=== PATIENT | female | born 1930 | race Caucasian/White ===

== ENCOUNTER 2018-12-05 08:48 | Inpatient (IN) | payer MEDICARE, OTHER ==
[2018-12-05] VITALS (18 sets, daily range): BP systolic 75–120; BP diastolic 63–94
[~2018-12-05] VITALS: Ht 162.6 cm; Wt 73.0 kg
[2018-12-05] MEDS ORDERED: ONDANSETRON 4 MG/2 ML (SDV) Z0FRAN IVP PRN (09:15)
[2018-12-05] MEDS ORDERED: DOCUSATE SODIUM 100 MG (COLACE) CAP PO PRN (09:15)
[2018-12-05] MEDS ORDERED: MELATONIN 3 MG TABLET PO PRN (09:15)
[2018-12-05] MEDS ORDERED: CALCIUM CARBONATE 500 MG (TUMS) TAB.CHEW PO PRN (09:15)
[2018-12-05] MEDS ORDERED: LOPERAMIDE 2 MG (IMODIUM) CAP PO PRN (09:15)
--- NOTE | 2018-12-05 09:43 | NUR ---
CORONA,SUELLEN H admitted to room CU7-1, with an admitting diagnosis of afib with RVR, on 12/05/18 from [facility], accompanied by staff.SUELLEN CORONA introduced to surroundings, call light, bed controls, phone, TV, temperature control, lights, meal times, smoking policy, visitor policy, side rail policy, bathrooms and showers. Patient Rights given to patient in the handbook. SUELLEN CORONA verbalizes understanding that [facility] is not responsible for the loss or damage to any personal effects or valuables that are kept in the patients posession during their hospitalization. The following Patient Care Plans were discussed with the pt: Discharge Planning. SUELLEN CORONA verbalizes understanding of Interdisciplinary Patient Education. Patient and/or family were informed about the Rapid Response Team and its purpose.
[2018-12-05] MEDS: NS IV 1000 ML 1,000 ML IV SCH ×2 (10:00→15:46)
--- NOTE | 2018-12-05 10:17 | Pulmonary Consultation ---
History of Present Illness History of Present Illness Date of Consultation 12/05/18 10:16 Time Seen by Provider: 10:16 Date of Admission History of Present Illness 88yo with hx of Afib, and multiple falls admitted to [facility] s/p fall and found to have a left hip fracture. Transferred here from [facility] secondary to Afib RVR, hypotension requiring Levophed gtt, and need for higher level of care. PT is s/ p 2 units of PRBC on Monday. Pt was also dx with a UTI and started on Rocephin. I am consulted for pulmonary/CC management. Allergies and Home Medications Allergies Coded Allergies: No Known Drug Allergies (Unverified , 12/05/18) Home Medications Acebutolol HCl 400 Mg Capsule, 400 MG PO HS, (Reported) Aspirin 81 Mg Tablet.dr, 81 MG PO DAILY, (Reported) Calcium Carbonate/Vitamin D3 1 Each Tablet, 1 TAB PO DAILY, (Reported) Carvedilol 3.125 Mg Tablet, 3.125 MG PO BID, (Reported) Citalopram Hydrobromide 20 Mg Tablet, 10 MG PO HS, (Reported) TAKES 1/2 (20MG) TABLET Clopidogrel Bisulfate 75 Mg Tablet, 75 MG PO HS, (Reported) Diltiazem HCl 120 Mg Cap.er.24h, 120 MG PO DAILY, (Reported) Docusate Sodium 100 Mg Capsule, 400 MG PO HS, (Reported) TAKES 4 (100MG) CAPSULES Mirtazapine 7.5 Mg Tablet, 7.5 MG PO HS, (Reported) Multivitamin 1 Each Tablet, 1 TAB PO DAILY, (Reported) [place] 3 Polyunsat Fatty Acids 1,000 Mg Cap, 1,000 MG PO DAILY, (Reported) Pravastatin Sodium 20 Mg Tablet, 20 MG PO HS, (Reported) Ropinirole HCl 0.25 Mg Tablet, 0.25 MG PO TID, (Reported) Past Bedwjmo-Vyyjjv-Eknyyy Hx Patient Social History Recent Foreign Travel: No Contact w/Someone Who Travel: No Review of Systems Time Seen by Provider: 06:55 Constitutional: Weakness, Malaise; No: Fever, Chills, Sweats, Other Eyes: No: Pain, Vision change, Conjunctivae inflammation, Eyelid inflammation, Other, Redness ENT: No: Ear pain, Ear discharge, Nose pain, Nose discharge, Nose congestion, Mouth pain, Mouth swelling, Throat pain, Throat swelling, Other Respiratory: Cough, Dry, Shortness of breath, SOB with excertion; No: Wheezing , Hemoptysis, Pleuritic Pain, Sputum, Wheezing, Other Cardiovascular: Paroxysmal Noc. Dyspnea, Lt Headedness Neurological: Incoordination, Confusion Sepsis Event Evaluation Height, Weight, BMI Height: '" Weight: lbs. oz. kg; BMI Method: Exam Exam Vital Signs Date Time Temp Pulse Resp B/P (MAP) Pulse Ox O2 Delivery O2 Flow Rate FiO2 12/05/18 09:49 104 Height & Weight Height: '" Weight: lbs. oz. kg; BMI Method: General Appearance: Anxious, Chronically ill, Thin HEENT: PERRL/EOMI, Normal ENT Inspection, Pharynx Normal Neck: Full Range of Motion, Non Tender, Supple Respiratory: Chest Non Tender, Crackles, Decreased Breath Sounds Cardiovascular: No Murmur, Irregularly Irregular, Tachycardia Capillary Refill: Less Than 3 Seconds Gastrointestinal: normal bowel sounds, non tender, soft Extremity: Normal Capillary Refill, Normal Inspection, Normal Range of Motion Neurologic/Psychiatric: Alert, Oriented x3 Skin: Normal Color, Warm/Dry Lymphatic: No Adenopathy Assessment/Plan Assessment/Plan S/p fall resulting in hip fracture - now S/p Left hip surgery 12/02/18 Hypotension - -Monitor close -IVF Pleural effusion with hypoxia -Monitor -Oxygen Atelectasis -IS -Increase activity Afib RVR -Cardiology following Anemia s/p transfusion Thrombocytopenia - monitor ANTON GLASER DO Dec 05, 2018 10:17
--- NOTE | 2018-12-05 10:39 | Progress Note-Hospitalist ---
Progress Note Patient [place] [facility] [place] w/RVR with hypotension in need of higher level of care and Cardiology expertise. Patient with chronic AF but not an anticoagulation candidate due to multiple falls who was admitted [place] [facility] [place] a left hip fracture sustained in a fall at home. Received 2 units of blood post operatively on Monday and required a total of 5000cc of fluid then Levophed at 4mcg to maintain SBP above 110. Patient was noted to have UTI placed on Rocephin. Had episode of oliguria resolved with low dose Lasix. Pt was able to recover for 1 day and actually improved and DC Levophed and participated in PT but then began having AF w/RVR and unable to manage it due to hypotension so she was transferred to [facility]. Patient is maintained at DNR and overall her prognosis is at best guarded. AUGUSTIN TIWARI DO Dec 05, 2018 10:39
[2018-12-05 11:24] LABS: BASOPHILS % (AUTO) 1 % (0-10); EOSINOPHILS # (AUTO) 0.1 10^3/uL (0.0-0.3); EOSINOPHILS % (AUTO) 2 % (0-10); HEMATOCRIT 29 % (35-52); HEMOGLOBIN 9.2 G/DL (11.5-16.0); LYMPHOCYTES # (AUTO) 1.1 X 10^3 (1.0-4.0); LYMPHOCYTES % (AUTO) 18 % (12-44); MEAN CORPUSCULAR HEMOGLOBIN 33 PG (25-34); MEAN CORPUSCULAR HGB CONC 32 G/DL (32-36); MEAN CORPUSCULAR VOLUME 102 FL (80-99); MEAN PLATELET VOLUME 9.7 FL (7.4-10.4); MONOCYTES # (AUTO) 0.9 X 10^3 (0.0-1.0); MONOCYTES % (AUTO) 14 % (0-12); NEUTROPHILS # (AUTO) 4.3 X 10^3 (1.8-7.8); NEUTROPHILS % (AUTO) 66 % (42-75); PLATELET COUNT 120 10^3/uL (130-400); RED CELL DISTRIBUTION WIDTH 15.1 % (10.0-14.5); WHITE BLOOD COUNT 6.5 10^3/uL (4.3-11.0)
[2018-12-05 11:44] LABS: ALANINE AMINOTRANSFERASE 11 U/L (0-55); ALBUMIN 2.6 GM/DL (3.2-4.5); ALKALINE PHOSPHATASE 45 U/L (40-136); BILIRUBIN,TOTAL 0.5 MG/DL (0.1-1.0); BUN/CREATININE RATIO 29; CALCIUM 7.9 MG/DL (8.5-10.1); CARBON DIOXIDE 24 MMOL/L (21-32); CHLORIDE 109 MMOL/L (98-107); CREATININE SERUM 0.68 MG/DL (0.60-1.30); GFR ESTIMATED > 60; GLUCOSE 107 MG/DL (70-105); POTASSIUM 3.9 MMOL/L (3.6-5.0); SODIUM 139 MMOL/L (135-145); TOTAL PROTEIN 4.9 GM/DL (6.4-8.2)
--- NOTE | 2018-12-05 12:03 | NUR ---
SPOKE WITH THE PATIENT ABOUT HER MEDICATIONS. SHE STATES SHE DOES NOT KNOW WHAT SHE TAKES, MALI, A FRIEND SETS UP HER MEDS IN A [employer]ILL [employer] CLERK FOR HER. I CALLED MALI AT [phone] AND SPOKE WITH HER. SHE VERIFIED THAT ALL HER PRESCRIPTION MEDICATION COMES FROM [employer] MAIL ORDER AND LISTED WHAT MEDS SHE TAKES OTC. SHE DID NOT KNOW HOW SHE SETS THEM UP SPECIFICALLY OFF THE TOP OF HER HEAD BUT WILL CALL ME BACK WHEN SHE GOES TO THE PATIENTS [place] TO GET HER MED LIST TO VERIFY ALL MEDS. I WILL UPDATE THE MED REC AND REVIEW IT WHEN SHE CALLS ME BACK. Addendum: 12/05/18 at 1346 by [facility] MALI CALLED ME BACK AT THIS TIME AND READ ALL THE MEDICATIONS OFF HER MED LIST AT HOME. SHE VERIFIED THE TIMES AND DOSES ON EACH MEDICATION.
--- NOTE | 2018-12-05 12:59 | Diagnostic Imaging Report ---
INDICATION: Hypotension. The heart is enlarged. The central pulmonary vascularity is somewhat prominent but there is no evidence for overt failure. There is no sign of pneumonia either. There is slight blunting of the costophrenic angles. This could be secondary to pleural thickening or small effusions. The mediastinum is not widened. The osseous structures are intact. IMPRESSION: 1. The blunted appearance of the costophrenic angles maybe secondary to small effusions or to pleural thickening. If previous studies are available they would be helpful for comparison. 2. There is cardiomegaly but there is no evidence for an acute cardiopulmonary abnormality otherwise. Dictated by: Dictated on workstation # [id number]
--- NOTE | 2018-12-05 14:27 | Consultation-Cardiology ---
HPI-Cardiology Cardiology Consultation: Date of Consultation 12/05/18 Time Seen by a Provider: 13:10 Date of Admission Attending Physician Nayely Esquivel DO Admitting Physician No,Local Physician Consulting Physician MARINA ZHANG MD, MA, FACP, FACC, FSCAI, CCDS Physician requesting consult: Dr Esquivel HPI: Chief Complaint: Reason for consultation: A Fib, hypotension HPI: 88 woman who had a non-syncopal fall resulting in L leg fracture for which she had surgery at [facility] and was running a low bp and irreg heart rhythm afterwards and was transferred to this hosp for further eval She denies cp or palp or syncope Has chronic mild shortness of breath Does not report prior leg swelling Review of Systems-Cardiology Review of Systems Constitutional: malaise; No weight loss, No weight gain Eyes: No vision change Ears/Nose/Throat: No ear discharge, No nasal drainage, No recent hearing loss Respiratory: As described under HPI Cardiovascular: As described under HPI Gastrointestinal: No diarrhea, No nausea, No vomiting Genitourinary: No dysuria, No hematuria, No urine frequency changes Musculoskeletal: back pain (chronic), joint pain (chronic) Skin: No rash, No ulcerations Psychiatric/Neurological: No seizure, No focal weakness, No syncope Hematologic: No bleeding abnormalities PHN-Dbnesz-Uybeht Hx Patient Social History Alcohol Use: Denies Use Recreational Drug Use: No Recent Foreign Travel: No Physical Abuse Screen: No Sexual Abuse: No Immunizations Up To Date Date of Pneumonia Vaccine: Sep 22, 2018 Date of Influenza Vaccine: Sep 22, 2018 Past Medical History PMH As described under Assessment. Family Medical History Family Medical History: Does not report fam h/o early CAD or SCD Allergies and Home Medications Allergies Coded Allergies: No Known Drug Allergies (Unverified , 12/05/18) Home Medications Acebutolol HCl 400 Mg Capsule, 400 MG PO HS, (Reported) Aspirin 81 Mg Tablet.dr, 81 MG PO DAILY, (Reported) Calcium Carbonate/Vitamin D3 1 Each Tablet, 1 TAB PO DAILY, (Reported) Carvedilol 3.125 Mg Tablet, 3.125 MG PO BID, (Reported) Citalopram Hydrobromide 20 Mg Tablet, 10 MG PO HS, (Reported) TAKES 1/2 (20MG) TABLET Clopidogrel Bisulfate 75 Mg Tablet, 75 MG PO HS, (Reported) Diltiazem HCl 120 Mg Cap.er.24h, 120 MG PO DAILY, (Reported) Docusate Sodium 100 Mg Capsule, 400 MG PO HS, (Reported) TAKES 4 (100MG) CAPSULES Mirtazapine 7.5 Mg Tablet, 7.5 MG PO HS, (Reported) Multivitamin 1 Each Tablet, 1 TAB PO DAILY, (Reported) [place] 3 Polyunsat Fatty Acids 1,000 Mg Cap, 1,000 MG PO DAILY, (Reported) Pravastatin Sodium 20 Mg Tablet, 20 MG PO HS, (Reported) Ropinirole HCl 0.25 Mg Tablet, 0.25 MG PO TID, (Reported) Patient Home Medication List Home Medication List Reviewed: Yes Physical Exam-Cardiology Physical Exam Vital Signs/I&O 12/05/18 12/05/18 12/05/18 12/05/18 09:30 09:45 09:49 10:00 Pulse 99 104 98 Resp 13 27 B/P (MAP) 97/70 (79) 101/74 (83) Pulse Ox 96 97 O2 Delivery Nasal Cannula Nasal Cannula Nasal Cannula O2 Flow Rate 2.00 2.00 2.00 12/05/18 12/05/18 12/05/18 12/05/18 10:15 10:30 10:45 11:00 Pulse 98 95 101 98 Resp 17 15 27 23 B/P (MAP) 100/75 (83) 91/75 (80) 105/71 (82) 99/72 (81) Pulse Ox 97 97 97 98 O2 Delivery Nasal Cannula Nasal Cannula Nasal Cannula Nasal Cannula O2 Flow Rate 2.00 2.00 2.00 2.00 12/05/18 12/05/18 12/05/18 11:00 12:00 12:00 Temp 98.1 Pulse 109 Resp 22 B/P (MAP) 102/80 (87) Pulse Ox 96 96 O2 Delivery Nasal Cannula Nasal Cannula O2 Flow Rate 2.00 2.00 Capillary Refill : Less Than 3 Seconds Constitutional: AAO x 3, well-developed, other (thin-appearing) HEENT: PERRL, EOMI, hearing is well preserved; No xanthelasmas are seen Neck: carotid pulses are 2 + bilaterally, with good upstrokes Respiratory: No accessory muscle use; other (Fair to good bilat air entry; prolonged exp phase) Cardiovascular: irregularly irregular, S1 and S2, systolic murmur (soft SHAKA at card base) Gastrointestinal: No tender; soft; No guarding, No rebound; audible bowel sounds Extremities: pedal edema (mild); No clubbing, No cyanosis Neurologic/Psychiatric: oriented x 3, other (Seems to be able to move all limbs equally; we did not attempt any motion at the affected leg) Skin: No rash on exposed areas, No ulcerations on exposed areas Data Review Labs Laboratory Tests 12/05/18 11:05: White Blood Count 6.5, Red Blood Count 2.81L, Hemoglobin 9.2L, Hematocrit 29L, Mean Corpuscular Volume 102H, Mean Corpuscular Hemoglobin 33, Mean Corpuscular Hemoglobin Concent 32, Red Cell Distribution Width 15.1H, Platelet Count 120L, Mean Platelet Volume 9.7, Neutrophils (%) (Auto) 66, Lymphocytes (%) (Auto) 18, Monocytes (%) (Auto) 14H, Eosinophils (%) (Auto) 2, Basophils (%) (Auto) 1, Neutrophils # (Auto) 4.3, Lymphocytes # (Auto) 1.1, Monocytes # (Auto) 0.9, Eosinophils # (Auto) 0.1, Basophils # (Auto) 0.0, Sodium Level 139, Potassium Level 3.9, Chloride Level 109H, Carbon Dioxide Level 24, Anion Gap 6, Blood Urea Nitrogen 20H, Creatinine 0.68, Estimat Glomerular Filtration Rate > 60, BUN /Creatinine Ratio 29, Glucose Level 107H, Lactic Acid Level 0.76, Calcium Level 7.9L, Corrected Calcium 9.0, Total Bilirubin 0.5, Aspartate Amino Transf (AST/ SGOT) 27, Alanine Aminotransferase (ALT/SGPT) 11, Alkaline Phosphatase 45, Troponin I 0.275, B-Type Natriuretic Peptide 713.7H, Total Protein 4.9L, Albumin 2.6L Laboratory Tests 12/05/18 11:05 A/P-Cardiology Assessment/Admission Diagnosis S/p L hip surgery on 12/02/18 after a nonsyncopal fall. Transferred to this hosp on 12/05/18 from [facility] Atrial fibrillation, apparently chronic Relative hypotension Mildly elevated troponin w/o evidence of ac [place]. Mild troponin elev prob due to hypotension and perioperative blood loss Post-op anemia. Has received blood transfusion at [facility] Discussion and Recomendations * iv fluids for bp support * Echo to eval LVEF and valve function * Low dose dig to control heart rate * Keep on tele * Monitor labs closely * I answered her and her son's questions in detail Clinical Quality Measures DVT/VTE Risk/Contraindication: Risk Factor Score Per Nursin RFS Level Per Nursing on Admit: 4+=Very High MARINA ZHANG MD FACP FAC CCDS Dec 05, 2018 14:26
[2018-12-05] MEDS ORDERED: DIGOXIN 0.25 MG/ML (LANOXIN) 2 ML AMP IV NR (15:00)
[2018-12-05 16:14] LABS: BILIRUBIN,URINE NEGATIVE (NEGATIVE); CLARITY,URINE CLEAR; COLOR,URINE YELLOW; GLUCOSE, URINE (UA) NEGATIVE (NEGATIVE); KETONES,URINE NEGATIVE (NEGATIVE); LEUKOCYTE ESTERASE ,URINE 1+ (NEGATIVE); NITRITE,URINE NEGATIVE (NEGATIVE); PH,URINE 6 (5-9); PROTEIN,URINE 2+ (NEGATIVE); UROBILINOGEN,URINE NORMAL (NORMAL)
[2018-12-05 16:20] LABS: RBC,URINE >100 /HPF
[2018-12-05] MEDS: ACETAMINOPHEN 500 MG TAB (TYLENOL) PO PRN (16:23)
[2018-12-05] MEDS: POLYETHYLENE GLYCOL 17 GM (MIRALAX) PACK PO SCH (21:00)
[2018-12-06] VITALS (24 sets, daily range): BP systolic 96–133; BP diastolic 39–98
[2018-12-06] MEDS: NS IV 1000 ML 1,000 ML IV SCH ×2 (01:13→08:43)
[2018-12-06 03:55] LABS: BASOPHILS # (AUTO) 0.1 10^3/uL (0.0-0.1); BASOPHILS % (AUTO) 1 % (0-10); EOSINOPHILS # (AUTO) 0.2 10^3/uL (0.0-0.3); EOSINOPHILS % (AUTO) 3 % (0-10); HEMATOCRIT 30 % (35-52); HEMOGLOBIN 9.5 G/DL (11.5-16.0); LYMPHOCYTES # (AUTO) 1.4 X 10^3 (1.0-4.0); LYMPHOCYTES % (AUTO) 23 % (12-44); MEAN CORPUSCULAR HEMOGLOBIN 32 PG (25-34); MEAN CORPUSCULAR HGB CONC 32 G/DL (32-36); MEAN CORPUSCULAR VOLUME 102 FL (80-99); MEAN PLATELET VOLUME 9.8 FL (7.4-10.4); MONOCYTES # (AUTO) 0.8 X 10^3 (0.0-1.0); MONOCYTES % (AUTO) 14 % (0-12); NEUTROPHILS # (AUTO) 3.6 X 10^3 (1.8-7.8); NEUTROPHILS % (AUTO) 60 % (42-75); PLATELET COUNT 127 10^3/uL (130-400); RED CELL DISTRIBUTION WIDTH 14.8 % (10.0-14.5)
[2018-12-06 04:17] LABS: ALANINE AMINOTRANSFERASE 12 U/L (0-55); ALBUMIN 2.4 GM/DL (3.2-4.5); ALKALINE PHOSPHATASE 40 U/L (40-136); BILIRUBIN,TOTAL 0.5 MG/DL (0.1-1.0); BUN/CREATININE RATIO 28; CARBON DIOXIDE 25 MMOL/L (21-32); CHLORIDE 113 MMOL/L (98-107); CREATININE SERUM 0.64 MG/DL (0.60-1.30); GFR ESTIMATED > 60; GLUCOSE 94 MG/DL (70-105); MAGNESIUM 1.6 MG/DL (1.8-2.4); PHOSPHORUS 2.1 MG/DL (2.3-4.7); POTASSIUM 4.1 MMOL/L (3.6-5.0); SODIUM 143 MMOL/L (135-145); TOTAL PROTEIN 4.8 GM/DL (6.4-8.2)
[2018-12-06] MEDS ORDERED: ENOXAPARIN 40 MG/0.4 ML (LOVENOX) SYR SC SCH (07:00)
--- NOTE | 2018-12-06 07:02 | Pulmonary Progress Note ---
Subjective Time Seen by a Provider: 07:05 Subjective/Events-last exam Pt appears very weak. Sepsis Event Evaluation Height, Weight, BMI Height: 5'4.00" Weight: 149lbs. 1.0oz. 67.110887pw; 25.6 BMI Method: Focused Exam Lactate Level 12/05/18 11:05: Lactic Acid Level 0.76 Exam Exam Vital Signs Date Time Temp Pulse Resp B/P (MAP) Pulse Ox O2 Delivery O2 Flow Rate FiO2 12/06/18 06:00 120 19 118/92 (101) 96 Nasal Cannula 2.00 12/06/18 05:00 82 56 110/85 (93) 98 Nasal Cannula 2.00 12/06/18 04:00 116 16 104/84 (91) 96 Nasal Cannula 2.00 12/06/18 03:00 101 23 133/92 (106) 97 Nasal Cannula 2.00 12/06/18 02:00 109 15 115/87 (96) Nasal Cannula 2.00 12/06/18 01:00 100 12/06/18 01:00 104 22 121/84 (96) Nasal Cannula 2.00 12/06/18 00:00 95 Nasal Cannula 2.00 12/06/18 00:00 98 14 118/76 (90) Nasal Cannula 2.00 12/05/18 23:50 Nasal Cannula 2.00 12/05/18 23:00 98 16 101/65 (77) 97 Nasal Cannula 2.00 12/05/18 22:00 98 15 106/71 (83) 96 Nasal Cannula 2.00 12/05/18 21:00 92 16 106/71 (83) 98 Nasal Cannula 2.00 12/05/18 20:00 92 41 112/80 (91) 97 Nasal Cannula 2.00 12/05/18 20:00 95 Nasal Cannula 2.00 12/05/18 19:00 92 19 99/71 (80) 97 Nasal Cannula 2.00 12/05/18 19:00 92 12/05/18 18:00 115 22 91/68 (76) 97 Nasal Cannula 2.00 12/05/18 18:00 98.7 12/05/18 17:06 124 12/05/18 17:00 126 9 120/94 (103) 97 Nasal Cannula 2.00 12/05/18 16:00 96 Nasal Cannula 2.00 12/05/18 16:00 102 27 112/63 (79) 93 Nasal Cannula 2.00 12/05/18 15:00 123 10 86/67 (73) 90 Nasal Cannula 2.00 12/05/18 14:00 99 16 91/73 (79) 97 Nasal Cannula 2.00 12/05/18 13:00 101 16 75/65 (68) 96 Nasal Cannula 2.00 12/05/18 13:00 98.9 12/05/18 12:00 109 22 102/80 (87) 96 Nasal Cannula 2.00 12/05/18 12:00 96 Nasal Cannula 2.00 12/05/18 11:00 98.1 12/05/18 11:00 98 23 99/72 (81) 98 Nasal Cannula 2.00 12/05/18 10:45 101 27 105/71 (82) 97 Nasal Cannula 2.00 12/05/18 10:30 95 15 91/75 (80) 97 Nasal Cannula 2.00 12/05/18 10:15 98 17 100/75 (83) 97 Nasal Cannula 2.00 12/05/18 10:00 98 27 101/74 (83) 97 Nasal Cannula 2.00 12/05/18 09:49 104 12/05/18 09:45 99 13 97/70 (79) 96 Nasal Cannula 2.00 12/05/18 09:30 Nasal Cannula 2.00 I & O 12/06/18 07:00 Output Total 475 ml Balance -475 ml Height & Weight Height: 5'4.00" Weight: 149lbs. 1.0oz. 67.486698oc; 25.6 BMI Method: General Appearance: Anxious, Chronically ill, Thin HEENT: PERRL/EOMI, Normal ENT Inspection, Pharynx Normal Neck: Full Range of Motion, Non Tender, Supple Respiratory: Chest Non Tender, Crackles, Decreased Breath Sounds Cardiovascular: No Murmur, Irregularly Irregular, Tachycardia Capillary Refill: Less Than 3 Seconds Gastrointestinal: normal bowel sounds, non tender, soft Extremity: Normal Capillary Refill, Normal Inspection, Normal Range of Motion Neurologic/Psychiatric: Alert, Oriented x3 Skin: Normal Color, Warm/Dry Lymphatic: No Adenopathy Results Lab Laboratory Tests 12/05/18 11:05 12/06/18 03:20 Assessment/Plan Assessment/Plan S/p fall resulting in hip fracture - now S/p Left hip surgery 12/02/18 Hypotension - -Monitor close -IVF Pleural effusion with hypoxia BNP 713 -Monitor -Oxygen Atelectasis -IS -Increase activity Afib RVR -Cardiology following post operative Anemia s/p transfusion 4units of PRBC at [facility] [place] -Check occult stool -protonix 40mg daily mild Thrombocytopenia - monitor Pt is high risk for DVT -will start lovenox 40mg sub q daily -Monitor Hb -start protonix -SCDs ANTON GLASER DO Dec 06, 2018 07:02
[2018-12-06] MEDS ORDERED: ENOXAPARIN 40 MG/0.4 ML (LOVENOX) SYR ONE (07:03)
[2018-12-06] MEDS: MAGNESIUM 1 GM/100 ML IVPB 100 ML IV SCH ×2 (07:10→08:37)
[2018-12-06] MEDS: PANTOPRAZOLE 40 MG (PROTONIX) VIAL IV SCH (08:36)
[2018-12-06] MEDS: POLYETHYLENE GLYCOL 17 GM (MIRALAX) PACK PO SCH ×4 (08:37→20:19)
--- NOTE | 2018-12-06 08:43 | Progress Note-Cardiology ---
Cardiology SOAP Progress Note Subjective: Sitting up in bed. C/O left hip pain. No c/o CP, dyspnea or palpitations. Objective: I&O/Vital Signs 12/06/18 12/06/18 12/06/18 12/06/18 03:00 04:00 04:00 04:00 Temp 98.8 Pulse 101 116 Resp 23 16 B/P (MAP) 133/92 (106) 104/84 (91) Pulse Ox 97 96 95 O2 Delivery Nasal Cannula Nasal Cannula Nasal Cannula O2 Flow Rate 2.00 2.00 2.00 12/06/18 12/06/18 12/06/18 12/06/18 05:00 06:00 07:00 07:51 Pulse 82 120 126 120 Resp 56 19 24 B/P (MAP) 110/85 (93) 118/92 (101) 128/84 (99) Pulse Ox 98 96 O2 Delivery Nasal Cannula Nasal Cannula Nasal Cannula O2 Flow Rate 2.00 2.00 2.00 12/06/18 12/06/18 12/06/18 12/06/18 07:57 08:00 08:00 09:00 Temp 98.2 Pulse 113 Resp 18 45 B/P (MAP) 104/94 (97) 100/87 (91) Pulse Ox 95 96 O2 Delivery Nasal Cannula Nasal Cannula Nasal Cannula O2 Flow Rate 2.00 2.00 2.00 12/06/18 12/06/18 12/06/18 12/06/18 09:43 10:00 11:00 12:00 Pulse 75 125 120 Resp 20 20 B/P (MAP) 103/79 (87) 112/82 (92) Pulse Ox 95 96 96 O2 Delivery Nasal Cannula Nasal Cannula Nasal Cannula O2 Flow Rate 2.00 2.00 2.00 12/06/18 12/06/18 12:00 12:06 Temp 98.3 Pulse 123 Resp 21 B/P (MAP) 122/78 (93) Pulse Ox 95 O2 Delivery Nasal Cannula O2 Flow Rate 2.00 12/06/18 00:00 Output Total 475 ml Balance -475 ml Weight (Pounds): 151 Weight (Ounces): 1.0 Weight (Calculated Kilograms): 68.432012 Constitutional: AAO x 3, well-developed, other (thin-appearing) Respiratory: No accessory muscle use; other (Fair to good bilat air entry; prolonged exp phase) Cardiovascular: irregularly irregular, S1 and S2, systolic murmur (soft SHAKA at card base) Gastrointestional: No tender; soft; No guarding, No rebound; audible bowel sounds Extremities: pedal edema (mild - wraps in place to LE bilat); No clubbing, No cyanosis Neurologic/Psychiatric: oriented x 3, other (Seems to be able to move all limbs equally; we did not attempt any motion at the affected leg) Skin: No rash on exposed areas, No ulcerations on exposed areas Results/Procedures: Labs Laboratory Tests 12/05/18 16:05: Urine Color YELLOW, Urine Clarity CLEAR, Urine pH 6, Urine Specific [place] 1.020, Urine Protein 2+H, Urine Glucose (UA) NEGATIVE, Urine Ketones NEGATIVE, Urine Nitrite NEGATIVE, Urine Bilirubin NEGATIVE, Urine Urobilinogen NORMAL, Urine Leukocyte Esterase 1+H, Urine RBC (Auto) 5+H, Urine RBC >100H, Urine WBC 2 -5, Urine Squamous Epithelial Cells 2-5, Urine Crystals NONE, Urine Bacteria NONE, Urine Casts NONE, Urine Mucus NEGATIVE, Urine Culture Indicated NO 12/06/18 03:20: White Blood Count 6.0, Red Blood Count 2.93L, Hemoglobin 9.5L, Hematocrit 30L, Mean Corpuscular Volume 102H, Mean Corpuscular Hemoglobin 32, Mean Corpuscular Hemoglobin Concent 32, Red Cell Distribution Width 14.8H, Platelet Count 127L, Mean Platelet Volume 9.8, Neutrophils (%) (Auto) 60, Lymphocytes (%) (Auto) 23, Monocytes (%) (Auto) 14H, Eosinophils (%) (Auto) 3, Basophils (%) (Auto) 1, Neutrophils # (Auto) 3.6, Lymphocytes # (Auto) 1.4, Monocytes # (Auto) 0.8, Eosinophils # (Auto) 0.2, Basophils # (Auto) 0.1, Sodium Level 143, Potassium Level 4.1, Chloride Level 113H, Carbon Dioxide Level 25, Anion Gap 5, Blood Urea Nitrogen 18, Creatinine 0.64, Estimat Glomerular Filtration Rate > 60, BUN/ Creatinine Ratio 28, Glucose Level 94, Calcium Level 8.0L, Corrected Calcium 9.3 , Phosphorus Level 2.1L, Magnesium Level 1.6L, Total Bilirubin 0.5, Aspartate Amino Transf (AST/SGOT) 26, Alanine Aminotransferase (ALT/SGPT) 12, Alkaline Phosphatase 40, Total Protein 4.8L, Albumin 2.4L A/P: Assessment: S/p L hip surgery on 12/02/18 after a nonsyncopal fall. Transferred to this hosp on 12/05/18 from [facility] Atrial fibrillation, apparently chronic - rate not well controlled Relative hypotension - improved today Mildly elevated troponin w/o evidence of ac [place]. Mild troponin elev prob due to hypotension and perioperative blood loss Post-op anemia. Has received blood transfusion at [facility] - H/H improved Plan: * BP is better today * Resume Cardizem (which she was on at home) for rate control * Echo to eval LVEF and valve function - pending * The other issue is that of OAC for stroke prophylaxis - we do advise stopping Lovenox and starting low dose Eliquis 2.5 mg BID if ok with Dr. Esquivel * Continue to hold BB for now d/t suspicions of possible bradycardia and/or hypotension * Keep on tele * Monitor labs closely Physician Assessment Physician Assessment No cp or palp or syncope. Gen malaise present. No shortness of breath at rest Lungs: fair to good bilat air entry, diminished at the bases Cor: irreg, somewhat rapid rate Ext: no c/c/e A&R * As documented in our note above that I updated (italics) and as noted below * Cautiously add low-dose, long-acting dilt to the regimen * Cautiously add apixaban to regimen (d/c enoxaparin) * Monitor labs ANH MENDENHALL EDUCATIONAL ADVISER Dec 06, 2018 08:43 MARNIA ZHANG MD [facility] CCDS Dec 06, 2018 14:22
[2018-12-06] MEDS ORDERED: DILTIAZEM 240 MG (CARDIZEM CD) CAP PO ONE (08:45)
[2018-12-06] MEDS ORDERED: DILTIAZEM 120 MG (CARDIZEM CD) CAP PO SCH (09:00)
[2018-12-06] MEDS ORDERED: DILTIAZEM 120 MG (CARDIZEM CD) CAP PO ONE (09:05)
--- NOTE | 2018-12-06 09:19 | History & Physical-Hospitalist ---
History of Present Illness HPI/Chief Complaint CC: AF w/RVR w/hypotension HPI: Patient transferred from [facility] due to AF w/RVR with hypotension in need of higher level of care and Cardiology expertise. Patient with chronic AF but not an anticoagulation candidate due to multiple falls who was admitted to [facility] following a left hip fracture sustained in a fall at home. Received 2 units of blood post operatively on Monday and required a total of 5000cc of fluid then Levophed at 4mcg to maintain SBP above 110. Patient was noted to have UTI placed on Rocephin. Had episode of oliguria resolved with low dose Lasix. Pt was able to recover for 1 day and actually improved and DC Levophed and participated in PT but then began having AF w/RVR and unable to manage it due to hypotension so she was transferred to [facility]. Patient is maintained at DNR and overall her prognosis is at best guarded. Patient is doing better. Ordered PT/OT. Rate still somewhat RVR. Hypotension improved. Eliquis low dose will be initiated for DVT Px. No BM for several days due to such critical illness so will start meds today. Source: patient, family, RN/MD, old records Exam Limitations: no limitations Date Seen 12/06/18 Time Seen by a Provider: 10:00 Attending Physician Nayely Esquivel DO PCP No,Local Physician Referring Physician Date of Admission Dec 05, 2018 at 09:33 Home Medications & Allergies Home Medications Reviewed patient Home Medication Reconciliation performed by pharmacy medication reconciliations computer operations technician and/or nursing. Patients Allergies have been reviewed. Allergies Allergies Coded Allergies No Known Drug Allergies (Unverified12/05/18) Past Imqrgix-Ssgglq-Hlofnk Hx Past Med/Social Hx: Reviewed Nursing Past Med/Soc Hx, Reviewed and Corrections made Patient Social History Marrital Status: Employed/Student: retired Alcohol Use: Denies Use Recreational Drug Use: No Smoking Status: Never a Smoker Physical Abuse Screen: No Sexual Abuse: No Recent Foreign Travel: No Contact w/other who traveled: No Immunizations Up To Date Date of Pneumonia Vaccine: Sep 22, 2018 Date of Influenza Vaccine: Sep 22, 2018 Past Medical History Surgeries: Orthopedic (hip fracture left 12/02/[address] [facility] Dr Nunes) Cardiac: High Cholesterol, Hypertension Genitourinary: Bladder Infection Gastrointestinal: Chronic Constipation Musculoskeletal: Arthritis Family History Hypertension Review of Systems Constitutional: see HPI, dizziness, weakness EENTM: no symptoms reported Respiratory: no symptoms reported Cardiovascular: palpitations Gastrointestinal: no symptoms reported Musculoskeletal: joint pain (left hip) Psychiatric/Neurological: Anxiety All Other Systems Reviewed Negative Unless Noted: Yes Physical Exam Physical Exam Vital Signs Vital Signs - First Documented 12/05/18 12/05/18 12/05/18 09:30 09:45 11:00 Temp 98.1 Pulse 99 Resp 13 B/P (MAP) 97/70 (79) Pulse Ox 96 O2 Delivery Nasal Cannula O2 Flow Rate 2.00 Capillary Refill : Less Than 3 SecondsLess Than 3 Seconds Height, Weight, BMI Height: 5'4.00" Weight: 151lbs. 1.0oz. 68.652623br; 25.6 BMI Method: General Appearance: No Apparent Distress, Chronically ill, Thin HEENT: PERRL/EOMI, Pharynx Normal Neck: Full Range of Motion, Normal Inspection, Non Tender, Supple Respiratory: Chest Non Tender, Lungs Clear, Normal Breath Sounds, No Accessory Muscle Use, No Respiratory Distress Cardiovascular: No Edema, No Gallop, Irregularly Irregular, Tachycardia Neurologic/Psychiatric: Alert, Oriented x3, No Motor/Sensory Deficits, Normal Mood/Affect, progress worker II-XII Norm as Tested, Disoriented (subtle) Skin: Normal Color, Warm/Dry Results Results/Procedures Labs Laboratory Tests 12/05/18 11:05 12/06/18 03:20 Patient resulted labs reviewed. Assessment/Plan Admission Diagnosis Assessment: AF w/RVR Hypotension required Levophed after 5000cc of fluid given at [facility] Orthostasis hx which gave rise to fall risk with subsequent left hip fracture s/ p repair Dr Nunes 12/02/18 Anemia s/p 4 units of blood at [facility] UTI s/p Rocephin HLP Subtle confusion Plan: PT/OT BM treatment Pain control Needs AZP Admission Status: Inpatient Order (span 2 midnights) Reason for Inpatient Admission: AF w/RVR with hypotension Diagnosis/Problems Diagnosis/Problems (1) Atrial fibrillation with rapid ventricular response Status: Acute (2) Hypotension Status: Acute Qualifiers: Hypotension type: unspecified hypotension type Qualified Codes: I95.9 - Hypotension, unspecified (3) Orthostatic hypotension Status: Chronic (4) Confusion Status: Acute (5) Closed left hip fracture Status: Acute Qualifiers: Encounter type: subsequent encounter Fracture healing: with routine healing Qualified Codes: S72.002D - Fracture of unspecified part of neck of left femur, subsequent encounter for closed fracture with routine healing (6) Anemia due to acute blood loss Status: Acute (7) Transfusion of blood during current hospitalization Status: Acute (8) Constipation Status: Acute Qualifiers: Constipation type: slow transit constipation Qualified Codes: K59.01 - Slow transit constipation Clinical Quality Measures DVT/VTE Risk/Contraindication: Risk Factor Score Per Nursin RFS Level Per Nursing on Admit: 4+=Very High NAYELY ESQUIVEL DO Dec 06, 2018 09:19
[2018-12-06] MEDS ORDERED: PIPERACILLIN/TAZO 4.5 GM/NS 100 ML IV NR ×2 (11:01)
[2018-12-06] MEDS ORDERED: LACTULOSE SYRUP 10GM/15ML (ENULOSE) 30ML UDC PO PRN (11:15)
--- NOTE | 2018-12-06 11:30 | Progress Note-Urology ---
Progress Note-Urology Progress Notes/Assess & Plan Progress/Assessment & Plan URINE CLEAR. WILL SEE HER PRN Final Diagnosis GROSS HEMATURIA HUMZA GOODMAN MD Dec 06, 2018 11:30
[2018-12-06] MEDS: SENNA W/DOCUSATE (SENOKOT S) TABLET PO SCH ×2 (12:08→20:18)
[2018-12-06] MEDS: DOCUSATE SODIUM 100 MG (COLACE) CAP PO SCH ×2 (12:08→20:18)
--- NOTE | 2018-12-06 13:51 | Physical Therapy Evaluation ---
PT Evaluation-General Medical Diagnosis Admission Date Dec 05, 2018 at 09:33 Medical Diagnosis: Afib post op hypotension Onset Date: Dec 05, 2018 Therapy Diagnosis Therapy Diagnosis: weakness, decreased mobility, gait deviation Height/Weight Height (Feet): 5 Height (Inches): 4.00 Weight (Pounds): 151 Weight (Ounces): 1.0 Precautions Precautions/Isolations: Standard Precautions Weight Bear Status Right Lower Extremity: Right Full Weight Bearing Left Lower Extremity: Left Weight Bearing/Tolerated Referral Physician: Nahun Newberry DO Reason for Referral: Evaluation/Treatment Medical History Current History Transfer from [facility] L hip fx (12/02/18) Social History Home: Assisted Living Current Living Status: Alone Entry Into Home: Level Entry Prior/Core FIM Prior Level of Function Therapy Code Descriptions/Definitions Functional [place] Measure: 0=Not Assessed/NA 4=Minimal Assistance 1=Total Assistance 5=Supervision or Setup 2=Maximal Assistance 6=Modified [place] 3=Moderate Assistance 7=Complete [place] Therapy Quality Codes: 6 Independent with activity with or without an assistive device 5 Patient requires set up or clean up by helper. Patient completes activity by themselves 4 Supervision or touching assist (CGA). Presho provide cues , steadying assist 3 The helper provides less than half the effort to complete the activity 2 The helper provides more than half the effort to complete the activity 1 Dependent. The helper does all the effort to complete an activity 7 Patient refused to complete or attempt activity 9 The patient did not perform the activity before the current illness or injury 88 Not attempted due to Medical conditions or safety concerns Functional Abilities and Goals: Independent: Patient completed the activities by him/herself, with or without an assistive device, with no assistance from a helper. Needed Some Help: Patient needed partial assistance from another person to complete activities. Dependent: A helper completed the activities for the patient. Unknown: Not Applicable: Bed Mobility: 6 Transfers (B,C,W/C) (FIM): 6 Gait: 6 Indoor Mobility (Ambulation): Independent Stairs: Not Applicalbe Prior Devices Use: Walker PT Evaluation-Current Subjective Pt in bed and reports she is nauseous. Pt agrees to PT. Nurse is also in room. Pain Numeric Pain Scale: 5-Moderate Pain Location: Left Location Body Site: Hip Pt/Family Goals Pt to return to assisted living. Objective Attachments: SCD's, Oxygen, Leon Catheter, IV ROM/Strength ROM Lower Extremities NT Strength Lower Extremities NT Integumentary/Posture Bowel Incontinence: Yes Bladder Incontinence: Leon Cath Sensory Vision: Functional Hearing: Functional Sensation Lower Extremities NT Transfers Therapy Code Descriptions/Definitions Functional [place] Measure: 0=Not Assessed/NA 4=Minimal Assistance 1=Total Assistance 5=Supervision or Setup 2=Maximal Assistance 6=Modified [place] 3=Moderate Assistance 7=Complete [place] Transfers (B, C, W/C) (FIM): 1 Scootin Supine to/from Sit: 2 Sit to/from Stand: 1 Gait Mode of Locomotion: Walk Anticipated Mode of Locomotion: Walk Gait (FIM): 1 Distance (FIM): 1=up to 49 ft Distance: 4' Gait Level of Assist: 1 Gait Persons Needed: 2 Gait Assistive Device: FWW Comments/Gait Description Pt has shuffling gait with retropulsion, possibly because of pain. Balance Sitting Static: Fair Sitting Dynamic: Fair Standing Static: Poor Standing Dynamic: Poor Assessment/Needs Pt required max A x2 to get from supine to EOB. Pt required dependent A x2 to perform sit<>stand with FWW from EOB. Pt had bowel incontinence upon standing. Transferred to commode dependent A x2. Pt required total assist with bathroom skills. Pt then transferred from commode to recliner dependent A x2 with FWW. Pt is now in recliner with nurse in room. Rehab Potential: Poor PT Short Term Goals Short Term Goals Time Frame: Dec 13, 2018 Transfers (B,C,W/C) (FIM): 3 Gait (FIM): 1 Distance (FIM): 1=up to 49 ft Gait Distance Comment: 10' Gait Level of Assist: 3 Gait Assistive Device: FWW PT Plan Problem List Problem List: Activity Tolerance, Functional Strength, Safety, Balance, Gait, Transfer Treatment/Plan Treatment Plan: Continue Plan of Care Treatment Plan: Bed Mobility, Education, Functional Activity [place], Functional Strength, Gait, Safety, Therapeutic Exercise, Transfers Treatment Duration: Dec 13, 2018 Frequency: 6 times per week Estimated Hrs Per Day: .25 hour per day Patient and/or Family Agrees t: Yes Safety Risks/Education Patient Education: Gait Training, Transfer Techniques, Correct Positioning, Safety Issues Teaching Recipient: Patient Teaching Methods: Demonstration, Discussion Discharge Recommendations Therapy D/C Recommendations: Assisted Living, Halfway Placement, Correction (TCU/NH) Time/GCodes Time In: 1300 Time Out: 1317 Total Billed Treatment Time: 17 Total Billed Treatment 1 visit LEYDI RUSSELL PT Dec 06, 2018 13:51
--- NOTE | 2018-12-06 14:57 | NUR ---
Pt is [employer]. Wardrobe Custodian provided prayer and Communion.
--- NOTE | 2018-12-06 15:45 | NUR ---
CM/SS, initial visit for consult, patient sleeping soundly. She remains in ICU at this time. History of fall at home and hip repair by Dr. Nunes 12/02/18 at [facility], post op developments requiring transfer to [facility]. Resides in [facility], will need to follow patient progress to determine a more definitive post hospital care plan.
--- NOTE | 2018-12-06 16:37 | Occupational Therapy Eval ---
OT Evaluation-General/PLF Medical Diagnosis Admission Date Dec 05, 2018 at 09:33 Medical Diagnosis: Afib post op hypotension Onset Date: Dec 05, 2018 Therapy Diagnosis Therapy Diagnosis: Weakness Height/Weight Height (Feet): 5 Height (Inches): 4.00 Weight (Pounds): 151 Weight (Ounces): 1.0 Precautions Precautions/Isolations: Standard Precautions Referral Physician: Nahun Newberry DO Referral Reason: Activity Tolerance, Self Care, Evaluation/Treatment, Strengthening/ROM Medical History Additional Medical History Pt. fell and sustained left hip fx. Had fx fixed and was pt. at [facility]. Due to needed care, transferred to this facility. Reviewed History: Yes Social History Home: Assisted Living Current Living Status: Alone Entry Into Home: Level Entry Pt. states that she lives in [facility] in [facility] [place]. ADL-Prior Level of Function Therapy Code Descriptions/Definitions Functional [place] Measure: 0=Not Assessed/NA 4=Minimal Assistance 1=Total Assistance 5=Supervision or Setup 2=Maximal Assistance 6=Modified [place] 3=Moderate Assistance 7=Complete [place] Therapy Quality Codes: 6 Independent with activity with or without an assistive device 5 Patient requires set up or clean up by helper. Patient completes activity by themselves 4 Supervision or touching assist (CGA). Foster provide cues , steadying assist 3 The helper provides less than half the effort to complete the activity 2 The helper provides more than half the effort to complete the activity 1 Dependent. The helper does all the effort to complete an activity 7 Patient refused to complete or attempt activity 9 The patient did not perform the activity before the current illness or injury 88 Not attempted due to Medical conditions or safety concerns Functional Abilities and Goals: Independent: Patient completed the activities by him/herself, with or without an assistive device, with no assistance from a helper. Needed Some Help: Patient needed partial assistance from another person to complete activities. Dependent: A helper completed the activities for the patient. Unknown: Not Applicable: ADL PLOF Comments Pt. states that she had assist to shower, but was able to dress self. Self Care: Independent Functional Cognition: Independent DME/Equipment: Bath Chair, Shower DME/Equipment Comments Walker OT Current Status Subjective Pt. reports 10/10 pain in left hip with movement. Nursing comes in to give pt. pain medication. Appearance Pt. up in her chair. Agrees to work with OT. Mental Status/Objective Patient Orientation: Person, Place Current Hand Dominance: Right Upper Extremity ROM Limited ROM in bilateral shoulders. ADL-Treatment Therapy Code Descriptions/Definitions Functional [place] Measure: 0=Not Assessed/NA 4=Minimal Assistance 1=Total Assistance 5=Supervision or Setup 2=Maximal Assistance 6=Modified [place] 3=Moderate Assistance 7=Complete [place] Therapy Quality Codes: 6 Independent with activity with or without an assistive device 5 Patient requires set up or clean up by helper. Patient completes activity by themselves 4 Supervision or touching assist (CGA). Foster provide cues , steadying assist 3 The helper provides less than half the effort to complete the activity 2 The helper provides more than half the effort to complete the activity 1 Dependent. The helper does all the effort to complete an activity 7 Patient refused to complete or attempt activity 9 The patient did not perform the activity before the current illness or injury 88 Not attempted due to Medical conditions or safety concerns Lower Body Dressing (FIM): 1 Toileting (FIM): 1 Transfers (B, C, W/C) (FIM): 1 OT spoke with pt. regarding OT purpose and goals. Pt. oriented and states that she wants to gain strength. Pt. very guarded with Left LE due to pain. OT talks pt. through each step of movement. Pt. has difficulty putting left LE onto floor, as she wants to pull it up. OT encouraged pt. to push through OT's hand toward floor, as foot was supported. Pt. agrees to attempt to stand. OT attempted twice with pt. sit-stand. Pt. is unable to provide assistance, and is retropulsive with attempted movement. Pt. is able to reposition self in chair with max cues and increased time needed. Educated pt. on importance of therapy. Pt. verbalizes understanding and wants to increase movement. All needs are met up in chair. Education OT Patient Education: Correct positioning, Progress toward Goal/Update tx plan , Purpose of tx/functional activities, Reviewed precautions, Rehab process, Transfer techniques Teaching Recipient: Patient Teaching Methods: Demonstration, Discussion Response to Teaching: Verbalize Understanding, Return Demonstration OT Short Term Goals Short Term Goals Time Frame: Dec 20, 2018 Eating(FIM): 5 Grooming(FIM): 5 Bathing(FIM): 3 Upper Body Dressing(FIM): 4 Lower Body Dressing(FIM): 3 Toileting(FIM): 4 Transfers (B,C,W/C) (FIM): 3 Toilet/Commode Transfer(FIM): 3 1=Demonstrate adherence to instructed precautions during ADL tasks. 2=Patient will verbalize/demonstrate understanding of assistive devices/ modifications for ADL. 3=Patient will improve strength/tolerance for activity to enable patient to perform ADL's. OT Coin Machine Servicer Repairer Goals Penitentiary Goals Time Frame: Jan 03, 2019 Eating (FIM): 6 Grooming(FIM): 6 Bathing(FIM): 5 Upper Body Dressing(FIM): 5 Lower Body Dressing(FIM): 5 Toileting(FIM): 5 Transfers (B,C,W/C) (FIM): 5 Toilet/Commode Transfer(FIM): 5 Additional Goals: 1-Demonstrate ADL Tasks, 2-Verbalize Understanding, 3- ImproveStrength/[place] 1=Demonstrate adherence to instructed precautions during ADL tasks. 2=Patient will verbalize/demonstrate understanding of assistive devices/ modifications for ADL. 3=Patient will improve strength/tolerance for activity to enable patient to perform ADL's. OT Education/Plan Problem List/Assessment Assessment: Decreased Activ Tolerance, Decreased UE Strength, Dependent Transfers, Impaired Bed Mobility, Impaired Funct Balance, Impaired I ADL's, Impaired Self-Care Skills, Restricted Funct UE ROM Discharge Recommendations Plan/Recommendations: Continue POC Treatment Plan/Plan of Care Treatment,Training & Education: Yes Patient would benefit from OT for education, treatment and training to promote independence in ADL's, mobility, safety and/or upper extremity function for ADL' s. Plan of Care: ADL Retraining, Functional Mobility, UE Funct Exercise/Act Treatment Duration: Jan 03, 2019 Frequency: 5 times per week Estimated Hrs Per Day: .5 hour per day Agreement: Yes Rehab Potential: Fair Time/GCodes Start Time: 13:45 Stop Time: 14:25 Total Time Billed (hr/min): 40 Billed Treatment Time 1, EVH x 15minutes, FA x 25minutes CASTILLO FONTANA OT Dec 06, 2018 16:36
[2018-12-06] MEDS ORDERED: PIPERACILLIN/TAZOBACTAM (BULK) 4.5 GM in NS (IVPB) 100 ML IV SCH (17:00)
[2018-12-06] MEDS: APIXABAN 2.5 MG (ELIQUIS) TABLET PO SCH (20:18)
[2018-12-07] VITALS (11 sets, daily range): BP systolic 95–121; BP diastolic 64–95
[2018-12-07 03:49] LABS: BASOPHILS % (AUTO) 1 % (0-10); EOSINOPHILS # (AUTO) 0.2 10^3/uL (0.0-0.3); EOSINOPHILS % (AUTO) 3 % (0-10); HEMATOCRIT 32 % (35-52); HEMOGLOBIN 10.2 G/DL (11.5-16.0); LYMPHOCYTES # (AUTO) 1.4 X 10^3 (1.0-4.0); LYMPHOCYTES % (AUTO) 19 % (12-44); MEAN CORPUSCULAR HEMOGLOBIN 33 PG (25-34); MEAN CORPUSCULAR HGB CONC 32 G/DL (32-36); MEAN CORPUSCULAR VOLUME 102 FL (80-99); MEAN PLATELET VOLUME 9.7 FL (7.4-10.4); MONOCYTES % (AUTO) 15 % (0-12); NEUTROPHILS # (AUTO) 4.4 X 10^3 (1.8-7.8); NEUTROPHILS % (AUTO) 63 % (42-75); PLATELET COUNT 168 10^3/uL (130-400); RED CELL DISTRIBUTION WIDTH 14.5 % (10.0-14.5)
[2018-12-07 04:06] LABS: BUN/CREATININE RATIO 30; CALCIUM 8.3 MG/DL (8.5-10.1); CARBON DIOXIDE 25 MMOL/L (21-32); CHLORIDE 109 MMOL/L (98-107); CREATININE SERUM 0.57 MG/DL (0.60-1.30); GFR ESTIMATED > 60; GLUCOSE 102 MG/DL (70-105); PHOSPHORUS 2.6 MG/DL (2.3-4.7); SODIUM 141 MMOL/L (135-145)
[2018-12-07 04:08] LABS: MAGNESIUM 5.8 MG/DL (1.8-2.4)
--- NOTE | 2018-12-07 05:35 | Pulmonary Progress Note ---
Sepsis Event Evaluation Height, Weight, BMI Height: 5'4.00" Weight: 151lbs. 1.0oz. 68.964505ur; 25.6 BMI Method: Focused Exam Lactate Level 12/05/18 11:05: Lactic Acid Level 0.76 Exam Exam Vital Signs Date Time Temp Pulse Resp B/P (MAP) Pulse Ox O2 Delivery O2 Flow Rate FiO2 12/07/18 04:00 96 Nasal Cannula 2.00 12/07/18 04:00 126 24 110/86 (94) 95 Nasal Cannula 2.00 12/07/18 03:00 112 17 105/86 (92) 97 Nasal Cannula 2.00 12/07/18 02:00 102 20 95/79 (84) 97 Nasal Cannula 2.00 12/07/18 01:08 117 12/07/18 01:00 99 16 101/82 (88) 97 Nasal Cannula 2.00 12/07/18 00:00 96 Nasal Cannula 2.00 12/07/18 00:00 105 14 107/83 (91) 97 Nasal Cannula 2.00 12/06/18 23:00 122 14 106/86 (93) 96 Nasal Cannula 2.00 12/06/18 22:00 115 10 117/82 (94) 95 Nasal Cannula 2.00 12/06/18 21:00 103 18 96/77 (83) 90 Nasal Cannula 2.00 12/06/18 20:00 96 Nasal Cannula 2.00 12/06/18 20:00 109 16 117/98 (104) 94 Nasal Cannula 2.00 12/06/18 19:00 124 14 116/81 (93) Nasal Cannula 2.00 12/06/18 19:00 117 12/06/18 18:00 118 22 105/88 (94) Nasal Cannula 2.00 12/06/18 17:00 114 29 113/96 (102) Nasal Cannula 2.00 12/06/18 16:00 87 15 106/73 (84) Nasal Cannula 2.00 12/06/18 16:00 96 Nasal Cannula 2.00 12/06/18 15:00 83 17 104/78 (87) 95 Nasal Cannula 2.00 12/06/18 14:00 124 8 111/39 (63) 95 Nasal Cannula 2.00 12/06/18 13:13 109 12/06/18 13:00 121 24 119/77 (91) 89 Nasal Cannula 2.00 12/06/18 12:06 98.3 12/06/18 12:00 123 21 122/78 (93) 95 Nasal Cannula 2.00 12/06/18 12:00 96 Nasal Cannula 2.00 12/06/18 11:00 120 20 112/82 (92) 96 Nasal Cannula 2.00 12/06/18 10:00 125 20 103/79 (87) 95 Nasal Cannula 2.00 12/06/18 09:43 75 12/06/18 09:00 113 45 100/87 (91) Nasal Cannula 2.00 12/06/18 08:00 96 Nasal Cannula 2.00 12/06/18 08:00 18 104/94 (97) 95 Nasal Cannula 2.00 12/06/18 07:57 98.2 12/06/18 07:51 120 12/06/18 07:00 126 24 128/84 (99) Nasal Cannula 2.00 12/06/18 06:00 120 19 118/92 (101) 96 Nasal Cannula 2.00 I & O 12/07/18 07:00 Intake Total 2260 ml Output Total 925 ml Balance 1335 ml Height & Weight Height: 5'4.00" Weight: 151lbs. 1.0oz. 68.715454uu; 25.6 BMI Method: General Appearance: No Apparent Distress, Chronically ill, Thin HEENT: PERRL/EOMI, Pharynx Normal Neck: Full Range of Motion, Normal Inspection, Non Tender, Supple Respiratory: Chest Non Tender, Lungs Clear, Normal Breath Sounds, No Accessory Muscle Use, No Respiratory Distress Cardiovascular: No Edema, No Gallop, Irregularly Irregular, Tachycardia Capillary Refill: Less Than 3 Seconds Gastrointestinal: normal bowel sounds, non tender, soft Extremity: Normal Capillary Refill, Normal Inspection, Normal Range of Motion Neurologic/Psychiatric: Alert, Oriented x3, No Motor/Sensory Deficits, Normal Mood/Affect, manager file II-XII Norm as Tested, Disoriented (subtle) Skin: Normal Color, Warm/Dry Lymphatic: No Adenopathy Results Lab Laboratory Tests 12/05/18 11:05 12/06/18 03:20 12/07/18 03:30 Assessment/Plan Assessment/Plan S/p fall resulting in hip fracture - now S/p Left hip surgery 12/02/18 Hypotension - -Monitor close -IVF Pleural effusion with hypoxia BNP 713 -Monitor -Oxygen Atelectasis -IS -Increase activity Afib RVR -Cardiology following post operative Anemia s/p transfusion 4units of PRBC at [facility] -Check occult stool -protonix 40mg daily mild Thrombocytopenia - monitor Pt is high risk for DVT -will start lovenox 40mg sub q daily -Monitor Hb -start protonix -SCDs ANTON GLASER DO Dec 07, 2018 05:35
[2018-12-07] MEDS ORDERED: KCL 20 MEQ TAB (K-DUR) PO SCH (06:00)
[2018-12-07] MEDS ORDERED: POTASSIUM CL 10MEQ/50ML IVPB 50 ML IV SCH (06:00)
[2018-12-07] MEDS ORDERED: MAGNESIUM 1 GM/100 ML IVPB 100 ML IV SCH (06:00)
--- NOTE | 2018-12-07 08:54 | Diagnostic Imaging Report ---
INDICATION: Atrial fibrillation and hypotension. TIME OF EXAMINATION: 3:57 AM. COMPARISON: 12/05/2018. FINDINGS: The heart is enlarged but stable. There may be some minimal infiltrate or atelectasis in the right base. Otherwise, the lungs are clear. No significant effusion or pneumothorax is seen. IMPRESSION: Cardiomegaly with minimal right basilar infiltrate or atelectasis. Dictated by: Dictated on workstation # [id number]
[2018-12-07] MEDS ORDERED: DILTIAZEM 180 MG (CARDIZEM CD) CAP PO NR (09:45)
--- NOTE | 2018-12-07 09:54 | Progress Note-Cardiology ---
Cardiology SOAP Progress Note Subjective: No cp or palp or syncope or shortness of breath at rest Objective: I&O/Vital Signs 12/06/18 12/06/18 12/07/18 12/07/18 22:00 23:00 00:00 00:00 Temp 97.7 Pulse 115 122 105 Resp 10 14 14 B/P (MAP) 117/82 (94) 106/86 (93) 107/83 (91) Pulse Ox 95 96 97 O2 Delivery Nasal Cannula Nasal Cannula Nasal Cannula O2 Flow Rate 2.00 2.00 2.00 12/07/18 12/07/18 12/07/18 12/07/18 00:00 01:00 01:08 02:00 Pulse 99 117 102 Resp 16 20 B/P (MAP) 101/82 (88) 95/79 (84) Pulse Ox 96 97 97 O2 Delivery Nasal Cannula Nasal Cannula Nasal Cannula O2 Flow Rate 2.00 2.00 2.00 12/07/18 12/07/18 12/07/18 12/07/18 03:00 04:00 04:00 04:00 Temp 98.1 Pulse 112 126 Resp 17 24 B/P (MAP) 105/86 (92) 110/86 (94) Pulse Ox 97 95 96 O2 Delivery Nasal Cannula Nasal Cannula Nasal Cannula O2 Flow Rate 2.00 2.00 2.00 12/07/18 12/07/18 12/07/18 12/07/18 07:00 07:00 08:00 09:00 Pulse 124 124 111 120 Resp 26 10 14 B/P (MAP) 109/93 (98) 116/79 (91) 113/95 (101) Pulse Ox 94 95 95 O2 Delivery Nasal Cannula Nasal Cannula Nasal Cannula O2 Flow Rate 2.00 2.00 2.00 12/07/18 00:00 Intake Total 940 ml Output Total 725 ml Balance 215 ml Weight (Pounds): 161 Weight (Ounces): 1.0 Weight (Calculated Kilograms): 73.737601 Constitutional: AAO x 3, well-developed, other (thin-appearing) Respiratory: No accessory muscle use; other (Fair to good bilat air entry; prolonged exp phase) Cardiovascular: irregularly irregular, S1 and S2, systolic murmur (soft SHAKA at card base) Gastrointestional: No tender; soft; No guarding, No rebound; audible bowel sounds Extremities: pedal edema (mild - wraps in place to LE bilat); No clubbing, No cyanosis Neurologic/Psychiatric: oriented x 3, other (Seems to be able to move all limbs equally; we did not attempt any motion at the affected leg) Skin: No rash on exposed areas, No ulcerations on exposed areas Results/Procedures: Labs Laboratory Tests 12/07/18 03:30: White Blood Count 7.0, Red Blood Count 3.14L, Hemoglobin 10.2L, Hematocrit 32L, Mean Corpuscular Volume 102H, Mean Corpuscular Hemoglobin 33, Mean Corpuscular Hemoglobin Concent 32, Red Cell Distribution Width 14.5, Platelet Count 168, Mean Platelet Volume 9.7, Neutrophils (%) (Auto) 63, Lymphocytes (%) (Auto) 19, Monocytes (%) (Auto) 15H, Eosinophils (%) (Auto) 3, Basophils (%) (Auto) 1, Neutrophils # (Auto) 4.4, Lymphocytes # (Auto) 1.4, Monocytes # (Auto) 1.0, Eosinophils # (Auto) 0.2, Basophils # (Auto) 0.0, Sodium Level 141, Potassium Level 4.0, Chloride Level 109H, Carbon Dioxide Level 25, Anion Gap 7, Blood Urea Nitrogen 17, Creatinine 0.57L, Estimat Glomerular Filtration Rate > 60, BUN /Creatinine Ratio 30, Glucose Level 102, Calcium Level 8.3L, Phosphorus Level 2.6, Magnesium Level 5.8*H Microbiology 12/05/18 Blood Culture - Preliminary, Resulted No growth Laboratory Tests 12/05/18 11:05 12/06/18 03:20 12/07/18 03:30 A/P: Assessment: S/p L hip surgery on 12/02/18 after a nonsyncopal fall. Transferred to this hosp on 12/05/18 from [facility] Atrial fibrillation, apparently chronic - rate not well controlled Relative hypotension - improved Mildly elevated troponin w/o evidence of ac IL. Mild troponin elev prob due to hypotension and perioperative blood loss Echo on 12/05/18: mod to severe concentric LVH, LVEF 70-75%, biatrial enlargement , mod mitral annular calcification, mod TR, PASP 45 mmHg Post-op anemia. Has received blood transfusion at [facility] - H/H improved Plan: * Increase CCB because heart rate still averaging high * Continue apixaban for stroke prophylaxis * Keep on tele * Monitor labs closely MARINA ZHANG MD FACP FACC CCDS Dec 07, 2018 09:54
[2018-12-07] MEDS: PANTOPRAZOLE 40 MG (PROTONIX) VIAL IV SCH (09:57)
[2018-12-07] MEDS: APIXABAN 2.5 MG (ELIQUIS) TABLET PO SCH ×2 (09:57→21:29)
[2018-12-07] MEDS: POLYETHYLENE GLYCOL 17 GM (MIRALAX) PACK PO SCH ×4 (09:57→21:38)
[2018-12-07] MEDS: DOCUSATE SODIUM 100 MG (COLACE) CAP PO SCH ×2 (09:57→21:37)
[2018-12-07] MEDS: SENNA W/DOCUSATE (SENOKOT S) TABLET PO SCH ×2 (09:58→21:38)
[2018-12-07] MEDS: NS IV 1000 ML 1,000 ML IV SCH ×2 (09:58→18:21)
--- NOTE | 2018-12-07 10:10 | NUR ---
provided prayer and Communion. This is very important to her.
--- NOTE | 2018-12-07 10:16 | Physical Therapy Daily Note ---
PT Daily Note-Current Subjective Pt is in bed and agrees to PT. Pain Numeric Pain Scale: 5-Moderate Pain Location: Left Location Body Site: Hip Mental Status Patient Orientation: Person Attachments: SCD's, Oxygen, IV Transfers Therapy Code Descriptions/Definitions Functional [place] Measure: 0=Not Assessed/NA 4=Minimal Assistance 1=Total Assistance 5=Supervision or Setup 2=Maximal Assistance 6=Modified [place] 3=Moderate Assistance 7=Complete [place] Therapy Quality Codes: 6 Independent with activity with or without an assistive device 5 Patient requires set up or clean up by helper. Patient completes activity by themselves 4 Supervision or touching assist (CGA). [place] provide cues , steadying assist 3 The helper provides less than half the effort to complete the activity 2 The helper provides more than half the effort to complete the activity 1 Dependent. The helper does all the effort to complete an activity 7 Patient refused to complete or attempt activity 9 The patient did not perform the activity before the current illness or injury 88 Not attempted due to Medical conditions or safety concerns Transfers (B, C, W/C) (FIM): 1 Supine to/from Sit: 1 Sit to/from Stand: 1 Weight Bearing Right Lower Extremity: Right Full Weight Bearing Left Lower Extremity: Left Weight Bearing/Tolerated Gait Training Gait (FIM): 1 Distance (FIM): 1=up to 49 ft Distance: 5' Gait Level of Assist: 1 Gait Persons Needed: 2 Gait Assistive Device: FWW Assessment Current Status: Fair Progress Pt requires dependent A x2 for bed mobility. Pt is dependent A x2 for sit<> stand transfer from EOB to FWW. Pt able to amb from EOB to recline 5' with dependent A x2 and FWW. Pt is now in recliner and nurse in room to give pt meds. PT Short Term Goals Short Term Goals Time Frame: Dec 13, 2018 Transfers (B,C,W/C) (FIM): 3 Gait (FIM): 1 Distance (FIM): 1=up to 49 ft Gait Distance Comment: 10' Gait Level of Assist: 3 Gait Assistive Device: FWW PT Plan Problem List Problem List: Activity Tolerance, Functional Strength, Safety, Balance, Gait, Transfer, Bed Mobility, ROM Treatment/Plan Treatment Plan: Continue Plan of Care Treatment Plan: Bed Mobility, Education, Functional Activity [place], Functional Strength, Gait, Safety, Therapeutic Exercise, Transfers Treatment Duration: Dec 13, 2018 Frequency: 6 times per week Estimated Hrs Per Day: .25 hour per day Patient and/or Family Agrees t: Yes Time/GCodes Time In: 931 Time Out: 945 Total Billed Treatment Time: 14 Total Billed Treatment 1 visit FA 14 min LEYDI HOSKINS PT Dec 07, 2018 10:16
--- NOTE | 2018-12-07 11:08 | Progress Note-Hospitalist ---
AUGUSTIN TIWARI 12/07/18 1108: Subjective HPI/CC On Admission Date Seen by Provider: Dec 07, 2018 Time Seen by Provider: 10:00 CC: AF w/RVR w/hypotension HPI: [place] [facility] [place] to AF w/RVR with hypotension in need of higher level of care and Cardiology expertise. Patient with chronic AF but not an anticoagulation candidate due to multiple falls who was admitted [place] [facility] [place] hip fracture sustained in a fall at home. Received 2 units of blood post operatively on Monday and required a total of 5000cc of fluid then Levophed at 4mcg to maintain SBP above 110. Patient was noted to have UTI placed on Rocephin. Had episode of oliguria resolved with low dose Lasix. Pt was able to recover for 1 day and actually improved and DC Levophed and participated in PT but then began having AF w/RVR and unable to manage it due to hypotension so she was transferred to [facility]. Patient is maintained at DNR and overall her prognosis is at best guarded. Patient is doing better. Ordered PT/OT. Rate still somewhat RVR. Hypotension improved. Eliquis low dose will be initiated for DVT Px. No BM for several days due to such critical illness so will start meds today. Subjective/Events-last exam Patient much improved today Left hip pain still an issue and overall improved HR inconsistent No BM yet since before admit on Monday 6 days ago so will continue meds and start supp and enemas DC cath today Review of Systems General: Fatigue Gastrointestinal: Constipation Musculoskeletal: leg pain (L hip) Focused Exam Lactate Level 12/05/18 11:05: Lactic Acid Level 0.76 Objective Exam Vital Signs Vital Signs Date Time Temp Pulse Resp B/P (MAP) Pulse Ox O2 Delivery O2 Flow Rate FiO2 12/07/18 16:55 99.1 99 18 121/89 (100) 91 Room Air 12/07/18 12:00 2.00 Capillary Refill : Less Than 3 SecondsLess Than 3 Seconds General Appearance: No Apparent Distress, Chronically ill, Cachetic, Thin HEENT: PERRL/EOMI, Pharynx Normal Neck: Full Range of Motion, Normal Inspection, Non Tender, Supple Respiratory: Chest Non Tender, Lungs Clear, Normal Breath Sounds, No Accessory Muscle Use, No Respiratory Distress Cardiovascular: No Edema, No Gallop, Irregularly Irregular, Tachycardia Extremity: Normal Capillary Refill, Normal Inspection, Normal Range of Motion Neurologic/Psychiatric: Alert, Oriented x3, No Motor/Sensory Deficits, Normal 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 Assessment/Plan Assessment and Plan Assess & Plan/Chief Complaint Assessment: s/p AF w/RVR with chronic AF s/p hypotension requiring Levophed at [facility] [place] Constipation Subtle dementia Poor reserve Plan: Constipation treatment Tx to floor Maintain DNR Diagnosis/Problems Diagnosis/Problems (1) Atrial fibrillation with rapid ventricular response Status: Acute (2) Hypotension Status: Resolved Qualifiers: Hypotension type: unspecified hypotension type Qualified Codes: I95.9 - Hypotension, unspecified Resolution Date/Time: 12/07/18 @ 18:54 (3) Orthostatic hypotension Status: Chronic (4) Confusion Status: Resolved Resolution Date/Time: 12/07/18 @ 18:54 (5) Closed left hip fracture Status: Resolved Qualifiers: Encounter type: subsequent encounter Fracture healing: with routine healing Qualified Codes: S72.002D - Fracture of unspecified part of neck of left femur, subsequent encounter for closed fracture with routine healing Resolution Date/Time: 12/07/18 @ 18:54 (6) Anemia due to acute blood loss Status: Acute (7) Transfusion of blood during current hospitalization Status: Resolved Resolution Date/Time: 12/07/18 @ 18:54 (8) Constipation Status: Acute Qualifiers: Constipation type: slow transit constipation Qualified Codes: K59.01 - Slow transit constipation Clinical Quality Measures DVT/VTE Risk/Contraindication: Risk Factor Score Per Nursin RFS Level Per Nursing on Admit: 4+=Very High FERNANDO FERNANDEZ MEDICAL STUDENT 12/07/18 1353: Subjective HPI/CC On Admission CC: AF w/ RVR with hypotension HPI: Pt was transferred from [facility] w/ AF w/ RVR in the setting of hypotension following L hip fracture s/p fall at home. The pt is not on anticoagulation due to increased risk of bleeding from frequent falls. She was placed on Roce[place] [facility] [place]. Pt is DNR. Subjective/Events-last exam Pt is alert and cheerful this morning Still having significant L hip pain Denies new onset weakness, numbness, tingling, SOB, or abdominal pain Review of Systems General: No Chills, No Fatigue HEENT: No Head Aches Pulmonary: No Dyspnea, No Cough Cardiovascular: No: Chest Pain, Lt Headedness Gastrointestinal: No: Nausea, Vomiting, Abdominal Pain Genitourinary: No Hematuria Musculoskeletal: leg pain (L hip) Neurological: No: Weakness, Numbness, Confusion Objective Exam General Appearance: No Apparent Distress, Chronically ill, Thin HEENT: PERRL/EOMI, Pharynx Normal Neck: Full Range of Motion, Normal Inspection, Non Tender Respiratory: Chest Non Tender, Lungs Clear, Normal Breath Sounds Cardiovascular: No Edema, No Gallop, Irregularly Irregular, Tachycardia Gastrointestinal: Normal Bowel Sounds, Non Tender, Soft Extremity: Normal Capillary Refill, Normal Inspection, No Pedal Edema; No Calf Tenderness Neurologic/Psychiatric: Alert, Oriented x3, No Motor/Sensory Deficits, Normal Mood/Affect Skin: Normal Color, Warm/Dry Assessment/Plan Assessment and Plan Assess & Plan/Chief Complaint Assessment: Chronic Afib w/ acute RVR Hypotension UTI Constipation Hypermagnesemia Plan: Transfer to floor, as VS have remained stable Pt's rate still 110-120s, titrate up CCB Hold magnesium, no need for Lasix at the moment since we are trying maintain BP DVT prophylaxis w/ SCDs, not a candidate for anticoagulation PT/OT Diagnosis/Problems Diagnosis/Problems (1) Atrial fibrillation with rapid ventricular response Status: Acute (2) Closed left hip fracture Status: Resolved Qualifiers: Encounter type: subsequent encounter Fracture healing: with routine healing Qualified Codes: S72.002D - Fracture of unspecified part of neck of left femur, subsequent encounter for closed fracture with routine healing Resolution Date/Time: 12/07/18 @ 18:54 (3) Orthostatic hypotension Status: Chronic (4) Constipation Status: Acute Qualifiers: Constipation type: slow transit constipation Qualified Codes: K59.01 - Slow transit constipation (5) Anemia due to acute blood loss Status: Acute (6) Hypotension Status: Resolved Qualifiers: Hypotension type: unspecified hypotension type Qualified Codes: I95.9 - Hypotension, unspecified Resolution Date/Time: 12/07/18 @ 18:54 (7) Transfusion of blood during current hospitalization Status: Resolved Resolution Date/Time: 12/07/18 @ 18:54 AUGUSTIN TIWARI DO Dec 07, 2018 11:08 FERNANDO FERNANDEZ MEDICAL STUDENT Dec 07, 2018 13:53
--- NOTE | 2018-12-07 11:18 | Occupational Ther Daily Note ---
OT Current Status-Daily Note Subjective Pt alert, sitting in recliner. Pt just transferred to 228 from ICU. Agrees to therapy. C/o pain in hip and buttocks, rated for nrsg 5/10 Mental Status/Objective Patient Orientation: Person, Place Therapy Code Descriptions/Definitions Functional [place] Measure: 0=Not Assessed/NA 4=Minimal Assistance 1=Total Assistance 5=Supervision or Setup 2=Maximal Assistance 6=Modified [place] 3=Moderate Assistance 7=Complete [place] ADL-Treatment Assist x2 to position in chair. After set up, pt able to complete oral care with swab. After therapy, pt sitting in recliner, nrsg present in room. Call light/phone in reach. All needs met in room. OT Short Term Goals Short Term Goals Time Frame: Dec 20, 2018 Eating(FIM): 5 Grooming(FIM): 5 Bathing(FIM): 3 Upper Body Dressing(FIM): 4 Lower Body Dressing(FIM): 3 Toileting(FIM): 4 Transfers (B,C,W/C) (FIM): 3 Toilet/Commode Transfer(FIM): 3 1=Demonstrate adherence to instructed precautions during ADL tasks. 2=Patient will verbalize/demonstrate understanding of assistive devices/ modifications for ADL. 3=Patient will improve strength/tolerance for activity to enable patient to perform ADL's. OT Client Services Associate Goals Client Services Associate Goals Time Frame: Jan 03, 2019 Eating (FIM): 6 Grooming(FIM): 6 Bathing(FIM): 5 Upper Body Dressing(FIM): 5 Lower Body Dressing(FIM): 5 Toileting(FIM): 5 Transfers (B,C,W/C) (FIM): 5 Toilet/Commode Transfer(FIM): 5 Additional Goals: 1-Demonstrate ADL Tasks, 2-Verbalize Understanding, 3- ImproveStrength/[place] 1=Demonstrate adherence to instructed precautions during ADL tasks. 2=Patient will verbalize/demonstrate understanding of assistive devices/ modifications for ADL. 3=Patient will improve strength/tolerance for activity to enable patient to perform ADL's. OT Education/Plan Discharge Recommendations Plan/Recommendations: Continue POC Treatment Plan/Plan of Care Patient would benefit from OT for education, treatment and training to promote independence in ADL's, mobility, safety and/or upper extremity function for ADL' s. Plan of Care: ADL Retraining, Functional Mobility, UE Funct Exercise/Act Treatment Duration: Jan 03, 2019 Frequency: 5 times per week Estimated Hrs Per Day: .5 hour per day Agreement: Yes Rehab Potential: Fair Time/GCodes Start Time: 11:00 Stop Time: 11:15 Total Time Billed (hr/min): 15 Billed Treatment Time 1 visit-FA 1 (15 min) PRIYA LLOYD Dec 07, 2018 11:18
[2018-12-07] MEDS ORDERED: BISACODYL 10 MG SUPP (DULCOLAX) PR NR (11:34)
[2018-12-08] VITALS: BP 115/68
[2018-12-08 04:00] VITALS: BP 110/64
[2018-12-08 05:37] LABS: BASOPHILS # (AUTO) 0.1 10^3/uL (0.0-0.1); BASOPHILS % (AUTO) 1 % (0-10); EOSINOPHILS # (AUTO) 0.2 10^3/uL (0.0-0.3); EOSINOPHILS % (AUTO) 3 % (0-10); HEMATOCRIT 30 % (35-52); HEMOGLOBIN 9.6 G/DL (11.5-16.0); LYMPHOCYTES # (AUTO) 1.2 X 10^3 (1.0-4.0); LYMPHOCYTES % (AUTO) 17 % (12-44); MEAN CORPUSCULAR HEMOGLOBIN 32 PG (25-34); MEAN CORPUSCULAR HGB CONC 32 G/DL (32-36); MEAN CORPUSCULAR VOLUME 101 FL (80-99); MEAN PLATELET VOLUME 9.3 FL (7.4-10.4); MONOCYTES # (AUTO) 1.1 X 10^3 (0.0-1.0); MONOCYTES % (AUTO) 15 % (0-12); NEUTROPHILS # (AUTO) 4.8 X 10^3 (1.8-7.8); NEUTROPHILS % (AUTO) 65 % (42-75); PLATELET COUNT 215 10^3/uL (130-400); RED CELL DISTRIBUTION WIDTH 14.4 % (10.0-14.5); WHITE BLOOD COUNT 7.4 10^3/uL (4.3-11.0)
[2018-12-08 06:16] LABS: BUN/CREATININE RATIO 30; CALCIUM 8.4 MG/DL (8.5-10.1); CARBON DIOXIDE 28 MMOL/L (21-32); CHLORIDE 105 MMOL/L (98-107); GFR ESTIMATED > 60; GLUCOSE 98 MG/DL (70-105); MAGNESIUM 1.7 MG/DL (1.8-2.4); PHOSPHORUS 2.6 MG/DL (2.3-4.7); POTASSIUM 3.6 MMOL/L (3.6-5.0); SODIUM 140 MMOL/L (135-145)
[2018-12-08 08:00] VITALS: BP 98/69
--- NOTE | 2018-12-08 08:56 | Pulmonary Progress Note ---
Sepsis Event Evaluation Height, Weight, BMI Height: 5'4.00" Weight: 161lbs. 1.0oz. 73.317215xe; 25.6 BMI Method: Focused Exam Lactate Level 12/05/18 11:05: Lactic Acid Level 0.76 Exam Exam Vital Signs Date Time Temp Pulse Resp B/P (MAP) Pulse Ox O2 Delivery O2 Flow Rate FiO2 12/08/18 08:00 98.0 67 20 98/69 (79) 94 Nasal Cannula 2.00 12/08/18 07:56 87 12/08/18 04:00 98.3 85 22 110/64 (79) 95 Nasal Cannula 2.00 12/08/18 01:00 85 12/08/18 00:00 98.6 80 20 115/68 (84) 96 Nasal Cannula 2.00 12/07/18 20:50 98.2 105 20 109/72 (84) 92 Room Air 12/07/18 20:00 94 Room Air 12/07/18 19:00 106 12/07/18 16:55 99.1 99 18 121/89 (100) 91 Room Air 12/07/18 12:48 107 12/07/18 12:00 97.7 117 18 95/64 (74) 97 Nasal Cannula 2.00 12/07/18 12:00 96 Nasal Cannula 2.00 12/07/18 09:00 120 14 113/95 (101) 95 Nasal Cannula 2.00 I & O 12/08/18 07:00 Intake Total 1370 ml Output Total 250 ml Balance 1120 ml Height & Weight Height: 5'4.00" Weight: 161lbs. 1.0oz. 73.304815hz; 25.6 BMI Method: General Appearance: No Apparent Distress, Chronically ill, Cachetic, Thin HEENT: PERRL/EOMI, Pharynx Normal Neck: Full Range of Motion, Normal Inspection, Non Tender, Supple Respiratory: Chest Non Tender, Lungs Clear, Normal Breath Sounds, No Accessory Muscle Use, No Respiratory Distress Cardiovascular: No Edema, No Gallop, Irregularly Irregular, Tachycardia Capillary Refill: Less Than 3 Seconds Gastrointestinal: normal bowel sounds, non tender, soft Extremity: Normal Capillary Refill, Normal Inspection, Normal Range of Motion Neurologic/Psychiatric: Alert, Oriented x3, No Motor/Sensory Deficits, Normal Mood/Affect, silk conditioner II-XII Norm as Tested, Disoriented (subtle) Skin: Normal Color, Warm/Dry Lymphatic: No Adenopathy Results Lab Laboratory Tests 12/07/18 03:30 12/08/18 05:30 Assessment/Plan Assessment/Plan S/p fall resulting in hip fracture - now S/p Left hip surgery 12/02/18 Hypotension - -Monitor close -IVF Pleural effusion with hypoxia -Monitor -Oxygen Atelectasis -IS -Increase activity Afib RVR -Cardiology following ANTON GLASER DO Dec 08, 2018 08:56
[2018-12-08] MEDS: APIXABAN 2.5 MG (ELIQUIS) TABLET PO SCH ×2 (09:50→20:07)
[2018-12-08] MEDS: SENNA W/DOCUSATE (SENOKOT S) TABLET PO SCH ×2 (09:50→20:07)
[2018-12-08] MEDS: PANTOPRAZOLE 40 MG (PROTONIX) VIAL IV SCH (09:50)
[2018-12-08] MEDS: DILTIAZEM 180 MG (CARDIZEM CD) CAP PO SCH (09:50)
[2018-12-08] MEDS: POLYETHYLENE GLYCOL 17 GM (MIRALAX) PACK PO SCH ×4 (09:50→20:08)
[2018-12-08] MEDS: DOCUSATE SODIUM 100 MG (COLACE) CAP PO SCH ×2 (09:50→20:07)
[2018-12-08] MEDS: ACETAMINOPHEN 500 MG TAB (TYLENOL) PO PRN (09:55)
--- NOTE | 2018-12-08 11:09 | Progress Note-Hospitalist ---
Subjective HPI/CC On Admission Date Seen by Provider: Dec 08, 2018 Time Seen by Provider: 11:30 CC: AF w/ RVR with hypotension HPI: Pt was transferred from [facility] w/ AF w/ RVR in the setting of hypotension following L hip fracture s/p fall at home. The pt is not on anticoagulation due to increased risk of bleeding from frequent falls. She was placed on [place] [facility] [place]. Pt is DNR. Subjective/Events-last exam Patient doing well BM+ Denies pain when seated No dyspnea Labs reviewed Review of Systems General: Fatigue Musculoskeletal: leg pain Objective Exam Vital Signs Vital Signs Date Time Temp Pulse Resp B/P (MAP) Pulse Ox O2 Delivery O2 Flow Rate FiO2 12/08/18 15:17 98.4 75 20 120/79 (93) 95 Nasal Cannula 0.00 2.00 Capillary Refill : Less Than 3 SecondsLess Than 3 Seconds General Appearance: No Apparent Distress, Chronically ill, Cachetic, Thin HEENT: PERRL/EOMI, Pharynx Normal Neck: Full Range of Motion, Normal Inspection, Non Tender, Supple Respiratory: Chest Non Tender, Lungs Clear, Normal Breath Sounds, No Accessory Muscle Use, No Respiratory Distress Cardiovascular: No Edema, No Gallop, Irregularly Irregular, Tachycardia Gastrointestinal: Normal Bowel Sounds, Non Tender, Soft Extremity: Normal Capillary Refill, Normal Inspection, Normal Range of Motion Neurologic/Psychiatric: Alert, Oriented x3, No Motor/Sensory Deficits, Normal 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 Assessment/Plan Assessment and Plan Assess & Plan/Chief Complaint Assessment: s/p AF w/RVR with chronic AF s/p hypotension requiring Levophed at [facility] post op Constipation resolved Subtle dementia Poor reserve Plan: Constipation treatment to be maintained although now resolved Continue PT/OT Maintain DNR Diagnosis/Problems Diagnosis/Problems (1) Atrial fibrillation with rapid ventricular response Status: Acute (2) Hypotension Status: Resolved Qualifiers: Hypotension type: unspecified hypotension type Qualified Codes: I95.9 - Hypotension, unspecified Resolution Date/Time: 12/07/18 @ 18:54 (3) Orthostatic hypotension Status: Chronic (4) Confusion Status: Resolved Resolution Date/Time: 12/07/18 @ 18:54 (5) Closed left hip fracture Status: Resolved Qualifiers: Encounter type: subsequent encounter Fracture healing: with routine healing Qualified Codes: S72.002D - Fracture of unspecified part of neck of left femur, subsequent encounter for closed fracture with routine healing Resolution Date/Time: 12/07/18 @ 18:54 (6) Anemia due to acute blood loss Status: Acute (7) Transfusion of blood during current hospitalization Status: Resolved Resolution Date/Time: 12/07/18 @ 18:54 (8) Constipation Status: Acute Qualifiers: Constipation type: slow transit constipation Qualified Codes: K59.01 - Slow transit constipation Clinical Quality Measures DVT/VTE Risk/Contraindication: Risk Factor Score Per Nursin RFS Level Per Nursing on Admit: 4+=Very High AUGUSTIN TIWARI DO Dec 08, 2018 11:09
--- NOTE | 2018-12-08 11:16 | Physical Therapy Daily Note ---
PT Daily Note-Current Subjective Pt up in chair and finishing breakfast. Pt agreeable to treatment. Pt denies pain. Transfers Therapy Code Descriptions/Definitions Functional [place] Measure: 0=Not Assessed/NA 4=Minimal Assistance 1=Total Assistance 5=Supervision or Setup 2=Maximal Assistance 6=Modified [place] 3=Moderate Assistance 7=Complete [place] Therapy Quality Codes: 6 Independent with activity with or without an assistive device 5 Patient requires set up or clean up by helper. Patient completes activity by themselves 4 Supervision or touching assist (CGA). [place] provide cues , steadying assist 3 The helper provides less than half the effort to complete the activity 2 The helper provides more than half the effort to complete the activity 1 Dependent. The helper does all the effort to complete an activity 7 Patient refused to complete or attempt activity 9 The patient did not perform the activity before the current illness or injury 88 Not attempted due to Medical conditions or safety concerns Weight Bearing Right Lower Extremity: Right Full Weight Bearing Left Lower Extremity: Left Weight Bearing/Tolerated Exercises Supine Ex: Ankle pumps, Quad Set, Hip abd/add Supine Reps: 15 Seated Therapy Exercises: Ankle pumps, Long arc quads Seated Reps: 15 Treatments Pt did well with ther ex by no complaint of pain, required min-mod A (L) LE Abd. Attempt to stand from chair, pt retropulsive and unable to stand. Assessment Current Status: Fair Progress Pt seated comfortably in chair, good effort with ther ex. Pt pleasant and without complaint. Pt dependent for standing and scooting back in chair at this time. Pt reclined with legs elevated and all needs met. Call light in reach. PT Short Term Goals Short Term Goals Time Frame: Dec 13, 2018 Transfers (B,C,W/C) (FIM): 3 Gait (FIM): 1 Distance (FIM): 1=up to 49 ft Gait Distance Comment: 10' Gait Level of Assist: 3 Gait Assistive Device: FWW PT Plan Treatment/Plan Treatment Plan: Continue Plan of Care Treatment Plan: Bed Mobility, Education, Functional Activity [place], Functional Strength, Gait, Safety, Therapeutic Exercise, Transfers Treatment Duration: Dec 13, 2018 Frequency: 6 times per week Estimated Hrs Per Day: .25 hour per day Patient and/or Family Agrees t: Yes Time/GCodes Time In: 1005 Time Out: 1030 Total Billed Treatment Time: 25 Total Billed Treatment 1, ther ex 25' GERALDINE MCKEON Dec 08, 2018 11:16
[2018-12-08 12:00] VITALS: BP 139/63
[2018-12-08 15:17] VITALS: BP 120/79
--- NOTE | 2018-12-08 18:10 | Progress Note-Cardiology ---
Cardiology SOAP Progress Note Subjective: No cp or palp or syncope or shortness of breath Objective: I&O/Vital Signs 12/08/18 12/08/18 12/08/18 12/08/18 07:56 08:00 08:00 12:00 Temp 98.0 97.7 Pulse 87 67 86 Resp 20 18 B/P (MAP) 98/69 (79) 139/63 (88) Pulse Ox 94 92 O2 Delivery Nasal Cannula Room Air Nasal Cannula O2 Flow Rate 2.00 2.00 12/08/18 12/08/18 12:40 15:17 Temp 98.4 Pulse 73 75 Resp 20 B/P (MAP) 120/79 (93) Pulse Ox 95 O2 Delivery Nasal Cannula O2 Flow Rate 0.00 2.00 12/08/18 00:00 Intake Total 1100 ml Balance 1100 ml Weight (Pounds): 161 Weight (Ounces): 1.0 Weight (Calculated Kilograms): 73.826015 Constitutional: AAO x 3, well-developed, other (thin-appearing) Respiratory: No accessory muscle use; other (Fair to good bilat air entry; prolonged exp phase) Cardiovascular: irregularly irregular, S1 and S2, systolic murmur (soft SHAKA at card base) Gastrointestional: No tender; soft; No guarding, No rebound; audible bowel sounds Extremities: pedal edema (mild - wraps in place to LE bilat); No clubbing, No cyanosis Neurologic/Psychiatric: oriented x 3, other (Seems to be able to move all limbs equally; we did not attempt any motion at the affected leg) Skin: No rash on exposed areas, No ulcerations on exposed areas Results/Procedures: Labs Laboratory Tests 12/08/18 05:30: White Blood Count 7.4, Red Blood Count 2.96L, Hemoglobin 9.6L, Hematocrit 30L, Mean Corpuscular Volume 101H, Mean Corpuscular Hemoglobin 32, Mean Corpuscular Hemoglobin Concent 32, Red Cell Distribution Width 14.4, Platelet Count 215, Mean Platelet Volume 9.3, Neutrophils (%) (Auto) 65, Lymphocytes (%) (Auto) 17, Monocytes (%) (Auto) 15H, Eosinophils (%) (Auto) 3, Basophils (%) (Auto) 1, Neutrophils # (Auto) 4.8, Lymphocytes # (Auto) 1.2, Monocytes # (Auto) 1.1H, Eosinophils # (Auto) 0.2, Basophils # (Auto) 0.1, Sodium Level 140, Potassium Level 3.6, Chloride Level 105, Carbon Dioxide Level 28, Anion Gap 7, Blood Urea Nitrogen 18, Creatinine 0.60, Estimat Glomerular Filtration Rate > 60, BUN/ Creatinine Ratio 30, Glucose Level 98, Calcium Level 8.4L, Phosphorus Level 2.6 , Magnesium Level 1.7L Microbiology 12/05/18 Blood Culture - Preliminary, Resulted No growth Laboratory Tests 12/07/18 03:30 12/08/18 05:30 A/P: Assessment: S/p L hip surgery on 12/02/18 after a nonsyncopal fall. Transferred to this hosp on 12/05/18 from [place] Atrial fibrillation, apparently chronic Relative hypotension - improved Mildly elevated troponin w/o evidence of ac MT. Mild troponin elev prob due to hypotension and perioperative blood loss Echo on 12/05/18: mod to severe concentric LVH, LVEF 70-75%, biatrial enlargement , mod mitral annular calcification, mod TR, PASP 45 mmHg Post-op anemia. Has received blood transfusion at [facility] H/ improved Plan: * Continue current regimen * Keep on tele * Monitor labs closely * I answered her and her family's questions MARINA ZHANG MD FACP FAC CCDS Dec 08, 2018 18:09
[2018-12-08 19:50] VITALS: BP 135/74
[2018-12-09] VITALS: BP 134/74
[2018-12-09 04:00] VITALS: BP 121/71
[2018-12-09 06:06] LABS: BASOPHILS # (AUTO) 0.1 10^3/uL (0.0-0.1); BASOPHILS % (AUTO) 2 % (0-10); EOSINOPHILS # (AUTO) 0.2 10^3/uL (0.0-0.3); EOSINOPHILS % (AUTO) 3 % (0-10); HEMATOCRIT 30 % (35-52); HEMOGLOBIN 9.9 G/DL (11.5-16.0); LYMPHOCYTES # (AUTO) 1.2 X 10^3 (1.0-4.0); LYMPHOCYTES % (AUTO) 18 % (12-44); MEAN CORPUSCULAR HEMOGLOBIN 33 PG (25-34); MEAN CORPUSCULAR HGB CONC 33 G/DL (32-36); MEAN CORPUSCULAR VOLUME 100 FL (80-99); MEAN PLATELET VOLUME 9.3 FL (7.4-10.4); MONOCYTES % (AUTO) 15 % (0-12); NEUTROPHILS # (AUTO) 4.1 X 10^3 (1.8-7.8); NEUTROPHILS % (AUTO) 62 % (42-75); PLATELET COUNT 249 10^3/uL (130-400); RED CELL DISTRIBUTION WIDTH 14.5 % (10.0-14.5); WHITE BLOOD COUNT 6.7 10^3/uL (4.3-11.0)
[2018-12-09 06:39] LABS: BUN/CREATININE RATIO 27; CALCIUM 8.6 MG/DL (8.5-10.1); CARBON DIOXIDE 27 MMOL/L (21-32); CHLORIDE 104 MMOL/L (98-107); CREATININE SERUM 0.56 MG/DL (0.60-1.30); GFR ESTIMATED > 60; GLUCOSE 95 MG/DL (70-105); MAGNESIUM 1.6 MG/DL (1.8-2.4); PHOSPHORUS 2.8 MG/DL (2.3-4.7); POTASSIUM 3.4 MMOL/L (3.6-5.0); SODIUM 140 MMOL/L (135-145)
[2018-12-09 08:00] VITALS: BP 123/72
[2018-12-09] MEDS: DILTIAZEM 180 MG (CARDIZEM CD) CAP PO SCH (08:26)
[2018-12-09] MEDS: DOCUSATE SODIUM 100 MG (COLACE) CAP PO SCH ×2 (08:26→21:01)
[2018-12-09] MEDS: NS IV 1000 ML 1,000 ML IV SCH (08:26)
[2018-12-09] MEDS: APIXABAN 2.5 MG (ELIQUIS) TABLET PO SCH ×2 (08:26→21:01)
[2018-12-09] MEDS: SENNA W/DOCUSATE (SENOKOT S) TABLET PO SCH ×2 (08:27→21:01)
[2018-12-09] MEDS: ACETAMINOPHEN 500 MG TAB (TYLENOL) PO PRN (08:27)
[2018-12-09] MEDS: POLYETHYLENE GLYCOL 17 GM (MIRALAX) PACK PO SCH ×2 (08:32→21:01)
[2018-12-09] MEDS: PANTOPRAZOLE 40 MG (PROTONIX) TAB PO SCH (08:34)
[2018-12-09 12:00] VITALS: BP 117/72
--- NOTE | 2018-12-09 12:04 | Progress Note-Hospitalist ---
Subjective HPI/CC On Admission Date Seen by Provider: Dec 09, 2018 Time Seen by Provider: 11:30 CC: AF w/ RVR with hypotension HPI: Pt was transferred from [facility] w/ AF w/ RVR in the setting of hypotension following L hip fracture s/p fall at home. The pt is not on anticoagulation due to increased risk of bleeding from frequent falls. She was placed on Rocephin at [facility] [place]. Pt is DNR. Subjective/Events-last exam Patient much improved Son arrived and I updated him on the plan for NHP in [place] since she has family there and her son lives in [place] Pain is controlled Eating well BM+ HLIVF DC Tely Review of Systems General: Fatigue Musculoskeletal: leg pain Objective Exam Vital Signs Vital Signs Date Time Temp Pulse Resp B/P (MAP) Pulse Ox O2 Delivery O2 Flow Rate FiO2 12/09/18 08:00 97.9 92 20 123/72 (89) 90 Nasal Cannula 2.00 Capillary Refill : Less Than 3 SecondsLess Than 3 Seconds General Appearance: No Apparent Distress, Chronically ill, Cachetic, Thin, Other (pale, frail) HEENT: PERRL/EOMI, Pharynx Normal Neck: Full Range of Motion, Normal Inspection, Non Tender, Supple Respiratory: Chest Non Tender, Lungs Clear, Normal Breath Sounds, No Accessory Muscle Use, No Respiratory Distress Cardiovascular: No Edema, No Gallop, Irregularly Irregular, Tachycardia Gastrointestinal: Normal Bowel Sounds, Non Tender, Soft Extremity: Normal Capillary Refill, Normal Inspection, Normal Range of Motion Neurologic/Psychiatric: Alert, Oriented x3, No Motor/Sensory Deficits, Normal 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 Assessment/Plan Assessment and Plan Assess & Plan/Chief Complaint Assessment: s/p AF w/RVR with chronic AF s/p hypotension requiring Levophed at [facility] post op Constipation resolved Subtle dementia Poor reserve Plan: Constipation treatment to be maintained although now resolved Continue PT/OT Maintain DNR NHP tomorrow Diagnosis/Problems Diagnosis/Problems (1) Atrial fibrillation with rapid ventricular response Status: Resolved Resolution Date/Time: 12/09/18 @ 13:02 (2) Hypotension Status: Resolved Qualifiers: Hypotension type: unspecified hypotension type Qualified Codes: I95.9 - Hypotension, unspecified Resolution Date/Time: 12/07/18 @ 18:54 (3) Orthostatic hypotension Status: Chronic (4) Confusion Status: Resolved Resolution Date/Time: 12/07/18 @ 18:54 (5) Closed left hip fracture Status: Resolved Qualifiers: Encounter type: subsequent encounter Fracture healing: with routine healing Qualified Codes: S72.002D - Fracture of unspecified part of neck of left femur, subsequent encounter for closed fracture with routine healing Resolution Date/Time: 12/07/18 @ 18:54 (6) Anemia due to acute blood loss Status: Acute (7) Transfusion of blood during current hospitalization Status: Resolved Resolution Date/Time: 12/07/18 @ 18:54 (8) Constipation Status: Resolved Qualifiers: Constipation type: slow transit constipation Qualified Codes: K59.01 - Slow transit constipation Resolution Date/Time: 12/09/18 @ 13:02 Clinical Quality Measures DVT/VTE Risk/Contraindication: Risk Factor Score Per Nursin RFS Level Per Nursing on Admit: 4+=Very High AUGUSTIN TIWARI DO Dec 09, 2018 12:04
--- NOTE | 2018-12-09 12:55 | Pulmonary Progress Note ---
Sepsis Event Evaluation Height, Weight, BMI Height: 5'4.00" Weight: 161lbs. 1.0oz. 73.506859dn; 25.6 BMI Method: Exam Exam Vital Signs Date Time Temp Pulse Resp B/P (MAP) Pulse Ox O2 Delivery O2 Flow Rate FiO2 12/09/18 08:00 97.9 92 20 123/72 (89) 90 Nasal Cannula 2.00 12/09/18 07:00 83 12/09/18 04:00 99.0 75 20 121/71 (88) 93 Nasal Cannula 2.00 12/09/18 01:00 93 12/09/18 00:00 99.0 88 20 134/74 (94) 92 Nasal Cannula 2.00 12/08/18 20:00 Room Air 12/08/18 19:50 98.6 84 20 135/74 (94) 93 Nasal Cannula 2.00 12/08/18 19:50 Nasal Cannula 2.00 12/08/18 19:00 78 12/08/18 15:17 98.4 75 20 120/79 (93) 95 Nasal Cannula 0.00 2.00 I & O 12/09/18 07:00 Intake Total 1080 ml Output Total 1030 ml Balance 50 ml Height & Weight Height: 5'4.00" Weight: 161lbs. 1.0oz. 73.275292ly; 25.6 BMI Method: General Appearance: No Apparent Distress, Chronically ill, Cachetic, Thin HEENT: PERRL/EOMI, Pharynx Normal Neck: Full Range of Motion, Normal Inspection, Non Tender, Supple Respiratory: Chest Non Tender, Lungs Clear, Normal Breath Sounds, No Accessory Muscle Use, No Respiratory Distress Cardiovascular: No Edema, No Gallop, Irregularly Irregular, Tachycardia Capillary Refill: Less Than 3 Seconds Gastrointestinal: normal bowel sounds, non tender, soft Extremity: Normal Capillary Refill, Normal Inspection, Normal Range of Motion Neurologic/Psychiatric: Alert, Oriented x3, No Motor/Sensory Deficits, Normal 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
[2018-12-09] MEDS ORDERED: KCL 20 MEQ TAB (K-DUR) PO NR (14:20)
[2018-12-09] MEDS: MAGNESIUM 1 GM/100 ML IVPB 100 ML IV SCH (14:27)
--- NOTE | 2018-12-09 14:48 | Progress Note-Cardiology ---
Cardiology SOAP Progress Note Subjective: Gen malaise, slowly improving No cp or palp or syncope Objective: I&O/Vital Signs 12/09/18 12/09/18 12/09/18 12/09/18 04:00 07:00 08:00 08:00 Temp 99.0 97.9 Pulse 75 83 92 Resp 20 20 B/P (MAP) 121/71 (88) 123/72 (89) Pulse Ox 93 90 O2 Delivery Nasal Cannula Room Air Nasal Cannula O2 Flow Rate 2.00 2.00 12/09/18 12/09/18 12:00 13:00 Temp 97.4 Pulse 80 94 Resp 20 B/P (MAP) 117/72 (87) Pulse Ox 92 O2 Delivery Nasal Cannula O2 Flow Rate 2.00 12/09/18 00:00 Intake Total 1080 ml Output Total 580 ml Balance 500 ml Weight (Pounds): 161 Weight (Ounces): 1.0 Weight (Calculated Kilograms): 73.408212 Constitutional: AAO x 3, well-developed, other (thin-appearing) Respiratory: No accessory muscle use; other (Fair to good bilat air entry; prolonged exp phase) Cardiovascular: irregularly irregular, S1 and S2, systolic murmur (soft SHAKA at card base) Gastrointestional: No tender; soft; No guarding, No rebound; audible bowel sounds Extremities: pedal edema (mod bilat leg edema, somewhat more on the L (the leg that has been operated on recently)); No clubbing, No cyanosis Neurologic/Psychiatric: oriented x 3, other (Seems to be able to move all limbs equally; we did not attempt any motion at the affected leg) Skin: No rash on exposed areas, No ulcerations on exposed areas Results/Procedures: Labs Laboratory Tests 12/09/18 05:10: White Blood Count 6.7, Red Blood Count 2.99L, Hemoglobin 9.9L, Hematocrit 30L, Mean Corpuscular Volume 100H, Mean Corpuscular Hemoglobin 33, Mean Corpuscular Hemoglobin Concent 33, Red Cell Distribution Width 14.5, Platelet Count 249, Mean Platelet Volume 9.3, Neutrophils (%) (Auto) 62, Lymphocytes (%) (Auto) 18, Monocytes (%) (Auto) 15H, Eosinophils (%) (Auto) 3, Basophils (%) (Auto) 2, Neutrophils # (Auto) 4.1, Lymphocytes # (Auto) 1.2, Monocytes # (Auto) 1.0, Eosinophils # (Auto) 0.2, Basophils # (Auto) 0.1, Sodium Level 140, Potassium Level 3.4L, Chloride Level 104, Carbon Dioxide Level 27, Anion Gap 9, Blood Urea Nitrogen 15, Creatinine 0.56L, Estimat Glomerular Filtration Rate > 60, BUN /Creatinine Ratio 27, Glucose Level 95, Calcium Level 8.6, Phosphorus Level 2.8 , Magnesium Level 1.6L Microbiology 12/05/18 Blood Culture - Preliminary, Resulted No growth Laboratory Tests 12/08/18 05:30 12/09/18 05:10 A/P: Assessment: S/p L hip surgery on 12/02/18 after a nonsyncopal fall. Transferred to this hosp on 12/05/18 from [place] Atrial fibrillation, apparently chronic Relative hypotension - improved Mildly elevated troponin w/o evidence of ac HI. Mild troponin elev prob due to hypotension and perioperative blood loss Echo on 12/05/18: mod to severe concentric LVH, LVEF 70-75%, biatrial enlargement , mod mitral annular calcification, mod TR, PASP 45 mmHg Post-op anemia. Has received blood transfusion at [place] - H/H improved Plan: * Replenish lytes * Continue current regimen * Monitor labs closely MARINA ZHANG MD FACP FAC CCDS Dec 09, 2018 14:48
[2018-12-09 16:33] VITALS: BP 138/73
[2018-12-09 19:46] VITALS: BP 105/64
[2018-12-10] VITALS: BP 108/58
[2018-12-10 05:23] LABS: BASOPHILS % (AUTO) 1 % (0-10); EOSINOPHILS # (AUTO) 0.2 10^3/uL (0.0-0.3); EOSINOPHILS % (AUTO) 3 % (0-10); HEMATOCRIT 32 % (35-52); HEMOGLOBIN 10.1 G/DL (11.5-16.0); LYMPHOCYTES # (AUTO) 1.1 X 10^3 (1.0-4.0); LYMPHOCYTES % (AUTO) 17 % (12-44); MEAN CORPUSCULAR HEMOGLOBIN 32 PG (25-34); MEAN CORPUSCULAR HGB CONC 32 G/DL (32-36); MEAN CORPUSCULAR VOLUME 101 FL (80-99); MEAN PLATELET VOLUME 9.1 FL (7.4-10.4); MONOCYTES % (AUTO) 16 % (0-12); NEUTROPHILS # (AUTO) 4.1 X 10^3 (1.8-7.8); NEUTROPHILS % (AUTO) 65 % (42-75); PLATELET COUNT 273 10^3/uL (130-400); RED CELL DISTRIBUTION WIDTH 14.4 % (10.0-14.5); WHITE BLOOD COUNT 6.3 10^3/uL (4.3-11.0)
[2018-12-10 05:44] LABS: BUN/CREATININE RATIO 31; CALCIUM 8.5 MG/DL (8.5-10.1); CARBON DIOXIDE 31 MMOL/L (21-32); CHLORIDE 104 MMOL/L (98-107); CREATININE SERUM 0.62 MG/DL (0.60-1.30); GFR ESTIMATED > 60; GLUCOSE 103 MG/DL (70-105); MAGNESIUM 1.7 MG/DL (1.8-2.4); PHOSPHORUS 3.7 MG/DL (2.3-4.7); POTASSIUM 3.5 MMOL/L (3.6-5.0); SODIUM 140 MMOL/L (135-145)
--- NOTE | 2018-12-10 09:32 | Progress Note-Cardiology ---
Cardiology SOAP Progress Note Subjective: No cp or palp or syncope Notes bilat leg swelling, somewhat worse on side of surgery Objective: I&O/Vital Signs 12/10/18 00:00 Temp 97.2 Pulse 80 Resp 18 B/P (MAP) 108/58 (75) Pulse Ox 94 O2 Delivery Room Air 12/10/18 00:00 Intake Total 1540 ml Output Total 800 ml Balance 740 ml Weight (Pounds): 161 Weight (Ounces): 1.0 Weight (Calculated Kilograms): 73.144926 Constitutional: AAO x 3, well-developed, other (thin-appearing) Respiratory: No accessory muscle use; other (Fair to good bilat air entry; prolonged exp phase) Cardiovascular: irregularly irregular, S1 and S2, systolic murmur (soft SHAKA at card base) Gastrointestional: No tender; soft; No guarding, No rebound; audible bowel sounds Extremities: pedal edema (mod bilat leg edema, somewhat more on the L (the leg that has been operated on recently)); No clubbing, No cyanosis Neurologic/Psychiatric: oriented x 3, other (Seems to be able to move all limbs equally; we did not attempt any motion at the affected leg) Skin: No rash on exposed areas, No ulcerations on exposed areas Results/Procedures: Labs Laboratory Tests 12/10/18 05:10: White Blood Count 6.3, Red Blood Count 3.13L, Hemoglobin 10.1L, Hematocrit 32L, Mean Corpuscular Volume 101H, Mean Corpuscular Hemoglobin 32, Mean Corpuscular Hemoglobin Concent 32, Red Cell Distribution Width 14.4, Platelet Count 273, Mean Platelet Volume 9.1, Neutrophils (%) (Auto) 65, Lymphocytes (%) (Auto) 17, Monocytes (%) (Auto) 16H, Eosinophils (%) (Auto) 3, Basophils (%) (Auto) 1, Neutrophils # (Auto) 4.1, Lymphocytes # (Auto) 1.1, Monocytes # (Auto) 1.0, Eosinophils # (Auto) 0.2, Basophils # (Auto) 0.0, Sodium Level 140, Potassium Level 3.5L, Chloride Level 104, Carbon Dioxide Level 31, Anion Gap 5, Blood Urea Nitrogen 19H, Creatinine 0.62, Estimat Glomerular Filtration Rate > 60, BUN /Creatinine Ratio 31, Glucose Level 103, Calcium Level 8.5, Phosphorus Level 3.7 , Magnesium Level 1.7L Microbiology 12/05/18 Blood Culture - Preliminary, Resulted No growth Laboratory Tests 12/09/18 05:10 12/10/18 05:10 A/P: Assessment: S/p L hip surgery on 12/02/18 after a non-syncopal fall. Transferred to this hosp on 12/05/18 from [place] Atrial fibrillation, apparently chronic Relative hypotension - improved Mildly elevated troponin w/o evidence of ac RI. Mild troponin elev prob due to hypotension and perioperative blood loss Echo on 12/05/18: mod to severe concentric LVH, LVEF 70-75%, biatrial enlargement , mod mitral annular calcification, mod TR, PASP 45 mmHg Post-op anemia. Has received blood transfusion at [place] - H/H improved Significant bilat leg swelling: venous insuff and vol overload Plan: * Furosemide today * Replenish lytes * Monitor labs closely MARINA ZHANG MD FACP FAC CCDS Dec 10, 2018 09:32
--- NOTE | 2018-12-10 09:53 | Progress Note-Hospitalist ---
AUGUSTIN TIWARI 12/10/18 0953: Subjective HPI/CC On Admission Date Seen by Provider: Dec 10, 2018 Time Seen by Provider: 09:30 CC: AF w/ RVR with hypotension HPI: Pt was transferred from [facility] w/ AF w/ RVR in the setting of hypotension following L hip fracture s/p fall at home. The pt is not on anticoagulation due to increased risk of bleeding from frequent falls. [place] [facility] [place] Pt is DNR. Subjective/Events-last exam Pt doing well Labs reviewed On potassium supplement for low potassium Maintain on Eliquis for stroke prophylaxis due Atrial Fibrillation senior living placement [place] Will await approval from insurance Participating in therapy Bowels are moving Overall doing very well Evaluated and reconciled all DC meds in case she is able to be discharged today Review of Systems General: Fatigue Musculoskeletal: leg pain Objective Exam Vital Signs Vital Signs Date Time Temp Pulse Resp B/P (MAP) Pulse Ox O2 Delivery O2 Flow Rate FiO2 12/11/18 08:00 97.4 82 18 132/70 (90) 93 Room Air 12/09/18 12:00 2.00 Capillary Refill : Less Than 3 SecondsLess Than 3 Seconds General Appearance: No Apparent Distress, Chronically ill, Cachetic, Thin, Other (pale, frail) HEENT: PERRL/EOMI, Pharynx Normal Neck: Full Range of Motion, Normal Inspection, Non Tender, Supple Respiratory: Chest Non Tender, Lungs Clear, Normal Breath Sounds, No Accessory Muscle Use, No Respiratory Distress Cardiovascular: No Edema, No Gallop, Irregularly Irregular, Tachycardia Gastrointestinal: Normal Bowel Sounds, Non Tender, Soft Extremity: Normal Capillary Refill, Normal Inspection, Normal Range of Motion Neurologic/Psychiatric: Alert, Oriented x3, No Motor/Sensory Deficits, Normal 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 Assessment/Plan Assessment and Plan Assess & Plan/Chief Complaint Assessment: s/p AF w/RVR with chronic AF s/p hypotension requiring [place] [facility] [place] Constipation resolved Subtle dementia Poor reserve Plan: Constipation treatment to be maintained although now resolved Continue PT/OT Maintain DNR NHP tomorrow Maintain Eliquis for DVT PPx and AF CVA PPx Diagnosis/Problems Diagnosis/Problems (1) Atrial fibrillation with rapid ventricular response Status: Resolved Resolution Date/Time: 12/09/18 @ 13:02 (2) Hypotension Status: Resolved Qualifiers: Hypotension type: unspecified hypotension type Qualified Codes: I95.9 - Hypotension, unspecified Resolution Date/Time: 12/07/18 @ 18:54 (3) Orthostatic hypotension Status: Chronic (4) Confusion Status: Resolved Resolution Date/Time: 12/07/18 @ 18:54 (5) Closed left hip fracture Status: Resolved Qualifiers: Encounter type: subsequent encounter Fracture healing: with routine healing Qualified Codes: S72.002D - Fracture of unspecified part of neck of left femur, subsequent encounter for closed fracture with routine healing Resolution Date/Time: 12/07/18 @ 18:54 (6) Anemia due to acute blood loss Status: Acute (7) Transfusion of blood during current hospitalization Status: Resolved Resolution Date/Time: 12/07/18 @ 18:54 (8) Constipation Status: Resolved Qualifiers: Constipation type: slow transit constipation Qualified Codes: K59.01 - Slow transit constipation Resolution Date/Time: 12/09/18 @ 13:02 Clinical Quality Measures DVT/VTE Risk/Contraindication: Risk Factor Score Per Nursin RFS Level Per Nursing on Admit: 4+=Very High FERNANDO FERNANDEZ MEDICAL STUDENT 12/10/18 1033: Subjective HPI/CC On Admission CC: AF w/ RVR with hypotension HPI: Pt was transferred from [facility] w/ AF w/ RVR in the setting of hypotension following L hip fracture s/p fall at home. The pt is not on anticoagulation due to increased risk of bleeding from frequent falls. She was [place] [facility] [place] Pt is DNR. Subjective/Events-last exam Pt states she has "zero" pain Still moving bowels/bladder Nursing noticed some green/yellow discharge from L hip incision when removing bandage, no erythema or swelling Denies SOB, f/c, CP Review of Systems General: No Chills, No Fatigue HEENT: No Head Aches Pulmonary: No Dyspnea; Cough Cardiovascular: No: Chest Pain, Edema Gastrointestinal: No: Abdominal Pain, Constipation Genitourinary: No Dysuria Musculoskeletal: No: leg pain Neurological: No: Weakness Objective Exam General Appearance: No Apparent Distress, Thin HEENT: PERRL/EOMI, Pharynx Normal Neck: Full Range of Motion, Non Tender Respiratory: Chest Non Tender, Lungs Clear, Normal Breath Sounds, No Respiratory Distress Cardiovascular: No Edema, No Gallop, Normal Peripheral Pulses, Irregularly Irregular Gastrointestinal: Normal Bowel Sounds, Non Tender, Soft Extremity: Normal Capillary Refill, Normal Inspection, Normal Range of Motion Neurologic/Psychiatric: Alert, Oriented x3, No Motor/Sensory Deficits, Normal Mood/Affect Skin: Normal Color, Warm/Dry Lymphatic: No Adenopathy Results/Procedures Imaging: Reviewed Imaging Films, Reviewed Imaging Report Assessment/Plan Assessment and Plan Assess & Plan/Chief Complaint Assessment: AF w/ RVR, RVR resolved Hypotension requiring pressors post-op, resolved Constipation resolved Hypokalemia, hypomagnesemia Plan: Discharge to Rehab in [place] either this afternoon or tomorrow Pain control Cardiology managing AFib, pt on Diltiazem for rate control, Lasix to limit volume overload Replete potassium, magnesium Monitor wound and watch for systemic signs of infection Diagnosis/Problems Diagnosis/Problems (1) Atrial fibrillation with rapid ventricular response Status: Resolved Resolution Date/Time: 12/09/18 @ 13:02 (2) Closed left hip fracture Status: Resolved Qualifiers: Encounter type: subsequent encounter Fracture healing: with routine healing Qualified Codes: S72.002D - Fracture of unspecified part of neck of left femur, subsequent encounter for closed fracture with routine healing Resolution Date/Time: 12/07/18 @ 18:54 (3) Orthostatic hypotension Status: Chronic (4) Anemia due to acute blood loss Status: Acute (5) Transfusion of blood during current hospitalization Status: Resolved Resolution Date/Time: 12/07/18 @ 18:54 (6) Constipation Status: Resolved Qualifiers: Constipation type: slow transit constipation Qualified Codes: K59.01 - Slow transit constipation Resolution Date/Time: 12/09/18 @ 13:02 AUGUSTIN TIWARI DO Dec 10, 2018 09:53 FERNANDO FERNANDEZ MEDICAL STUDENT Dec 10, 2018 10:33
[2018-12-10] MEDS ORDERED: FUROSEMIDE 40 MG/4 ML INJ (LASIX) IVP NR (09:56)
--- NOTE | 2018-12-10 09:57 | Physical Therapy Daily Note ---
PT Daily Note-Current Subjective Pt is up in recliner and agrees to PT. Pain Numeric Pain Scale: 5-Moderate Pain Location: Left Location Body Site: Hip Mental Status Patient Orientation: Person, Place, Situation, Normal For Age Transfers Therapy Code Descriptions/Definitions Functional [place] Measure: 0=Not Assessed/NA 4=Minimal Assistance 1=Total Assistance 5=Supervision or Setup 2=Maximal Assistance 6=Modified [place] 3=Moderate Assistance 7=Complete [place] Therapy Quality Codes: 6 Independent with activity with or without an assistive device 5 Patient requires set up or clean up by helper. Patient completes activity by themselves 4 Supervision or touching assist (CGA). [place] provide cues , steadying assist 3 The helper provides less than half the effort to complete the activity 2 The helper provides more than half the effort to complete the activity 1 Dependent. The helper does all the effort to complete an activity 7 Patient refused to complete or attempt activity 9 The patient did not perform the activity before the current illness or injury 88 Not attempted due to Medical conditions or safety concerns Transfers (B, C, W/C) (FIM): 1 Sit to/from Stand: 1 Weight Bearing Right Lower Extremity: Right Full Weight Bearing Left Lower Extremity: Left Weight Bearing/Tolerated Gait Training Gait (FIM): 1 Distance (FIM): 1=up to 49 ft Distance: 5' Gait Level of Assist: 1 Gait Persons Needed: 2 Gait Assistive Device: FWW Pt uses shuffling pattern and retropulsion due to fear reported by pt. Exercises Seated Therapy Exercises: Ankle pumps, Long arc quads Seated Reps: 10 Assessment Current Status: Fair Progress Pt is dependent A x2 to sit<>stand to FWW. Pt continues to use retropulsion during activities due to fear. Pt was dependent A x2 while standing and amb 5' with FWW. Pt able to perform 10 reps of weight shifts while standing with FWW. Safety concerns is pt does not lower herself down during sitting or check to see if chair is behind her, she will just fall back due to fear of standing. PT educated pt on trusting her L hip and trusting the therapists that are helping her. Pt is was able to perform seated LE ex. She has all needs met and is in recliner. PT Short Term Goals Short Term Goals Time Frame: Dec 13, 2018 Transfers (B,C,W/C) (FIM): 3 Gait (FIM): 1 Distance (FIM): 1=up to 49 ft Gait Distance Comment: 10' Gait Level of Assist: 3 Gait Assistive Device: FWW PT Plan Problem List Problem List: Activity Tolerance, Functional Strength, Safety, Balance, Gait, Transfer, Bed Mobility, ROM Treatment/Plan Treatment Plan: Continue Plan of Care Treatment Plan: Bed Mobility, Education, Functional Activity Americo, Functional Strength, Gait, Safety, Therapeutic Exercise, Transfers Treatment Duration: Dec 13, 2018 Frequency: 6 times per week Estimated Hrs Per Day: .25 hour per day Patient and/or Family Agrees t: Yes Time/GCodes Time In: 835 Time Out: 849 Total Billed Treatment Time: 14 Total Billed Treatment 1 visit FA 14 min LEYDI HOSKINS PT Dec 10, 2018 09:57
[2018-12-10] MEDS ORDERED: KCL 20 MEQ TAB (K-DUR) PO NR (09:58)
--- NOTE | 2018-12-10 10:08 | NUR ---
CM/SS, respond to consult. Referral completed with patient preferred SNF/[facility]. Patient has a managed care insurance and [facility] will need to secure preauthorization for skilled benefits before they will accept. They understand to expedite the process as able, normal process time is 1-2 days. Patient is from [facility] and absolutely requests placement there. CARE Assessment pending. Patient plans return to her prior living arrangement when able.
--- NOTE | 2018-12-10 10:22 | Discharge Inst-Skilled Nursing ---
Discharge Inst-Skilled NF Patient Instructions Patient Problems: Hip fracture s/p repair AF w/RVR Frail status Orthostasis Goal: return to independent living Consult/Follow Up/Orders Follow Up Appt.: Dr Coates in [facility] in 1 week Skilled NF Admit to: Certification (SNF) I certify that SNF services are required to be given on an inpatient basis because of the above named patient's need for usp care on a continuing basis for the conditions(s) for which he/she was receiving inpatient hospital services prior to his/her transfer to the SNF. [facility] Facility Order: Nursing Services, [employer] Technician-Evaluate & Treat, Physical Therapy-Evaluate & Treat, Speech Language-Evaluate & Treat Oxygen Delivery Method: Room Air Discharge Diet: No Restrictions Daily Activity as Tolerated: Yes New & Resume Previous Orders Nayely Esquivel Dec 10, 2018 10:21 NAYELY ESQUIVEL DO Dec 10, 2018 10:22
--- NOTE | 2018-12-10 10:36 | Occupational Ther Daily Note ---
OT Current Status-Daily Note Subjective Pt alert, sitting in recliner. Pt agrees to therapy. C/o pain with movement L hip. Mental Status/Objective Patient Orientation: Person, Situation Therapy Code Descriptions/Definitions Functional [place] Measure: 0=Not Assessed/NA 4=Minimal Assistance 1=Total Assistance 5=Supervision or Setup 2=Maximal Assistance 6=Modified [place] 3=Moderate Assistance 7=Complete [place] Attachments: IV ADL-Treatment Pt agrees to sponge bath. Pt able to complete upper body and upper legs. Assist with lower legs. Unable to cleanse racquel area due to level assist with standing, assist x2 needed. Pt able to don/doff hospital gown after set up. Pt very fearful of standing and tends to be retropulsive and grabs. Pt was able to half stand with encouragement and assist. Pt was able to scoot buttocks forward in chair with minimal assist. After therapy, pt sitting in recliner with call light/phone in reach. All needs met in room. Bathing (FIM): 1 Bathing Location: L Arm, R Arm, L Upper Leg, R Upper Leg, Chest, Abdomen Upper Body (FIM): 5 OT Short Term Goals Short Term Goals Time Frame: Dec 20, 2018 Eating(FIM): 5 Grooming(FIM): 5 Bathing(FIM): 3 Upper Body Dressing(FIM): 4 Lower Body Dressing(FIM): 3 Toileting(FIM): 4 Transfers (B,C,W/C) (FIM): 3 Toilet/Commode Transfer(FIM): 3 1=Demonstrate adherence to instructed precautions during ADL tasks. 2=Patient will verbalize/demonstrate understanding of assistive devices/ modifications for ADL. 3=Patient will improve strength/tolerance for activity to enable patient to perform ADL's. OT Manager Client Goals Manager Client Goals Time Frame: Jan 03, 2019 Eating (FIM): 6 Grooming(FIM): 6 Bathing(FIM): 5 Upper Body Dressing(FIM): 5 Lower Body Dressing(FIM): 5 Toileting(FIM): 5 Transfers (B,C,W/C) (FIM): 5 Toilet/Commode Transfer(FIM): 5 Additional Goals: 1-Demonstrate ADL Tasks, 2-Verbalize Understanding, 3- ImproveStrength/Americ[place] 1=Demonstrate adherence to instructed precautions during ADL tasks. 2=Patient will verbalize/demonstrate understanding of assistive devices/ modifications for ADL. 3=Patient will improve strength/tolerance for activity to enable patient to perform ADL's. OT Education/Plan Discharge Recommendations Plan/Recommendations: Continue POC Treatment Plan/Plan of Care Patient would benefit from OT for education, treatment and training to promote independence in ADL's, mobility, safety and/or upper extremity function for ADL' s. Plan of Care: ADL Retraining, Functional Mobility, UE Funct Exercise/Act Treatment Duration: Jan 03, 2019 Frequency: 5 times per week Estimated Hrs Per Day: .5 hour per day Agreement: Yes Rehab Potential: Fair Time/GCodes Start Time: 09:55 Stop Time: 10:30 Total Time Billed (hr/min): 35 Billed Treatment Time 1 visit-ADL 2 (35 min) PRIYA LLOYD Dec 10, 2018 10:36
--- NOTE | 2018-12-10 11:11 | Pulmonary Progress Note ---
Subjective Time Seen by a Provider: 13:16 Subjective/Events-last exam pt is doing better. No complications noted. Sepsis Event Evaluation Height, Weight, BMI Height: 5'4.00" Weight: 161lbs. 1.0oz. 73.351444gw; 25.6 BMI Method: Exam Exam Vital Signs Date Time Temp Pulse Resp B/P (MAP) Pulse Ox O2 Delivery O2 Flow Rate FiO2 12/10/18 00:00 97.2 80 18 108/58 (75) 94 Room Air 12/09/18 20:00 Room Air 12/09/18 19:46 97.0 80 16 105/64 (78) 93 12/09/18 16:33 97.0 81 16 138/73 (94) 90 Room Air 12/09/18 13:00 94 12/09/18 12:00 97.4 80 20 117/72 (87) 92 Nasal Cannula 2.00 I & O 12/10/18 07:00 Intake Total 1840 ml Output Total 950 ml Balance 890 ml Height & Weight Height: 5'4.00" Weight: 161lbs. 1.0oz. 73.872535bb; 25.6 BMI Method: General Appearance: No Apparent Distress, Thin HEENT: PERRL/EOMI, Pharynx Normal Neck: Full Range of Motion, Non Tender Respiratory: Chest Non Tender, Lungs Clear, Normal Breath Sounds, No Respiratory Distress Cardiovascular: No Edema, No Gallop, Normal Peripheral Pulses, Irregularly Irregular Capillary Refill: Less Than 3 Seconds Gastrointestinal: normal bowel sounds, non tender, soft Extremity: Normal Capillary Refill, Normal Inspection, Normal Range of Motion Neurologic/Psychiatric: Alert, Oriented x3, No Motor/Sensory Deficits, Normal Mood/Affect Skin: Normal Color, Warm/Dry Lymphatic: No Adenopathy Results Lab Laboratory Tests 12/09/18 05:10 12/10/18 05:10 Assessment/Plan Assessment/Plan S/p fall resulting in hip fracture - now S/p Left hip surgery 12/02/18 Hypotension - resolved -Monitor close -IVF Pleural effusion with hypoxia- much improved. PT is on RA -Monitor Atelectasis -IS -Increase activity Afib -Cardiology following I am going to sign off please call with any questions. ANTON GLASER DO Dec 10, 2018 11:11
[2018-12-10] MEDS: APIXABAN 2.5 MG (ELIQUIS) TABLET PO SCH ×2 (13:17→21:46)
[2018-12-10] MEDS ORDERED: MAGNESIUM 1 GM/100 ML IVPB 200 ML IV ONE (13:18)
[2018-12-10] MEDS: PANTOPRAZOLE 40 MG (PROTONIX) TAB PO SCH (13:18)
[2018-12-10] MEDS: DOCUSATE SODIUM 100 MG (COLACE) CAP PO SCH ×2 (13:18→19:34)
[2018-12-10] MEDS: DILTIAZEM 180 MG (CARDIZEM CD) CAP PO SCH (13:18)
[2018-12-10] MEDS: MAGNESIUM 1 GM/100 ML IVPB 100 ML IV SCH ×3 (13:25→14:26)
[2018-12-10] MEDS: SENNA W/DOCUSATE (SENOKOT S) TABLET PO SCH ×2 (14:34→19:34)
[2018-12-10] MEDS: POLYETHYLENE GLYCOL 17 GM (MIRALAX) PACK PO SCH ×2 (14:34→19:34)
--- NOTE | 2018-12-10 15:08 | NUR ---
CM/SS. Patient has been accepted for new placement with [facility] for Medicare skilled services. Friend Demarcus Radha here today and both are very pleased she was accepted because she is from [place] and has many friends there as supports. Demarcus will get patient clothing delivered to [facility] so they can bring it here for patient tomorrow. [facility] will be here at 1030 tomorrow for pickup. CARE Assessment pending.
[2018-12-10 23:29] VITALS: BP 137/76
[2018-12-11 05:41] LABS: BUN/CREATININE RATIO 23; CALCIUM 8.8 MG/DL (8.5-10.1); CARBON DIOXIDE 29 MMOL/L (21-32); CHLORIDE 103 MMOL/L (98-107); CREATININE SERUM 0.64 MG/DL (0.60-1.30); GFR ESTIMATED > 60; GLUCOSE 97 MG/DL (70-105); MAGNESIUM 1.7 MG/DL (1.8-2.4); PHOSPHORUS 3.1 MG/DL (2.3-4.7); POTASSIUM 3.5 MMOL/L (3.6-5.0); SODIUM 142 MMOL/L (135-145)
[2018-12-11 05:45] LABS: BASOPHILS # (AUTO) 0.1 10^3/uL (0.0-0.1); BASOPHILS % (AUTO) 1 % (0-10); EOSINOPHILS # (AUTO) 0.2 10^3/uL (0.0-0.3); EOSINOPHILS % (AUTO) 3 % (0-10); HEMATOCRIT 33 % (35-52); HEMOGLOBIN 10.5 G/DL (11.5-16.0); LYMPHOCYTES # (AUTO) 1.3 X 10^3 (1.0-4.0); LYMPHOCYTES % (AUTO) 22 % (12-44); MEAN CORPUSCULAR HEMOGLOBIN 32 PG (25-34); MEAN CORPUSCULAR HGB CONC 32 G/DL (32-36); MEAN CORPUSCULAR VOLUME 102 FL (80-99); MEAN PLATELET VOLUME 8.8 FL (7.4-10.4); MONOCYTES # (AUTO) 0.7 X 10^3 (0.0-1.0); MONOCYTES % (AUTO) 11 % (0-12); NEUTROPHILS # (AUTO) 3.9 X 10^3 (1.8-7.8); NEUTROPHILS % (AUTO) 63 % (42-75); PLATELET COUNT 326 10^3/uL (130-400); RED CELL DISTRIBUTION WIDTH 14.9 % (10.0-14.5); WHITE BLOOD COUNT 6.1 10^3/uL (4.3-11.0)
[2018-12-11 08:00] VITALS: BP 132/70
[2018-12-11] MEDS: PANTOPRAZOLE 40 MG (PROTONIX) TAB PO SCH (08:51)
[2018-12-11] MEDS: POLYETHYLENE GLYCOL 17 GM (MIRALAX) PACK PO SCH (08:51)
[2018-12-11] MEDS: DILTIAZEM 180 MG (CARDIZEM CD) CAP PO SCH (08:51)
[2018-12-11] MEDS: SENNA W/DOCUSATE (SENOKOT S) TABLET PO SCH (08:51)
[2018-12-11] MEDS: DOCUSATE SODIUM 100 MG (COLACE) CAP PO SCH (08:51)
[2018-12-11] MEDS: APIXABAN 2.5 MG (ELIQUIS) TABLET PO SCH (08:51)
--- NOTE | 2018-12-11 09:19 | Discharge Summary-Hospitalist ---
AUGUSTIN TIWARI DO 12/11/18 0919: Diagnosis/Chief Complaint Date of Admission Dec 05, 2018 at 09:33 Date of Discharge Discharge Date: Dec 10, 2018 Admission Diagnosis Assessment: AF w/RVR Hypotension required Levophed after 5000cc of fluid given at [facility] [place] Orthostasis hx which gave rise to fall risk with subsequent left hip fracture s/ p repair Dr Nunes 12/02/18 Anemia s/p 4 units of blood at [facility] [place] [place] UTI s/p Rocephin HLP Subtle confusion Plan: PT/OT BM treatment Pain control Needs NHP Discharge Diagnosis (1) Atrial fibrillation with rapid ventricular response Status: Resolved (2) Closed left hip fracture Status: Resolved (3) Orthostatic hypotension Status: Chronic (4) Anemia due to acute blood loss Status: Acute (5) Transfusion of blood during current hospitalization Status: Resolved (6) Constipation Status: Resolved Discharge Summary Discharge Physical Exam Allergies: Coded Allergies: No Known Drug Allergies (Unverified , 12/05/18) Vitals & I&Os Vital Signs Date Time Temp Pulse Resp B/P (MAP) Pulse Ox O2 Delivery O2 Flow Rate FiO2 12/11/18 13:18 82 18 132/70 93 Room Air 12/11/18 08:00 97.4 12/09/18 12:00 2.00 General Appearance: No Apparent Distress, Thin HEENT: PERRL/EOMI, Pharynx Normal Respiratory: Chest Non Tender, Lungs Clear, Normal Breath Sounds, No Respiratory Distress Cardiovascular: No Edema, No Gallop, Normal Peripheral Pulses, Irregularly Irregular Gastrointestinal: Normal Bowel Sounds, Non Tender, Soft Extremity: Normal Capillary Refill, Normal Inspection, Normal Range of Motion Skin: Normal Color, Warm/Dry Neurologic/Psychiatric: Alert, Oriented x3, No Motor/Sensory Deficits, Normal Mood/Affect Hospital Course Was the Problem List Reviewed?: Yes Hospital Course: Pt had a lengthy hospital course, she was admitted to [facility] from [facility] for chronic atrial fibrillation that became acute with rapid ventricular response with hypotension requiring transfer to the ICU at [facility] for three days with cardiology management. Pt was great controlled and hypotension resolved after multiple attempts with IV fluids and medication changes. Overall Pt tolerated everything well. Bowels return back to normalcy. Pt was placed on Eliquis 2.5 twice daily for DVT prophylaxis from the hip fracture and stroke prophylaxis from atrial fibrillation. Pt was deemed stable for discharge. Exam revealed no acute findings and Pt will be discharged to the group home for skilled care under Dr. Coates. Labs (last 24 hrs) Laboratory Tests 12/11/18 05:05: White Blood Count 6.1, Red Blood Count 3.24L, Hemoglobin 10.5L, Hematocrit 33L, Mean Corpuscular Volume 102H, Mean Corpuscular Hemoglobin 32, Mean Corpuscular Hemoglobin Concent 32, Red Cell Distribution Width 14.9H, Platelet Count 326, Mean Platelet Volume 8.8, Neutrophils (%) (Auto) 63, Lymphocytes (%) (Auto) 22, Monocytes (%) (Auto) 11, Eosinophils (%) (Auto) 3, Basophils (%) (Auto) 1, Neutrophils # (Auto) 3.9, Lymphocytes # (Auto) 1.3, Monocytes # (Auto) 0.7, Eosinophils # (Auto) 0.2, Basophils # (Auto) 0.1, Sodium Level 142, Potassium Level 3.5L, Chloride Level 103, Carbon Dioxide Level 29, Anion Gap 10, Blood Urea Nitrogen 15, Creatinine 0.64, Estimat Glomerular Filtration Rate > 60, BUN/ Creatinine Ratio 23, Glucose Level 97, Calcium Level 8.8, Phosphorus Level 3.1, Magnesium Level 1.7L Microbiology 12/05/18 Blood Culture - Final, Complete No growth Patient resulted labs reviewed. Pending Labs Imaging: Reviewed Imaging Films, Reviewed Imaging Report Discussion & Recommendations Discharge Planning: <30 minutes discharge planning Discharge Home Medications: Active Scripts Active Potassium Chloride 10 Meq Tab.er.prt 10 Meq PO DAILY 30 Days Lasix (Furosemide) 20 Mg Tablet 20 Mg PO DAILY 30 Days Pantoprazole Sodium 40 Mg Tablet.dr 40 Mg PO DAILY 30 Days Senna-Time S Tablet (Sennosides/Docusate Sodium) 1 Each Tablet 2 Ea PO BID 30 Days Polyethylene Glycol 3350 17 Gm Powd.pack 34 Gm PO BID 30 Days Acetaminophen 500 Mg Tablet 500 Mg PO Q4H PRN 60 Days Tramadol HCl 50 Mg Tablet 50 Mg PO Q6H PRN Eliquis (Apixaban) 2.5 Mg Tablet 2.5 Mg PO BID 365 Days Diltiazem 24Hr Cd (Diltiazem HCl) 180 Mg Cap.er.24h 180 Mg PO DAILY 30 Days Reported Calcium 600 + Vit D 200 Tablet (Calcium Carbonate/Vitamin D3) 1 Each Tablet 1 Tab PO DAILY Aspirin EC (Aspirin) 81 Mg Tablet.dr 81 Mg PO DAILY Multivitamins (Multivitamin) 1 Each Tablet 1 Tab PO DAILY Colace (Docusate Sodium) 100 Mg Capsule 400 Mg PO HS TAKES 4 (100MG) CAPSULES Pravastatin Sodium 20 Mg Tablet 20 Mg PO HS Ropinirole HCl 0.25 Mg Tablet 0.25 Mg PO TID Clopidogrel (Clopidogrel Bisulfate) 75 Mg Tablet 75 Mg PO HS Citalopram HBr (Citalopram Hydrobromide) 20 Mg Tablet 10 Mg PO HS TAKES 1/2 (20MG) TABLET Mirtazapine 7.5 Mg Tablet 7.5 Mg PO HS Instructions to patient/family Please see electronic discharge instructions given to patient. Clinical Quality Measures DVT/VTE Risk/Contraindication: Risk Factor Score Per Nursin RFS Level Per Nursing on Admit: 4+=Very High FERNANDO FERNANDEZ MEDICAL STUDENT 12/11/18 1014: Diagnosis/Chief Complaint Admission Diagnosis Admission diagnosis: AF w/ RVR w/ hypotension Discharge Diagnosis AF w/ RVR w/ hypotension s/p close L hip fracture (1) Orthostatic hypotension Status: Chronic (2) Anemia due to acute blood loss Status: Acute (3) Confusion Status: Resolved (4) Hypotension Status: Resolved (5) Transfusion of blood during current hospitalization Status: Resolved (6) Closed left hip fracture Status: Resolved (7) Constipation Status: Resolved (8) Atrial fibrillation with rapid ventricular response Status: Resolved Discharge Summary Procedures/Consulations Cardiology Discharge Physical Exam Allergies: Coded Allergies: No Known Drug Allergies (Unverified , 12/05/18) General Appearance: No Apparent Distress, WD/WN HEENT: PERRL/EOMI, Pharynx Normal Respiratory: Chest Non Tender, Lungs Clear, Normal Breath Sounds, No Respiratory Distress Cardiovascular: No Edema, No Gallop, Normal Peripheral Pulses, Irregularly Irregular Gastrointestinal: Normal Bowel Sounds, Non Tender, Soft Extremity: Normal Capillary Refill, Normal Inspection, Normal Range of Motion Skin: Normal Color, Warm/Dry Neurologic/Psychiatric: Alert, Oriented x3, No Motor/Sensory Deficits, Normal Mood/Affect Hospital Course Was the Problem List Reviewed?: Yes Pt was transferred from [facility] w/ AF w/ RVR in the setting of hypotension following L hip fracture s/p fall at home. She initially was in the ICU and Cardiology was consulted. Her RVR resolved over the course of a day and her pressures remained stable. She was transferred to the floor and had PT/OT for the duration of her stay. Pt has good mobility of her L hip and lower extremity and her pain is well controlled. She was placed on Rocephin at [facility] [place] [place] for UTI. She has been accepted for rehab at [facility] in [place]. Imaging: Reviewed Imaging Films, Reviewed Imaging Report Discussion & Recommendations Discharge Planning: <30 minutes discharge planning Problem Qualifiers (1) Closed left hip fracture: Encounter type: subsequent encounter Fracture healing: with routine healing Qualified Codes: S72.002D - Fracture of unspecified part of neck of left femur , subsequent encounter for closed fracture with routine healing (2) Constipation: Constipation type: slow transit constipation Qualified Codes: K59.01 - Slow transit constipation (3) Hypotension: Hypotension type: unspecified hypotension type Qualified Codes: I95.9 - Hypotension, unspecified AUGUSTIN TIWARI DO Dec 11, 2018 09:19 FERNANDO FERNANDEZ MEDICAL STUDENT Dec 11, 2018 10:14
--- NOTE | 2018-12-11 10:45 | Progress Note-Cardiology ---
Cardiology SOAP Progress Note Subjective: Sitting up in bed. States she is transferring to [facility] today for PT. States she feels well. Feels LE swelling has improved. No c/o CP, palpitations , or dyspnea. Objective: I&O/Vital Signs 12/10/18 12/11/18 12/11/18 23:29 08:00 08:00 Temp 97.5 97.4 Pulse 85 82 Resp 20 18 B/P (MAP) 137/76 (96) 132/70 (90) Pulse Ox 94 93 O2 Delivery Room Air Room Air Room Air 12/11/18 00:00 Intake Total 1470 ml Output Total 1250 ml Balance 220 ml Weight (Pounds): 161 Weight (Ounces): 1.0 Weight (Calculated Kilograms): 73.139374 Constitutional: AAO x 3, well-developed, other (thin-appearing) Respiratory: No accessory muscle use; other (Fair to good bilat air entry; prolonged exp phase) Cardiovascular: irregularly irregular, S1 and S2, systolic murmur (soft SHAKA at card base) Gastrointestional: No tender; soft; No guarding, No rebound; audible bowel sounds Extremities: pedal edema (mild bilat leg edema, somewhat more on the L (the leg that has been operated on recently)); No clubbing, No cyanosis Neurologic/Psychiatric: oriented x 3, grossly intact Skin: No rash on exposed areas, No ulcerations on exposed areas Results/Procedures: Labs Laboratory Tests 12/11/18 05:05: White Blood Count 6.1, Red Blood Count 3.24L, Hemoglobin 10.5L, Hematocrit 33L, Mean Corpuscular Volume 102H, Mean Corpuscular Hemoglobin 32, Mean Corpuscular Hemoglobin Concent 32, Red Cell Distribution Width 14.9H, Platelet Count 326, Mean Platelet Volume 8.8, Neutrophils (%) (Auto) 63, Lymphocytes (%) (Auto) 22, Monocytes (%) (Auto) 11, Eosinophils (%) (Auto) 3, Basophils (%) (Auto) 1, Neutrophils # (Auto) 3.9, Lymphocytes # (Auto) 1.3, Monocytes # (Auto) 0.7, Eosinophils # (Auto) 0.2, Basophils # (Auto) 0.1, Sodium Level 142, Potassium Level 3.5L, Chloride Level 103, Carbon Dioxide Level 29, Anion Gap 10, Blood Urea Nitrogen 15, Creatinine 0.64, Estimat Glomerular Filtration Rate > 60, BUN/ Creatinine Ratio 23, Glucose Level 97, Calcium Level 8.8, Phosphorus Level 3.1, Magnesium Level 1.7L Microbiology 12/05/18 Blood Culture - Final, Complete No growth Laboratory Tests 12/10/18 05:10 12/11/18 05:05 A/P: Assessment: S/p L hip surgery on 12/02/18 after a non-syncopal fall. Transferred to this hosp on 12/05/18 from [facility] Atrial fibrillation, apparently chronic Relative hypotension - improved Mildly elevated troponin w/o evidence of ac AL. Mild troponin elev prob due to hypotension and perioperative blood loss Echo on 12/05/18: mod to severe concentric LVH, LVEF 70-75%, biatrial enlargement , mod mitral annular calcification, mod TR, PASP 45 mmHg Post-op anemia. Has received blood transfusion at [facility] - H/H improved Significant bilat leg swelling: venous insuff and vol overload Plan: * Continue current regimen * Replenish lytes * Plan is dc to [facility] for PT today * Advise out pt f/u with us ANH MENDENHALL Dec 11, 2018 10:45
--- NOTE | 2018-12-11 10:52 | NUR ---
CM/SS. Patient discharged today to new Medicare skilled placement with [facility] via their transport scheduled for this a.m. CARE Assessment completed with patient, processed with [facility]. Faxed orders to [facility], prepared continuum of care packet to accompany patient. Patient's friend/support Demarcus Garcia left clothing for patient at the ID and they will bring them for patient. Patient resides in senior housing at [facility], [address], [place]. Phone # there [phone]. Updated patient's son/POA information with Registration: Nolberto Zamorano Son/DPOA-HC [address] [place] [id number] Demarcus Garcia Friend/Support [place], [place] [phone]
--- NOTE | 2018-12-11 11:40 | Physical Therapy Daily Note ---
PT Daily Note-Current Subjective Pt in bed and agrees to PT. Reports that she was suppose to be dismissed at 10: 30. Pt also reported that (she was not sure which one) told her that sitting in the chair wasn't a good idea, so she requested not to do that. Pain Numeric Pain Scale: 7 Location: Left Location Body Site: Hip Mental Status Patient Orientation: Person, Place Transfers Therapy Code Descriptions/Definitions Functional [place] Measure: 0=Not Assessed/NA 4=Minimal Assistance 1=Total Assistance 5=Supervision or Setup 2=Maximal Assistance 6=Modified [place] 3=Moderate Assistance 7=Complete [place] Therapy Quality Codes: 6 Independent with activity with or without an assistive device 5 Patient requires set up or clean up by helper. Patient completes activity by themselves 4 Supervision or touching assist (CGA). [place] provide cues , steadying assist 3 The helper provides less than half the effort to complete the activity 2 The helper provides more than half the effort to complete the activity 1 Dependent. The helper does all the effort to complete an activity 7 Patient refused to complete or attempt activity 9 The patient did not perform the activity before the current illness or injury 88 Not attempted due to Medical conditions or safety concerns Transfers (B, C, W/C) (FIM): 2 Scootin Supine to/from Sit: 2 Weight Bearing Right Lower Extremity: Right Full Weight Bearing Left Lower Extremity: Left Weight Bearing/Tolerated Exercises Supine Ex: Ankle pumps, Quad Set, Glut sets, Heel Slides Supine Reps: 10 Assessment Current Status: Fair Progress Pt was able to perform LE supine ex. Pt required recovery periods due to pain. Pt was max A from supine to EOB. Pt c/o of dizziness that would not subside after a few mins. Pt returned to supine max A. Pt is now in bed with all needs met. PT Short Term Goals Short Term Goals Time Frame: Dec 13, 2018 Transfers (B,C,W/C) (FIM): 3 Gait (FIM): 1 Distance (FIM): 1=up to 49 ft Gait Distance Comment: 10' Gait Level of Assist: 3 Gait Assistive Device: FWW PT Plan Problem List Problem List: Activity Tolerance, Functional Strength, Safety, Balance, Gait, Transfer, Bed Mobility, ROM Treatment/Plan Treatment Plan: Continue Plan of Care Treatment Plan: Bed Mobility, Education, Functional Activity [place], Functional Strength, Gait, Safety, Therapeutic Exercise, Transfers Treatment Duration: Dec 13, 2018 Frequency: 6 times per week Estimated Hrs Per Day: .25 hour per day Patient and/or Family Agrees t: Yes Time/GCodes Time In: 1046 Time Out: 1102 Total Billed Treatment Time: 16 Total Billed Treatment 1 visit FA 16 min LEYDI HOSKINS PT Dec 11, 2018 11:40
[2018-12-11 13:18] VITALS: BP 132/70
== END 2018-12-11 12:15 | DRG 309 ==
LOC: ICU 09:33 → 4TH 12-07 09:04
PROVIDERS: ADMIT Internal Medicine; ATTEND Internal Medicine
DX: I48.2 Chronic atrial fibrillation (principal); I95.1 Orthostatic hypotension; D62 Acute posthemorrhagic anemia; N39.0 Urinary tract infection, site not specified; J90 Pleural effusion, not elsewhere classified; J98.11 Atelectasis; I10 Essential (primary) hypertension; R31.0 Gross hematuria; Z66 Do not resuscitate; E78.00 Pure hypercholesterolemia, unspecified; K59.01 Slow transit constipation; F03.90 Unspecified dementia, unspecified severity, without behavioral disturbance, psychotic disturbance, mood disturbance, and anxiety; F41.9 Anxiety disorder, unspecified; E87.6 Hypokalemia; R41.0 Disorientation, unspecified; E83.42 Hypomagnesemia; R09.02 Hypoxemia; D69.6 Thrombocytopenia, unspecified; R34 Anuria and oliguria; M19.91 Primary osteoarthritis, unspecified site; S72.002D Fracture of unspecified part of neck of left femur, subsequent encounter for closed fracture with routine healing; W19.XXXD Unspecified fall, subsequent encounter
CPT/HCPCS: 36415; 71045; 80048; 80053; 81000; 82274; 83605; 83735; 83880; 84100; 84484; 85025; 87040; 90471; 93005; 93306

== ENCOUNTER 2019-01-04 14:11 | Inpatient (IN) | payer MEDICARE ==
[~2019-01-04] VITALS: Ht 167.6 cm; Wt 71.2 kg
[~2019-01-04 14:11] MED LIST: ACEB400C PO; ACET-77 PO; APIX2.5T PO; ASPI-983 PO; CALC-6 PO; CALC-676 PO; CARV3.122 PO; CITA20TA9 PO; CLOP75TA28 PO; DILT-27 PO; DILT180C90 PO; DOCU-143 PO; FURO-125 PO; MIRT7.5T8 PO; MULT1TAB69 PO; OMG1KC PO; PANT40TA3 PO; POLY17PO31 PO; POTA10TA36 PO; PRAV20TA3 PO; ROPI0.253 PO; SENN-20 PO; TRAM50TA2 PO
[2019-01-04] MEDS ORDERED: AMIODARONE (OMNICELL DRIP KIT) 150 MG/3 ML IV ONE ×2 (14:31→21:52)
[2019-01-04] MEDS ORDERED: D5W 100 ML IVPB 100 ML IV ONE (14:32)
--- NOTE | 2019-01-04 14:36 | ED Syncope ---
General Chief Complaint: Dizziness/Syncope Stated Complaint: SYNCOPE Source of Information: Patient, EMS History of Present Illness Date Seen by Provider: Jan 04, 2019 Time Seen by Provider: 14:14 Initial Comments 88 yo F presenting from [facility] where she had a syncopal event today. She was complaining to the staff that she was more dizzy today. She had recently had her dosage of diltiazem adjusted since being admitted to the [facility] under th e care of Dr. Coates. She was recently admitted to [facility] under the care of Dr. Tiwari and Dr. Phoenix for similar arrhythmia issues. Today when EMS picked her up from the [facility] facility it was noted that she was having irregularly irregular heart beat and on the monitor she was having runs of Ventricular tachycardia that were non sustained. She denies having any chest pain with this. She states that she was only having the dizziness that was coming and going at times. She also denies any nausea or vomiting. She denies cough or congestion but had some mild shortness of breath when she was haivng the dizziness. She also denies having any pain with urination or change in her bowels or bladder function. Symptoms Prior to Episode: None Precipitating Factors: None Current Symptoms: No Blurred Vision, No Chest Pain, No Diaphoresis; Dizziness; No Headache, No Loss of Bladder Control, No Loss of Bowel Control, No Nausea, No Shallow/Rapid Breathing, No Weak/Absent Pulse Allergies and Home Medications Allergies Coded Allergies: No Known Drug Allergies (Unverified , 01/04/19) Home Medications Acetaminophen 500 Mg Tablet, 500 MG PO Q4H PRN for PAIN-MILD Prescribed by: AUGUSTIN TIWARI on 12/10/18 1020 Apixaban 2.5 Mg Tablet, 2.5 MG PO BID Prescribed by: AUGUSTIN TIWARI on 12/10/18 1020 Aspirin 81 Mg Tablet.dr, 81 MG PO DAILY, (Reported) Calcium Carbonate/Vitamin D3 1 Each Tablet, 1 TAB PO DAILY, (Reported) Citalopram Hydrobromide 20 Mg Tablet, 10 MG PO HS, (Reported) TAKES 1/2 (20MG) TABLET Clopidogrel Bisulfate 75 Mg Tablet, 75 MG PO HS, (Reported) Diltiazem HCl 180 Mg Cap.er.24h, 180 MG PO DAILY Prescribed by: AUGUSTIN TIWARI on 12/10/18 1020 Docusate Sodium 100 Mg Capsule, 400 MG PO HS, (Reported) TAKES 4 (100MG) CAPSULES Furosemide 20 Mg Tablet, 20 MG PO DAILY Prescribed by: AUGUSTIN TIWARI on 12/10/18 1020 Mirtazapine 7.5 Mg Tablet, 7.5 MG PO HS, (Reported) Multivitamin 1 Each Tablet, 1 TAB PO DAILY, (Reported) Pantoprazole Sodium 40 Mg Tablet.dr, 40 MG PO DAILY Prescribed by: AUGUSTIN TIWARI on 12/10/18 1020 Polyethylene Glycol 3350 17 Gm Powd.pack, 34 GM PO BID Prescribed by: AUGUSTIN TIWARI on 12/10/18 1020 Potassium Chloride 10 Meq Tab.er.prt, 10 MEQ PO DAILY Prescribed by: AUGUSTIN TIWARI on 12/10/18 1020 Pravastatin Sodium 20 Mg Tablet, 20 MG PO HS, (Reported) Ropinirole HCl 0.25 Mg Tablet, 0.25 MG PO TID, (Reported) Sennosides/Docusate Sodium 1 Each Tablet, 2 EA PO BID Prescribed by: AUGUSTIN TIWARI on 12/10/18 1020 Tramadol HCl 50 Mg Tablet, 50 MG PO Q6H PRN for PAIN-MODERATE Prescribed by: AUGUSTIN TIWARI on 12/10/18 1020 Patient Home Medication List Home Medication List Reviewed: Yes Review of Systems Constitutional: No chills, No diaphoresis; dizziness; No fever; malaise, weakness EENTM: No ear discharge, No blurred vision, No double vision, No vision loss Respiratory: No cough; short of breath (mild when she has the dizziness) Cardiovascular: No chest pain, No edema; palpitations, syncope Gastrointestinal: No RUQ, No LUQ, No RLQ, No LLQ, No constipation, No diarrhea , No nausea, No vomiting Genitourinary: No dysuria, No frequency Musculoskeletal: No back pain, No neck pain Skin: change in color (pale) Psychiatric/Neurological: Denies Headache Past Obimpti-Lgqady-Rboftq Hx Past Med/Social Hx: Reviewed Nursing Past Med/Soc Hx Patient Social History Recent Foreign Travel: No Contact w/Someone Who Travel: No Immunizations Up To Date Date of Pneumonia Vaccine: Sep 22, 2018 Date of Influenza Vaccine: Sep 22, 2018 Past Medical History Orthopedic High Cholesterol, Hypertension Bladder Infection Chronic Constipation Arthritis Family Medical History Hypertension Physical Exam Vital Signs Vital Signs - First Documented 01/04/19 01/04/19 14:15 14:30 Temp 98.9 Pulse 180 Resp 22 B/P (MAP) 110/78 (89) Pulse Ox 92 O2 Delivery Room Air O2 Flow Rate 2.00 Capillary Refill : Height, Weight, BMI Height: 5'4.00" Weight: 161lbs. 1.0oz. [id number]; 25.6 BMI Method: General Appearance: No Apparent Distress HEENT: PERRL/EOMI, Pharynx Normal, Moist Mucous Membranes, Pale Conjunctivae (L ), Pale Conjunctivae (R) Neck: Full Range of Motion, Non Tender, Supple Cardiovascular: Irregularly Irregular, Tachycardia, Other (Initially going too fast to count and showed a rate around 200 on the general contractor. Then this spontaneously dropped down to around 100 and irregularly irregular. ) Respiratory: Chest Non Tender, No Accessory Muscle Use, No Respiratory Distress , Decreased Breath Sounds; No Rales, No Rhonci, No Stridor, No Wheezing Gastrointestinal: Normal Bowel Sounds, No Pulsatile Mass, Non Tender, Soft Extremities: Normal Range of Motion, Non Tender, No Calf Tenderness, No Pedal Edema Neurologic/Psychiatric: Alert; No Oriented x3 (oriented to person and place); No Motor/Sensory Deficits Cranial Nerves: Normal Speech, PERRL Skin: No Diaphoresis, No Ecchymosis, No Jaundice, No Mottled; Pallor Progress/Results/Core Measures Results/Orders Lab Results Laboratory Tests Test 01/04/19 14:27 Range/Units White Blood Count 7.8 4.3-11.0 10^3/uL Red Blood Count 4.08 L 4.35-5.85 10^6/uL Hemoglobin 13.3 11.5-16.0 G/DL Hematocrit 42 35-52 % Mean Corpuscular Volume 103 H 80-99 FL Mean Corpuscular Hemoglobin 33 25-34 PG Mean Corpuscular Hemoglobin Concent 33 32-36 G/DL Red Cell Distribution Width 15.2 H 10.0-14.5 % Platelet Count 274 130-400 10^3/uL Mean Platelet Volume 9.4 7.4-10.4 FL Neutrophils (%) (Auto) 63 42-75 % Lymphocytes (%) (Auto) 24 12-44 % Monocytes (%) (Auto) 10 0-12 % Eosinophils (%) (Auto) 2 0-10 % Basophils (%) (Auto) 1 0-10 % Neutrophils # (Auto) 4.9 1.8-7.8 X 10^3 Lymphocytes # (Auto) 1.9 1.0-4.0 X 10^3 Monocytes # (Auto) 0.8 0.0-1.0 X 10^3 Eosinophils # (Auto) 0.1 0.0-0.3 10^3/uL Basophils # (Auto) 0.1 0.0-0.1 10^3/uL Prothrombin Time 14.3 12.2-14.7 SEC INR Comment 1.1 0.8-1.4 Activated Partial Thromboplast Time 28 24-35 SEC Sodium Level 144 135-145 MMOL/L Potassium Level 3.7 3.6-5.0 MMOL/L Chloride Level 103 98-107 MMOL/L Carbon Dioxide Level 19 L 21-32 MMOL/L Anion Gap 22 H 5-14 MMOL/L Blood Urea Nitrogen 30 H 7-18 MG/DL Creatinine 1.05 0.60-1.30 MG/DL Estimat Glomerular Filtration Rate 50 BUN/Creatinine Ratio 29 Glucose Level 123 H 70-105 MG/DL Calcium Level 9.4 8.5-10.1 MG/DL Corrected Calcium 9.9 8.5-10.1 MG/DL Magnesium Level 1.9 1.8-2.4 MG/DL Total Bilirubin 0.4 0.1-1.0 MG/DL Aspartate Amino Transf (AST/SGOT) 17 5-34 U/L Alanine Aminotransferase (ALT/SGPT) 8 0-55 U/L Alkaline Phosphatase 215 H 40-136 U/L Troponin T 64 H <=10 NG/L Pro-B-Type Natriuretic Peptide 4275.0 H <75.0 PG/ML Total Protein 7.0 6.4-8.2 GM/DL Albumin 3.4 3.2-4.5 GM/DL My Orders Orders - SUDHA SHARP MD Ekg Tracing (01/04/19 14:29) Continuous Ekg Monitoring (01/04/19 14:29) Ekg Tracing (01/04/19 14:29) Ekg-Prn For Chest Pain Or Rhyt (01/04/19 14:29) Amiodarone For Bolus (Cordarone Bolus) (01/04/19 14:45) Amiodarone Injection (Cordarone Injectio (01/04/19 14:45) Amiodarone For Bolus (Cordarone Bolus) (01/04/19 14:31) Cbc With Automated Diff (01/04/19 14:33) Magnesium (01/04/19 14:33) Chest 1 View Ap/Pa Only (01/04/19 14:33) Comprehensive Metabolic Panel (01/04/19 14:33) Protime With Inr (01/04/19 14:33) Partial Thromboplastin Time (01/04/19 14:33) O2 (01/04/19 14:33) Saline Lock/Iv-Start (01/04/19 14:33) Troponin T (01/04/19 14:33) Probnp Fs (01/04/19 14:33) D5w 100 Ml Ivpb (Dextrose 5% Water Iv So (01/04/19 14:32) Ns Iv 1000 Ml (Sodium Chloride 0.9%) (01/04/19 14:41) Ns (Ivpb) (Sodium Chloride 0.9%) (01/04/19 15:15) Medications Given in ED Vital Signs/I&O 01/04/19 01/04/19 14:15 14:30 Temp 98.9 Pulse 180 Resp 22 B/P (MAP) 110/78 (89) Pulse Ox 92 94 O2 Delivery Room Air Nasal Cannula O2 Flow Rate 2.00 01/05/19 00:00 Intake Total 353 ml Balance 353 ml Progress Progress Note #1: Progress Note lInitially patient was placed on monitor and labs and ECG obtained since she was syncopal at the [facility] and had non sustained V tach for EMS. Here in the department she had an initial rhythm that was too fast to count and appeared to be SVT. As a second IV site was being obtained in her right AC to be able to administer Adenosine vs having to shock her if she was not able to maintain a decent blood pressure she spontaneously converted down to around 100 for her rate and was showing more of a irregularly irregular rhythm consistent with her known paroxysmal atrial fibrillation. Her blood pressure at this point was improved to 107 systolic. The entire time she was awake and would respond and answer questions. She did continue to fluctuate on her heart rate and even had some recurrent runs of non sustained Ventricular tachycardia here in the ED so I chose to start her on amiodarone to try and help with her rhythm without effecting her blood pressure as much. I also gave her a 250 mL NS bolus to help with her hydration to see if that would help her symptoms. Progress Note #2: Progress Note On recheck of patient she was having improved heart rate and seemed to be responding to her amiodarone bolus and drip. She still would occasionally have a run of increased heart rate and atrial fibrillation but it was short lived and then would slow back down. For the most part she was running in the 80s for her heart rate and appeared more sinus on the monitor now. Her blood pressure was significant improved as well. Her labs did show an elevated BNP to indicate she may have some heart failure going on too. D/w Dr. Tiwari at [facility] and she was familiar with the patient from her recent stay in Nov. She requested I also speak to Dr. Calles from Cardiology since she was on a drip and having so many rhythm changes. I did review the case with Dr. Calles and he said he would also help to take care of the patient. Initial ECG Impression Date: Jan 04, 2019 Initial ECG Impression Time: 14:15 Initial ECG Rate: 173 Initial ECG Rhythm: SVT Initial ECG Intervals: QRS (88 ms) Initial ECG Impression: SVT Initial ECG Comparisson: Changed EKG : EKG Time: 14:18 Rate: 94 Rhythm: Sinus rhythm with 1st degree AV block and occasional PVC and PAC Intervals SD interval of 240 ms with QT interval of 360 ms and QTc interval of 450 ms. ECG Comparisson: Changed ECG Impression: Normal, 1st Degree AV Block Diagnostic Imaging Diagonstic Imaging: Xray Plain Films/CT/US/NM/MRI: chest Comments NAME: SUELLEN CORONA [facility] REC#: [id number] PT STATUS: REG ER : [id number] PHYSICIAN: SUDHA SHARP MD ADMIT DATE: 01/04/19/ER FS Signed Date of Exam:01/04/19 CHEST 1 VIEW AP/PA ONLY INDICATION: Dizziness and syncope. TIME OF EXAM: 02:11 p.m. Correlation is made with prior study from 12/07/2018. FINDINGS: The heart is enlarged but stable. Mediastinal prominence is stable when compared with prior exam. Lungs are clear. There is no infiltrate or failure. No effusion or pneumothorax is seen. IMPRESSION: No acute cardiopulmonary process is identified. Dictated by: Dictated on workstation # [id number] Dict: 01/04/19 1519 Trans: 01/04/19 1523 [id number] Interpreted by: ANEUDY CARDENAS MD Electronically signed by: ANEUDY CARDENAS MD 01/04/19 15 CVA/SNYCOPE: ECG Critical Care Note Critical Care Total Time (minutes) 60 minutes Progress 60 Minutes of total critical care time was spent with the patient. Time was spent reviewing her chart, obtaining history from patient and medical record, ordering tests and reviewing results, ordering interventions and reviewing response, reviewing imaging and ECGs, discussion with the patient and consultants, documentation of the chart. Departure Communication (Admissions) Time/Spoke to Admitting Phy: 16:[address] Tiwari about the patient. She accepted the patient to the ICU and was very familiar with the patient from taking care of her during her stay in November 2018. She does request that I speak with cardiology about the patient before transfer. Time/Spoke to Consulting Phy: 16:[address] Calels about the patient and he agreed to help take care of the patient as well. He did request an echocardiogram be ordered for the morning. He also requested a dose of IV Lasix. 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 Impression Primary Impression: Syncope and collapse Additional Impressions: Nonsustained paroxysmal ventricular tachycardia CHF exacerbation Qualified Codes: I50.9 - Heart failure, unspecified Disposition: ADMITTED INPATIENT Condition: Stable Admissions Decision to Admit Reason: Admit from ER (General) Decision to Admit/Date: Jan 04, 2019 Time/Decision to Admit Time: 16:30 Departure-Patient Inst. Referrals: NO,LOCAL PHYSICIAN (PCP/Family) Primary Care Physician SUDHA SHARP MD Jan 04, 2019 14:36
[2019-01-04] MEDS ORDERED: NS IV 1000 ML 1,000 ML ONE (14:41)
[2019-01-04] MEDS ORDERED: AMIODARONE FOR BOLUS 150 MG in D5W 100 ML IVPB 100 ML IV ONE (14:45)
[2019-01-04 14:52] LABS: BASOPHILS # (AUTO) 0.1 10^3/uL (0.0-0.1); BASOPHILS % (AUTO) 1 % (0-10); EOSINOPHILS # (AUTO) 0.1 10^3/uL (0.0-0.3); EOSINOPHILS % (AUTO) 2 % (0-10); HEMATOCRIT 42 % (35-52); HEMOGLOBIN 13.3 G/DL (11.5-16.0); LYMPHOCYTES # (AUTO) 1.9 X 10^3 (1.0-4.0); LYMPHOCYTES % (AUTO) 24 % (12-44); MEAN CORPUSCULAR HEMOGLOBIN 33 PG (25-34); MEAN CORPUSCULAR HGB CONC 33 G/DL (32-36); MEAN CORPUSCULAR VOLUME 103 FL (80-99); MEAN PLATELET VOLUME 9.4 FL (7.4-10.4); MONOCYTES # (AUTO) 0.8 X 10^3 (0.0-1.0); MONOCYTES % (AUTO) 10 % (0-12); NEUTROPHILS # (AUTO) 4.9 X 10^3 (1.8-7.8); NEUTROPHILS % (AUTO) 63 % (42-75); PLATELET COUNT 274 10^3/uL (130-400); RED CELL DISTRIBUTION WIDTH 15.2 % (10.0-14.5); WHITE BLOOD COUNT 7.8 10^3/uL (4.3-11.0)
[2019-01-04] MEDS: AMIODARONE INJECTION 450 MG in D5W IV SOLUTION (EXCEL) 250 ML IV SCH ×3 (15:00→22:53)
[2019-01-04 15:13] LABS: INR 1.1 (0.8-1.4); PROTHROMBIN TIME PATIENT 14.3 SEC (12.2-14.7)
[2019-01-04 15:14] LABS: ALBUMIN 3.4 GM/DL (3.2-4.5); BILIRUBIN,TOTAL 0.4 MG/DL (0.1-1.0); CALCIUM 9.4 MG/DL (8.5-10.1); CREATININE SERUM 1.05 MG/DL (0.60-1.30); MAGNESIUM 1.9 MG/DL (1.8-2.4); POTASSIUM 3.7 MMOL/L (3.6-5.0)
[2019-01-04] MEDS ORDERED: NS (IVPB) 250 ML IV ONE (15:15)
--- NOTE | 2019-01-04 15:23 | Diagnostic Imaging Report ---
INDICATION: Dizziness and syncope. TIME OF EXAM: 02:11 p.m. Correlation is made with prior study from 12/07/2018. FINDINGS: The heart is enlarged but stable. Mediastinal prominence is stable when compared with prior exam. Lungs are clear. There is no infiltrate or failure. No effusion or pneumothorax is seen. IMPRESSION: No acute cardiopulmonary process is identified. Dictated by: Dictated on workstation # [id number]
[2019-01-04 18:40] VITALS: BP 128/84
[2019-01-04 19:00] VITALS: BP 130/88
--- NOTE | 2019-01-04 19:00 | NUR ---
SUELLEN WHEELER admitted to room CU8-1, with an admitting diagnosis of SYNCOPE, UNSUSTAINED V-TACH, on 01/04/19 from [facility] via [facility], accompanied by AMBULANCE STAFF. SUELLEN CORONA introduced to surroundings, call light, bed controls, phone, TV, temperature control, lights, meal times, smoking policy, visitor policy, side rail policy, bathrooms and showers. Patient Rights given to patient in the handbook.SUELLEN CORONA verbalizes understanding that [facility] is not responsible for the loss or damage to any personal effects or valuables that are kept in the patients posession during their hospitalization. SUELLEN CORONA verbalizes understanding of Interdisciplinary Patient Education. Patient and/or family were informed about the Rapid Response Team and its purpose.
[2019-01-04] MEDS ORDERED: FUROSEMIDE 40 MG/4 ML INJ (LASIX) IVP NR (19:03)
[2019-01-04 20:00] VITALS: BP 115/89
[2019-01-04 21:00] VITALS: BP 134/80
[2019-01-04] MEDS ORDERED: D5W IV SOLUTION (EXCEL) 250 ML IV ONE (21:52)
[2019-01-04 22:00] VITALS: BP 125/84
[2019-01-04 23:00] VITALS: BP 123/76
[2019-01-05] VITALS (48 sets, daily range): BP systolic 97–154; BP diastolic 66–104
[2019-01-05 03:28] LABS: BASOPHILS # (AUTO) 0.1 10^3/uL (0.0-0.1); BASOPHILS % (AUTO) 1 % (0-10); EOSINOPHILS # (AUTO) 0.2 10^3/uL (0.0-0.3); EOSINOPHILS % (AUTO) 3 % (0-10); HEMATOCRIT 44 % (35-52); HEMOGLOBIN 13.9 G/DL (11.5-16.0); LYMPHOCYTES # (AUTO) 1.7 X 10^3 (1.0-4.0); LYMPHOCYTES % (AUTO) 27 % (12-44); MEAN CORPUSCULAR HEMOGLOBIN 33 PG (25-34); MEAN CORPUSCULAR HGB CONC 32 G/DL (32-36); MEAN CORPUSCULAR VOLUME 104 FL (80-99); MEAN PLATELET VOLUME 9.4 FL (7.4-10.4); MONOCYTES # (AUTO) 0.7 X 10^3 (0.0-1.0); MONOCYTES % (AUTO) 11 % (0-12); NEUTROPHILS # (AUTO) 3.6 X 10^3 (1.8-7.8); NEUTROPHILS % (AUTO) 58 % (42-75); PLATELET COUNT 241 10^3/uL (130-400); RED CELL DISTRIBUTION WIDTH 15.6 % (10.0-14.5); WHITE BLOOD COUNT 6.2 10^3/uL (4.3-11.0)
[2019-01-05 03:51] LABS: ALBUMIN 3.8 GM/DL (3.2-4.5); BILIRUBIN,TOTAL 0.6 MG/DL (0.1-1.0); CALCIUM 9.8 MG/DL (8.5-10.1); CREATININE SERUM 0.92 MG/DL (0.60-1.30); MAGNESIUM 2.1 MG/DL (1.8-2.4); POTASSIUM 3.2 MMOL/L (3.6-5.0); TOTAL PROTEIN 7.8 GM/DL (6.4-8.2)
[2019-01-05] MEDS ORDERED: KCL 20 MEQ TAB (K-DUR) PO ONE ×2 (05:30→07:30)
[2019-01-05] MEDS ORDERED: KCL 20 MEQ TAB (K-DUR) PO SCH (06:00)
[2019-01-05] MEDS ORDERED: MAGNESIUM 1 GM/100 ML IVPB 100 ML IV SCH (06:00)
[2019-01-05] MEDS ORDERED: POTASSIUM CL 10MEQ/50ML IVPB 50 ML IV ONE (06:00)
[2019-01-05] MEDS ORDERED: POTASSIUM CL 10MEQ/50ML IVPB 50 ML IV SCH ×2 (06:00)
--- NOTE | 2019-01-05 07:30 | Diagnostic Imaging Report ---
INDICATION: Dyspnea, syncope. COMPARISON: 01/04/2019. DISCUSSION: Single portable upright view of the chest was obtained. Borderline cardiomegaly is again noted. No failure. Mild patchy opacities are noted within the bilateral mid lungs which appear new from the previous exam. Findings could be seen with atelectasis or pneumonia. No pleural fluid or pneumothorax. Persistent masslike thickening of the upper right mediastinum. Recommend CT for further evaluation as indicated. IMPRESSION: 1. New patchy infiltrates, concerning for developing pneumonia. 2. Persistent masslike opacity within the upper right mediastinum which is nonspecific and could be further evaluated with chest CT as indicated. Dictated by: Dictated on workstation # [id number]
--- NOTE | 2019-01-05 08:10 | Pulmonary Consultation ---
History of Present Illness History of Present Illness Date of Consultation 01/05/19 07:53 Time Seen by Provider: 07:53 Date of Admission History of Present Illness 88yo Allergies and Home Medications Allergies Coded Allergies: No Known Drug Allergies (Unverified , 01/04/19) Home Medications Acetaminophen 500 Mg Tablet, 500 MG PO Q4H PRN for PAIN-MILD Prescribed by: AUGUSTIN TIWARI on 12/10/18 1020 Apixaban 2.5 Mg Tablet, 2.5 MG PO BID Prescribed by: AUGUSTIN TIWARI on 12/10/18 1020 Aspirin 81 Mg Tablet.dr, 81 MG PO DAILY, (Reported) Calcium Carbonate/Vitamin D3 1 Each Tablet, 1 TAB PO DAILY, (Reported) Citalopram Hydrobromide 20 Mg Tablet, 10 MG PO HS, (Reported) TAKES 1/2 (20MG) TABLET Clopidogrel Bisulfate 75 Mg Tablet, 75 MG PO HS, (Reported) Diltiazem HCl 180 Mg Cap.er.24h, 180 MG PO DAILY Prescribed by: AUGUSTIN TIWARI on 12/10/18 1020 Docusate Sodium 100 Mg Capsule, 400 MG PO HS, (Reported) TAKES 4 (100MG) CAPSULES Furosemide 20 Mg Tablet, 20 MG PO DAILY Prescribed by: AUGUSTIN TIWARI on 12/10/18 1020 Mirtazapine 7.5 Mg Tablet, 7.5 MG PO HS, (Reported) Multivitamin 1 Each Tablet, 1 TAB PO DAILY, (Reported) Pantoprazole Sodium 40 Mg Tablet.dr, 40 MG PO DAILY Prescribed by: AUGUSTIN TIWARI on 12/10/18 1020 Polyethylene Glycol 3350 17 Gm Powd.pack, 34 GM PO BID Prescribed by: AUGUSTIN TIWARI on 12/10/18 1020 Potassium Chloride 10 Meq Tab.er.prt, 10 MEQ PO DAILY Prescribed by: AUGUSTIN TIWARI on 12/10/18 1020 Pravastatin Sodium 20 Mg Tablet, 20 MG PO HS, (Reported) Ropinirole HCl 0.25 Mg Tablet, 0.25 MG PO TID, (Reported) Sennosides/Docusate Sodium 1 Each Tablet, 2 EA PO BID Prescribed by: AUGUSTIN TIWARI on 12/10/18 1020 Tramadol HCl 50 Mg Tablet, 50 MG PO Q6H PRN for PAIN-MODERATE Prescribed by: AUGUSTIN TIWARI on 12/10/18 1020 Past Tsszpeb-Gskhay-Ondixg Hx Patient Social History Alcohol Use: Denies Use Recreational Drug Use: No Smoking Status: Never a Smoker 2nd Hand Smoke Exposure: No Recent Foreign Travel: No Contact w/Someone Who Travel: No Recent Infectious Disease Expo: No Recent Hopitalizations: No Physical Abuse: No Sexual Abuse: No Mistreated: No Fear: No Immunizations Up To Date Date of Pneumonia Vaccine: Sep 22, 2018 Date of Influenza Vaccine: Sep 22, 2018 Seasonal Allergies Seasonal Allergies: No Past Medical History Surgeries: Yes Orthopedic Respiratory: No Cardiac: Yes Atrial Fibrillation, High Cholesterol, Hypertension Neurological: Yes Neuropathy : No Genitourinary: Yes Bladder Infection Gastrointestinal: Yes Gastroesophageal Reflux, Chronic Constipation Musculoskeletal: Yes Arthritis Endocrine: No HEENT: No Cancer: No Psychosocial: No Integumentary: No Blood Disorders: No Family Medical History Genitourinary system disorder Hypertension Review of Systems Time Seen by Provider: 08:10 Sepsis Event Evaluation Height, Weight, BMI Height: 5'6.00" Weight: 157lbs. 3.0oz. 71.539165zu; 25.2 BMI Method:Estimated Exam Exam Vital Signs Date Time Temp Pulse Resp B/P (MAP) Pulse Ox O2 Delivery O2 Flow Rate FiO2 01/05/19 07:00 62 01/05/19 07:00 66 16 149/90 (109) 96 Nasal Cannula 2.00 01/05/19 06:00 60 24 154/91 (112) 96 Nasal Cannula 2.00 01/05/19 05:00 63 21 138/85 (102) 99 Nasal Cannula 2.00 01/05/19 04:00 95 Nasal Cannula 2.00 01/05/19 04:00 61 14 116/75 (89) 100 Nasal Cannula 2.00 01/05/19 04:00 97.5 01/05/19 03:00 64 18 126/81 (96) 97 Nasal Cannula 2.00 01/05/19 02:00 63 14 97/66 (76) 94 Nasal Cannula 2.00 01/05/19 01:00 79 14 151/91 (111) 92 Nasal Cannula 2.00 01/05/19 01:00 76 01/05/19 00:00 97.4 01/05/19 00:00 68 16 133/76 (95) 96 Nasal Cannula 2.00 01/05/19 00:00 98 Nasal Cannula 2.00 01/04/19 23:00 72 18 123/76 (92) 98 Nasal Cannula 2.00 01/04/19 22:00 70 13 125/84 (98) 100 Nasal Cannula 2.00 01/04/19 21:26 Nasal Cannula 2.00 01/04/19 21:00 69 18 134/80 (98) 98 Nasal Cannula 2.00 01/04/19 20:00 71 18 115/89 (98) 98 Nasal Cannula 2.00 01/04/19 20:00 97.8 01/04/19 19:05 73 01/04/19 19:00 75 20 130/88 (102) 98 Nasal Cannula 2.00 01/04/19 19:00 99 Nasal Cannula 2.00 01/04/19 18:40 96.9 77 14 128/84 (99) 99 Nasal Cannula 2.00 01/04/19 18:00 98.2 80 20 107/70 (82) 95 Nasal Cannula 2.00 01/04/19 14:30 94 Nasal Cannula 2.00 01/04/19 14:15 98.9 180 22 110/78 (89) 92 Room Air I & O 01/05/19 07:00 Intake Total 353 ml Output Total 1850 ml Balance -1497 ml Height & Weight Height: 5'6.00" Weight: 157lbs. 3.0oz. 71.517551ag; 25.2 BMI Method:Estimated Capillary Refill: Less Than 3 Seconds Results Lab Laboratory Tests 01/04/19 14:27 01/05/19 03:04 Assessment/Plan Assessment/Plan Syncope Run Vtach at [facility] -Pt is on amiodarone -Cardiology is following -No chest compressions -No defibrillation Dizziness with dehydration -Start IVF NS at 100cc/hr ANTON GLASER DO Jan 05, 2019 08:10
[2019-01-05] MEDS ORDERED: CITA10TA7 PO (09:20)
[2019-01-05] MEDS ORDERED: DILT-27 PO (09:20)
[2019-01-05] MEDS ORDERED: POLY17PO31 PO (09:20)
[2019-01-05] MEDS: NS IV 1000 ML 1,000 ML IV SCH ×2 (09:41→20:08)
[2019-01-05] MEDS: AMIODARONE 200 MG (CORDARONE) TAB PO SCH ×2 (12:56→21:23)
--- NOTE | 2019-01-05 13:07 | History & Physical-Hospitalist ---
History of Present Illness HPI/Chief Complaint CC: Syncope with cardiac arrhythmia HPI: This is an 88yoWF patient known to me from a few weeks ago when she was originally admitted to [facility] from [facility] ER after sustaining a left hip fracture s/p uncomplicated repair by Dr Nunes but experienced AF w/RVR with hypotension requiring higher level of care transfer to Cardiology to [facility] and subsequently stabilizing on cardiac meds and sent to [place] for skilled care under Dr Coates's service at [facility] who presented to the [facility] ER with syncope at the [place] along with severe dizziness and lethargy since last Monday. She was found to have AF w/RVR then SVT versus V-tach so she was transferred to [facility] ICU along with Dr Calles consultation for further evaluation. Her HR is 67 currently and she is feeling better and wants to eat her lunch she just ordered. Patient had been doing well since DC by me a few weeks ago and participating with PT at the [place]. Source: patient, RN/MD, old records Exam Limitations: no limitations Date Seen 01/05/19 Time Seen by a Provider: 12:00 Attending Physician Nayely Tiwari DO PCP No,Local Physician Referring Physician Date of Admission Jan 04, 2019 at 16:55 Home Medications & Allergies Home Medications Reviewed patient Home Medication Reconciliation performed by pharmacy medication reconciliations diesel service technician and/or nursing. Patients Allergies have been reviewed. Allergies Allergies Coded Allergies No Known Drug Allergies (Unverified01/04/19) Past Zerafqx-Bbidmh-Lveije Hx Past Med/Social Hx: Reviewed Nursing Past Med/Soc Hx, Reviewed and Corrections made Patient Social History Marrital Status: Employed/Student: retired Alcohol Use: Denies Use Recreational Drug Use: No Smoking Status: Never a Smoker 2nd Hand Smoke Exposure: No Recent Foreign Travel: No Contact w/other who traveled: No Recent Hopitalizations: No Recent Infectious Disease Expo: No Immunizations Up To Date Date of Pneumonia Vaccine: Sep 22, 2018 Date of Influenza Vaccine: Sep 22, 2018 Seasonal Allergies Seasonal Allergies: No Past Medical History Surgeries: Orthopedic Cardiac: Atrial Fibrillation, High Cholesterol, Hypertension Neurological: Neuropathy : No Genitourinary: Bladder Infection Gastrointestinal: Gastroesophageal Reflux, Chronic Constipation Musculoskeletal: Arthritis History of Blood Disorders: No Family History Genitourinary system disorder Hypertension Review of Systems Constitutional: see HPI, dizziness, malaise, weakness EENTM: no symptoms reported Respiratory: no symptoms reported Cardiovascular: palpitations Gastrointestinal: no symptoms reported Genitourinary: no symptoms reported Musculoskeletal: no symptoms reported Skin: no symptoms reported Psychiatric/Neurological: No Symptoms Reported All Other Systems Reviewed Negative Unless Noted: Yes Physical Exam Physical Exam Vital Signs Vital Signs - First Documented 01/04/19 01/04/19 14:15 14:30 Temp 98.9 Pulse 180 Resp 22 B/P (MAP) 110/78 (89) Pulse Ox 92 O2 Delivery Room Air O2 Flow Rate 2.00 Capillary Refill : Less Than 3 Seconds Height, Weight, BMI Height: 5'6.00" Weight: 157lbs. 3.0oz. [id number]; 25.2 BMI Method:Estimated General Appearance: No Apparent Distress, WD/WN, Chronically ill, Thin Eyes: Right Eye Normal Inspection, Right Eye PERRL HEENT: PERRL/EOMI, Normal ENT Inspection, Pharynx Normal, Moist Mucous Membranes Neck: Full Range of Motion, Normal Inspection, Non Tender Respiratory: Chest Non Tender, Lungs Clear, Normal Breath Sounds, No Accessory Muscle Use, No Respiratory Distress Cardiovascular: Regular Rate, Rhythm, No Edema, No Gallop, No JVD, No Murmur, Normal Peripheral Pulses Gastrointestinal: Normal Bowel Sounds, No Organomegaly, No Pulsatile Mass, Non Tender, Soft Back: Normal Inspection, No CVA Tenderness, No Vertebral Tenderness Extremity: Normal Capillary Refill, Normal Inspection, Normal Range of Motion, Non Tender, No Calf Tenderness, No Pedal Edema Neurologic/Psychiatric: Alert, Oriented x3, No Motor/Sensory Deficits, Normal Mood/Affect Skin: Normal Color, Warm/Dry Lymphatic: No Adenopathy Results Results/Procedures Labs Laboratory Tests 01/04/19 14:27 01/05/19 03:04 Patient resulted labs reviewed. Assessment/Plan Admission Diagnosis Assessment: Syncope due to cardiac arrhythmia with V-tach documented in ER Tely strips AF w/RVR h/o hypotension required Levophed after 5000cc of fluid given at [facility] before last [facility] admission Orthostasis hx which gave rise to fall risk with subsequent left hip fracture s/ p repair Dr Nunes 12/02/18 s/p anemia s/p 4 units of blood at [facility] during last admit s/p UTI s/p Rocephin treatment HLP Subtle confusion at times with advanced age Plan: Defer to Cardiology consultation for rhythm management Admission Status: Inpatient Order (span 2 midnights) Reason for Inpatient Admission: V tach will need 4 days inpatient Diagnosis/Problems Diagnosis/Problems (1) Nonsustained paroxysmal ventricular tachycardia Status: Acute (2) Syncope and collapse Status: Acute (3) Atrial fibrillation with rapid ventricular response Status: Acute (4) Elevated brain natriuretic peptide (BNP) level Status: Acute (5) Hypokalemia Status: Acute (6) Advanced age Status: Chronic (7) DNR (do not resuscitate) Status: Chronic Clinical Quality Measures DVT/VTE Risk/Contraindication: Risk Factor Score Per Nursin RFS Level Per Nursing on Admit: 4+=Very High NAYELY TIWARI DO Jan 05, 2019 13:07
--- NOTE | 2019-01-05 14:40 | Consultation-Cardiology ---
HPI-Cardiology Cardiology Consultation: Date of Consultation 01/05/19 Date of Admission Attending Physician Nayely Esquivel DO Admitting Physician Tish,Local Physician Consulting Physician Nicki CALLES MD HPI: Time Seen by a Provider: 12:00 Chief Complaint: Syncope This is a 88-year-old lady who has previous history of paroxysmal atrial fibrillation. She presented with a syncopal episode. She has been complaining of dizziness for the last few days. She's also been having irregularly irregular rhythm. In the EMS she was found to have runs of wide complex tachycardia. She does not have any chest pain, shortness of breath. She denies having any cardiac issues in the past. Review of Systems-Cardiology Review of Systems Constitutional: As described under HPI; No As described under HPI, No no symptoms reported, No chills, No fever; lightheadedness Eyes: No As described under HPI, No no symptoms reported, No blindness, No blurred vision, No contact lenses, No drainage, No decreased acuity, No foreign body sensation, No pain, No vision change Ears/Nose/Throat: No As described under HPI, No no symptoms reported, No chronic hearing loss, No ear discharge, No ear pain, No nasal drainage, No ulcerations Respiratory: No no symptoms reported; As described under HPI; No As described under HPI, No cough, No orthopnea, No shortness of breath, No SOB with excertion Cardiovascular: No no symptoms reported; As described under HPI; No As described under HPI, No chest pain, No edema, No irregular heart rate, No lightheadedness, No palpitations; syncope Gastrointestinal: No no symptoms reported, No As described under HPI, No abdomen distended, No abdominal pain, No blood streaked bowels, No constipation , No diarrhea, No nausea, No vomiting, No stool coloration changes Genitourinary: No As described under HPI, No burning, No dysuria, No discharge , No frequency, No flank pain, No hematuria, No urgency : Yes : No Skin: No rash, No skin related problems, No ulcerations Psychiatric/Neurological: No anxiety, No depression, No seizure, No focal weakness, No syncope Hematologic: No bleeding abnormalities All Other Systems Reviewed Negative Unless Noted: Yes CGE-Psjipf-Ofjryt Hx Patient Social History Marrital Status: Employed/Student: retired Alcohol Use: Denies Use Recreational Drug Use: No Smoking Status: Never a Smoker 2nd Hand Smoke Exposure: No Recent Foreign Travel: No Recent Infectious Disease Expo: No Hospitalization with Isolation: Denies Immunizations Up To Date Date of Pneumonia Vaccine: Sep 22, 2018 Date of Influenza Vaccine: Sep 22, 2018 Past Medical History PMH As described under Assessment. Family Medical History Family Medical History: Does not report fam h/o early CAD or SCD Family History: Genitourinary system disorder Allergies and Home Medications Allergies Coded Allergies: No Known Drug Allergies (Unverified , 01/04/19) Home Medications Acetaminophen 500 Mg Tablet, 500 MG PO Q4H PRN for PAIN-MILD Prescribed by: NAYELY ESQUIVEL on 12/10/18 1020 Apixaban 2.5 Mg Tablet, 2.5 MG PO BID Prescribed by: NAYELY ESQUIVEL on 12/10/18 1020 Aspirin 81 Mg Tablet.dr, 81 MG PO DAILY, (Reported) Calcium Carbonate/Vitamin D3 1 Each Tablet, 1 TAB PO DAILY, (Reported) Citalopram Hydrobromide 10 Mg Tablet, 10 MG PO HS, (Reported) Clopidogrel Bisulfate 75 Mg Tablet, 75 MG PO HS, (Reported) Diltiazem HCl 120 Mg Cap.er.24h, 120 MG PO DAILY, (Reported) Docusate Sodium 100 Mg Capsule, 400 MG PO HS, (Reported) TAKES 4 (100MG) CAPSULES Furosemide 20 Mg Tablet, 20 MG PO DAILY Prescribed by: NAYELY ESQUIVEL on 12/10/18 1020 Mirtazapine 7.5 Mg Tablet, 7.5 MG PO HS, (Reported) Multivitamin 1 Each Tablet, 1 TAB PO DAILY, (Reported) Pantoprazole Sodium 40 Mg Tablet.dr, 40 MG PO DAILY Prescribed by: NAYELY ESQUIVEL on 12/10/18 1020 Polyethylene Glycol 3350 17 Gm Powd.pack, 17 GM PO BID, (Reported) Potassium Chloride 10 Meq Tab.er.prt, 10 MEQ PO DAILY Prescribed by: NAYELY ESQUIVEL on 12/10/18 1020 Pravastatin Sodium 20 Mg Tablet, 20 MG PO HS, (Reported) Ropinirole HCl 0.25 Mg Tablet, 0.25 MG PO TID, (Reported) Sennosides/Docusate Sodium 1 Each Tablet, 2 EA PO BID Prescribed by: NAYELY ESQUIVEL on 12/10/18 1020 Tramadol HCl 50 Mg Tablet, 50 MG PO Q6H PRN for PAIN-MODERATE Prescribed by: NAYELY ESQUIVEL on 12/10/18 1020 Patient Home Medication List Home Medication List Reviewed: Yes Physical Exam-Cardiology Physical Exam Vital Signs/I&O 01/05/19 01/05/19 01/05/19 01/05/19 03:00 04:00 04:00 04:00 Temp 97.5 Pulse 64 61 Resp 18 14 B/P (MAP) 126/81 (96) 116/75 (89) Pulse Ox 97 100 95 O2 Delivery Nasal Cannula Nasal Cannula Nasal Cannula O2 Flow Rate 2.00 2.00 2.00 01/05/19 01/05/19 01/05/19 01/05/19 05:00 06:00 07:00 07:00 Pulse 63 60 66 62 Resp 21 24 16 B/P (MAP) 138/85 (102) 154/91 (112) 149/90 (109) Pulse Ox 99 96 96 O2 Delivery Nasal Cannula Nasal Cannula Nasal Cannula O2 Flow Rate 2.00 2.00 2.00 01/05/19 01/05/19 01/05/19 01/05/19 07:15 07:30 07:45 07:58 Temp 98.1 Pulse 69 60 60 Resp 16 16 15 B/P (MAP) 149/90 (109) 149/90 (109) 120/81 (94) Pulse Ox 96 96 98 O2 Delivery Nasal Cannula Nasal Cannula Nasal Cannula O2 Flow Rate 2.00 2.00 2.00 01/05/19 01/05/19 01/05/19 01/05/19 08:00 08:15 08:24 08:30 Pulse 65 71 61 Resp 13 18 24 B/P (MAP) 125/87 (100) 132/88 (103) 105/91 (96) Pulse Ox 93 98 98 O2 Delivery Nasal Cannula Nasal Cannula Nasal Cannula Nasal Cannula O2 Flow Rate 2.00 2.00 2.00 2.00 01/05/19 01/05/19 01/05/19 01/05/19 08:45 09:00 09:00 09:15 Pulse 63 62 58 Resp 25 20 17 B/P (MAP) 122/86 (98) 124/83 (97) 127/75 (92) Pulse Ox 99 99 100 O2 Delivery Nasal Cannula Nasal Cannula Nasal Cannula Nasal Cannula O2 Flow Rate 2.00 2.00 1.50 2.00 01/05/19 01/05/19 01/05/19 01/05/19 09:30 09:45 10:00 10:15 Pulse 58 63 61 65 Resp 21 24 18 26 B/P (MAP) 113/70 (84) 132/84 (100) 128/76 (93) 118/79 (92) Pulse Ox 99 99 99 98 O2 Delivery Nasal Cannula Nasal Cannula Nasal Cannula Nasal Cannula O2 Flow Rate 2.00 2.00 2.00 2.00 01/05/19 01/05/19 01/05/19 01/05/19 10:30 10:45 11:00 11:15 Pulse 62 65 62 62 Resp 21 30 24 20 B/P (MAP) 112/79 (90) 123/97 (106) 132/77 (95) 120/80 (93) Pulse Ox 97 97 98 99 O2 Delivery Nasal Cannula Nasal Cannula Nasal Cannula Nasal Cannula O2 Flow Rate 2.00 2.00 2.00 2.00 01/05/19 01/05/19 01/05/19 01/05/19 11:30 11:45 12:00 12:03 Temp 98.4 Pulse 63 64 65 Resp 22 23 23 B/P (MAP) 133/87 (102) 136/87 (103) 126/87 (100) Pulse Ox 100 95 95 O2 Delivery Nasal Cannula Nasal Cannula Nasal Cannula O2 Flow Rate 2.00 2.00 2.00 01/05/19 01/05/19 01/05/19 01/05/19 12:05 12:15 12:30 12:45 Pulse 67 73 73 Resp 29 16 31 B/P (MAP) 126/100 (109) 134/104 (114) 130/96 (107) Pulse Ox 98 97 98 O2 Delivery Nasal Cannula Nasal Cannula Nasal Cannula Nasal Cannula O2 Flow Rate 2.00 2.00 2.00 2.00 01/05/19 01/05/19 01/05/19 01/05/19 13:00 13:00 13:15 13:30 Pulse 69 70 69 71 Resp 25 20 25 B/P (MAP) 126/98 (107) 118/76 (90) 125/82 (96) Pulse Ox 97 95 96 O2 Delivery Room Air Room Air Room Air 01/05/19 01/05/19 01/05/19 13:45 14:00 14:15 Pulse 73 73 73 Resp 24 24 22 B/P (MAP) 136/82 (100) 117/72 (87) 123/71 (88) Pulse Ox 94 94 95 O2 Delivery Room Air Room Air Room Air 01/04/19 23:59 Intake Total 353 ml Output Total 250 ml Balance 103 ml Capillary Refill : Less Than 3 Seconds Constitutional: appears stated age, AAO x 3; No apparent distress; well- developed, well-nourished HEENT: PERRL; No normal ENT inspection, No TMs normal, No pharynx normal, No scleral icterus (R), No scleral icterus (L), No pale conjunctivae (R), No pale conjunctivae (L), No photophobia, No TM abnormal (R), No TM abnormal (L), No pharyngeal erythema, No tonsillar exudate, No other, No discharge, No EOMI; hearing is well preserved; No hard of hearing; oral hygience is good; No ulceration, No xanthelasmas are seen Neck: No non-tender, No full range of motion, No supple, No normal inspection, No carotid bruit, No limited range of motion, No lymphadenopathy (R), No lymphadenopathy (L), No tender lateral, No tender midline, No thyromegaly, No other; carotid pulses are 2 + bilaterally; No with good upstrokes Respiratory: No accessory muscle use, No respiratory distress, No chest tender , No chest expansion is symmetric; chest is bilaterally symmetric; No lungs clear to percussion; lungs clear to auscultation; No crackles, No rhonchi, No rales, No stridor, No wheezing, No pleural rub, No other Cardiovascular: regular rate-rhythm; No irregularly irregular, No extra beats, No parasternal heave is noted, No JVD, No edema, No bradycardia, No tachycardia , No point of maximal impulse, No cardiac thrills are palpable; S1 and S2; No gallop/S3, No gallop/S4, No diastolic murmur, No systolic murmur, No friction rub, No click, No other Gastrointestinal: No tender, No soft, No round, No distended, No pulsatile mass , No organomegaly, No guarding, No rebound, No tenderness, No hernia, No mass, No audible bowel sounds, No abnormal bowel sounds, No abdominal bruits, No spleenomegaly, No other Rectal: deferred Extremities: No normal range of motion, No non-tender, No normal inspection, No pedal edema, No calf tenderness, No normal capillary refill, No pelvis stable , No calf tenderness, No inflammation, No pedal edema, No slow capillary refill , No swelling, No other, No abrasion, No clubbing, No cyanosis, No ecchymosis, No laceration, No no lower extremity edema bilateral, No significant edema, No tenderness, No wound Neurologic/Psychiatric: no motor/sensory deficits, alert, normal mood/affect, oriented x 3, power is 5/5 both on sides Skin: No normal color, No warm/dry, No cyanosis, No cool, No diaphoresis, No damp, No ecchymosis, No jaundice, No mottled, No pallor, No rash, No tattoos/ piercings, No ulcerations, No rash on exposed areas, No ulcerations on exposed areas, No other Data Review Labs Laboratory Tests 01/05/19 03:04: White Blood Count 6.2, Red Blood Count 4.24L, Hemoglobin 13.9, Hematocrit 44, Mean Corpuscular Volume 104H, Mean Corpuscular Hemoglobin 33, Mean Corpuscular Hemoglobin Concent 32, Red Cell Distribution Width 15.6H, Platelet Count 241, Mean Platelet Volume 9.4, Neutrophils (%) (Auto) 58, Lymphocytes (%) (Auto) 27, Monocytes (%) (Auto) 11, Eosinophils (%) (Auto) 3, Basophils (%) (Auto) 1, Neutrophils # (Auto) 3.6, Lymphocytes # (Auto) 1.7, Monocytes # (Auto) 0.7, Eosinophils # (Auto) 0.2, Basophils # (Auto) 0.1, Sodium Level 142, Potassium Level 3.2L, Chloride Level 104, Carbon Dioxide Level 25, Anion Gap 13, Blood Urea Nitrogen 27H, Creatinine 0.92, Estimat Glomerular Filtration Rate 58, BUN/ Creatinine Ratio 29, Glucose Level 92, Calcium Level 9.8, Corrected Calcium 10.0 , Magnesium Level 2.1, Total Bilirubin 0.6, Aspartate Amino Transf (AST/SGOT) 23 , Alanine Aminotransferase (ALT/SGPT) 10, Alkaline Phosphatase 235H, Total Protein 7.8, Albumin 3.8 01/05/19 13:24: Troponin I 0.038H ECG Impression ECG Initial ECG Rhythm: Normal Sinus, SVT Initial ECG Impression: Normal A/P-Cardiology Assessment/Admission Diagnosis Syncope, Wide-complex tachycardia, PSVT, Paroxysmal atrial fibrillation, Plan Syncope, wide complex tachycardia likely ventricular tachycardia with possible A -V dissociation. Echocardiogram and coronary angiography is recommended. I discussed at length with the patient about her wishes and she would like to proceed with coronary angiography. She also understands the risks and complication associated with the procedure. She is already on aspirin and Plavix which we will continue. Another EKG done shows narrow complex tachycardia. No significant cycle length irregularity. History of paroxysmal atrial fibrillation. Already on Eliquis. We will hold Eliquis [facility] for coronary angiography in the morning. I did discuss with the patient about possibility of EP study and ablation and possible ICD implantation. Echocardiogram done 01/05/2019 showed normal LV function. Thank you for your consultation. Please call me if you have any questions. Laquita Calles MD, FACP, FACC, FSCAI, FHRS, CCDS Interventional Cardiology Cardiac Electrophysiology Vascular Medicine and Endovascular Interventions Clinical Quality Measures DVT/VTE Risk/Contraindication: Risk Factor Score Per Nursin RFS Level Per Nursing on Admit: 4+=Very High Nicki CALLES MD Jan 05, 2019 2:40 pm
[2019-01-06] VITALS (17 sets, daily range): BP systolic 110–163; BP diastolic 65–108
[2019-01-06 03:47] LABS: BUN/CREATININE RATIO 27; CALCIUM 8.8 MG/DL (8.5-10.1); CARBON DIOXIDE 23 MMOL/L (21-32); CHLORIDE 106 MMOL/L (98-107); CREATININE SERUM 0.82 MG/DL (0.60-1.30); GFR ESTIMATED > 60; GLUCOSE 93 MG/DL (70-105); MAGNESIUM 2.1 MG/DL (1.8-2.4); POTASSIUM 4.6 MMOL/L (3.6-5.0); SODIUM 139 MMOL/L (135-145)
--- NOTE | 2019-01-06 06:04 | Pulmonary Progress Note ---
Subjective Time Seen by a Provider: 06:22 Subjective/Events-last exam Pt is off amio gtt now. Sepsis Event Evaluation Height, Weight, BMI Height: 5'6.00" Weight: 159lbs. 0.0oz. 72.976412by; 25.2 BMI Method:Estimated Exam Exam Vital Signs Date Time Temp Pulse Resp B/P (MAP) Pulse Ox O2 Delivery O2 Flow Rate FiO2 01/06/19 05:00 78 26 143/93 (110) 96 Room Air 01/06/19 04:00 81 27 147/95 (112) 95 Room Air 01/06/19 04:00 Room Air 01/06/19 03:50 98.2 01/06/19 03:00 82 25 150/94 (112) 94 Room Air 01/06/19 02:00 75 21 144/108 (120) 95 Room Air 01/06/19 01:00 80 01/06/19 01:00 78 24 157/99 (118) 94 Room Air 01/06/19 00:21 97.8 01/06/19 00:00 Room Air 01/06/19 00:00 76 24 146/92 (110) 96 Room Air 01/05/19 23:00 78 24 147/89 (108) 95 Room Air 01/05/19 22:00 79 27 137/88 (104) 95 Room Air 01/05/19 21:00 75 25 140/91 (107) 95 Room Air 01/05/19 20:00 78 25 136/84 (101) 94 Room Air 01/05/19 20:00 Room Air 01/05/19 20:00 98.0 01/05/19 19:00 84 01/05/19 19:00 84 28 123/80 (94) 94 Room Air 01/05/19 18:00 84 13 150/98 (115) 94 Room Air 01/05/19 17:00 75 27 130/82 (98) 95 Room Air 01/05/19 16:00 75 22 130/81 (97) 96 Room Air 01/05/19 15:07 98.1 01/05/19 15:04 Room Air 01/05/19 15:00 68 19 129/95 (106) 95 Room Air 01/05/19 14:45 74 22 123/77 (92) 94 Room Air 01/05/19 14:30 75 25 122/76 (91) 94 Room Air 01/05/19 14:15 73 22 123/71 (88) 95 Room Air 01/05/19 14:00 73 24 117/72 (87) 94 Room Air 01/05/19 13:45 73 24 136/82 (100) 94 Room Air 01/05/19 13:30 71 25 125/82 (96) 96 Room Air 01/05/19 13:15 69 20 118/76 (90) 95 Room Air 01/05/19 13:00 70 01/05/19 13:00 69 25 126/98 (107) 97 Room Air 01/05/19 12:45 73 31 130/96 (107) 98 Nasal Cannula 2.00 01/05/19 12:30 73 16 134/104 (114) 97 Nasal Cannula 2.00 01/05/19 12:15 67 29 126/100 (109) 98 Nasal Cannula 2.00 01/05/19 12:05 Nasal Cannula 2.00 01/05/19 12:03 98.4 01/05/19 12:00 65 23 126/87 (100) 95 Nasal Cannula 2.00 01/05/19 11:45 64 23 136/87 (103) 95 Nasal Cannula 2.00 01/05/19 11:30 63 22 133/87 (102) 100 Nasal Cannula 2.00 01/05/19 11:15 62 20 120/80 (93) 99 Nasal Cannula 2.00 01/05/19 11:00 62 24 132/77 (95) 98 Nasal Cannula 2.00 01/05/19 10:45 65 30 123/97 (106) 97 Nasal Cannula 2.00 01/05/19 10:30 62 21 112/79 (90) 97 Nasal Cannula 2.00 01/05/19 10:15 65 26 118/79 (92) 98 Nasal Cannula 2.00 01/05/19 10:00 61 18 128/76 (93) 99 Nasal Cannula 2.00 01/05/19 09:45 63 24 132/84 (100) 99 Nasal Cannula 2.00 01/05/19 09:30 58 21 113/70 (84) 99 Nasal Cannula 2.00 01/05/19 09:15 58 17 127/75 (92) 100 Nasal Cannula 2.00 01/05/19 09:00 Nasal Cannula 1.50 01/05/19 09:00 62 20 124/83 (97) 99 Nasal Cannula 2.00 01/05/19 08:45 63 25 122/86 (98) 99 Nasal Cannula 2.00 01/05/19 08:30 61 24 105/91 (96) 98 Nasal Cannula 2.00 01/05/19 08:24 Nasal Cannula 2.00 01/05/19 08:15 71 18 132/88 (103) 98 Nasal Cannula 2.00 01/05/19 08:00 65 13 125/87 (100) 93 Nasal Cannula 2.00 01/05/19 07:58 98.1 01/05/19 07:45 60 15 120/81 (94) 98 Nasal Cannula 2.00 01/05/19 07:30 60 16 149/90 (109) 96 Nasal Cannula 2.00 01/05/19 07:15 69 16 149/90 (109) 96 Nasal Cannula 2.00 01/05/19 07:00 62 01/05/19 07:00 66 16 149/90 (109) 96 Nasal Cannula 2.00 01/05/19 06:00 60 24 154/91 (112) 96 Nasal Cannula 2.00 I & O 01/06/19 07:00 Intake Total 989 ml Output Total 1740 ml Balance -751 ml Height & Weight Height: 5'6.00" Weight: 159lbs. 0.0oz. 72.859837ev; 25.2 BMI Method:Estimated General Appearance: No Apparent Distress, WD/WN, Chronically ill, Thin HEENT: PERRL/EOMI, Normal ENT Inspection, Pharynx Normal, Moist Mucous Membranes Neck: Full Range of Motion, Normal Inspection, Non Tender Respiratory: Chest Non Tender, Lungs Clear, Normal Breath Sounds, No Accessory Muscle Use, No Respiratory Distress Cardiovascular: Regular Rate, Rhythm, No Edema, No Gallop, No JVD, No Murmur, Normal Peripheral Pulses Capillary Refill: Less Than 3 Seconds Extremity: Normal Capillary Refill, Normal Inspection, Normal Range of Motion, Non Tender, No Calf Tenderness, No Pedal Edema Neurologic/Psychiatric: Alert, Oriented x3, No Motor/Sensory Deficits, Normal Mood/Affect Skin: Normal Color, Warm/Dry Lymphatic: No Adenopathy Results Lab Laboratory Tests 01/04/19 14:27 01/05/19 03:04 01/06/19 03:01 Assessment/Plan Assessment/Plan Syncope Run Vtach at ECF -Pt is on amiodarone PO -Cardiology is following Dizziness with dehydration -Stop IVF NS at 100cc/hr Pt is doing better will transfer to 4th floor with tele . I am going to sign off once pt is transferred to 4th. Please call with any questions or concerns. ANTON GLASER DO Jan 06, 2019 06:04
[2019-01-06] MEDS ORDERED: NS IV 1000 ML 0 ML ONE (06:35)
[2019-01-06] MEDS: AMIODARONE 200 MG (CORDARONE) TAB PO SCH ×2 (08:24→20:12)
--- NOTE | 2019-01-06 08:57 | Diagnostic Imaging Report ---
Indication: Syncope Portable chest 4:23 AM Heart size and pulmonary vascularity are normal. Lungs are clear. There are no effusions or pneumothoraces. Impression: Negative chest. Dictated by: Dictated on workstation # [id number]
[2019-01-06] MEDS ORDERED: NS IV 1000 ML 3,000 ML ONE (09:06)
[2019-01-06] MEDS ORDERED: LIDOCAINE 1% INJ 20 ML 20 ML VIAL ONE (09:06)
[2019-01-06] MEDS ORDERED: HEParin 1000 UNIT/ML (10ML VIAL) FOR BOLUS ONE (09:06)
[2019-01-06] MEDS ORDERED: fentaNYL INJECTION 100 MCG/2 ML AMP ONE (09:10)
[2019-01-06] MEDS ORDERED: MIDAZOLAM 5 MG/5 ML (VERSED) VIAL ONE (09:10)
--- NOTE | 2019-01-06 10:46 | Cardiology Progress Note ---
Cardiology SOAP Progress Note Subjective: No further cardiac symptoms. Objective: I&O/Vital Signs 01/06/19 01/06/19 01/06/19 01/06/19 00:00 00:00 00:21 01:00 Temp 97.8 Pulse 76 78 Resp 24 24 B/P (MAP) 146/92 (110) 157/99 (118) Pulse Ox 96 94 O2 Delivery Room Air Room Air Room Air 01/06/19 01/06/19 01/06/19 01/06/19 01:00 02:00 03:00 03:50 Temp 98.2 Pulse 80 75 82 Resp 21 25 B/P (MAP) 144/108 (120) 150/94 (112) Pulse Ox 95 94 O2 Delivery Room Air Room Air 01/06/19 01/06/19 01/06/19 01/06/19 04:00 04:00 05:00 06:00 Pulse 81 78 79 Resp 27 26 21 B/P (MAP) 147/95 (112) 143/93 (110) 163/98 (119) Pulse Ox 95 96 97 O2 Delivery Room Air Room Air Room Air Room Air 01/06/19 01/06/19 01/06/19 01/06/19 07:00 07:00 08:00 08:00 Pulse 80 74 80 Resp 22 23 B/P (MAP) 146/90 (108) 157/95 (115) Pulse Ox 94 94 O2 Delivery Room Air Room Air Room Air 01/06/19 01/06/19 08:00 09:00 Temp 98.4 Pulse 76 Resp 21 B/P (MAP) 147/94 (111) Pulse Ox 95 O2 Delivery Room Air 01/06/19 00:00 Intake Total 869 ml Output Total 490 ml Balance 379 ml Weight (Pounds): 159 Weight (Ounces): 0.0 Weight (Calculated Kilograms): 72.067241 Constitutional: appears stated age, AAO x 3; No apparent distress; well- developed, well-nourished Respiratory: No accessory muscle use, No respiratory distress, No chest tender , No chest expansion is symmetric; chest is bilaterally symmetric; No lungs clear to percussion; lungs clear to auscultation; No crackles, No rhonchi, No rales, No stridor, No wheezing, No pleural rub, No other Cardiovascular: regular rate-rhythm; No irregularly irregular, No extra beats, No parasternal heave is noted, No JVD, No edema, No bradycardia, No tachycardia , No point of maximal impulse, No cardiac thrills are palpable; S1 and S2; No gallop/S3, No gallop/S4, No diastolic murmur, No systolic murmur, No friction rub, No click, No other Gastrointestional: No tender, No soft, No round, No distended, No pulsatile mass, No organomegaly, No guarding, No rebound, No tenderness, No hernia, No mass, No audible bowel sounds, No abnormal bowel sounds, No abdominal bruits, No spleenomegaly, No other Extremities: No normal range of motion, No non-tender, No normal inspection, No pedal edema, No calf tenderness, No normal capillary refill, No pelvis stable , No calf tenderness, No inflammation, No pedal edema, No slow capillary refill , No swelling, No other, No abrasion, No clubbing, No cyanosis, No ecchymosis, No laceration, No no lower extremity edema bilateral, No significant edema, No tenderness, No wound Neurologic/Psychiatric: no motor/sensory deficits, alert, normal mood/affect, oriented x 3, power is 5/5 both on sides Skin: No normal color, No warm/dry, No cyanosis, No cool, No diaphoresis, No damp, No ecchymosis, No jaundice, No mottled, No pallor, No rash, No tattoos/ piercings, No ulcerations, No rash on exposed areas, No ulcerations on exposed areas, No other Results/Procedures: Labs Laboratory Tests 01/05/19 13:24: Troponin I 0.038H 01/05/19 19:16: Troponin I 0.034H 01/06/19 03:01: Sodium Level 139, Potassium Level 4.6, Chloride Level 106, Carbon Dioxide Level 23, Anion Gap 10, Blood Urea Nitrogen 22H, Creatinine 0.82, Estimat Glomerular Filtration Rate > 60, BUN/Creatinine Ratio 27, Glucose Level 93, Calcium Level 8.8, Magnesium Level 2.1 A/P: Assessment/Dx: Syncope, Wide-complex tachycardia, PSVT, Paroxysmal atrial fibrillation, Plan: Syncope, wide complex tachycardia likely ventricular tachycardia with possible A -V dissociation. Echocardiogram and coronary angiography is recommended. I discussed at length with the patient about her wishes and she would like to proceed with coronary angiography. She also understands the risks and complication associated with the procedure. She is already on aspirin and Plavix which we will continue. Coronary angiography planned for today. Echocardiogram showed normal LV function Another EKG done shows narrow complex tachycardia. No significant cycle length irregularity. History of paroxysmal atrial fibrillation. Already on Eliquis. I did discuss with the patient about possibility of EP study and ablation and possible ICD implantation. Echocardiogram done 01/05/2019 showed normal LV function. Thank you for your consultation. Please call me if you have any questions. Laquita Calles MD, FACP, FACC, FSCAI, FHRS, CCDS Interventional Cardiology Cardiac Electrophysiology Vascular Medicine and Endovascular Interventions Nicki CALLES MD Jan 06, 2019 10:46 am
--- NOTE | 2019-01-06 10:46 | Cardiac Procedure Note-CS/ASA ---
Pre-Procedure Note Pre-Op Procedure Note H&P Reviewed The H&P was reviewed, patient examined and no changes noted. Date H&P Reviewed: Jan 06, 2019 Time H&P Reviewed: 10:00 Conscious Sedation Pre-Proced Time 10:00 ASA Score 3 For ASA 3 and 4: Consider anesthesia and medical clearance. Also, for patients with a history of failed moderate sedation consider anesthesia. Airway Lungs Heart ASA score ASA 1: a normal healthy patient ASA 2: a patient with a mild systemic disease (mid diabetes, controlled hypertension, obesity ASA 3: a patient with a severe systemic disease that limits activity (angina , COPD, prior Myocardial infarction) ASA 4: a patient with an incapacitating disease that is a constant threat to life (CHF, renal failure) ASA 5: a moribund patient not expected to survive 24 hrs. (ruptured aneurysm) ASA 6: a declared brain- patient whose organs are being harvested. For emergent operations, add the letter E after the classification Mallampati Classification Grade 1 Sedation Plan Analgesia, Amnesia, Plan communicated to team members, Discussed options with patient/fam, Discussed risks with patient/fam The patient is an appropriate candidate to undergo the planned procedure, sedation, and anesthesia. The patient immediately re-assessed prior to indication. Nicki NICHOLE MD Jan 06, 2019 10:46
--- NOTE | 2019-01-06 10:51 | Coronary Angiography Report ---
Coronary Angiography Report DATE OF PROCEDURE: 01/06/19 INDICATION: Syncope, ventricular tachycardia. PREOPERATIVE DIAGNOSIS: Syncope, ventricular tachycardia. POSTOPERATIVE DIAGNOSIS: Mild CAD. HISTORY: This is a 88-year-old lady with history of paroxysmal atrial fibrillation who presented with syncope and wide complex tachycardia, very likely ventricular tachycardia. Normal LV function on echocardiogram. Therefore, the patient was scheduled for coronary angiography. PROCEDURES PERFORMED: 1.Coronary angiography. 2.Left heart catheterization. 3. Aortic arch angiogram. COMPLICATIONS: None. SPECIMENS: None. ESTIMATED BLOOD LOSS: 10 mL ANESTHESIA: Conscious sedation ANTICOAGULATION: IV heparin CONTRAST: 66 ml. FLUOROSCOPY: 3.40 minutes. FLOUROSCOPY DOSE: 321 mgy. PROCEDURE DETAILS: The patient is a 88 female and was brought to the concrete plant laborer after informed consent was taken. All the risks and complications were explained in detail; this included the risk of bleeding, vascular damage, stroke , OK and even . The patient was draped and prepped in the usual sterile fashion. Ashish's test was abnormal, therefore, Access was gained in the right femoral artery with a 5 Tamazight sheath. Coronary angiography, aortic arch angiogram and left heart catheterization was performed with a JR4, JL4 and a pigtail catheter. FINDINGS: 1.Left main: Patent. 2.LAD: Mild proximal disease. Stenosis severity 20 percent. 3.Left circumflex artery: Mild diffuse disease. 4.RCA: mild diffuse disease. Ectatic vessel. No focal stenosis noted. 5.Left heart catheterization: LV pressure 155/5 mmHg. LVEDP 14 mmHg. Aortic pressure 155/93 mmHg. Normal LV function with no wall motion abnormalities. No gradient across the aortic valve. 6. Aortic arch angiogram, medical necessity significant tortuosity and calcification noted in the arch and ascending thoracic aorta. Ectatic proximal thoracic aorta with calcification but no estrellita aneurysm or dissection. Patent proximal segments of the great arteries including brachycephalic artery, common carotid artery and subclavian artery. CONCLUSIONS: Mild CAD. Continue secondary prevention measures. Normal LV function with normal LVEDP. Laquita Calles MD, FACP, FACC, [facility] Interventional Cardiology Nicki CALLES MD Jan 06, 2019 10:51
[2019-01-06] MEDS ORDERED: PATIENT MAY USE OWN MEDS, ALL PO SCH (11:00)
[2019-01-06] MEDS: NS IV 1000 ML 1,000 ML IV SCH ×3 (11:20→20:12)
[2019-01-06] MEDS: meTOprolol TARTRATE 25 MG (LOPRESSOR) TABLET PO SCH ×2 (11:20→20:12)
--- NOTE | 2019-01-06 13:01 | Progress Note-Hospitalist ---
Subjective HPI/CC On Admission Date Seen by Provider: Jan 06, 2019 Time Seen by Provider: 11:30 CC: Syncope with cardiac arrhythmia HPI: This is an 88yoWF patient known to me from a few weeks ago when she was originally admitted to [facility] from [facility] ER after sustaining a left hip fracture s/p uncomplicated repair by Dr Nunes but experienced AF w/RVR with hypotension requiring higher level of care transfer to Cardiology to [facility] and subsequently stabilizing on cardiac meds and sent to [facility] for skilled care under Dr Coates's service at [facility] who presented to the [facility] ER with syncope at the [facility] along with severe dizziness and lethargy since last Monday. She was found to have AF w/RVR then SVT versus V-tach so she was transferred to [facility] ICU along with Dr Calles consultation for further evaluation. Her HR is 67 currently and she is feeling better and wants to eat her lunch she just ordered. Patient had been doing well since DC by me a few weeks ago and participating with PT at the [facility]. Subjective/Events-last exam Cardiac catheterization was normal no obstructive coronary disease Maintained with good heart rate on amiodarone 200 mg twice daily along with metoprolol Blood pressure good Overall feels well except for left hip pain from left hip fracture several weeks ago Review of Systems General: Fatigue Objective Exam Vital Signs Vital Signs Date Time Temp Pulse Resp B/P (MAP) Pulse Ox O2 Delivery O2 Flow Rate FiO2 01/06/19 12:00 79 22 149/94 (112) 98 Room Air 01/06/19 08:00 98.4 01/05/19 12:45 2.00 Capillary Refill : Less Than 3 Seconds General Appearance: No Apparent Distress, WD/WN, Chronically ill, Thin HEENT: PERRL/EOMI, Normal ENT Inspection, Pharynx Normal, Moist Mucous Membranes Neck: Full Range of Motion, Normal Inspection, Non Tender Respiratory: Chest Non Tender, Lungs Clear, Normal Breath Sounds, No Accessory Muscle Use, No Respiratory Distress Cardiovascular: Regular Rate, Rhythm, No Edema, No Gallop, No JVD, No Murmur, Normal Peripheral Pulses Gastrointestinal: Normal Bowel Sounds, No Organomegaly, No Pulsatile Mass, Non Tender, Soft Back: Normal Inspection, No CVA Tenderness, No Vertebral Tenderness Extremity: Normal Capillary Refill, Normal Inspection, Normal Range of Motion, Non Tender, No Calf Tenderness, No Pedal Edema Neurologic/Psychiatric: Alert, Oriented x3, No Motor/Sensory Deficits, Normal Mood/Affect Skin: Normal Color, Warm/Dry Lymphatic: No Adenopathy Results/Procedures Lab Laboratory Tests 01/06/19 03:01 Patient resulted labs reviewed. Assessment/Plan Assessment and Plan Assess & Plan/Chief Complaint Assessment: Syncope due to cardiac arrhythmia with V-tach documented in ER Tely strips AF w/RVR now resolved on Amiodarone 200mg PO BID along with Metoprolol h/o hypotension required Levophed after 5000cc of fluid given at [facility] before last H admission Orthostasis hx which gave rise to fall risk with subsequent left hip fracture s/ p repair Dr Nunes 12/02/18 s/p anemia s/p 4 units of blood at [facility] during last admit s/p UTI s/p Rocephin treatment HLP Subtle confusion at times with advanced age Plan: Defer to Cardiology consultation for rhythm management which is very successful today Cath normal Diagnosis/Problems Diagnosis/Problems (1) Nonsustained paroxysmal ventricular tachycardia Status: Acute (2) Syncope and collapse Status: Acute (3) Atrial fibrillation with rapid ventricular response Status: Acute (4) Elevated brain natriuretic peptide (BNP) level Status: Acute (5) Hypokalemia Status: Acute (6) Advanced age Status: Chronic (7) DNR (do not resuscitate) Status: Chronic (8) S/P cardiac cath Status: Acute Clinical Quality Measures DVT/VTE Risk/Contraindication: Risk Factor Score Per Nursin RFS Level Per Nursing on Admit: 4+=Very High AUGUSTIN TIWARI DO Jan 06, 2019 13:01
--- NOTE | 2019-01-06 13:10 | NUR ---
REPORT RECEIVED FROM TIARA HONG, RECEIVED FROM ICU TO ROOM 433, ORIENTED TIMES 2, BED ALARM ON, CALL LIGHT WITHIN REACH, IV SITE WITHOUT REDNESS OR SWELLING, DRESSING TO RIGHT GROIN DRY AND INTACT, NO HEMATOMA, PEDAL PULSE PRESENT, DENIES PAIN OR SOB, WEBBER PATENT WITH JONATHAN COLOR URINE, HOB ELEVATED, HEELS FLOATED OFF BED.
[2019-01-07] VITALS (7 sets, daily range): BP systolic 112–137; BP diastolic 72–85
[2019-01-07 03:51] LABS: HEMOGLOBIN 12.8 G/DL (11.5-16.0); MEAN PLATELET VOLUME 9.4 FL (7.4-10.4); RED CELL DISTRIBUTION WIDTH 14.9 % (10.0-14.5); WHITE BLOOD COUNT 8.6 10^3/uL (4.3-11.0)
[2019-01-07 04:03] LABS: BUN/CREATININE RATIO 26; CARBON DIOXIDE 24 MMOL/L (21-32); CHLORIDE 103 MMOL/L (98-107); GFR ESTIMATED > 60; GLUCOSE 93 MG/DL (70-105); MAGNESIUM 1.8 MG/DL (1.8-2.4); POTASSIUM 3.6 MMOL/L (3.6-5.0); SODIUM 136 MMOL/L (135-145)
[2019-01-07] MEDS: NS IV 1000 ML 1,000 ML IV SCH (05:09)
[2019-01-07] MEDS: meTOprolol TARTRATE 25 MG (LOPRESSOR) TABLET PO SCH ×2 (08:33→20:21)
[2019-01-07] MEDS: AMIODARONE 200 MG (CORDARONE) TAB PO SCH ×2 (08:33→20:22)
[2019-01-07] MEDS ORDERED: POLYETHYLENE GLYCOL 17 GM (MIRALAX) PACK PO NR (09:15)
--- NOTE | 2019-01-07 09:29 | NUR ---
Pt s [employer]. Elementary Teacher provided prayer and Communion.
[2019-01-07] MEDS ORDERED: ACET-2267 PO (09:42)
[2019-01-07] MEDS ORDERED: DILT120C94 PO (09:42)
[2019-01-07] MEDS ORDERED: TRAM50TA2 PO (09:42)
[2019-01-07] MEDS ORDERED: POTA10TA10 PO (09:42)
[2019-01-07] MEDS ORDERED: SENN-109 PO (09:42)
[2019-01-07] MEDS ORDERED: PANT40TA2 PO (09:42)
[2019-01-07] MEDS ORDERED: ALPR0.25 PO (09:42)
[2019-01-07] MEDS ORDERED: FURO20TA4 PO (09:42)
[2019-01-07] MEDS ORDERED: APIX2.5T PO ×2 (09:43→10:57)
--- NOTE | 2019-01-07 09:46 | NUR ---
UPDATED MED REC WITH MEDICATION REVIEW REPORT FROM [facility]. I CALLED THEM TO CLARIFY THE ALPRAZOLAM ORDER THAT STATES IT'S STATUS IS ON HOLD. SHE STATES THAT WAS A NEW ORDER AND THE PATIENT HAS NOT TAKEN IT MUCH, THEY PUT IT ON HOLD BUT CAN GIVE IT IF SHE ASKS AND THEY CONTACT THE DR. I LEFT IT ON THE MED REC PRN AT THIS TIME. I INQUIRED ABOUT ELIQUIS THAT WAS ON THE PATIENTS MED REC FROM HER PREVIOUS ADMISSION BUT NOT ON THIS LIST FROM [facility], THE NURSE STATES THE PATIENT IS TAKING IT, 2.5MG BID. IT IS UNCLEAR WHY IT IS NOT ON THE THIS REPORT BUT I LEFT IT ON THE MED REC AT THIS TIME.
[2019-01-07] MEDS ORDERED: ALPRAZolam 0.25 MG (XANAX) TAB PO PRN (10:15)
[2019-01-07] MEDS ORDERED: ACETAMINOPHEN 500 MG TAB (TYLENOL) PO PRN (10:45)
[2019-01-07] MEDS ORDERED: AMIO200T4 PO (10:57)
[2019-01-07] MEDS ORDERED: METO-333 PO (10:57)
--- NOTE | 2019-01-07 10:59 | Discharge Inst-Skilled Nursing ---
Discharge Inst-Skilled NF Patient Instructions Patient Problems: AF Debility V tach nonsustained Goal: return to independent adl Consult/Follow Up/Orders Follow Up Appt.: dr arrington in 1 week Skilled NF Admit to: Certification (SNF) I certify that SNF services are required to be given on an inpatient basis because of the above named patient's need for long term care on a continuing basis for the conditions(s) for which he/she was receiving inpatient hospital services prior to his/her transfer to the SNF. [facility] Facility Order: Nursing Services, Lining Vamper-Evaluate & Treat, Physical Therapy-Evaluate & Treat, Speech Language-Evaluate & Treat Oxygen Delivery Method: Room Air Discharge Diet: No Restrictions Daily Activity as Tolerated: Yes New & Resume Previous Orders Nayely Esquivel Jan 07, 2019 10:58 NAYELY ESQUIVEL DO Jan 07, 2019 10:59
--- NOTE | 2019-01-07 11:07 | Cardiology Progress Note ---
Cardiology SOAP Progress Note Subjective: No further nonsustained VT. No further dizziness. Objective: I&O/Vital Signs 01/07/19 01/07/19 01/07/19 01/07/19 00:00 01:00 04:00 07:00 Temp 98.0 98.2 Pulse 65 68 70 68 Resp 16 18 B/P (MAP) 137/85 (102) 130/80 (97) Pulse Ox 96 96 O2 Delivery Room Air Room Air 01/07/19 01/07/19 08:33 08:35 Pulse 75 Resp 18 B/P (MAP) 137/77 (97) Pulse Ox 96 O2 Delivery Room Air Room Air 01/06/19 23:59 Intake Total 1440 ml Output Total 950 ml Balance 490 ml Weight (Pounds): 158 Weight (Ounces): 0.0 Weight (Calculated Kilograms): 71.560046 Constitutional: appears stated age, AAO x 3; No apparent distress; well- developed, well-nourished Respiratory: No accessory muscle use, No respiratory distress, No chest tender , No chest expansion is symmetric; chest is bilaterally symmetric; No lungs clear to percussion; lungs clear to auscultation; No crackles, No rhonchi, No rales, No stridor, No wheezing, No pleural rub, No other Cardiovascular: regular rate-rhythm; No irregularly irregular, No extra beats, No parasternal heave is noted, No JVD, No edema, No bradycardia, No tachycardia , No point of maximal impulse, No cardiac thrills are palpable; S1 and S2; No gallop/S3, No gallop/S4, No diastolic murmur, No systolic murmur, No friction rub, No click, No other Gastrointestional: No tender, No soft, No round, No distended, No pulsatile mass, No organomegaly, No guarding, No rebound, No tenderness, No hernia, No mass, No audible bowel sounds, No abnormal bowel sounds, No abdominal bruits, No spleenomegaly, No other Extremities: No normal range of motion, No non-tender, No normal inspection, No pedal edema, No calf tenderness, No normal capillary refill, No pelvis stable , No calf tenderness, No inflammation, No pedal edema, No slow capillary refill , No swelling, No other, No abrasion, No clubbing, No cyanosis, No ecchymosis, No laceration, No no lower extremity edema bilateral, No significant edema, No tenderness, No wound Neurologic/Psychiatric: no motor/sensory deficits, alert, normal mood/affect, oriented x 3, power is 5/5 both on sides Skin: No normal color, No warm/dry, No cyanosis, No cool, No diaphoresis, No damp, No ecchymosis, No jaundice, No mottled, No pallor, No rash, No tattoos/ piercings, No ulcerations, No rash on exposed areas, No ulcerations on exposed areas, No other Results/Procedures: Labs Laboratory Tests 01/07/19 03:35: White Blood Count 8.6, Red Blood Count 3.88L, Hemoglobin 12.8, Hematocrit 40, Mean Corpuscular Volume 103H, Mean Corpuscular Hemoglobin 33, Mean Corpuscular Hemoglobin Concent 32, Red Cell Distribution Width 14.9H, Platelet Count 213, Mean Platelet Volume 9.4, Sodium Level 136, Potassium Level 3.6, Chloride Level 103, Carbon Dioxide Level 24, Anion Gap 9, Blood Urea Nitrogen 18, Creatinine 0.70, Estimat Glomerular Filtration Rate > 60, BUN/Creatinine Ratio 26, Glucose Level 93, Calcium Level 9.0, Magnesium Level 1.8 Microbiology 01/05/19 MRSA Screen - Final, Complete MRSA not isolated A/P: Assessment/Dx: Syncope, Wide-complex tachycardia, PSVT, Paroxysmal atrial fibrillation, Plan: Syncope, wide complex tachycardia likely ventricular tachycardia with possible A -V dissociation. Echocardiogram and coronary angiography is recommended. I discussed at length with the patient about her wishes and she would like to proceed with coronary angiography. She also understands the risks and complication associated with the procedure. She is already on aspirin and Plavix which we will continue. Coronary angiography 01/06/2019 showed mild CAD. Echocardiogram showed normal LV function Another EKG done shows narrow complex tachycardia. No significant cycle length irregularity. History of paroxysmal atrial fibrillation. Already on Eliquis. I did discuss with the patient about possibility of EP study and ablation in the future. I discussed at length with the patient about possible ICD implantation. We discussed the risks and benefits. The patient will like to hold off for now and I agreed to. She has normal LV function with no CAD. Patient had nonsustained VT. She will be sent home on amiodarone and beta tai. I will do an event monitor for a month. Follow up in office in 2-3 weeks. Since the patient is on Eliquis I will discontinue aspirin, Plavix. We will also discontinue Cardizem. Echocardiogram done 01/05/2019 showed normal LV function. Thank you for your consultation. Please call me if you have any questions. Laquita Calles MD, FACP, FACC, FSCAI, FHRS, CCDS Interventional Cardiology Cardiac Electrophysiology Vascular Medicine and Endovascular Interventions Nicki CALLES MD Jan 07, 2019 11:07 am
--- NOTE | 2019-01-07 11:34 | NUR ---
CM/SS. Patient had recently established skilled placement with [facility] under a Medicare replacement plan, Medicare Advantage [place]. Discharge is tentatively today, [facility] has requested updated information so they can submit for preauthorization to provide skilled services for patient, including event monitor x 1 month. Patient will discharge from acute care once arrangements are approved. [facility] staff [facility] heart event [facility], then transport back to SNF. [employer] Biology Teacher participating in coordination of discharge, transport, and outpatient procedure. SNF staff need to accompany patient to the outpatient procedure and participate in education/teaching re monitor. Faxed clinical information from this stay so that [place] can update insurance. Physician updated, pending discharge available to finalize once SNF indicates benefits approved.
[2019-01-07] MEDS: SENNA W/DOCUSATE (SENOKOT S) TABLET PO SCH ×2 (11:35→20:22)
[2019-01-07] MEDS: rOPINIRole 0.25 MG (REQUIP) TAB PO SCH ×2 (12:43→20:28)
[2019-01-07] MEDS: MULTIVIT W/MINERALS TAB (THERAGRAN M) PO SCH (12:43)
--- NOTE | 2019-01-07 12:45 | Discharge Summary ---
Diagnosis/Chief Complaint Date of Admission Jan 04, 2019 at 16:55 Date of Discharge Discharge Date: Jan 07, 2019 Discharge Diagnosis Assessment: Syncope due to cardiac arrhythmia with V-tach documented in ER Tely strips AF w/RVR now resolved on Amiodarone 200mg PO BID along with Metoprolol h/o hypotension required Levophed after 5000cc of fluid [place] [facility] [place] admission Orthostasis hx which gave rise to fall risk with subsequent left hip fracture s/ p repair Dr Nunes 12/02/18 s/p anemia s/p 4 units of blood [place] [facility] [place] admit s/p UTI s/p Rocephin treatment HLP Subtle confusion at times with advanced age Plan: Defer to Cardiology consultation for rhythm management which is very successful today Cath normal Discharge Summary Discharge Physical Examination Allergies: Coded Allergies: No Known Drug Allergies (Unverified , 01/04/19) Vitals & I&Os Vital Signs Date Time Temp Pulse Resp B/P (MAP) Pulse Ox O2 Delivery O2 Flow Rate FiO2 01/07/19 08:35 75 18 137/77 (97) 96 Room Air 01/07/19 04:00 98.2 01/05/19 12:45 2.00 Hospital Course Was the Problem List Reviewed?: Yes Hospital course: Pt was admitted due to cardiac arrhythmia and syncopal episode when she presented to [place] [facility] and she is known to me from prior hospitalization from left hip fracture that was complicated with atrial fibrillation at that time. She was seen by cardiology, underwent a cardiac catheterization that revealed no coronary artery stenosis and she was maintained in the ICU supportive care with close monitoring on the Amiodarone and Metoprolol and she stabilized. She was transferred to room 433 in good condition, catheter was removed, heplocked IV fluid, and all cardiac meds were evaluated at time of discharge, and overall improved enough to go back to skilled care at [facility] under Dr. Coates's service so all meds were reconciled and approved by cardiology at time of discharge. Labs (last 24 hrs) Laboratory Tests 01/04/19 14:27: White Blood Count 7.8, Red Blood Count 4.08L, Hemoglobin 13.3, Hematocrit 42, Mean Corpuscular Volume 103H, Mean Corpuscular Hemoglobin 33, Mean Corpuscular Hemoglobin Concent 33, Red Cell Distribution Width 15.2H, Platelet Count 274, Mean Platelet Volume 9.4, Neutrophils (%) (Auto) 63, Lymphocytes (%) (Auto) 24, Monocytes (%) (Auto) 10, Eosinophils (%) (Auto) 2, Basophils (%) (Auto) 1, Neutrophils # (Auto) 4.9, Lymphocytes # (Auto) 1.9, Monocytes # (Auto) 0.8, Eosinophils # (Auto) 0.1, Basophils # (Auto) 0.1, Prothrombin Time 14.3, INR Comment 1.1, Activated Partial Thromboplast Time 28, Sodium Level 144, Potassium Level 3.7, Chloride Level 103, Carbon Dioxide Level 19L, Anion Gap 22H , Blood Urea Nitrogen 30H, Creatinine 1.05, Estimat Glomerular Filtration Rate 50, BUN/Creatinine Ratio 29, Glucose Level 123H, Calcium Level 9.4, Corrected Calcium 9.9, Magnesium Level 1.9, Total Bilirubin 0.4, Aspartate Amino Transf ( AST/SGOT) 17, Alanine Aminotransferase (ALT/SGPT) 8, Alkaline Phosphatase 215H, Troponin T 64H, Pro-B-Type Natriuretic Peptide 4275.0H, Total Protein 7.0, Albumin 3.4 01/05/19 03:04: White Blood Count 6.2, Red Blood Count 4.24L, Hemoglobin 13.9, Hematocrit 44, Mean Corpuscular Volume 104H, Mean Corpuscular Hemoglobin 33, Mean Corpuscular Hemoglobin Concent 32, Red Cell Distribution Width 15.6H, Platelet Count 241, Mean Platelet Volume 9.4, Neutrophils (%) (Auto) 58, Lymphocytes (%) (Auto) 27, Monocytes (%) (Auto) 11, Eosinophils (%) (Auto) 3, Basophils (%) (Auto) 1, Neutrophils # (Auto) 3.6, Lymphocytes # (Auto) 1.7, Monocytes # (Auto) 0.7, Eosinophils # (Auto) 0.2, Basophils # (Auto) 0.1, Sodium Level 142, Potassium Level 3.2L, Chloride Level 104, Carbon Dioxide Level 25, Anion Gap 13, Blood Urea Nitrogen 27H, Creatinine 0.92, Estimat Glomerular Filtration Rate 58, BUN/ Creatinine Ratio 29, Glucose Level 92, Calcium Level 9.8, Corrected Calcium 10.0 , Magnesium Level 2.1, Total Bilirubin 0.6, Aspartate Amino Transf (AST/SGOT) 23 , Alanine Aminotransferase (ALT/SGPT) 10, Alkaline Phosphatase 235H, Total Protein 7.8, Albumin 3.8 01/05/19 13:24: Troponin I 0.038H 01/05/19 19:16: Troponin I 0.034H 01/06/19 03:01: Sodium Level 139, Potassium Level 4.6, Chloride Level 106, Carbon Dioxide Level 23, Anion Gap 10, Blood Urea Nitrogen 22H, Creatinine 0.82, Estimat Glomerular Filtration Rate > 60, BUN/Creatinine Ratio 27, Glucose Level 93, Calcium Level 8.8, Magnesium Level 2.1 01/07/19 03:35: Sodium Level 136, Potassium Level 3.6, Chloride Level 103, Carbon Dioxide Level 24, Anion Gap 9, Blood Urea Nitrogen 18, Creatinine 0.70, Estimat Glomerular Filtration Rate > 60, BUN/Creatinine Ratio 26, Glucose Level 93, Calcium Level 9.0, Magnesium Level 1.8, White Blood Count 8.6, Red Blood Count 3.88L, Hemoglobin 12.8, Hematocrit 40, Mean Corpuscular Volume 103H, Mean Corpuscular Hemoglobin 33, Mean Corpuscular Hemoglobin Concent 32, Red Cell Distribution Width 14.9H, Platelet Count 213, Mean Platelet Volume 9.4 Microbiology 01/05/19 MRSA Screen - Final, Complete MRSA not isolated Pending Labs Microbiology Date/Time Source Procedure Growth Status 01/05/19 03:00 Nasal MRSA Screen - Final MRSA not isolated Complete Laboratory Tests 01/04/19 14:27: White Blood Count 7.8, Red Blood Count 4.08, Hemoglobin 13.3, Hematocrit 42, Mean Corpuscular Volume 103, Mean Corpuscular Hemoglobin 33, Mean Corpuscular Hemoglobin Concent 33, Red Cell Distribution Width 15.2, Platelet Count 274, Mean Platelet Volume 9.4, Neutrophils (%) (Auto) 63, Lymphocytes (%) (Auto) 24, Monocytes (%) (Auto) 10, Eosinophils (%) (Auto) 2, Basophils (%) (Auto) 1, Neutrophils # (Auto) 4.9, Lymphocytes # (Auto) 1.9, Monocytes # (Auto) 0.8, Eosinophils # (Auto) 0.1, Basophils # (Auto) 0.1, Prothrombin Time 14.3, INR Comment 1.1, Activated Partial Thromboplast Time 28, Sodium Level 144, Potassium Level 3.7, Chloride Level 103, Carbon Dioxide Level 19, Anion Gap 22, Blood Urea Nitrogen 30, Creatinine 1.05, Estimat Glomerular Filtration Rate 50, BUN/Creatinine Ratio 29, Glucose Level 123, Calcium Level 9.4, Corrected Calcium 9.9, Magnesium Level 1.9, Total Bilirubin 0.4, Aspartate Amino Transf ( AST/SGOT) 17, Alanine Aminotransferase (ALT/SGPT) 8, Alkaline Phosphatase 215, Troponin T 64, Pro-B-Type Natriuretic Peptide 4275.0, Total Protein 7.0, Albumin 3.4 01/05/19 03:04: White Blood Count 6.2, Red Blood Count 4.24, Hemoglobin 13.9, Hematocrit 44, Mean Corpuscular Volume 104, Mean Corpuscular Hemoglobin 33, Mean Corpuscular Hemoglobin Concent 32, Red Cell Distribution Width 15.6, Platelet Count 241, Mean Platelet Volume 9.4, Neutrophils (%) (Auto) 58, Lymphocytes (%) (Auto) 27, Monocytes (%) (Auto) 11, Eosinophils (%) (Auto) 3, Basophils (%) (Auto) 1, Neutrophils # (Auto) 3.6, Lymphocytes # (Auto) 1.7, Monocytes # (Auto) 0.7, Eosinophils # (Auto) 0.2, Basophils # (Auto) 0.1, Sodium Level 142, Potassium Level 3.2, Chloride Level 104, Carbon Dioxide Level 25, Anion Gap 13, Blood Urea Nitrogen 27, Creatinine 0.92, Estimat Glomerular Filtration Rate 58, BUN/ Creatinine Ratio 29, Glucose Level 92, Calcium Level 9.8, Corrected Calcium 10.0 , Magnesium Level 2.1, Total Bilirubin 0.6, Aspartate Amino Transf (AST/SGOT) 23 , Alanine Aminotransferase (ALT/SGPT) 10, Alkaline Phosphatase 235, Total Protein 7.8, Albumin 3.8 01/05/19 13:24: Troponin I 0.038 01/05/19 19:16: Troponin I 0.034 01/06/19 03:01: Sodium Level 139, Potassium Level 4.6, Chloride Level 106, Carbon Dioxide Level 23, Anion Gap 10, Blood Urea Nitrogen 22, Creatinine 0.82, Estimat Glomerular Filtration Rate > 60, BUN/Creatinine Ratio 27, Glucose Level 93, Calcium Level 8.8, Magnesium Level 2.1 01/07/19 03:35: Sodium Level 136, Potassium Level 3.6, Chloride Level 103, Carbon Dioxide Level 24, Anion Gap 9, Blood Urea Nitrogen 18, Creatinine 0.70, Estimat Glomerular Filtration Rate > 60, BUN/Creatinine Ratio 26, Glucose Level 93, Calcium Level 9.0, Magnesium Level 1.8, White Blood Count 8.6, Red Blood Count 3.88, Hemoglobin 12.8, Hematocrit 40, Mean Corpuscular Volume 103, Mean Corpuscular Hemoglobin 33, Mean Corpuscular Hemoglobin Concent 32, Red Cell Distribution Width 14.9, Platelet Count 213, Mean Platelet Volume 9.4 Discharge Home Medications: Active Scripts Active Metoprolol Tartrate 25 Mg Tablet 25 Mg PO BID 30 Days Amiodarone HCl 200 Mg Tablet 200 Mg PO BID 30 Days Eliquis (Apixaban) 2.5 Mg Tablet 2.5 Mg PO BID 30 Days Reported Xanax (Alprazolam) 0.25 Mg Tablet 0.25 Mg PO Q8H PRN Diltiazem 24Hr Cd (Diltiazem HCl) 120 Mg Cap.er.24h 120 Mg PO DAILY Tramadol HCl 50 Mg Tablet 50 Mg PO Q6H PRN Senna-S Tablet (Sennosides/Docusate Sodium) 1 Each Tablet 2 Tab PO BID Potassium Chloride 10 Meq Tablet.er 10 Meq PO DAILY Protonix (Pantoprazole Sodium) 40 Mg Tablet.dr 40 Mg PO DAILY Furosemide 20 Mg Tablet 20 Mg PO DAILY Tylenol Extra Strength (Acetaminophen) 500 Mg Tablet 500 Mg PO Q4H PRN Polyethylene Glycol 3350 17 Gm Powd.pack 17 Gm PO BID Citalopram HBr (Citalopram Hydrobromide) 10 Mg Tablet 10 Mg PO HS Calcium 600 + Vit D 200 Tablet (Calcium Carbonate/Vitamin D3) 1 Each Tablet 1 Tab PO DAILY Aspirin EC (Aspirin) 81 Mg Tablet.dr 81 Mg PO DAILY Multivitamins (Multivitamin) 1 Each Tablet 1 Tab PO DAILY Colace (Docusate Sodium) 100 Mg Capsule 400 Mg PO HS TAKES 4 (100MG) CAPSULES Pravastatin Sodium 20 Mg Tablet 20 Mg PO HS Ropinirole HCl 0.25 Mg Tablet 0.25 Mg PO TID Clopidogrel (Clopidogrel Bisulfate) 75 Mg Tablet 75 Mg PO HS Mirtazapine 7.5 Mg Tablet 7.5 Mg PO HS Instructions to patient/family Please see electronic discharge instructions given to patient. Diagnosis/Problems Diagnosis/Problems (1) Nonsustained paroxysmal ventricular tachycardia Status: Resolved Resolution Date/Time: 01/07/19 @ 12:44 (2) Syncope and collapse Status: Resolved Resolution Date/Time: 01/07/19 @ 12:44 (3) Atrial fibrillation with rapid ventricular response Status: Resolved Resolution Date/Time: 01/07/19 @ 12:44 (4) Elevated brain natriuretic peptide (BNP) level Status: Acute (5) Hypokalemia Status: Acute (6) Advanced age Status: Chronic (7) DNR (do not resuscitate) Status: Chronic (8) S/P cardiac cath Status: Acute Clinical Quality Measures DVT/VTE Risk/Contraindication: Risk Factor Score Per Nursin RFS Level Per Nursing on Admit: 4+=Very High AUGUSTIN TIWARI DO Jan 07, 2019 12:45
[2019-01-07] MEDS: APIXABAN 2.5 MG (ELIQUIS) TABLET PO SCH (20:21)
[2019-01-07] MEDS: POLYETHYLENE GLYCOL 17 GM (MIRALAX) PACK PO SCH (20:22)
[2019-01-07] MEDS ORDERED: SIMvastatin 10 MG (ZOCOR) TAB PO SCH (21:00)
[2019-01-07] MEDS ORDERED: DOCUSATE SODIUM 100 MG (COLACE) CAP PO SCH (21:00)
[2019-01-07] MEDS ORDERED: CLOPIDOGREL 75 MG (PLAVIX) TABLET PO SCH (21:00)
[2019-01-07] MEDS ORDERED: MIRTAZAPINE 15 MG (REMERON) TAB PO SCH (21:00)
[2019-01-08 05:56] LABS: BUN/CREATININE RATIO 29; CALCIUM 9.3 MG/DL (8.5-10.1); CARBON DIOXIDE 23 MMOL/L (21-32); CHLORIDE 102 MMOL/L (98-107); CREATININE SERUM 0.76 MG/DL (0.60-1.30); GFR ESTIMATED > 60; GLUCOSE 94 MG/DL (70-105); MAGNESIUM 1.6 MG/DL (1.8-2.4); POTASSIUM 3.6 MMOL/L (3.6-5.0); SODIUM 136 MMOL/L (135-145)
[2019-01-08] MEDS: MULTIVIT W/MINERALS TAB (THERAGRAN M) PO SCH (06:17)
[2019-01-08] MEDS ORDERED: KCL 10 MEQ TAB (MICRO K) PO SCH (07:00)
[2019-01-08] MEDS ORDERED: CALCIUM CARB + VIT D 600 MG (CALCARB + D) TAB PO SCH (07:00)
[2019-01-08 08:00] VITALS: BP 18/69
[2019-01-08] MEDS ORDERED: FUROSEMIDE 20 MG (LASIX) TAB PO SCH (09:00)
[2019-01-08] MEDS ORDERED: PANTOPRAZOLE 40 MG (PROTONIX) TAB PO SCH (09:00)
[2019-01-08] MEDS ORDERED: ASPIRIN E.C. 81 MG (ECOTRIN) TAB PO SCH (09:00)
--- NOTE | 2019-01-08 09:14 | Discharge Summary ---
Diagnosis/Chief Complaint Date of Admission Jan 04, 2019 at 16:55 Date of Discharge Discharge Date: Jan 07, 2019 Discharge Diagnosis See yesterday's note Discharge Summary Discharge Physical Examination Allergies: Coded Allergies: No Known Drug Allergies (Unverified , 01/04/19) Vitals & I&Os Vital Signs Date Time Temp Pulse Resp B/P (MAP) Pulse Ox O2 Delivery O2 Flow Rate FiO2 01/08/19 16:18 01/08/19 09:00 Room Air 01/08/19 08:00 98.1 65 18 97 01/05/19 12:45 2.00 Hospital Course Was the Problem List Reviewed?: Yes Hospital course: Pt was admitted due to cardiac arrhythmia and syncopal episode when she presented to [place] [facility] and she is known to me from prior hospitalization from left hip fracture that was complicated with atrial fibrillation at that time. She was seen by cardiology, underwent a cardiac catheterization that revealed no coronary artery stenosis and she was maintained in the ICU supportive care with close monitoring on the Amiodarone and Metoprolol and she stabilized. She was transferred to room [facility] in good condition, catheter was removed, heplocked IV fluid, and all cardiac meds were evaluated at time of discharge, and overall improved enough to go back to skilled care at [facility] under Dr. Coates's service so all meds were reconciled and approved by cardiology at time of discharge. Labs (last 24 hrs) Laboratory Tests 01/04/19 14:27: White Blood Count 7.8, Red Blood Count 4.08L, Hemoglobin 13.3, Hematocrit 42, Mean Corpuscular Volume 103H, Mean Corpuscular Hemoglobin 33, Mean Corpuscular Hemoglobin Concent 33, Red Cell Distribution Width 15.2H, Platelet Count 274, Mean Platelet Volume 9.4, Neutrophils (%) (Auto) 63, Lymphocytes (%) (Auto) 24, Monocytes (%) (Auto) 10, Eosinophils (%) (Auto) 2, Basophils (%) (Auto) 1, Neutrophils # (Auto) 4.9, Lymphocytes # (Auto) 1.9, Monocytes # (Auto) 0.8, Eosinophils # (Auto) 0.1, Basophils # (Auto) 0.1, Prothrombin Time 14.3, INR Comment 1.1, Activated Partial Thromboplast Time 28, Sodium Level 144, Potassium Level 3.7, Chloride Level 103, Carbon Dioxide Level 19L, Anion Gap 22H , Blood Urea Nitrogen 30H, Creatinine 1.05, Estimat Glomerular Filtration Rate 50, BUN/Creatinine Ratio 29, Glucose Level 123H, Calcium Level 9.4, Corrected Calcium 9.9, Magnesium Level 1.9, Total Bilirubin 0.4, Aspartate Amino Transf ( AST/SGOT) 17, Alanine Aminotransferase (ALT/SGPT) 8, Alkaline Phosphatase 215H, Troponin T 64H, Pro-B-Type Natriuretic Peptide 4275.0H, Total Protein 7.0, Albumin 3.4 01/05/19 03:04: White Blood Count 6.2, Red Blood Count 4.24L, Hemoglobin 13.9, Hematocrit 44, Mean Corpuscular Volume 104H, Mean Corpuscular Hemoglobin 33, Mean Corpuscular Hemoglobin Concent 32, Red Cell Distribution Width 15.6H, Platelet Count 241, Mean Platelet Volume 9.4, Neutrophils (%) (Auto) 58, Lymphocytes (%) (Auto) 27, Monocytes (%) (Auto) 11, Eosinophils (%) (Auto) 3, Basophils (%) (Auto) 1, Neutrophils # (Auto) 3.6, Lymphocytes # (Auto) 1.7, Monocytes # (Auto) 0.7, Eosinophils # (Auto) 0.2, Basophils # (Auto) 0.1, Sodium Level 142, Potassium Level 3.2L, Chloride Level 104, Carbon Dioxide Level 25, Anion Gap 13, Blood Urea Nitrogen 27H, Creatinine 0.92, Estimat Glomerular Filtration Rate 58, BUN/ Creatinine Ratio 29, Glucose Level 92, Calcium Level 9.8, Corrected Calcium 10.0 , Magnesium Level 2.1, Total Bilirubin 0.6, Aspartate Amino Transf (AST/SGOT) 23 , Alanine Aminotransferase (ALT/SGPT) 10, Alkaline Phosphatase 235H, Total Protein 7.8, Albumin 3.8 01/05/19 13:24: Troponin I 0.038H 01/05/19 19:16: Troponin I 0.034H 01/06/19 03:01: Sodium Level 139, Potassium Level 4.6, Chloride Level 106, Carbon Dioxide Level 23, Anion Gap 10, Blood Urea Nitrogen 22H, Creatinine 0.82, Estimat Glomerular Filtration Rate > 60, BUN/Creatinine Ratio 27, Glucose Level 93, Calcium Level 8.8, Magnesium Level 2.1 01/07/19 03:35: Sodium Level 136, Potassium Level 3.6, Chloride Level 103, Carbon Dioxide Level 24, Anion Gap 9, Blood Urea Nitrogen 18, Creatinine 0.70, Estimat Glomerular Filtration Rate > 60, BUN/Creatinine Ratio 26, Glucose Level 93, Calcium Level 9.0, Magnesium Level 1.8, White Blood Count 8.6, Red Blood Count 3.88L, Hemoglobin 12.8, Hematocrit 40, Mean Corpuscular Volume 103H, Mean Corpuscular Hemoglobin 33, Mean Corpuscular Hemoglobin Concent 32, Red Cell Distribution Width 14.9H, Platelet Count 213, Mean Platelet Volume 9.4 01/08/19 05:10: Sodium Level 136, Potassium Level 3.6, Chloride Level 102, Carbon Dioxide Level 23, Anion Gap 11, Blood Urea Nitrogen 22H, Creatinine 0.76, Estimat Glomerular Filtration Rate > 60, BUN/Creatinine Ratio 29, Glucose Level 94, Calcium Level 9.3, Magnesium Level 1.6L Microbiology 01/05/19 MRSA Screen - Final, Complete MRSA not isolated Pending Labs Microbiology Date/Time Source Procedure Growth Status 01/05/19 03:00 Nasal MRSA Screen - Final MRSA not isolated Complete Laboratory Tests 01/04/19 14:27: White Blood Count 7.8, Red Blood Count 4.08, Hemoglobin 13.3, Hematocrit 42, Mean Corpuscular Volume 103, Mean Corpuscular Hemoglobin 33, Mean Corpuscular Hemoglobin Concent 33, Red Cell Distribution Width 15.2, Platelet Count 274, Mean Platelet Volume 9.4, Neutrophils (%) (Auto) 63, Lymphocytes (%) (Auto) 24, Monocytes (%) (Auto) 10, Eosinophils (%) (Auto) 2, Basophils (%) (Auto) 1, Neutrophils # (Auto) 4.9, Lymphocytes # (Auto) 1.9, Monocytes # (Auto) 0.8, Eosinophils # (Auto) 0.1, Basophils # (Auto) 0.1, Prothrombin Time 14.3, INR Comment 1.1, Activated Partial Thromboplast Time 28, Sodium Level 144, Potassium Level 3.7, Chloride Level 103, Carbon Dioxide Level 19, Anion Gap 22, Blood Urea Nitrogen 30, Creatinine 1.05, Estimat Glomerular Filtration Rate 50, BUN/Creatinine Ratio 29, Glucose Level 123, Calcium Level 9.4, Corrected Calcium 9.9, Magnesium Level 1.9, Total Bilirubin 0.4, Aspartate Amino Transf ( AST/SGOT) 17, Alanine Aminotransferase (ALT/SGPT) 8, Alkaline Phosphatase 215, Troponin T 64, Pro-B-Type Natriuretic Peptide 4275.0, Total Protein 7.0, Albumin 3.4 01/05/19 03:04: White Blood Count 6.2, Red Blood Count 4.24, Hemoglobin 13.9, Hematocrit 44, Mean Corpuscular Volume 104, Mean Corpuscular Hemoglobin 33, Mean Corpuscular Hemoglobin Concent 32, Red Cell Distribution Width 15.6, Platelet Count 241, Mean Platelet Volume 9.4, Neutrophils (%) (Auto) 58, Lymphocytes (%) (Auto) 27, Monocytes (%) (Auto) 11, Eosinophils (%) (Auto) 3, Basophils (%) (Auto) 1, Neutrophils # (Auto) 3.6, Lymphocytes # (Auto) 1.7, Monocytes # (Auto) 0.7, Eosinophils # (Auto) 0.2, Basophils # (Auto) 0.1, Sodium Level 142, Potassium Level 3.2, Chloride Level 104, Carbon Dioxide Level 25, Anion Gap 13, Blood Urea Nitrogen 27, Creatinine 0.92, Estimat Glomerular Filtration Rate 58, BUN/ Creatinine Ratio 29, Glucose Level 92, Calcium Level 9.8, Corrected Calcium 10.0 , Magnesium Level 2.1, Total Bilirubin 0.6, Aspartate Amino Transf (AST/SGOT) 23 , Alanine Aminotransferase (ALT/SGPT) 10, Alkaline Phosphatase 235, Total Protein 7.8, Albumin 3.8 01/05/19 13:24: Troponin I 0.038 01/05/19 19:16: Troponin I 0.034 01/06/19 03:01: Sodium Level 139, Potassium Level 4.6, Chloride Level 106, Carbon Dioxide Level 23, Anion Gap 10, Blood Urea Nitrogen 22, Creatinine 0.82, Estimat Glomerular Filtration Rate > 60, BUN/Creatinine Ratio 27, Glucose Level 93, Calcium Level 8.8, Magnesium Level 2.1 01/07/19 03:35: Sodium Level 136, Potassium Level 3.6, Chloride Level 103, Carbon Dioxide Level 24, Anion Gap 9, Blood Urea Nitrogen 18, Creatinine 0.70, Estimat Glomerular Filtration Rate > 60, BUN/Creatinine Ratio 26, Glucose Level 93, Calcium Level 9.0, Magnesium Level 1.8, White Blood Count 8.6, Red Blood Count 3.88, Hemoglobin 12.8, Hematocrit 40, Mean Corpuscular Volume 103, Mean Corpuscular Hemoglobin 33, Mean Corpuscular Hemoglobin Concent 32, Red Cell Distribution Width 14.9, Platelet Count 213, Mean Platelet Volume 9.4 01/08/19 05:10: Sodium Level 136, Potassium Level 3.6, Chloride Level 102, Carbon Dioxide Level 23, Anion Gap 11, Blood Urea Nitrogen 22, Creatinine 0.76, Estimat Glomerular Filtration Rate > 60, BUN/Creatinine Ratio 29, Glucose Level 94, Calcium Level 9.3, Magnesium Level 1.6 Discharge Home Medications: Active Scripts Active Metoprolol Tartrate 25 Mg Tablet 25 Mg PO BID 30 Days Amiodarone HCl 200 Mg Tablet 200 Mg PO BID 30 Days Eliquis (Apixaban) 2.5 Mg Tablet 2.5 Mg PO BID 30 Days Reported Xanax (Alprazolam) 0.25 Mg Tablet 0.25 Mg PO Q8H PRN Tramadol HCl 50 Mg Tablet 50 Mg PO Q6H PRN Senna-S Tablet (Sennosides/Docusate Sodium) 1 Each Tablet 2 Tab PO BID Potassium Chloride 10 Meq Tablet.er 10 Meq PO DAILY Protonix (Pantoprazole Sodium) 40 Mg Tablet.dr 40 Mg PO DAILY Furosemide 20 Mg Tablet 20 Mg PO DAILY Tylenol Extra Strength (Acetaminophen) 500 Mg Tablet 500 Mg PO Q4H PRN Polyethylene Glycol 3350 17 Gm Powd.pack 17 Gm PO BID Citalopram HBr (Citalopram Hydrobromide) 10 Mg Tablet 10 Mg PO HS Calcium 600 + Vit D 200 Tablet (Calcium Carbonate/Vitamin D3) 1 Each Tablet 1 Tab PO DAILY Multivitamins (Multivitamin) 1 Each Tablet 1 Tab PO DAILY Colace (Docusate Sodium) 100 Mg Capsule 400 Mg PO HS TAKES 4 (100MG) CAPSULES Pravastatin Sodium 20 Mg Tablet 20 Mg PO HS Ropinirole HCl 0.25 Mg Tablet 0.25 Mg PO TID Mirtazapine 7.5 Mg Tablet 7.5 Mg PO HS Instructions to patient/family Please see electronic discharge instructions given to patient. Diagnosis/Problems Diagnosis/Problems (1) Nonsustained paroxysmal ventricular tachycardia Status: Resolved Resolution Date/Time: 01/07/19 @ 12:44 (2) Syncope and collapse Status: Resolved Resolution Date/Time: 01/07/19 @ 12:44 (3) Atrial fibrillation with rapid ventricular response Status: Resolved Resolution Date/Time: 01/07/19 @ 12:44 (4) Elevated brain natriuretic peptide (BNP) level Status: Acute (5) Hypokalemia Status: Acute (6) Advanced age Status: Chronic (7) DNR (do not resuscitate) Status: Chronic (8) S/P cardiac cath Status: Acute Clinical Quality Measures DVT/VTE Risk/Contraindication: Risk Factor Score Per Nursin RFS Level Per Nursing on Admit: 4+=Very High AUGUSTIN TIWARI DO Jan 08, 2019 09:14
[2019-01-08] MEDS: AMIODARONE 200 MG (CORDARONE) TAB PO SCH (09:41)
[2019-01-08] MEDS: SENNA W/DOCUSATE (SENOKOT S) TABLET PO SCH (09:41)
[2019-01-08] MEDS: rOPINIRole 0.25 MG (REQUIP) TAB PO SCH ×2 (09:41→13:12)
[2019-01-08] MEDS: APIXABAN 2.5 MG (ELIQUIS) TABLET PO SCH (09:41)
[2019-01-08] MEDS: meTOprolol TARTRATE 25 MG (LOPRESSOR) TABLET PO SCH (09:41)
[2019-01-08] MEDS: POLYETHYLENE GLYCOL 17 GM (MIRALAX) PACK PO SCH (09:41)
--- NOTE | 2019-01-08 10:22 | NUR ---
provided prayer and Communion.
--- NOTE | 2019-01-08 10:50 | Physical Therapy Evaluation ---
PT Evaluation-General Medical Diagnosis Admission Date Jan 04, 2019 at 16:55 Medical Diagnosis: syncope Onset Date: Jan 04, 2019 Therapy Diagnosis Therapy Diagnosis: generalized weakness/debility Height/Weight Height (Feet): 5 Height (Inches): 6.00 Weight (Pounds): 157 Weight (Ounces): 0.0 Precautions Precautions/Isolations: Fall Prevention Referral Physician: Alvin Reason for Referral: Evaluation/Treatment Medical History Pertinent Medical History: Heart Failure, HTN Additional Medical History left hip fracture Current History EMS secondary to syncopal episode and irregular heart beat Reviewed History: Yes Social History Home: Assisted Prior/Core FIM Prior Level of Function Therapy Code Descriptions/Definitions Functional [place] Measure: 0=Not Assessed/NA 4=Minimal Assistance 1=Total Assistance 5=Supervision or Setup 2=Maximal Assistance 6=Modified [place] 3=Moderate Assistance 7=Complete [place] Therapy Quality Codes: 6 Independent with activity with or without an assistive device 5 Patient requires set up or clean up by helper. Patient completes activity by themselves 4 Supervision or touching assist (CGA). [place] provide cues , steadying assist 3 The helper provides less than half the effort to complete the activity 2 The helper provides more than half the effort to complete the activity 1 Dependent. The helper does all the effort to complete an activity 7 Patient refused to complete or attempt activity 9 The patient did not perform the activity before the current illness or injury 88 Not attempted due to Medical conditions or safety concerns Functional Abilities and Goals: Independent: Patient completed the activities by him/herself, with or without an assistive device, with no assistance from a helper. Needed Some Help: Patient needed partial assistance from another person to complete activities. Dependent: A helper completed the activities for the patient. Unknown: Not Applicable: Bed Mobility: 2 Transfers (B,C,W/C) (FIM): 2 Gait: 1 Indoor Mobility (Ambulation): Dependent Stairs: Dependent Prior Devices Use: Manual wheelchair, Walker PT Evaluation-Current Subjective Patient agrees to PT. Pain Numeric Pain Scale: 0-No Pain Location: No Pain Reported Objective Patient Orientation: Person, Time Problem Solving: Poor ROM/Strength ROM Lower Extremities limited ROM bilateral LE due to resistance and rigid posturing Strength Lower Extremities 3-/5 grossly bilateral LE with inability to follow simple direction to perform formal testing. Integumentary/Posture Integumentary refer to nursing notes Bowel Incontinence: Yes Bladder Incontinence: Yes Posture WFL Neuromuscular (Tone, Coordination, Reflexes) severely diminished coordination/very resistive with all mobility and retropulsive in sit and stand Sensory Vision: Functional Hearing: Impaired Sensation Right Lower Extremit: Impaired Sensation Left Lower Extremity: Impaired Transfers Therapy Code Descriptions/Definitions Functional [place] Measure: 0=Not Assessed/NA 4=Minimal Assistance 1=Total Assistance 5=Supervision or Setup 2=Maximal Assistance 6=Modified [place] 3=Moderate Assistance 7=Complete [place] Transfers (B, C, W/C) (FIM): 1 Scootin Rollin Supine to/from Sit: 2 Sit to/from Stand: 1 bed t/f WC(FIM only if WC use): 1 patient is retropulsive with supine to sit and sit to stand to FWW requiring dependent assist x2 with use of gait belt for safety Gait Mode of Locomotion: Both Anticipated Mode of Locomotion: Both Gait (FIM): 1 Distance (FIM): 1=up to 49 ft Distance: 8' Gait Level of Assist: 2 Gait Persons Needed: 2 Gait Assistive Device: FWW Comments/Gait Description retropulsive in stand and shuffle gait sequence x 8' Balance Sitting Static: Poor Sitting Dynamic: Poor Standing Static: Poor Standing Dynamic: Poor Assessment/Needs 88 y.o. female, will continue to benefit from skilled PT to address functional strength and mobility to improve current LOF. Patient continues to require maximum assist with all mobility and appears to be very fearful of falling resulting in retropulsion and resistance. Rehab Potential: Guarded PT Short Term Goals Short Term Goals Time Frame: Jan 12, 2019 Transfers (B,C,W/C) (FIM): 2 Gait (FIM): 1 Distance (FIM): 1=up to 49 ft Gait Distance Comment: 15' Gait Level of Assist: 3 Gait Assistive Device: FWW PT Plan Problem List Problem List: Activity Tolerance, Functional Strength, Safety, Balance, Gait, Transfer, Bed Mobility, ROM Treatment/Plan Treatment Plan: Continue Plan of Care Treatment Plan: Bed Mobility, Education, Functional Activity [place], Functional Strength, Group Therapy, Safety, Therapeutic Exercise, Transfers Treatment Duration: Jan 12, 2019 Frequency: 5 times per week Estimated Hrs Per Day: .25 hour per day Patient and/or Family Agrees t: Yes Safety Risks/Education Patient Education: Safety Issues Teaching Recipient: Patient Teaching Methods: Discussion Response to Teaching: Verbalize Understanding Discharge Recommendations Therapy D/C Recommendations: Assisted Placement, [facility] (TCU/NH) Time/GCodes Time In: 943 Time Out: 1000 Total Billed Treatment Time: 17 [facility] Jan 08, 2019 10:50
--- NOTE | 2019-01-08 11:58 | Occupational Therapy Eval ---
OT Evaluation-General/PLF Medical Diagnosis Admission Date Jan 04, 2019 at 16:55 Medical Diagnosis: syncope Onset Date: Jan 04, 2019 Therapy Diagnosis Therapy Diagnosis: Weakness Height/Weight Height (Feet): 5 Height (Inches): 6.00 Weight (Pounds): 157 Weight (Ounces): 0.0 Precautions Precautions/Isolations: Fall Prevention, Standard Precautions Safety Interventions: None Weight Bear Status Weight Bearing Restriction: Full Weight Bearing Location Restriction: L LE, R LE Referral Physician: Alvin Referral Reason: Activity Tolerance, Self Care, Evaluation/Treatment, Strengthening/ROM Medical History Pertinent Medical History: Atrial Fib, Heart Failure, HTN, Neuropathy, OA Current History EMS secondary to Syncope & Irregular Heart beat. Reviewed History: Yes Social History Home: Intermediate Current Living Status: Alone ADL-Prior Level of Function Therapy Code Descriptions/Definitions Functional [place] Measure: 0=Not Assessed/NA 4=Minimal Assistance 1=Total Assistance 5=Supervision or Setup 2=Maximal Assistance 6=Modified [place] 3=Moderate Assistance 7=Complete [place] Therapy Quality Codes: 6 Independent with activity with or without an assistive device 5 Patient requires set up or clean up by helper. Patient completes activity by themselves 4 Supervision or touching assist (CGA). [place] provide cues , steadying assist 3 The helper provides less than half the effort to complete the activity 2 The helper provides more than half the effort to complete the activity 1 Dependent. The helper does all the effort to complete an activity 7 Patient refused to complete or attempt activity 9 The patient did not perform the activity before the current illness or injury 88 Not attempted due to Medical conditions or safety concerns Functional Abilities and Goals: Independent: Patient completed the activities by him/herself, with or without an assistive device, with no assistance from a helper. Needed Some Help: Patient needed partial assistance from another person to complete activities. Dependent: A helper completed the activities for the patient. Unknown: Not Applicable: OT Current Status Subjective Pt in recliner, alert, oriented, Agree for therapy. Pain Location: No Pain Reported Mental Status/Objective Patient Orientation: Person, Place, Time Current Glasses/Contacts: Yes Hand Dominance: Right Upper Extremity ROM WFL Upper Extremity Coordination Intact Upper Extremity Sensation Intact in Both arm & hands Upper Extremity Strength MS in BUE -4/5 grossly graded. 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 ADL-Treatment ADL-Current Pt needs SBA in grooming & Min A in UB dressing , dependent in LB dressing, max A x 2 from sit to stand as pt has retropulsive tendency. ROM in both shoulders & elbows WFL , Pt mild confused. MS in BUE -4/5 grossly graded. Therapy Code Descriptions/Definitions Functional [place] Measure: 0=Not Assessed/NA 4=Minimal Assistance 1=Total Assistance 5=Supervision or Setup 2=Maximal Assistance 6=Modified [place] 3=Moderate Assistance 7=Complete [place] Therapy Quality Codes: 6 Independent with activity with or without an assistive device 5 Patient requires set up or clean up by helper. Patient completes activity by themselves 4 Supervision or touching assist (CGA). [place] provide cues , steadying assist 3 The helper provides less than half the effort to complete the activity 2 The helper provides more than half the effort to complete the activity 1 Dependent. The helper does all the effort to complete an activity 7 Patient refused to complete or attempt activity 9 The patient did not perform the activity before the current illness or injury 88 Not attempted due to Medical conditions or safety concerns Eating (FIM): 5 Grooming (FIM): 5 Bathing (FIM): 0 Upper Body Dressing (FIM): 0 Lower Body Dressing (FIM): 1 Toileting (FIM): 0 Transfers (B, C, W/C) (FIM): 2 Toilet/Commode Transfer (FIM): 0 Tub Transfer (FIM): 0 Shower Transfer (FIM): 0 Education OT Patient Education: Correct positioning Teaching Recipient: Patient Teaching Methods: Demonstration Response to Teaching: Verbalize Understanding OT Short Term Goals Short Term Goals Time Frame: Jan 22, 2019 Transfers (B,C,W/C) (FIM): 2 Additional Short Term Goals: 1-Demonstrate ADL Tasks, 2-Verbalize Understanding , 3-ImproveStrength/[place] 1=Demonstrate adherence to instructed precautions during ADL tasks. 2=Patient will verbalize/demonstrate understanding of assistive devices/ modifications for ADL. 3=Patient will improve strength/tolerance for activity to enable patient to perform ADL's. OT Skid [address] Man Goals Skid [address] Man Goals Time Frame: Feb 05, 2019 Eating (FIM): 7 Grooming(FIM): 7 Bathing(FIM): 4 Bathing Location: L Arm, R Arm, L Upper Leg, R Upper Leg, L Lower Leg ( including foot), R Lower Leg (including foot), Chest, Abdomen, Buttocks, Perineal Area Upper Body Dressing(FIM): 4 Lower Body Dressing(FIM): 4 Toileting(FIM): 5 Transfers (B,C,W/C) (FIM): 4 Toilet/Commode Transfer(FIM): 4 Shower Transfer(FIM): 4 Additional Goals: 1-Demonstrate ADL Tasks, 2-Verbalize Understanding, 3- ImproveStrength/Americ[place] 1=Demonstrate adherence to instructed precautions during ADL tasks. 2=Patient will verbalize/demonstrate understanding of assistive devices/ modifications for ADL. 3=Patient will improve strength/tolerance for activity to enable patient to perform ADL's. 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 Treatment Plan/Plan of Care Treatment,Training & Education: Yes Patient would benefit from OT for education, treatment and training to promote independence in ADL's, mobility, safety and/or upper extremity function for ADL' s. Plan of Care: ADL Retraining, Functional Mobility, UE Funct Exercise/Act, UE Neuromus Re-Ed/Coord Treatment Duration: Feb 05, 2019 Frequency: 5 times per week Estimated Hrs Per Day: .25 hour per day Agreement: Yes Rehab Potential: Guarded Time/GCodes Start Time: 10:15 Stop Time: 10:45 Total Time Billed (hr/min): 30 Billed Treatment Time 1, EVM 17, ADLs 13 Min. Total 30 min. JAGUAR MORAES OT Jan 08, 2019 11:58
--- NOTE | 2019-01-08 14:23 | NUR ---
CM/SS. Patient discharged back to established placement with [facility] [employer] [facility]. SNF will pickle maker from acute care and register patient for outpatient cardiac event monitor, then return to facility. NH understands to bring wheelchair with foot rests. Updated son/POKristopher Zamorano by phone. Faxed orders to [facility], prepared packet to accompany patient. Unit RN fully updated.
--- NOTE | 2019-01-09 15:02 | Physician Query Clarification ---
PQ-Further Specificity Admission/Discharge Admission Date: Jan 04, 2019 at 16:55 Discharge Date: Jan 08, 2019 at 16:15 The medical record reflects the following clinical scenario: History/Risk Factors: Ventricular tachycardia, Paroxysmal atrial fibrillation, SOB, dizzy, ER record states CHF Clinical Findings: BNP 4275.0, Troponin 1 .38, Troponin T 64, EF 50-55% Treatment: IV lasix 20 mg. IVP, Amiodarone 259 ml IV Question: Can you further specify the elevation Troponin 1 and T AND elevated BNP? per the clinical indicators above? Please document below. 1. Acute on Chronic diastolic heart failure 2. elevated Troponin 1 and T and elevated BNP etiology undetermined. CHF ruled out 3. Other, with explanation of the clinical findings. 4. Clinically undetermined, no explanation for the clinical findings. PHYSICIAN RESPONSE Can you specify per above: 1 Explanation/Clinical Findings Type II IL likely due to VT and PAF. Acute on chronic diastolic CHF. In responding to this query, please exercise your independent professional judgment. The purpose of this communication is to more accurately reflect the complexity of your patients condition. The fact that a question is asked does not imply that any particular answer is desired or expected. Thank you for your timely response to this clarification. Requestors name: Sherin THIS PHYSICIAN QUERY FORM IS A PERMANENT PART OF THE MEDICAL RECORD SHERIN SHERIDAN Jan 09, 2019 15:02 Nicki NICHOLE MD Jan 18, 2019 12:54
== END 2019-01-08 16:15 | DRG 280 ==
LOC: EDUNIT# 14:11 → ER FS 14:13 → ICU 16:55 → 4TH 01-06 16:05
PROVIDERS: ADMIT Internal Medicine; ATTEND Internal Medicine
PROC: 4A023N7 Measurement of Cardiac Sampling and Pressure, Left Heart, Percutaneous Approach (ICD-10-PCS; principal; 2019-01-06)
PROC: B2111ZZ Fluoroscopy of Multiple Coronary Arteries using Low Osmolar Contrast (ICD-10-PCS; 2019-01-06)
PROC: B2151ZZ Fluoroscopy of Left Heart using Low Osmolar Contrast (ICD-10-PCS; 2019-01-06)
PROC: B3101ZZ Fluoroscopy of Thoracic Aorta using Low Osmolar Contrast (ICD-10-PCS; 2019-01-06)
DX: I47.2 Ventricular tachycardia (principal); I48.0 Paroxysmal atrial fibrillation; I21.A1 Myocardial infarction type 2; I50.33 Acute on chronic diastolic (congestive) heart failure; I44.0 Atrioventricular block, first degree; I47.1 Supraventricular tachycardia; I25.10 Atherosclerotic heart disease of native coronary artery without angina pectoris; E86.0 Dehydration; Z66 Do not resuscitate; R55 Syncope and collapse; E87.6 Hypokalemia; R54 Age-related physical debility; R41.0 Disorientation, unspecified; I10 Essential (primary) hypertension; E78.00 Pure hypercholesterolemia, unspecified; K59.09 Other constipation; M19.91 Primary osteoarthritis, unspecified site; K21.9 Gastro-esophageal reflux disease without esophagitis; G62.9 Polyneuropathy, unspecified; Z87.440 Personal history of urinary (tract) infections
CPT/HCPCS: 36221; 36415; 71045; 80048; 80053; 83735; 83880; 84484; 85025; 85027; 85610; 85730; 87081; 93005; 93306; 93458; 96365; 96366

== ENCOUNTER 2019-01-17 14:35 | Outpatient (RCR) | payer MEDICARE ==
[~2019-01-17 14:35] MED LIST changes: +ACET-2267 PO; +ALPR0.25 PO; +AMIO200T4 PO; +CITA10TA7 PO; +DILT120C94 PO; +FURO20TA4 PO; +METO-333 PO; +PANT40TA2 PO; +POTA10TA10 PO; +SENN-109 PO
== END 2019-04-17 | disposition home or self-care (01) ==
LOC: CARD 14:35
PROVIDERS: ATTEND Internal Medicine Interventional Cardiology
DX: I47.1 Supraventricular tachycardia (principal); I48.91 Unspecified atrial fibrillation

== ENCOUNTER → 2019-05-06 | Outpatient (CLI) | payer MEDICARE ==
[~2019-05-06] MED LIST changes: +CEFD300C3 PO
== END ==
LOC: LAB 02:45
PROVIDERS: ATTEND Family Medicine
DX: Z01.89 Encounter for other specified special examinations (principal)

== ENCOUNTER 2019-05-13 01:28 | Emergency (ER) | payer MEDICARE ==
[~2019-05-13] VITALS: Ht 170.2 cm; Wt 59.0 kg
[~2019-05-13 01:28] MED LIST changes: -CEFD300C3 PO
[2019-05-13 02:06] LABS: BASOPHILS % (AUTO) 1 % (0-10); EOSINOPHILS % (AUTO) 1 % (0-10); HEMATOCRIT 40 % (35-52); HEMOGLOBIN 12.8 G/DL (11.5-16.0); LYMPHOCYTES # (AUTO) 1.2 X 10^3 (1.0-4.0); LYMPHOCYTES % (AUTO) 14 % (12-44); MEAN CORPUSCULAR HEMOGLOBIN 33 PG (25-34); MEAN CORPUSCULAR HGB CONC 32 G/DL (32-36); MEAN CORPUSCULAR VOLUME 102 FL (80-99); MEAN PLATELET VOLUME 9.9 FL (7.4-10.4); MONOCYTES # (AUTO) 1.1 X 10^3 (0.0-1.0); MONOCYTES % (AUTO) 13 % (0-12); NEUTROPHILS # (AUTO) 6.2 X 10^3 (1.8-7.8); NEUTROPHILS % (AUTO) 71 % (42-75); PLATELET COUNT 192 10^3/uL (130-400); RED CELL DISTRIBUTION WIDTH 13.1 % (10.0-14.5); WHITE BLOOD COUNT 8.7 10^3/uL (4.3-11.0)
[2019-05-13 02:07] LABS: BASOPHILS # (AUTO) 0.1 10^3/uL (0.0-0.1); EOSINOPHILS # (AUTO) 0.1 10^3/uL (0.0-0.3)
[2019-05-13 02:29] LABS: ALANINE AMINOTRANSFERASE 9 U/L (0-55); ALBUMIN 3.6 GM/DL (3.2-4.5); ALKALINE PHOSPHATASE 94 U/L (40-136); BILIRUBIN,TOTAL 0.9 MG/DL (0.1-1.0); BUN/CREATININE RATIO 27; CARBON DIOXIDE 30 MMOL/L (21-32); CHLORIDE 100 MMOL/L (98-107); CREATININE SERUM 0.73 MG/DL (0.60-1.30); GFR ESTIMATED > 60; GLUCOSE 104 MG/DL (70-105); POTASSIUM 3.5 MMOL/L (3.6-5.0); SODIUM 141 MMOL/L (135-145); TOTAL PROTEIN 7.3 GM/DL (6.4-8.2)
--- NOTE | 2019-05-13 02:41 | ED Respiratory ---
General Chief Complaint: Respiratory Problems Stated Complaint: CONFUSION Nursing Triage Note: pt from custodial, brought in per ems with reports of soa, decreased spo2 of 85-88% on room air, ems reports pt with spo2 0f 95% upon their arrival. pt also with right eye drainage. Source: patient, EMS, RN notes reviewed, caregiver Exam Limitations: other (some confusion secondary to dementia) History of Present Illness Date Seen by Provider: May 13, 2019 Time Seen by Provider: 01:40 Initial Comments Patient transferred to the ED via EMS from local custodial c/ reports of being SOA and having O2 sats in the mid 80's tonight. Patient not happy about being here. Timing/Duration: just prior to arrival Prior Episodes/Possible Cause: unknown cause Modifying Factors: Improves With Oxygen Associated Symptoms: denies symptoms, shortness of breath (reported) Allergies and Home Medications Allergies Coded Allergies: No Known Drug Allergies (Unverified , 01/04/19) Home Medications Acetaminophen 500 Mg Tablet, 500 MG PO Q4H PRN for PAIN-MILD, (Reported) Alprazolam 0.25 Mg Tablet, 0.25 MG PO Q8H PRN for ANXIETY, (Reported) Amiodarone HCl 200 Mg Tablet, 200 MG PO BID Prescribed by: AUGUSTIN TIWARI on 01/07/19 105 Apixaban 2.5 Mg Tablet, 2.5 MG PO BID Prescribed by: AUGUSTIN TIWARI on 01/07/19 1057 Calcium Carbonate/Vitamin D3 1 Each Tablet, 1 TAB PO DAILY, (Reported) Cefdinir 300 Mg Capsule, 300 MG PO BID Prescribed by: JHONATAN HANNON on 05/13/19 0307 Citalopram Hydrobromide 10 Mg Tablet, 10 MG PO HS, (Reported) Docusate Sodium 100 Mg Capsule, 400 MG PO HS, (Reported) TAKES 4 (100MG) CAPSULES Furosemide 20 Mg Tablet, 20 MG PO DAILY, (Reported) Metoprolol Tartrate 25 Mg Tablet, 25 MG PO BID Prescribed by: AUGUSTIN TIWARI on 01/07/19 1057 Mirtazapine 7.5 Mg Tablet, 7.5 MG PO HS, (Reported) Multivitamin 1 Each Tablet, 1 TAB PO DAILY, (Reported) Pantoprazole Sodium 40 Mg Tablet.dr, 40 MG PO DAILY, (Reported) Polyethylene Glycol 3350 17 Gm Powd.pack, 17 GM PO BID, (Reported) Potassium Chloride 10 Meq Tablet.er, 10 MEQ PO DAILY, (Reported) Pravastatin Sodium 20 Mg Tablet, 20 MG PO HS, (Reported) Ropinirole HCl 0.25 Mg Tablet, 0.25 MG PO TID, (Reported) Sennosides/Docusate Sodium 1 Each Tablet, 2 TAB PO BID, (Reported) Tramadol HCl 50 Mg Tablet, 50 MG PO Q6H PRN for PAIN-MODERATE, (Reported) Patient Home Medication List Home Medication List Reviewed: Yes Review of Systems Review of Systems Constitutional: see HPI EENTM: see HPI, other (matering right eye) Respiratory: see HPI, short of breath : No All Other Systems Reviewed Negative Unless Noted: Yes (Negative excepted noted.) Past Fmgjfki-Mignxu-Eyzyoz Hx Patient Social History Alcohol Use: Denies Use Recreational Drug Use: No Smoking Status: Never a Smoker 2nd Hand Smoke Exposure: No Recent Foreign Travel: No Contact w/Someone Who Travel: No Recent Infectious Disease Expo: No Recent Hopitalizations: No Physical Abuse: No Sexual Abuse: No Mistreated: No Fear: No Immunizations Up To Date Date of Pneumonia Vaccine: Sep 22, 2018 Date of Influenza Vaccine: Sep 22, 2018 Seasonal Allergies Seasonal Allergies: No Past Medical History Surgeries: Yes Orthopedic Respiratory: No Cardiac: Yes Atrial Fibrillation, High Cholesterol, Hypertension Neurological: Yes Neuropathy Genitourinary: Yes Bladder Infection Gastrointestinal: Yes Gastroesophageal Reflux, Chronic Constipation Musculoskeletal: Yes Arthritis Endocrine: No HEENT: No Cancer: No Psychosocial: No Integumentary: No Blood Disorders: No Family Medical History Genitourinary system disorder Hypertension Physical Exam Vital Signs - First Documented 05/13/19 05/13/19 01:36 03:43 Temp 98.8 Pulse 69 Resp 20 B/P (MAP) 153/97 (115) Pulse Ox 98 O2 Delivery Room Air Capillary Refill : Less Than 3 Seconds Height: 5'7.00" Weight: 130lbs. 0.0oz. 58.292638py; 25.2 BMI Method:Stated General Appearance: WD/WN, no apparent distress Eyes: Right Eye Lid Inflammation (copius purulent drainage coming from her right eye. Eye is very red.) Respiratory: no respiratory distress, crackles (faint right base) Cardiovascular: regular rate, rhythm Neurologic/Psychiatric: no motor/sensory deficits, alert, normal mood/affect Skin: warm/dry; No rash Patient looks comfortable and appears to be in no acute distress. Progress/Results/Core Measures Suspected Sepsis Recent Fever Within 48 Hours: No Infection Criteria Present: None New/Unexplained Altered Menta: No Sepsis Screen: No Definite Risk SIRS Temperature:98.8 Pulse: 69 Respiratory Rate: 20 Laboratory Tests 05/13/19 01:32: White Blood Count 8.7 Blood Pressure 153 /97 Mean: 115 Laboratory Tests 05/13/19 01:32: Creatinine 0.73, Platelet Count 192, Total Bilirubin 0.9 Results/Orders Lab Results Laboratory Tests Test 05/13/19 01:32 Range/Units White Blood Count 8.7 4.3-11.0 10^3/uL Red Blood Count 3.87 L 4.35-5.85 10^6/uL Hemoglobin 12.8 11.5-16.0 G/DL Hematocrit 40 35-52 % Mean Corpuscular Volume 102 H 80-99 FL Mean Corpuscular Hemoglobin 33 25-34 PG Mean Corpuscular Hemoglobin Concent 32 32-36 G/DL Red Cell Distribution Width 13.1 10.0-14.5 % Platelet Count 192 130-400 10^3/uL Mean Platelet Volume 9.9 7.4-10.4 FL Neutrophils (%) (Auto) 71 42-75 % Lymphocytes (%) (Auto) 14 12-44 % Monocytes (%) (Auto) 13 H 0-12 % Eosinophils (%) (Auto) 1 0-10 % Basophils (%) (Auto) 1 0-10 % Neutrophils # (Auto) 6.2 1.8-7.8 X 10^3 Lymphocytes # (Auto) 1.2 1.0-4.0 X 10^3 Monocytes # (Auto) 1.1 H 0.0-1.0 X 10^3 Eosinophils # (Auto) 0.1 0.0-0.3 10^3/uL Basophils # (Auto) 0.1 0.0-0.1 10^3/uL Sodium Level 141 135-145 MMOL/L Potassium Level 3.5 L 3.6-5.0 MMOL/L Chloride Level 100 98-107 MMOL/L Carbon Dioxide Level 30 21-32 MMOL/L Anion Gap 11 5-14 MMOL/L Blood Urea Nitrogen 20 H 7-18 MG/DL Creatinine 0.73 0.60-1.30 MG/DL Estimat Glomerular Filtration Rate > 60 BUN/Creatinine Ratio 27 Glucose Level 104 70-105 MG/DL Calcium Level 9.0 8.5-10.1 MG/DL Corrected Calcium 9.3 8.5-10.1 MG/DL Magnesium Level 1.8 1.8-2.4 MG/DL Total Bilirubin 0.9 0.1-1.0 MG/DL Aspartate Amino Transf (AST/SGOT) 10 5-34 U/L Alanine Aminotransferase (ALT/SGPT) 9 0-55 U/L Alkaline Phosphatase 94 40-136 U/L Pro-B-Type Natriuretic Peptide 1304.0 H <75.0 PG/ML Total Protein 7.3 6.4-8.2 GM/DL Albumin 3.6 3.2-4.5 GM/DL My Orders Orders - JHONATAN HANNON DO Ua Culture If Indicated (05/13/19 01:42) Cbc With Automated Diff (05/13/19 01:42) Comprehensive Metabolic Panel (05/13/19 01:42) Blood Culture (05/13/19 01:42) Chest 1 View Ap/Pa Only (05/13/19 01:42) Sputum Culture (05/13/19 01:59) Blood Culture (05/13/19 02:05) Magnesium (05/13/19 02:18) Probnp Fs (05/13/19 02:19) Furosemide Injection (Lasix Injection) (05/13/19 03:00) Gentamicin 0.3% Ophth Solution (Garamyci (05/13/19 03:00) Cefdinir Capsule (Omnicef Capsule) (05/13/19 03:00) Potassium Chloride (Tablet) (Klor Con Ta (05/13/19 03:00) Furosemide Injection (Lasix Injection) (05/13/19 03:09) Gentamicin 0.3% Ophth Solution (Garamyci (05/13/19 03:09) Cefdinir Capsule (Omnicef Capsule) (05/13/19 03:09) Potassium Chloride (Tablet) (Klor Con Ta (05/13/19 03:09) Medications Given in ED Current Medications Medications Dose Ordered Sig/Liz Route Start Time Stop Time Status Last Admin Dose Admin Cefdinir 300 mg ONCE ONCE PO 05/13/19 03:00 05/13/19 03:53 DC 05/13/19 03:18 300 MG Furosemide 20 mg ONCE ONCE IVP 05/13/19 03:00 05/13/19 03:53 DC 05/13/19 03:18 20 MG Potassium Chloride 10 meq ONCE ONCE PO 05/13/19 03:00 05/13/19 03:53 DC 05/13/19 03:18 10 MEQ Vital Signs/I&O 05/13/19 05/13/19 01:36 03:43 Temp 98.8 Pulse 69 57 Resp 20 18 B/P (MAP) 153/97 (115) 128/68 (88) Pulse Ox 98 O2 Delivery Room Air Room Air Capillary Refill : Less Than 3 Seconds Blood Pressure Mean: 115 Progress Note : Progress Note Attempted to collect an UA on the patient but unfortunately she had a large BM in the BSC in addition to her urine. Family member concerned she has an UTI. Diagnostic Imaging Diagonstic Imaging: Xray Plain Films/CT/US/NM/MRI: chest (difficult to tell what is chronic. Right base is a little fuzzy appearing.) Departure Impression Primary Impression: Elevated brain natriuretic peptide (BNP) level Additional Impressions: Reported hypoxemia Suspected UTI Conjunctivitis Hypokalemia Disposition: 01 HOME, SELF-CARE Condition: Improved Departure-Patient Inst. Referrals: JON RIVAS MD (PCP/Family) Primary Care Physician Patient Instructions: B-Type Natriuretic Peptide Blood Test Add. Discharge Instructions: RECOMMEND INCREASING HER LASIX TO [address] ON O2 PRN O2 SAT LESS THAN 90%. INCREASE HER KCL FROM 10 mEq TO 20 mEq DAILY. GOING TO COVER A SUSPECTED UTI WITH OMNICEF. PLACING HER ON A ANTIBIOTIC EYE DROP FOR HER RIGHT EYE INFECTION (1 DROP Q3H W/A). All discharge instructions reviewed with patient and/or family. Voiced understanding. Scripts Cefdinir (Cefdinir) 300 Mg Capsule 300 MG PO BID for 10 Days, #20 CAP 0 Refills Prov: JHONATAN HANNON DO 05/13/19 JHONATAN HANNON DO May 13, 2019 02:41
[2019-05-13 02:48] LABS: MAGNESIUM 1.8 MG/DL (1.8-2.4)
[2019-05-13] MEDS ORDERED: KCL 10 MEQ TAB (MICRO K) PO ONE ×2 (03:00→03:09)
[2019-05-13] MEDS ORDERED: FUROSEMIDE 40 MG/4 ML INJ (LASIX) IVP ONE (03:00)
[2019-05-13] MEDS ORDERED: GENTAMICIN 0.3% OPHTH SOLN 5 ML OD SCH (03:00)
[2019-05-13] MEDS ORDERED: CEFDINIR 300 MG (OMNICEF) CAP PO ONE ×2 (03:00→03:09)
[2019-05-13] MEDS ORDERED: CEFD300C3 PO (03:07)
[2019-05-13] MEDS ORDERED: FUROSEMIDE 40 MG/4 ML INJ (LASIX) ONE (03:09)
[2019-05-13] MEDS ORDERED: GENTAMICIN 0.3% OPHTH SOLN 5 ML ONE (03:09)
[2019-05-13 03:43] VITALS: BP 128/68
--- NOTE | 2019-05-13 03:47 | NUR ---
[id number]-called report to longterm, they do not have anyone to transport pt back will call ems. [phone]-ems here for transport
--- NOTE | 2019-05-13 07:18 | Diagnostic Imaging Report ---
INDICATION: Short of air, decreased SpO2 in the 80s. EXAMINATION: Chest 05/13/2019. COMPARISON: 01/06/2019. FINDINGS: Lungs are poorly evaluated due to technique but no obvious infiltrates seen. Atelectasis is seen at the bases. Chronic findings at the remaining lungs. No effusions or pneumothorax. Postoperative change in the right upper lung. Heart and pulmonary vasculature are stable. IMPRESSION: 1. Atelectasis at the lung bases. Remaining chest is stable with chronic findings as above. Dictated by: Dictated on workstation # [id number]
--- OUTSIDE RECORDS SUMMARY | 2019-05-13 16:59 | XMS REPORT | Continuity of Care Document ---
Author Organization Unknown Address Unknown Allergies Active Description Code Type Severity Reaction Onset Reported/Identified Relationship to Patient Clinical Status Yes NO KNOWN DRUG ALLERGIES UNKNOWN NO KNOWN DRUG ALLERG Yes NO KNOWN DRUG ALLERGIES UNKNOWN UNKNOWN Yes No Known Drug Allergies [id number] Drug Allergy Unknown N/A 01/04/2019 Medications Medication Packaging Start Date Stop Date Route Dosage Sig ONDANSETRON VIAL INJ 4 MG/2CC (ZOFRAN 2CC VIAL) MG 12/01/2018 12/01/2018 PRN ONCE FENTANYL INJ 100 MCG/2CC VIAL MCG 12/01/2018 12/01/2018 ONCE&2130 FENTANYL INJ 100 MCG/2CC VIAL MCG 12/01/2018 12/01/2018 ONCE&2150 Diltiazem 120mg,extended release cap (CARDIZEM) mg 12/01/2018 12/30/2018 EVERY 24 Hour&2210 FENTANYL INJ 100 MCG/2CC VIAL MCG 12/01/2018 12/01/2018 ONCE&2215 NORMAL SALINE 1000CC IV BAG INJ 0.9 % (NS 1000CC IV BAG) ml 12/01/2018 12/01/2018 ONCE&2246 FENTANYL INJ 100 MCG/2CC VIAL MCG 12/01/2018 12/01/2018 ONCE&2334 D5 1/2 NS 1000CC IV BAG INJ ml 12/01/2018 12/08/2018 CONTINUOUSEVERY 0 Hour FENTANYL INJ 100 MCG/2CC VIAL MCG 12/01/2018 12/04/2018 PRN Q2H MECLIZINE TAB 25 MG (ANTIVERT) MG 12/01/2018 12/08/2018 PRN Q6H PANTOPRAZOLE VIAL INJ 40 MG (PROTONIX IV) MG 12/02/2018 12/11/2018 Daily&0600 CARVEDILOL TAB 3.125 MG (COREG) MG 12/02/2018 12/08/2018 BID&0800,2000 CEFAZOLIN VIAL INJ 1 GM (ANCEF) GM 12/02/2018 12/02/2018 ONCE&0845 NORMAL SALINE 50CC IV BAG INJ (NS 50CC MINI-BAG) ml 12/02/2018 12/03/2018 EVERY 8 Hour&0049,0849,1649 D5 1/2 NS 1000CC IV BAG INJ ml 12/02/2018 12/09/2018 CONTINUOUSEVERY 0 Hour NORMAL SALINE 50CC IV BAG INJ (NS 50CC MINI-BAG) ml 12/02/2018 12/03/2018 EVERY 8 Hour&0051,0851,1651 ASPIRIN ENTERIC COATED TAB 81 MG (BABY ASPIRIN EC) MG 12/02/2018 12/15/2018 Daily&0900 Diltiazem 120mg,extended release cap (CARDIZEM) mg 12/02/2018 12/31/2018 Daily&0900 CITALOPRAM TAB 20 MG (CELEXA) MG 12/02/2018 12/08/2018 Daily&0900 MultiVits (Thera M Plus) (dltftsgl-jnkj-dqiczre) oral tablet TAB 12/02/2018 12/31/2018 Daily&0900 FISH OIL CAP CAP 1000 MG (OMEGA 3) MG 12/02/2018 12/08/2018 Daily&0900 CEFTRIAXONE PREMIX IV BAG IV 1 GM/50CC (ROCEPHIN PREMIX IV BAG) GM 12/02/2018 12/08/2018 Daily&0900 Tranexamic acid IV solution 1 Gm vials (TXA) GM 12/02/2018 12/02/2018 ONCE&0915 OXYCODONE/APAP 10MG/325MG TAB(PERCOCET-10) TAB 12/02/2018 12/09/2018 PRN Q4H ONDANSETRON VIAL INJ 4 MG/2CC (ZOFRAN 2CC VIAL) MG 12/02/2018 12/09/2018 PRN Q4H DIPHENHYDRAMINE VIAL INJ 50 MG/CC (BENADRYL VIAL) MG 12/02/2018 12/07/2018 PRN Q4H D5 1/2 NS 1000CC IV BAG INJ ml 12/02/2018 12/09/2018 CONTINUOUSEVERY 0 Hour NORMAL SALINE 50CC IV BAG INJ (NS 50CC MINI-BAG) ml 12/02/2018 12/03/2018 EVERY 8 Hour&0229,1029,1829 NORMAL SALINE 250CC IV BAG INJ 0.9 % (NS 250CC IV BAG) ml 12/02/2018 12/17/2018 CONTINUOUSEVERY 0 Hour OXYCODONE/APAP 10MG/325MG TAB(PERCOCET-10) TAB 12/02/2018 12/09/2018 PRN Q4H ONDANSETRON VIAL INJ 4 MG/2CC (ZOFRAN 2CC VIAL) MG 12/02/2018 12/09/2018 PRN Q4H DIPHENHYDRAMINE VIAL INJ 50 MG/CC (BENADRYL VIAL) MG 12/02/2018 12/07/2018 PRN Q4H NORMAL SALINE 1000CC IV BAG INJ 0.9 % (NS 1000CC IV BAG) ml 12/02/2018 12/17/2018 CONTINUOUSEVERY 0 Hour POTASSIUM CL 20MEQ VIAL INJ 20 MEQ/10CC (KCL VIAL) MEQ 12/02/2018 12/09/2018 CONTINUOUSEVERY 0 Hour NORMAL SALINE 1000CC IV BAG INJ 0.9 % (NS 1000CC IV BAG) ml 12/02/2018 12/02/2018 ONCE&1802 ENOXAPARIN SYRINGE INJ 30 MG (LOVENOX SYRINGE) MG 12/02/2018 12/12/2018 BID&0800,2000 SIMVASTATIN TAB 10 MG (ZOCOR) MG 12/02/2018 12/08/2018 QPM&2000 SENNA CONC/DOCUSATE TAB (SENOKOT S) TAB 12/02/2018 01/01/2019 BID&0800,2000 NORMAL SALINE 50CC IV BAG INJ (NS 50CC MINI-BAG) ml 12/02/2018 12/03/2018 Q8H&0400,2000 D5W 250CC IV BAG INJ ml 12/02/2018 12/03/2018 CONTINUOUSEVERY 0 Hour TEMAZEPAM CAP 15 MG (RESTORIL) MG 12/02/2018 12/08/2018 PRN QHS MIRTAZAPINE TAB 15 MG (REMERON) MG 12/02/2018 12/08/2018 QHS&2100 ENOXAPARIN SYRINGE INJ 30 MG (LOVENOX SYRINGE) MG 12/03/2018 12/12/2018 BID&0800,2000 ASPIRIN ENTERIC COATED TAB 81 MG (BABY ASPIRIN EC) MG 12/03/2018 12/08/2018 Daily&0900 MultiVits (Thera M Plus) (agykfhnc-rkpn-znmrqgp) oral tablet TAB 12/03/2018 01/01/2019 Daily&0900 FUROSEMIDE VIAL INJ 20 MG (LASIX VIAL) MG 12/03/2018 12/03/2018 ONCE&1252 FLUDROCORTISONE TAB 0.1 MG (FLORNEF) MG 12/03/2018 12/03/2018 ONCE&1340 ALUM/MAG/SIMETH 30CC LIQ (MYLANTA PLUS) cc 12/03/2018 12/13/2018 PRN Q4H CALCIUM CARBONATE TAB 500 MG (TUMS) MG 12/03/2018 12/10/2018 PRN Q6H ACETAMINOPHEN ORAL TABLET 325mg(Tylenol) MG 12/03/2018 01/02/2019 PRN EVERY 6 Hour FLUDROCORTISONE TAB 0.1 MG (FLORNEF) MG 12/04/2018 12/10/2018 Daily&0900 NORMAL SALINE 1000CC IV BAG INJ 0.9 % (NS 1000CC IV BAG) ml 12/04/2018 12/04/2018 ONCE&0952 FUROSEMIDE TAB 20 MG (LASIX) MG 12/04/2018 12/04/2018 ONCE&1300 FUROSEMIDE VIAL INJ 20 MG (LASIX VIAL) MG 12/04/2018 12/04/2018 ONCE&1306 CARVEDILOL TAB 3.125 MG (COREG) MG 12/05/2018 12/05/2018 ONCE&0128 DIGOXIN inj 250mcg/cc 2cc amp (Lanoxin) MCG 12/05/2018 12/05/2018 ONCE&0720 Problems Date Dx Coded Attending Type Code Diagnosis Diagnosed By 12/02/2018 Nayely Tiwari 427.31 ATRIAL FIBRILLATION 12/02/2018 Nayely Tiwari I48.91 UNSPECIFIED ATRIAL FIBRILLATION 12/02/2018 Nayely Tiwari 272.4 OTHER AND UNSPECIFIED HYPERLIPIDEMIA 12/02/2018 Nayely Tiwari 401.9 UNSPECIFIED ESSENTIAL HYPERTENSION 12/02/2018 Nayely Tiwari 427.31 ATRIAL FIBRILLATION 12/02/2018 Nayely Tiwari 820.9 FRACTURE OF UNSPECIFIED PART OF NECK OF FEMUR, OPEN 12/02/2018 Nayely Tiwari E78.5 HYPERLIPIDEMIA, UNSPECIFIED 12/02/2018 Nayely Tiwari I10 ESSENTIAL (PRIMARY) HYPERTENSION 12/02/2018 Nayely Tiwari I48.91 UNSPECIFIED ATRIAL FIBRILLATION 12/02/2018 Nayely Tiwari S72.00 FRACTURE OF UNSPECIFIED PART OF NECK OF FEMUR 12/05/2018 Nayely Tiwari W 272.4 OTHER AND UNSPECIFIED HYPERLIPIDEMIA 12/05/2018 Nayely Tiwari W 285.1 ACUTE POSTHEMORRHAGIC ANEMIA 12/05/2018 Nayely Tiwari W 333.94 RESTLESS LEGS SYNDROME (RLS) 12/05/2018 Nayely Tiwari W 401.9 UNSPECIFIED ESSENTIAL HYPERTENSION 12/05/2018 Nayely Tiwari W 427.31 ATRIAL FIBRILLATION 12/05/2018 Nayely Tiwari W 584.9 ACUTE KIDNEY FAILURE, UNSPECIFIED 12/05/2018 Nayely Tiwari W 599.71 GROSS HEMATURIA 12/05/2018 Nayely Tiwari W 780.4 DIZZINESS AND GIDDINESS 12/05/2018 Nayely Tiwari W 788.5 OLIGURIA AND ANURIA 12/05/2018 Nayely Tiwari W 820.21 FRACTURE OF INTERTROCHANTERIC SECTION OF FEMUR, CLOSED 12/05/2018 Nayely Tiwari W D62 ACUTE POSTHEMORRHAGIC ANEMIA 12/05/2018 Nayely Tiwari W E78.5 HYPERLIPIDEMIA, UNSPECIFIED 12/05/2018 Nayely Tiwari W G25.81 RESTLESS LEGS SYNDROME 12/05/2018 Nayely Tiwari W I10 ESSENTIAL (PRIMARY) HYPERTENSION 12/05/2018 Nayely Tiwari W I48.91 UNSPECIFIED ATRIAL FIBRILLATION 12/05/2018 Nayely Tiwari W N17.9 ACUTE KIDNEY FAILURE, UNSPECIFIED 12/05/2018 Nayely Tiwari W R31.0 GROSS HEMATURIA 12/05/2018 Nayely Tiwari W R34 ANURIA AND OLIGURIA 12/05/2018 Nayely Tiwari W R42 DIZZINESS AND GIDDINESS 12/05/2018 Nayely Tiwari W S72.142A DISPLACED INTERTROCHANTERIC FRACTURE OF LEFT FEMUR, INIT 12/11/2018 NAYELY TIWARI DO Ot D62 ACUTE POSTHEMORRHAGIC ANEMIA 12/11/2018 NAYELY TIWARI DO Ot D69.6 THROMBOCYTOPENIA, UNSPECIFIED 12/11/2018 TE YAN NAYELY Ot E78.00 PURE HYPERCHOLESTEROLEMIA, UNSPECIFIED 12/11/2018 NAYELY TIWARI DO Ot E83.42 HYPOMAGNESEMIA 12/11/2018 TE YAN NAYELY Ot E87.6 HYPOKALEMIA 12/11/2018 TIWARI DO, NAYELY Ot F03.90 UNSPECIFIED DEMENTIA WITHOUT BEHAVIORAL 12/11/2018 TIWARI DO, NAYELY Ot F41.9 ANXIETY DISORDER, UNSPECIFIED 12/11/2018 TIWARI DO, NAYELY Ot I10 ESSENTIAL (PRIMARY) HYPERTENSION 12/11/2018 TIWARI DO, NAYELY Ot I48.2 CHRONIC ATRIAL FIBRILLATION 12/11/2018 TIWARI DO, NAYELY Ot I48.91 UNSPECIFIED ATRIAL FIBRILLATION 12/11/2018 TIWARI DO, NAYELY Ot I95.1 ORTHOSTATIC HYPOTENSION 12/11/2018 TIWARI DO, NAYELY Ot I95.9 HYPOTENSION, UNSPECIFIED 12/11/2018 TIWARI DO, NAYELY Ot J90 PLEURAL EFFUSION, NOT ELSEWHERE CLASSIFI 12/11/2018 TIWARI DO, NAYELY Ot J98.11 ATELECTASIS 12/11/2018 TIWARI DO, NAYELY Ot K59.01 SLOW TRANSIT CONSTIPATION 12/11/2018 TIWARI DO, NAYELY Ot M19.91 PRIMARY OSTEOARTHRITIS, UNSPECIFIED SITE 12/11/2018 TIWARI DO, NAYELY Ot N39.0 URINARY TRACT INFECTION, SITE NOT SPECIF 12/11/2018 TIWARI DO, NAYELY Ot R09.02 HYPOXEMIA 12/11/2018 TIWARI DO, NAYELY Ot R31.0 GROSS HEMATURIA 12/11/2018 TIWARI DO, NAYELY Ot R34 ANURIA AND OLIGURIA 12/11/2018 TIWARI DO, NAYELY Ot R41.0 DISORIENTATION, UNSPECIFIED 12/11/2018 TIWARI DO, NAYELY Ot S72.002D FX UNSP PART OF NK OF Ryanne QUICK, SUBS FOR C 12/11/2018 TIWARI DO, NAYELY Ot W19.XXXD UNSPECIFIED FALL, SUBSEQUENT ENCOUNTER 12/11/2018 TIWARI DO, NAYELY Ot Z66 DO NOT RESUSCITATE 01/08/2019 TIWARI DO, NAYELY Ot E78.00 PURE HYPERCHOLESTEROLEMIA, UNSPECIFIED 01/08/2019 TIWARI DO, NAYELY Ot E86.0 DEHYDRATION 01/08/2019 TIWARI DO, NAYELY Ot E87.6 HYPOKALEMIA 01/08/2019 TIWARI DO, NAYELY Ot G62.9 POLYNEUROPATHY, UNSPECIFIED 01/08/2019 TIWARI DO, NAYELY Ot I10 ESSENTIAL (PRIMARY) HYPERTENSION 01/08/2019 TIWARI DO, NAYELY Ot I25.10 ATHSCL HEART DISEASE OF [place] CORONARY 01/08/2019 TIWARI DO, NAYELY Ot I44.0 ATRIOVENTRICULAR BLOCK, FIRST DEGREE 01/08/2019 TIWARI DO, NAYELY Ot I47.1 SUPRAVENTRICULAR TACHYCARDIA 01/08/2019 TIWARI DO, NAYELY Ot 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 01/08/2019 TIWARI DO, NAYELY Ot I48.0 PAROXYSMAL ATRIAL FIBRILLATION 01/08/2019 TIWARI DO, NAYELY Ot K21.9 GASTRO-ESOPHAGEAL REFLUX DISEASE WITHOUT 01/08/2019 TIWARI DO, NAYELY Ot K59.09 OTHER CONSTIPATION 01/08/2019 TIWARI DO, NAYELY Ot M19.91 PRIMARY OSTEOARTHRITIS, UNSPECIFIED SITE 01/08/2019 TIWARI DO, NAYELY Ot R41.0 DISORIENTATION, UNSPECIFIED 01/08/2019 TIWARI DO, NAYELY Ot 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 01/08/2019 TIWARI DO, NAYELY Ot R55 SYNCOPE AND COLLAPSE 01/08/2019 TIWARI DO, NAYELY Ot Z66 DO NOT RESUSCITATE 01/08/2019 TIWARI DO NAYELY Ot Z87.440 PERSONAL HISTORY OF URINARY (TRACT) INFE 01/08/2019 TIWARI DO, NAYELY Ot E78.00 PURE HYPERCHOLESTEROLEMIA, UNSPECIFIED 01/08/2019 TIWARI DO, NAYELY Ot E86.0 DEHYDRATION 01/08/2019 TIWARI DO, NAYELY Ot E87.6 HYPOKALEMIA 01/08/2019 TIWARI DO, NAYELY Ot G62.9 POLYNEUROPATHY, UNSPECIFIED 01/08/2019 TIWARI DO, NAYELY Ot I10 ESSENTIAL (PRIMARY) HYPERTENSION 01/08/2019 TIWARI DO, NAYELY Ot I21.A1 MYOCARDIAL INFARCTION TYPE 2 01/08/2019 TIWARI DO, NAYELY Ot I25.10 ATHSCL HEART DISEASE OF [place] CORONARY 01/08/2019 TIWARI DO, NAYELY Ot I44.0 ATRIOVENTRICULAR BLOCK, FIRST DEGREE 01/08/2019 TIWARI DO, NAYELY Ot I47.1 SUPRAVENTRICULAR TACHYCARDIA 01/08/2019 TIWARI DO, NAYELY Ot 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 01/08/2019 TIWARI DO, NAYELY Ot I48.0 PAROXYSMAL ATRIAL FIBRILLATION 01/08/2019 TIWARI DO, NAYELY Ot I50.33 ACUTE ON CHRONIC DIASTOLIC (CONGESTIVE) 01/08/2019 TE YAN, NAYELY Ot K21.9 GASTRO-ESOPHAGEAL REFLUX DISEASE WITHOUT 01/08/2019 TE YAN NAYELY Ot K59.09 OTHER CONSTIPATION 01/08/2019 TE YAN NAYELY Ot M19.91 PRIMARY OSTEOARTHRITIS, UNSPECIFIED SITE 01/08/2019 TE YAN NAYELY Ot R41.0 DISORIENTATION, UNSPECIFIED 01/08/2019 TIWARI DO NAYELY Ot 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 01/08/2019 TE YAN NAYELY Ot R55 SYNCOPE AND COLLAPSE 01/08/2019 TE YAN NAYELY Ot Z66 DO NOT RESUSCITATE 01/08/2019 TE YAN NAYELY Ot Z87.440 PERSONAL HISTORY OF URINARY (TRACT) INFE 01/18/2019 DAYANARA GARCIA, Nicki BAUTISTA Ot I47.1 SUPRAVENTRICULAR TACHYCARDIA 01/18/2019 DAYANARA GARCIA, Nicki BAUTISTA Ot I48.91 UNSPECIFIED ATRIAL FIBRILLATION 04/17/2019 DAYANARA GARCIA, Nicki BAUTISTA Ot I47.1 SUPRAVENTRICULAR TACHYCARDIA 04/17/2019 DAYANAAR GARCIA, Nicki BAUTISTA Ot I48.91 UNSPECIFIED ATRIAL FIBRILLATION 05/13/2019 DAYANARA GARCIA, Nicki BAUTISTA Ot I47.1 SUPRAVENTRICULAR TACHYCARDIA 05/13/2019 DAYANARA GARCIA, M LILY Ot I48.91 UNSPECIFIED ATRIAL FIBRILLATION Procedures Code Description Performed By Performed On [id number] MEASURE OF CARDIAC SAMPL PRESSURE, L H 01/06/2019 [id number] FLUOROSCOPY OF MULT COR ART USING L OSM 01/06/2019 [id number] FLUOROSCOPY OF LEFT HEART USING LOW OSMO 01/06/2019 [id number] FLUOROSCOPY OF THORACIC AORTA USING LOW 01/06/2019 Results Test Result Range PTT - 12/01/18 21:52 PTT 30.2 Sec 26.0-38.0 Urinalysis - 12/01/18 23:18 Icotest Negative Negative Urine Volume Urine Volume Sufficient (10mL) Urine Yeast No Yeast present Urine-Appearance Slightly Cloudy Clear Urine-Bacteria 1+ Urine-Bilirubin 1+ Negative Urine-Blood Negative Negative Urine-Color Yellow Colorless-Lt. Yellow Urine-Epithelial Cells 5-10/HPF Urine-Glucose Negative Negative Urine-Ketones Trace Negative Urine-Leukocytes Negative Negative Urine-Mucus 3+ Urine-Nitrite Negative Negative Urine-Other Culture to follow Urine-pH 5.5 5-8.5 Urine-Protein 1+ Negative Urine-RBC 2-5/HPF Urine-Specific [place] >=1.030 1.000-1.030 Urine-WBC 10-20/HPF Urobilinogen 0.2 0.2-1.0 Urine Culture - 12/01/18 23:18 PRELIM CULTURE RESULTS No Growth 24 hours FINAL CULTURE RESULTS No Growth 48 hours MEDIA PLATED Setup at 23:26 on 12/01/2018 CULTURE SOURCE [id number]\ Leukoreduced Packed RBC Unit Checkout - 12/02/18 11:51 LRPRBC Checkout Checked Out. XM (2) LRPC - 12/02/18 12:39 CROSSMATCH COMPATIBLE X 2 Hct 40.0 % 36.0-46.0 Hgb 13.0 g/dL 13.0-15.0 Leukoreduced Packed RBC Unit Checkout - 12/02/18 12:41 LRPRBC Checkout Checked Out. HH - 12/02/18 18:07 Hct 33.6 % 36.0-46.0 Hgb 10.8 g/dL 13.0-15.0 Comprehensive Metabolic Panel - 12/03/18 04:50 Albumin 2.9 g/dL 3.6-5.1 ALP 51 U/L 35-130 ALT 8 U/L 6-45 Anion Gap 11 6-14 AST 27 U/L 2-40 BUN 33 mg/dL 5-25 Calcium 8.1 mg/dL 8.3-10.4 Chloride 112 mmol/L 95-114 CO2 25 mEq/L 22-33 Creat 0.90 mg/dL 0.50-1.50 eGFR 59 mL/min/1.73m2 >59 Globulin 2.1 g/dL 2.3-3.5 Glucose 118 mg/dL 70-110 Osmo 303 280-295 Potassium 4.5 mmol/L 3.5-5.3 Sodium 143 mmol/L 134-148 TBil 0.5 mg/dL 0.2-1.2 TP 5.0 g/dL 6.0-8.3 BNP - 12/03/18 12:52 BNP 208.40 pg/ml 0.00-100.00 Urinalysis - 12/03/18 13:55 Icotest N/A Negative Urine Volume Urine Volume Sufficient (10mL) Urine-Appearance Slightly Cloudy Clear Urine-Bacteria Trace Urine-Bilirubin Negative Negative Urine-Blood 3+ Negative Urine-Color Yellow Colorless-Lt. Yellow Urine-Epithelial Cells 0-5/HPF Urine-Glucose Negative Negative Urine-Ketones Negative Negative Urine-Leukocytes Negative Negative Urine-Nitrite Negative Negative Urine-Other Urine Saved if Culture Needed (48hrs from time of collection) Urine-pH 5.5 5-8.5 Urine-Protein 1+ Negative Urine-RBC TNTC Urine-Specific [place] 1.015 1.000-1.030 Urine-WBC Negative Urobilinogen 0.2 E.U./dL 0.2-1.0 Comprehensive Metabolic Panel - 12/04/18 05:15 Albumin 2.5 g/dL 3.6-5.1 ALP 44 U/L 35-130 ALT 7 U/L 6-45 Anion Gap 9 6-14 AST 27 U/L 2-40 BUN 29 mg/dL 5-25 Calcium 7.9 mg/dL 8.3-10.4 Chloride 112 mmol/L 95-114 CO2 25 mEq/L 22-33 Creat 0.77 mg/dL 0.50-1.50 eGFR 71 mL/min/1.73m2 >59 Globulin 1.8 g/dL 2.3-3.5 Glucose 114 mg/dL 70-110 Osmo 299 280-295 Potassium 4.1 mmol/L 3.5-5.3 Sodium 142 mmol/L 134-148 TBil 0.4 mg/dL 0.2-1.2 TP 4.3 g/dL 6.0-8.3 Leukoreduced Packed RBC Unit Checkout - 12/04/18 09:29 [facility]. Leukoreduced Packed RBC Unit Checkout - 12/04/18 13:05 [facility] Check[facility] Out. Comprehensive Metabolic Panel - 12/05/18 05:25 Albumin 2.5 g/dL 3.6-5.1 ALP 43 U/L 35-130 ALT 8 U/L 6-45 Anion Gap 9 6-14 AST 27 U/L 2-40 BUN 21 mg/dL 5-25 Calcium 7.6 mg/dL 8.3-10.4 Chloride 111 mmol/L 95-114 CO2 24 mEq/L 22-33 Creat 0.66 mg/dL 0.50-1.50 eGFR 85 mL/min/1.73m2 >59 Globulin 1.9 g/dL 2.3-3.5 Glucose 102 mg/dL 70-110 Osmo 292 280-295 Potassium 3.8 mmol/L 3.5-5.3 Sodium 140 mmol/L 134-148 TBil 0.6 mg/dL 0.2-1.2 TP 4.4 g/dL 6.0-8.3 Bacterial blood culture - 12/05/18 11:00 Bacterial blood culture [facility] Complete blood count (CBC) with automated white blood cell (WBC) differential - 12/05/18 11:05 Blood leukocytes automated count (number/volume) 6.5 10*3/uL 4.3-11.0 Blood erythrocytes automated count (number/volume) 2.81 10*6/uL 4.35-5.85 Venous blood hemoglobin measurement (mass/volume) 9.2 g/dL 11.5-16.0 Blood hematocrit (volume fraction) 29 % 35-52 Automated erythrocyte mean corpuscular volume 102 [foz_us] 80-99 Automated erythrocyte mean corpuscular hemoglobin (mass per erythrocyte) 33 pg 25-34 Automated erythrocyte mean corpuscular hemoglobin concentration measurement (mass/volume) 32 g/dL 32-36 Automated erythrocyte distribution width ratio 15.1 % 10.0- 14.5 Automated blood platelet count (count/volume) 120 10*3/uL 130-400 Automated blood platelet mean volume measurement 9.7 [foz_us] 7.4-10.4 Automated blood neutrophils/100 leukocytes 66 % 42-75 Automated blood lymphocytes/100 leukocytes 18 % 12-44 Blood monocytes/100 leukocytes 14 % 0-12 Automated blood eosinophils/100 leukocytes 2 % 0-10 Automated blood basophils/100 leukocytes 1 % 0-10 Blood neutrophils automated count (number/volume) 4.3 10*3 1.8-7.8 Blood lymphocytes automated count (number/volume) 1.1 10*3 1.0-4.0 Blood monocytes automated count (number/volume) 0.9 10*3 0.0- 1.0 Automated eosinophil count 0.1 10*3/uL 0.0-0.3 Automated blood basophil count (count/volume) 0.0 10*3/uL 0.0-0.1 Blood lactic acid measurement (moles/volume) - 12/05/18 11:05 Blood lactic acid measurement (moles/volume) 0.76 mmol/L 0.50- 2.00 Comprehensive metabolic panel - 12/05/18 11:05 Serum or plasma sodium measurement (moles/volume) 139 mmol/L 135-145 Serum or plasma potassium measurement (moles/volume) 3.9 mmol/L 3.6-5.0 Serum or plasma chloride measurement (moles/volume) 109 mmol/L 98-107 Carbon dioxide 24 mmol/L 21-32 Serum or plasma anion gap determination (moles/volume) 6 mmol/L 5-14 Serum or plasma urea nitrogen measurement (mass/volume) 20 mg/dL 7-18 Serum or plasma creatinine measurement (mass/volume) 0.68 mg/dL 0.60-1.30 Serum or plasma urea nitrogen/creatinine mass ratio 29 NRG Serum or plasma creatinine measurement with calculation of estimated glomerular filtration rate > NRG Serum or plasma glucose measurement (mass/volume) 107 mg/dL 70-105 Serum or plasma calcium measurement (mass/volume) 7.9 mg/dL 8.5-10.1 Serum or plasma total bilirubin measurement (mass/volume) 0.5 mg/dL 0.1-1.0 Serum or plasma alkaline phosphatase measurement (enzymatic activity/volume) 45 U/L 40-136 Serum or plasma aspartate aminotransferase measurement (enzymatic activity/volume) 27 U/L 5-34 Serum or plasma alanine aminotransferase measurement (enzymatic activity/volume) 11 U/L 0-55 Serum or plasma protein measurement (mass/volume) 4.9 g/dL 6.4-8.2 Serum or plasma albumin measurement (mass/volume) 2.6 g/dL 3.2-4.5 CALCIUM CORRECTED 9.0 mg/dL 8.5-10.1 Serum or plasma troponin i.cardiac measurement (mass/volume) - 12/05/18 11:05 Serum or plasma troponin i.cardiac measurement (mass/volume) 0.275 ng/mL <0.028 Serum or plasma lithium measurement (moles/volume) - 12/05/18 11:05 BNP level 713.7 pg/mL <100.0 Bacterial blood culture - 12/05/18 11:05 Bacterial blood culture NG NRG Complete urinalysis with reflex to culture - 12/05/18 16:05 Urine color determination YELLOW NRG Urine clarity determination CLEAR NRG Urine pH measurement by test strip 6 5-9 Specific gravity of urine by test strip 1.020 1.016-1.022 Urine protein assay by test strip, semi-quantitative 2+ NEGATIVE Urine glucose detection by automated test strip NEGATIVE NEGATIVE Erythrocytes detection in urine sediment by light microscopy 5+ NEGATIVE Urine ketones detection by automated test strip NEGATIVE NEGATIVE Urine nitrite detection by test strip NEGATIVE NEGATIVE Urine total bilirubin detection by test strip NEGATIVE NEGATIVE Urine urobilinogen measurement by automated test strip (mass/volume) NORMAL NORMAL Urine leukocyte esterase detection by dipstick 1+ NEGATIVE Automated urine sediment erythrocyte count by microscopy (number/high power field) > [HPF] NRG Automated urine sediment leukocyte count by microscopy (number/high power field) [HPF] NRG Bacteria detection in urine sediment by light microscopy NONE NRG Squamous epithelial cells detection in urine sediment by light microscopy 2-5 NRG Crystals detection in urine sediment by light microscopy NONE NRG Casts detection in urine sediment by light microscopy NONE NRG Mucus detection in urine sediment by light microscopy NEGATIVE NRG Complete urinalysis with reflex to culture NO NRG Complete blood count (CBC) with automated white blood cell (WBC) differential - 12/06/18 03:20 Blood leukocytes automated count (number/volume) 6.0 10*3/uL 4.3-11.0 Blood erythrocytes automated count (number/volume) 2.93 10*6/uL 4.35-5.85 Venous blood hemoglobin measurement (mass/volume) 9.5 g/dL 11.5-16.0 Blood hematocrit (volume fraction) 30 % 35-52 Automated erythrocyte mean corpuscular volume 102 [foz_us] 80-99 Automated erythrocyte mean corpuscular hemoglobin (mass per erythrocyte) 32 pg 25-34 Automated erythrocyte mean corpuscular hemoglobin concentration measurement (mass/volume) 32 g/dL 32-36 Automated erythrocyte distribution width ratio 14.8 % 10.0- 14.5 Automated blood platelet count (count/volume) 127 10*3/uL 130-400 Automated blood platelet mean volume measurement 9.8 [foz_us] 7.4-10.4 Automated blood neutrophils/100 leukocytes 60 % 42-75 Automated blood lymphocytes/100 leukocytes 23 % 12-44 Blood monocytes/100 leukocytes 14 % 0-12 Automated blood eosinophils/100 leukocytes 3 % 0-10 Automated blood basophils/100 leukocytes 1 % 0-10 Blood neutrophils automated count (number/volume) 3.6 10*3 1.8-7.8 Blood lymphocytes automated count (number/volume) 1.4 10*3 1.0-4.0 Blood monocytes automated count (number/volume) 0.8 10*3 0.0- 1.0 Automated eosinophil count 0.2 10*3/uL 0.0-0.3 Automated blood basophil count (count/volume) 0.1 10*3/uL 0.0-0.1 Comprehensive metabolic panel - 12/06/18 03:20 Serum or plasma sodium measurement (moles/volume) 143 mmol/L 135-145 Serum or plasma potassium measurement (moles/volume) 4.1 mmol/L 3.6-5.0 Serum or plasma chloride measurement (moles/volume) 113 mmol/L 98-107 Carbon dioxide 25 mmol/L 21-32 Serum or plasma anion gap determination (moles/volume) 5 mmol/L 5-14 Serum or plasma urea nitrogen measurement (mass/volume) 18 mg/dL 7-18 Serum or plasma creatinine measurement (mass/volume) 0.64 mg/dL 0.60-1.30 Serum or plasma urea nitrogen/creatinine mass ratio 28 NRG Serum or plasma creatinine measurement with calculation of estimated glomerular filtration rate > NRG Serum or plasma glucose measurement (mass/volume) 94 mg/dL 70-105 Serum or plasma calcium measurement (mass/volume) 8.0 mg/dL 8.5-10.1 Serum or plasma total bilirubin measurement (mass/volume) 0.5 mg/dL 0.1-1.0 Serum or plasma alkaline phosphatase measurement (enzymatic activity/volume) 40 U/L 40-136 Serum or plasma aspartate aminotransferase measurement (enzymatic activity/volume) 26 U/L 5-34 Serum or plasma alanine aminotransferase measurement (enzymatic activity/volume) 12 U/L 0-55 Serum or plasma protein measurement (mass/volume) 4.8 g/dL 6.4-8.2 Serum or plasma albumin measurement (mass/volume) 2.4 g/dL 3.2-4.5 CALCIUM CORRECTED 9.3 mg/dL 8.5-10.1 Serum or plasma phosphate measurement (mass/volume) - 12/06/18 03:20 Serum or plasma phosphate measurement (mass/volume) 2.1 mg/dL 2.3-4.7 Magnesium - 02/14/19 03:20 Magnesium 1.6 mg/dL 1.8-2.4 Complete blood count (CBC) with automated white blood cell (WBC) differential - 12/07/18 03:30 Blood leukocytes automated count (number/volume) 7.0 10*3/uL 4.3-11.0 Blood erythrocytes automated count (number/volume) 3.14 10*6/uL 4.35-5.85 Venous blood hemoglobin measurement (mass/volume) 10.2 g/dL 11.5-16.0 Blood hematocrit (volume fraction) 32 % 35-52 Automated erythrocyte mean corpuscular volume 102 [foz_us] 80-99 Automated erythrocyte mean corpuscular hemoglobin (mass per erythrocyte) 33 pg 25-34 Automated erythrocyte mean corpuscular hemoglobin concentration measurement (mass/volume) 32 g/dL 32-36 Automated erythrocyte distribution width ratio 14.5 % 10.0- 14.5 Automated blood platelet count (count/volume) 168 10*3/uL 130-400 Automated blood platelet mean volume measurement 9.7 [foz_us] 7.4-10.4 Automated blood neutrophils/100 leukocytes 63 % 42-75 Automated blood lymphocytes/100 leukocytes 19 % 12-44 Blood monocytes/100 leukocytes 15 % 0-12 Automated blood eosinophils/100 leukocytes 3 % 0-10 Automated blood basophils/100 leukocytes 1 % 0-10 Blood neutrophils automated count (number/volume) 4.4 10*3 1.8-7.8 Blood lymphocytes automated count (number/volume) 1.4 10*3 1.0-4.0 Blood monocytes automated count (number/volume) 1.0 10*3 0.0- 1.0 Automated eosinophil count 0.2 10*3/uL 0.0-0.3 Automated blood basophil count (count/volume) 0.0 10*3/uL 0.0-0.1 Whole blood basic metabolic panel - 12/07/18 03:30 Serum or plasma sodium measurement (moles/volume) 141 mmol/L 135-145 Serum or plasma potassium measurement (moles/volume) 4.0 mmol/L 3.6-5.0 Serum or plasma chloride measurement (moles/volume) 109 mmol/L 98-107 Carbon dioxide 25 mmol/L 21-32 Serum or plasma anion gap determination (moles/volume) 7 mmol/L 5-14 Serum or plasma urea nitrogen measurement (mass/volume) 17 mg/dL 7-18 Serum or plasma creatinine measurement (mass/volume) 0.57 mg/dL 0.60-1.30 Serum or plasma urea nitrogen/creatinine mass ratio 30 NRG Serum or plasma creatinine measurement with calculation of estimated glomerular filtration rate > NRG Serum or plasma glucose measurement (mass/volume) 102 mg/dL 70-105 Serum or plasma calcium measurement (mass/volume) 8.3 mg/dL 8.5-10.1 Serum or plasma phosphate measurement (mass/volume) - 12/07/18 03:30 Serum or plasma phosphate measurement (mass/volume) 2.6 mg/dL 2.3-4.7 Magnesium - 12/07/18 03:30 Magnesium 5.8 mg/dL 1.8-2.4 Stool occult blood screen - 12/07/18 13:45 Stool gastrointestinal hemoglobin detection POSITIVE NEGATIVE Complete blood count (CBC) with automated white blood cell (WBC) differential - 12/08/18 05:30 Blood leukocytes automated count (number/volume) 7.4 10*3/uL 4.3-11.0 Blood erythrocytes automated count (number/volume) 2.96 10*6/uL 4.35-5.85 Venous blood hemoglobin measurement (mass/volume) 9.6 g/dL 11.5-16.0 Blood hematocrit (volume fraction) 30 % 35-52 Automated erythrocyte mean corpuscular volume 101 [foz_us] 80-99 Automated erythrocyte mean corpuscular hemoglobin (mass per erythrocyte) 32 pg 25-34 Automated erythrocyte mean corpuscular hemoglobin concentration measurement (mass/volume) 32 g/dL 32-36 Automated erythrocyte distribution width ratio 14.4 % 10.0- 14.5 Automated blood platelet count (count/volume) 215 10*3/uL 130-400 Automated blood platelet mean volume measurement 9.3 [foz_us] 7.4-10.4 Automated blood neutrophils/100 leukocytes 65 % 42-75 Automated blood lymphocytes/100 leukocytes 17 % 12-44 Blood monocytes/100 leukocytes 15 % 0-12 Automated blood eosinophils/100 leukocytes 3 % 0-10 Automated blood basophils/100 leukocytes 1 % 0-10 Blood neutrophils automated count (number/volume) 4.8 10*3 1.8-7.8 Blood lymphocytes automated count (number/volume) 1.2 10*3 1.0-4.0 Blood monocytes automated count (number/volume) 1.1 10*3 0.0- 1.0 Automated eosinophil count 0.2 10*3/uL 0.0-0.3 Automated blood basophil count (count/volume) 0.1 10*3/uL 0.0-0.1 Whole blood basic metabolic panel - 12/08/18 05:30 Serum or plasma sodium measurement (moles/volume) 140 mmol/L 135-145 Serum or plasma potassium measurement (moles/volume) 3.6 mmol/L 3.6-5.0 Serum or plasma chloride measurement (moles/volume) 105 mmol/L 98-107 Carbon dioxide 28 mmol/L 21-32 Serum or plasma anion gap determination (moles/volume) 7 mmol/L 5-14 Serum or plasma urea nitrogen measurement (mass/volume) 18 mg/dL 7-18 Serum or plasma creatinine measurement (mass/volume) 0.60 mg/dL 0.60-1.30 Serum or plasma urea nitrogen/creatinine mass ratio 30 NRG Serum or plasma creatinine measurement with calculation of estimated glomerular filtration rate > NRG Serum or plasma glucose measurement (mass/volume) 98 mg/dL 70-105 Serum or plasma calcium measurement (mass/volume) 8.4 mg/dL 8.5-10.1 Serum or plasma phosphate measurement (mass/volume) - 12/08/18 05:30 Serum or plasma phosphate measurement (mass/volume) 2.6 mg/dL 2.3-4.7 Magnesium - 12/08/18 05:30 Magnesium 1.7 mg/dL 1.8-2.4 Complete blood count (CBC) with automated white blood cell (WBC) differential - 12/09/18 05:10 Blood leukocytes automated count (number/volume) 6.7 10*3/uL 4.3-11.0 Blood erythrocytes automated count (number/volume) 2.99 10*6/uL 4.35-5.85 Venous blood hemoglobin measurement (mass/volume) 9.9 g/dL 11.5-16.0 Blood hematocrit (volume fraction) 30 % 35-52 Automated erythrocyte mean corpuscular volume 100 [foz_us] 80-99 Automated erythrocyte mean corpuscular hemoglobin (mass per erythrocyte) 33 pg 25-34 Automated erythrocyte mean corpuscular hemoglobin concentration measurement (mass/volume) 33 g/dL 32-36 Automated erythrocyte distribution width ratio 14.5 % 10.0- 14.5 Automated blood platelet count (count/volume) 249 10*3/uL 130-400 Automated blood platelet mean volume measurement 9.3 [foz_us] 7.4-10.4 Automated blood neutrophils/100 leukocytes 62 % 42-75 Automated blood lymphocytes/100 leukocytes 18 % 12-44 Blood monocytes/100 leukocytes 15 % 0-12 Automated blood eosinophils/100 leukocytes 3 % 0-10 Automated blood basophils/100 leukocytes 2 % 0-10 Blood neutrophils automated count (number/volume) 4.1 10*3 1.8-7.8 Blood lymphocytes automated count (number/volume) 1.2 10*3 1.0-4.0 Blood monocytes automated count (number/volume) 1.0 10*3 0.0- 1.0 Automated eosinophil count 0.2 10*3/uL 0.0-0.3 Automated blood basophil count (count/volume) 0.1 10*3/uL 0.0-0.1 Whole blood basic metabolic panel - 12/09/18 05:10 Serum or plasma sodium measurement (moles/volume) 140 mmol/L 135-145 Serum or plasma potassium measurement (moles/volume) 3.4 mmol/L 3.6-5.0 Serum or plasma chloride measurement (moles/volume) 104 mmol/L 98-107 Carbon dioxide 27 mmol/L 21-32 Serum or plasma anion gap determination (moles/volume) 9 mmol/L 5-14 Serum or plasma urea nitrogen measurement (mass/volume) 15 mg/dL 7-18 Serum or plasma creatinine measurement (mass/volume) 0.56 mg/dL 0.60-1.30 Serum or plasma urea nitrogen/creatinine mass ratio 27 NRG Serum or plasma creatinine measurement with calculation of estimated glomerular filtration rate > NRG Serum or plasma glucose measurement (mass/volume) 95 mg/dL 70-105 Serum or plasma calcium measurement (mass/volume) 8.6 mg/dL 8.5-10.1 Serum or plasma phosphate measurement (mass/volume) - 12/09/18 05:10 Serum or plasma phosphate measurement (mass/volume) 2.8 mg/dL 2.3-4.7 Magnesium - 12/09/18 05:10 Magnesium 1.6 mg/dL 1.8-2.4 Complete blood count (CBC) with automated white blood cell (WBC) differential - 12/10/18 05:10 Blood leukocytes automated count (number/volume) 6.3 10*3/uL 4.3-11.0 Blood erythrocytes automated count (number/volume) 3.13 10*6/uL 4.35-5.85 Venous blood hemoglobin measurement (mass/volume) 10.1 g/dL 11.5-16.0 Blood hematocrit (volume fraction) 32 % 35-52 Automated erythrocyte mean corpuscular volume 101 [foz_us] 80-99 Automated erythrocyte mean corpuscular hemoglobin (mass per erythrocyte) 32 pg 25-34 Automated erythrocyte mean corpuscular hemoglobin concentration measurement (mass/volume) 32 g/dL 32-36 Automated erythrocyte distribution width ratio 14.4 % 10.0- 14.5 Automated blood platelet count (count/volume) 273 10*3/uL 130-400 Automated blood platelet mean volume measurement 9.1 [foz_us] 7.4-10.4 Automated blood neutrophils/100 leukocytes 65 % 42-75 Automated blood lymphocytes/100 leukocytes 17 % 12-44 Blood monocytes/100 leukocytes 16 % 0-12 Automated blood eosinophils/100 leukocytes 3 % 0-10 Automated blood basophils/100 leukocytes 1 % 0-10 Blood neutrophils automated count (number/volume) 4.1 10*3 1.8-7.8 Blood lymphocytes automated count (number/volume) 1.1 10*3 1.0-4.0 Blood monocytes automated count (number/volume) 1.0 10*3 0.0- 1.0 Automated eosinophil count 0.2 10*3/uL 0.0-0.3 Automated blood basophil count (count/volume) 0.0 10*3/uL 0.0-0.1 Whole blood basic metabolic panel - 12/10/18 05:10 Serum or plasma sodium measurement (moles/volume) 140 mmol/L 135-145 Serum or plasma potassium measurement (moles/volume) 3.5 mmol/L 3.6-5.0 Serum or plasma chloride measurement (moles/volume) 104 mmol/L 98-107 Carbon dioxide 31 mmol/L 21-32 Serum or plasma anion gap determination (moles/volume) 5 mmol/L 5-14 Serum or plasma urea nitrogen measurement (mass/volume) 19 mg/dL 7-18 Serum or plasma creatinine measurement (mass/volume) 0.62 mg/dL 0.60-1.30 Serum or plasma urea nitrogen/creatinine mass ratio 31 NRG Serum or plasma creatinine measurement with calculation of estimated glomerular filtration rate > NRG Serum or plasma glucose measurement (mass/volume) 103 mg/dL 70-105 Serum or plasma calcium measurement (mass/volume) 8.5 mg/dL 8.5-10.1 Serum or plasma phosphate measurement (mass/volume) - 12/10/18 05:10 Serum or plasma phosphate measurement (mass/volume) 3.7 mg/dL 2.3-4.7 Magnesium - 12/10/18 05:10 Magnesium 1.7 mg/dL 1.8-2.4 Whole blood basic metabolic panel - 12/11/18 05:05 Serum or plasma sodium measurement (moles/volume) 142 mmol/L 135-145 Serum or plasma potassium measurement (moles/volume) 3.5 mmol/L 3.6-5.0 Serum or plasma chloride measurement (moles/volume) 103 mmol/L 98-107 Carbon dioxide 29 mmol/L 21-32 Serum or plasma anion gap determination (moles/volume) 10 mmol/L 5-14 Serum or plasma urea nitrogen measurement (mass/volume) 15 mg/dL 7-18 Serum or plasma creatinine measurement (mass/volume) 0.64 mg/dL 0.60-1.30 Serum or plasma urea nitrogen/creatinine mass ratio 23 NRG Serum or plasma creatinine measurement with calculation of estimated glomerular filtration rate > NRG Serum or plasma glucose measurement (mass/volume) 97 mg/dL 70-105 Serum or plasma calcium measurement (mass/volume) 8.8 mg/dL 8.5-10.1 Serum or plasma phosphate measurement (mass/volume) - 12/11/18 05:05 Serum or plasma phosphate measurement (mass/volume) 3.1 mg/dL 2.3-4.7 Magnesium - 12/11/18 05:05 Magnesium 1.7 mg/dL 1.8-2.4 Complete blood count (CBC) with automated white blood cell (WBC) differential - 12/11/18 05:05 Blood leukocytes automated count (number/volume) 6.1 10*3/uL 4.3-11.0 Blood erythrocytes automated count (number/volume) 3.24 10*6/uL 4.35-5.85 Venous blood hemoglobin measurement (mass/volume) 10.5 g/dL 11.5-16.0 Blood hematocrit (volume fraction) 33 % 35-52 Automated erythrocyte mean corpuscular volume 102 [foz_us] 80-99 Automated erythrocyte mean corpuscular hemoglobin (mass per erythrocyte) 32 pg 25-34 Automated erythrocyte mean corpuscular hemoglobin concentration measurement (mass/volume) 32 g/dL 32-36 Automated erythrocyte distribution width ratio 14.9 % 10.0- 14.5 Automated blood platelet count (count/volume) 326 10*3/uL 130-400 Automated blood platelet mean volume measurement 8.8 [foz_us] 7.4-10.4 Automated blood neutrophils/100 leukocytes 63 % 42-75 Automated blood lymphocytes/100 leukocytes 22 % 12-44 Blood monocytes/100 leukocytes 11 % 0-12 Automated blood eosinophils/100 leukocytes 3 % 0-10 Automated blood basophils/100 leukocytes 1 % 0-10 Blood neutrophils automated count (number/volume) 3.9 10*3 1.8-7.8 Blood lymphocytes automated count (number/volume) 1.3 10*3 1.0-4.0 Blood monocytes automated count (number/volume) 0.7 10*3 0.0- 1.0 Automated eosinophil count 0.2 10*3/uL 0.0-0.3 Automated blood basophil count (count/volume) 0.1 10*3/uL 0.0-0.1 Complete blood count (CBC) with automated white blood cell (WBC) differential - 01/04/19 14:27 Blood leukocytes automated count (number/volume) 7.8 10*3/uL 4.3-11.0 Blood erythrocytes automated count (number/volume) 4.08 10*6/uL 4.35-5.85 Venous blood hemoglobin measurement (mass/volume) 13.3 g/dL 11.5-16.0 Blood hematocrit (volume fraction) 42 % 35-52 Automated erythrocyte mean corpuscular volume 103 [foz_us] 80-99 Automated erythrocyte mean corpuscular hemoglobin (mass per erythrocyte) 33 pg 25-34 Automated erythrocyte mean corpuscular hemoglobin concentration measurement (mass/volume) 33 g/dL 32-36 Automated erythrocyte distribution width ratio 15.2 % 10.0- 14.5 Automated blood platelet count (count/volume) 274 10*3/uL 130-400 Automated blood platelet mean volume measurement 9.4 [foz_us] 7.4-10.4 Automated blood neutrophils/100 leukocytes 63 % 42-75 Automated blood lymphocytes/100 leukocytes 24 % 12-44 Blood monocytes/100 leukocytes 10 % 0-12 Automated blood eosinophils/100 leukocytes 2 % 0-10 Automated blood basophils/100 leukocytes 1 % 0-10 Blood neutrophils automated count (number/volume) 4.9 10*3 1.8-7.8 Blood lymphocytes automated count (number/volume) 1.9 10*3 1.0-4.0 Blood monocytes automated count (number/volume) 0.8 10*3 0.0- 1.0 Automated eosinophil count 0.1 10*3/uL 0.0-0.3 Automated blood basophil count (count/volume) 0.1 10*3/uL 0.0-0.1 PT panel in platelet poor plasma by coagulation assay - 01/04/19 14:27 Prothrombin time (PT) in platelet poor plasma by coagulation assay 14.3 s 12.2-14.7 INR in platelet poor plasma or blood by coagulation assay 1.1 0.8-1.4 Activated partial thromboplastin time (aPTT) in platelet poor plasma bycoagulation assay - 01/04/19 14:27 Activated partial thromboplastin time (aPTT) in platelet poor plasma bycoagulation assay 28 s 24-35 Comprehensive metabolic panel - 01/04/19 14:27 Serum or plasma sodium measurement (moles/volume) 144 mmol/L 135-145 Serum or plasma potassium measurement (moles/volume) 3.7 mmol/L 3.6-5.0 Serum or plasma chloride measurement (moles/volume) 103 mmol/L 98-107 Carbon dioxide 19 mmol/L 21-32 Serum or plasma anion gap determination (moles/volume) 22 mmol/L 5-14 Serum or plasma urea nitrogen measurement (mass/volume) 30 mg/dL 7-18 Serum or plasma creatinine measurement (mass/volume) 1.05 mg/dL 0.60-1.30 Serum or plasma urea nitrogen/creatinine mass ratio 29 NRG Serum or plasma creatinine measurement with calculation of estimated glomerular filtration rate 50 NRG Serum or plasma glucose measurement (mass/volume) 123 mg/dL 70-105 Serum or plasma calcium measurement (mass/volume) 9.4 mg/dL 8.5-10.1 Serum or plasma total bilirubin measurement (mass/volume) 0.4 mg/dL 0.1-1.0 Serum or plasma alkaline phosphatase measurement (enzymatic activity/volume) 215 U/L 40-136 Serum or plasma aspartate aminotransferase measurement (enzymatic activity/volume) 17 U/L 5-34 Serum or plasma alanine aminotransferase measurement (enzymatic activity/volume) 8 U/L 0-55 Serum or plasma protein measurement (mass/volume) 7.0 g/dL 6.4-8.2 Serum or plasma albumin measurement (mass/volume) 3.4 g/dL 3.2-4.5 CALCIUM CORRECTED 9.9 mg/dL 8.5-10.1 Magnesium - 01/04/19 14:27 Magnesium 1.9 mg/dL 1.8-2.4 TROPONIN T - 01/04/19 14:27 TROPONIN T 64 % <=10 PROBNP FS - 01/04/19 14:27 PROBNP FS 4275.0 pg/mL <75.0 Methicillin resistant Staphylococcus aureus (MRSA) screening culture - 01/05/19 03:00 Methicillin resistant Staphylococcus aureus (MRSA) screening culture NEG NRG Complete blood count (CBC) with automated white blood cell (WBC) differential - 01/05/19 03:04 Blood leukocytes automated count (number/volume) 6.2 10*3/uL 4.3-11.0 Blood erythrocytes automated count (number/volume) 4.24 10*6/uL 4.35-5.85 Venous blood hemoglobin measurement (mass/volume) 13.9 g/dL 11.5-16.0 Blood hematocrit (volume fraction) 44 % 35-52 Automated erythrocyte mean corpuscular volume 104 [foz_us] 80-99 Automated erythrocyte mean corpuscular hemoglobin (mass per erythrocyte) 33 pg 25-34 Automated erythrocyte mean corpuscular hemoglobin concentration measurement (mass/volume) 32 g/dL 32-36 Automated erythrocyte distribution width ratio 15.6 % 10.0- 14.5 Automated blood platelet count (count/volume) 241 10*3/uL 130-400 Automated blood platelet mean volume measurement 9.4 [foz_us] 7.4-10.4 Automated blood neutrophils/100 leukocytes 58 % 42-75 Automated blood lymphocytes/100 leukocytes 27 % 12-44 Blood monocytes/100 leukocytes 11 % 0-12 Automated blood eosinophils/100 leukocytes 3 % 0-10 Automated blood basophils/100 leukocytes 1 % 0-10 Blood neutrophils automated count (number/volume) 3.6 10*3 1.8-7.8 Blood lymphocytes automated count (number/volume) 1.7 10*3 1.0-4.0 Blood monocytes automated count (number/volume) 0.7 10*3 0.0- 1.0 Automated eosinophil count 0.2 10*3/uL 0.0-0.3 Automated blood basophil count (count/volume) 0.1 10*3/uL 0.0-0.1 Comprehensive metabolic panel - 01/05/19 03:04 Serum or plasma sodium measurement (moles/volume) 142 mmol/L 135-145 Serum or plasma potassium measurement (moles/volume) 3.2 mmol/L 3.6-5.0 Serum or plasma chloride measurement (moles/volume) 104 mmol/L 98-107 Carbon dioxide 25 mmol/L 21-32 Serum or plasma anion gap determination (moles/volume) 13 mmol/L 5-14 Serum or plasma urea nitrogen measurement (mass/volume) 27 mg/dL 7-18 Serum or plasma creatinine measurement (mass/volume) 0.92 mg/dL 0.60-1.30 Serum or plasma urea nitrogen/creatinine mass ratio 29 NRG Serum or plasma creatinine measurement with calculation of estimated glomerular filtration rate 58 NRG Serum or plasma glucose measurement (mass/volume) 92 mg/dL 70-105 Serum or plasma calcium measurement (mass/volume) 9.8 mg/dL 8.5-10.1 Serum or plasma total bilirubin measurement (mass/volume) 0.6 mg/dL 0.1-1.0 Serum or plasma alkaline phosphatase measurement (enzymatic activity/volume) 235 U/L 40-136 Serum or plasma aspartate aminotransferase measurement (enzymatic activity/volume) 23 U/L 5-34 Serum or plasma alanine aminotransferase measurement (enzymatic activity/volume) 10 U/L 0-55 Serum or plasma protein measurement (mass/volume) 7.8 g/dL 6.4-8.2 Serum or plasma albumin measurement (mass/volume) 3.8 g/dL 3.2-4.5 CALCIUM CORRECTED 10.0 mg/dL 8.5-10.1 Magnesium - 01/05/19 03:04 Magnesium 2.1 mg/dL 1.8-2.4 Serum or plasma troponin i.cardiac measurement (mass/volume) - 01/05/19 13:24 Serum or plasma troponin i.cardiac measurement (mass/volume) 0.038 ng/mL <0.028 Serum or plasma troponin i.cardiac measurement (mass/volume) - 01/05/19 19:16 Serum or plasma troponin i.cardiac measurement (mass/volume) 0.034 ng/mL <0.028 Whole blood basic metabolic panel - 01/06/19 03:01 Serum or plasma sodium measurement (moles/volume) 139 mmol/L 135-145 Serum or plasma potassium measurement (moles/volume) 4.6 mmol/L 3.6-5.0 Serum or plasma chloride measurement (moles/volume) 106 mmol/L 98-107 Carbon dioxide 23 mmol/L 21-32 Serum or plasma anion gap determination (moles/volume) 10 mmol/L 5-14 Serum or plasma urea nitrogen measurement (mass/volume) 22 mg/dL 7-18 Serum or plasma creatinine measurement (mass/volume) 0.82 mg/dL 0.60-1.30 Serum or plasma urea nitrogen/creatinine mass ratio 27 NRG Serum or plasma creatinine measurement with calculation of estimated glomerular filtration rate > NRG Serum or plasma glucose measurement (mass/volume) 93 mg/dL 70-105 Serum or plasma calcium measurement (mass/volume) 8.8 mg/dL 8.5-10.1 Magnesium - 01/06/19 03:01 Magnesium 2.1 mg/dL 1.8-2.4 Automated blood complete blood count (hemogram) panel - 01/07/19 03:35 Blood leukocytes automated count (number/volume) 8.6 10*3/uL 4.3-11.0 Blood erythrocytes automated count (number/volume) 3.88 10*6/uL 4.35-5.85 Venous blood hemoglobin measurement (mass/volume) 12.8 g/dL 11.5-16.0 Blood hematocrit (volume fraction) 40 % 35-52 Automated erythrocyte mean corpuscular volume 103 [foz_us] 80-99 Automated erythrocyte mean corpuscular hemoglobin (mass per erythrocyte) 33 pg 25-34 Automated erythrocyte mean corpuscular hemoglobin concentration measurement (mass/volume) 32 g/dL 32-36 Automated erythrocyte distribution width ratio 14.9 % 10.0- 14.5 Automated blood platelet count (count/volume) 213 10*3/uL 130-400 Automated blood platelet mean volume measurement 9.4 [foz_us] 7.4-10.4 Whole blood basic metabolic panel - 01/07/19 03:35 Serum or plasma sodium measurement (moles/volume) 136 mmol/L 135-145 Serum or plasma potassium measurement (moles/volume) 3.6 mmol/L 3.6-5.0 Serum or plasma chloride measurement (moles/volume) 103 mmol/L 98-107 Carbon dioxide 24 mmol/L 21-32 Serum or plasma anion gap determination (moles/volume) 9 mmol/L 5-14 Serum or plasma urea nitrogen measurement (mass/volume) 18 mg/dL 7-18 Serum or plasma creatinine measurement (mass/volume) 0.70 mg/dL 0.60-1.30 Serum or plasma urea nitrogen/creatinine mass ratio 26 NRG Serum or plasma creatinine measurement with calculation of estimated glomerular filtration rate > NRG Serum or plasma glucose measurement (mass/volume) 93 mg/dL 70-105 Serum or plasma calcium measurement (mass/volume) 9.0 mg/dL 8.5-10.1 Magnesium - 01/07/19 03:35 Magnesium 1.8 mg/dL 1.8-2.4 Whole blood basic metabolic panel - 01/08/19 05:10 Serum or plasma sodium measurement (moles/volume) 136 mmol/L 135-145 Serum or plasma potassium measurement (moles/volume) 3.6 mmol/L 3.6-5.0 Serum or plasma chloride measurement (moles/volume) 102 mmol/L 98-107 Carbon dioxide 23 mmol/L -32 Serum or plasma anion gap determination (moles/volume) 11 mmol/L 5-14 Serum or plasma urea nitrogen measurement (mass/volume) 22 mg/dL 7-18 Serum or plasma creatinine measurement (mass/volume) 0.76 mg/dL 0.60-1.30 Serum or plasma urea nitrogen/creatinine mass ratio 29 NRG Serum or plasma creatinine measurement with calculation of estimated glomerular filtration rate > NRG Serum or plasma glucose measurement (mass/volume) 94 mg/dL 70-105 Serum or plasma calcium measurement (mass/volume) 9.3 mg/dL 8.5-10.1 Magnesium - 01/08/19 05:10 Magnesium 1.6 mg/dL 1.8-2.4 Complete blood count (CBC) with automated white blood cell (WBC) differential - 05/13/19 01:32 Blood leukocytes automated count (number/volume) 8.7 10*3/uL 4.3-11.0 Blood erythrocytes automated count (number/volume) 3.87 10*6/uL 4.35-5.85 Venous blood hemoglobin measurement (mass/volume) 12.8 g/dL 11.5-16.0 Blood hematocrit (volume fraction) 40 % 35-52 Automated erythrocyte mean corpuscular volume 102 [foz_us] 80-99 Automated erythrocyte mean corpuscular hemoglobin (mass per erythrocyte) 33 pg 25-34 Automated erythrocyte mean corpuscular hemoglobin concentration measurement (mass/volume) 32 g/dL 32-36 Automated erythrocyte distribution width ratio 13.1 % 10.0- 14.5 Automated blood platelet count (count/volume) 192 10*3/uL 130-400 Automated blood platelet mean volume measurement 9.9 [foz_us] 7.4-10.4 Automated blood neutrophils/100 leukocytes 71 % 42-75 Automated blood lymphocytes/100 leukocytes 14 % 12-44 Blood monocytes/100 leukocytes 13 % 0-12 Automated blood eosinophils/100 leukocytes 1 % 0-10 Automated blood basophils/100 leukocytes 1 % 0-10 Blood neutrophils automated count (number/volume) 6.2 10*3 1.8-7.8 Blood lymphocytes automated count (number/volume) 1.2 10*3 1.0-4.0 Blood monocytes automated count (number/volume) 1.1 10*3 0.0- 1.0 Automated eosinophil count 0.1 10*3/uL 0.0-0.3 Automated blood basophil count (count/volume) 0.1 10*3/uL 0.0-0.1 Comprehensive metabolic panel - 05/13/19 01:32 Serum or plasma sodium measurement (moles/volume) 141 mmol/L 135-145 Serum or plasma potassium measurement (moles/volume) 3.5 mmol/L 3.6-5.0 Serum or plasma chloride measurement (moles/volume) 100 mmol/L 98-107 Carbon dioxide 30 mmol/L 21-32 Serum or plasma anion gap determination (moles/volume) 11 mmol/L 5-14 Serum or plasma urea nitrogen measurement (mass/volume) 20 mg/dL 7-18 Serum or plasma creatinine measurement (mass/volume) 0.73 mg/dL 0.60-1.30 Serum or plasma urea nitrogen/creatinine mass ratio 27 NRG Serum or plasma creatinine measurement with calculation of estimated glomerular filtration rate > NRG Serum or plasma glucose measurement (mass/volume) 104 mg/dL 70-105 Serum or plasma calcium measurement (mass/volume) 9.0 mg/dL 8.5-10.1 Serum or plasma total bilirubin measurement (mass/volume) 0.9 mg/dL 0.1-1.0 Serum or plasma alkaline phosphatase measurement (enzymatic activity/volume) 94 U/L 40-136 Serum or plasma aspartate aminotransferase measurement (enzymatic activity/volume) 10 U/L 5-34 Serum or plasma alanine aminotransferase measurement (enzymatic activity/volume) 9 U/L 0-55 Serum or plasma protein measurement (mass/volume) 7.3 g/dL 6.4-8.2 Serum or plasma albumin measurement (mass/volume) 3.6 g/dL 3.2-4.5 CALCIUM CORRECTED 9.3 mg/dL 8.5-10.1 Magnesium - 05/13/19 01:32 Magnesium 1.8 mg/dL 1.8-2.4 PROBNP FS - 05/13/19 01:32 PROBNP FS 1304.0 pg/mL <75.0 Encounters ACCT No. Visit Date/Time Discharge Status Pt. Type Provider Facility Loc./Unit Complaint [id number] 01/14/2019 09:39:00 01/14/2019 23:59:00 DIS Outpatient BERNARD FISHER [id number] 12/02/2018 01:15:00 12/05/2018 08:50:00 [id number] 22:29:47 Document Registration [id number] 05/13/2019 01:29:00 05/13/2019 03:53:00 DIS Emergency JHONATAN HANNON DO [facility] ER FS CONFUSION [id number] 05/06/2019 02:45:00 05/06/2019 23:59:59 CLS Outpatient JON RIVAS MD [facility] LAB UA [id number] 04/18/2019 00:10:00 04/18/2019 23:59:59 CLS Preadmit DAYANARA GARCIA, Nicki BAUTISTA [facility] CARD NSVT,PAF [id number] 01/17/2019 14:35:00 04/17/2019 00:01:00 DIS Outpatient DAYANARA GARCIA, Nicki BAUTISTA [facility] CARD NSVT,PAF [id number] 01/04/2019 16:55:00 01/08/2019 16:15:00 DIS Inpatient NAYELY TIWARI DO [facility] 4TH SYNCOPE,NON SUSTAINED VENTRICULAR TACHYCARDIA [id number] 12/05/2018 09:33:00 12/11/2018 12:15:00 DIS Inpatient NAYELY TIWARI DO [facility] 4TH AFIB POST OP HYPOTENSION
== END 2019-05-13 03:53 | disposition home or self-care (01) ==
LOC: EDUNIT# 01:28 → ER FS 01:29
DX: R09.02 Hypoxemia (principal); R79.89 Other specified abnormal findings of blood chemistry; H10.9 Unspecified conjunctivitis; E87.6 Hypokalemia; I10 Essential (primary) hypertension; E78.00 Pure hypercholesterolemia, unspecified; I48.91 Unspecified atrial fibrillation; G62.9 Polyneuropathy, unspecified; K21.9 Gastro-esophageal reflux disease without esophagitis; Z87.19 Personal history of other diseases of the digestive system; Z82.49 Family history of ischemic heart disease and other diseases of the circulatory system
CPT/HCPCS: 36415; 71045; 80053; 83735; 83880; 85025; 87040; 87070; 87205; 96374

== ENCOUNTER → 2019-05-14 | Outpatient (CLI) | payer MEDICARE ==
[~2019-05-14] MED LIST changes: +CEFD300C3 PO
[2019-05-14 17:52] LABS: BILIRUBIN,URINE NEGATIVE (NEGATIVE); CLARITY,URINE CLEAR; COLOR,URINE YELLOW; GLUCOSE, URINE (UA) NEGATIVE (NEGATIVE); KETONES,URINE NEGATIVE (NEGATIVE); LEUKOCYTE ESTERASE ,URINE NEGATIVE (NEGATIVE); NITRITE,URINE NEGATIVE (NEGATIVE); PROTEIN,URINE 2+ (NEGATIVE)
== END ==
LOC: LAB FS 17:13
PROVIDERS: ATTEND Family Medicine
DX: R41.0 Disorientation, unspecified (principal)
CPT/HCPCS: 81000

== ENCOUNTER 2019-07-05 21:03 | Inpatient (IN) | payer MEDICARE | END 2019-07-10 14:40 | LOC: ER FS 21:03 → 4TH 22:45 | DX: R00.1 Bradycardia, unspecified (principal); I48.0 Paroxysmal atrial fibrillation; I10 Essential (primary) hypertension; I25.10 Atherosclerotic heart disease of native coronary artery without angina pectoris; F32.9 Major depressive disorder, single episode, unspecified; E78.00 Pure hypercholesterolemia, unspecified; Z66 Do not resuscitate; G62.9 Polyneuropathy, unspecified; K21.9 Gastro-esophageal reflux disease without esophagitis; K59.09 Other constipation; M19.91 Primary osteoarthritis, unspecified site; Z79.01 Long term (current) use of anticoagulants ==

== ENCOUNTER 2019-07-10 14:48 | Outpatient (RCR) | payer MEDICARE ==
[~2019-07-10 14:48] MED LIST changes: +AMLO5TAB9 PO; +FAMO20TA3 PO; +ROPI1TAB2 PO; +SERT100T8 PO
== END 2019-10-08 | disposition home or self-care (01) ==
LOC: CARD 14:48
PROVIDERS: ATTEND Internal Medicine Interventional Cardiology
DX: R00.1 Bradycardia, unspecified (principal); R55 Syncope and collapse

== ENCOUNTER 2020-03-08 18:04 | Emergency (ER) | payer MEDICARE ==
[~2020-03-08] VITALS: Ht 177 cm; Wt 90.0 kg
[~2020-03-08 18:04] MED LIST changes: -ACET-77 PO; +ACET-78 PO; +DILT-28 PO; +DILT120C88 PO; -DILT120C94 PO; -DILT180C90 PO; +ROPI1TAB PO; -ROPI1TAB2 PO; -TRAM50TA2 PO; +TRM50T PO
--- OUTSIDE RECORDS SUMMARY | 2020-03-08 18:11 | XMS REPORT | Continuity of Care Document ---
Author Organization Unknown Address Unknown Phone Unavailable Allergies Active Description Code Type Severity Reaction Onset Reported/Identified Relationship to Patient Clinical Status Yes NO KNOWN DRUG ALLERGIES UNKNOWN NO KNOWN DRUG ALLERG Yes NO KNOWN DRUG ALLERGIES UNKNOWN UNKNOWN Yes No Known Drug Allergies [id number] Drug Allergy Unknown N/A 01/04/2019 Medications Medication Packaging Start Date St op Date Route Dosage Sig ONDANSETRON VIAL INJ 4 MG/2CC (ZOFRAN 2CC VIAL) MG 12/01/2018 12/01/2018 PRN ONCE FENTANYL INJ 100 MCG/2CC VIAL MCG 12/01/2018 12/01/2018 ONCE&2130 FENTANYL INJ 100 MCG/2CC VIAL MCG 12/01/2018 12/01/2018 ONCE&2150 Diltiazem 120mg,extended release cap (CARD IZEM) mg 12/01/2018 12/30/2018 EVERY 24 Hour&2210 FENTANYL [...] 12/02/2018 ONCE&0845 NORMAL SALINE 50CC IV BAG IN J (NS 50CC MINI-BAG) ml 12/02/2018 12/03/2018 EVERY 8 Hour&0049,0849,1649 D5 1/2 NS 1000CC IV BAG INJ ml 12/02/2018 12/09/2018 CONTINUOUSEVERY 0 Hour NORMAL SALINE 50CC IV BAG IN J (NS 50CC MINI-BAG) ml 12/02/2018 12/03/2018 EVERY 8 Hour&0051,0851,1651 ASPIRIN ENTERIC COATED TAB 8 1 MG (BABY ASPIRIN EC) MG 12/02/2018 12/15/2018 Daily&0900 Diltiazem 120mg,extended release cap (CARD IZEM) mg 12/02/2018 12/31/2018 Daily&0900 CITALOPRAM TAB 20 MG (CELEXA) MG 12/02/2018 12/08/2018 Daily&0900 MultiVits (Thera M Plus) (mu xwsdbp-ngzk-vaswkfu) oral tablet TAB 12/02/2018 12/31/2018 Daily&0900 FISH OIL CAP CAP 1000 MG (OMEGA 3) MG 12/02/2018 12/08/2018 Daily&0900 CEFTRIAXONE PREMIX IV BAG IV 1 GM/50CC (ROCEPHIN PREMIX IV BAG) GM 12/02/2018 12/08/2018 Daily&0900 Tranexamic acid IV solution 1 Gm vials (TX A) GM 12/02/2018 12/02/2018 ONCE&0915 OXYCODONE/APAP 10MG/325MG TAB(PERCOCET-10) TAB 12/02/2018 12/09/2018 PRN Q4H ONDANSETRON VIAL INJ 4 MG/2CC (ZOFRAN 2CC VIAL) MG 12/02/2018 12/09/2018 PRN Q4H DIPHENHYDRAMINE VIAL INJ 50 MG/CC (BENADRYL VIAL) MG 12/02/2018 12/07/2018 PRN Q4H D5 1/2 NS 1000CC IV BAG INJ ml 12/02/2018 12/09/2018 CONTINUOUSEVERY 0 Hour NORMAL SALINE 50CC IV BAG IN J (NS 50CC MINI-BAG) ml 12/02/2018 12/03/2018 EVERY 8 Hour&0229,1029,1829 NORMAL SALINE 250CC IV BAG I NJ 0.9 % (NS 250CC IV BAG) ml [...] ONCE&1802 ENOXAPARIN SYRINGE INJ 30 MG (LOVENOX SYRI NGE) MG 12/02/2018 12/12/2018 BID&0800,2000 SIMVASTATIN TAB 10 MG (ZOCOR) MG 12/02/2018 12/08/2018 QPM&2000 SENNA CONC/DOCUSATE TAB (SENOKOT S) TAB 12/02/2018 01/01/2019 BID&0800,2000 NORMAL SALINE 50CC IV BAG IN J (NS 50CC MINI-BAG) ml 12/02/2018 12/03/2018 Q8H&0400,2000 D5W 250CC IV BAG INJ ml 12/02/2018 12/03/2018 CONTINUOUSEVERY 0 Hour TEMAZEPAM CAP 15 MG (RESTORIL) MG 12/02/2018 12/08/2018 PRN QHS MIRTAZAPINE TAB 15 MG (REMERON) MG 12/02/2018 12/08/2018 QHS&2100 ENOXAPARIN SYRINGE INJ 30 MG (LOVENOX SYRI NGE) MG 12/03/2018 12/12/2018 BID&0800,2000 ASPIRIN ENTERIC COATED TAB 8 1 MG (BABY ASPIRIN EC) MG 12/03/2018 12/08/2018 Daily&0900 MultiVits (Thera M Plus) (mu upastt-osmn-wbnditu) oral tablet TAB 12/03/2018 01/01/2019 Daily&0900 FUROSEMIDE [...] Nayely Tiwari I48.91 UNSPECIFIED ATRIAL FIBRILLATION 12/02/2018 Tiwari, Nayely W S72.00 FRACTURE OF UNSPECIFIED PART OF NECK [...] TIWARI DO Ot D69.6 THROMBOCYTOPENIA, UNSPECIFIED 12/11/2018 NAYELY TIWARI DO Ot E78.00 PURE HYPERCHOLESTEROLEMIA, UNSPECIFIED 12/11/2018 NAYELY TIWARI DO Ot E83.42 HYPOMAGNESEMIA 12/11/2018 TIWARI DO, NAYELY Ot E87.6 HYPOKALEMIA 12/11/2018 TIWARI DO, [...] DO, NAYELY Ot R41.0 DISORIENTATION, UNSPECIFIED 12/11/2018 ITWARI DO, NAYELY Ot S72.00 2D FX UNSP PART OF NK OF L YNES, SUBS FOR C 12/11/2018 TIWARI DO, NAYELY Ot W19.XX XD UNSPECIFIED FALL, SUBSEQUENT ENCOUNTER 12/11/2018 TIWARI DO, NAYELY Ot Z66 DO NOT RESUSCITATE 01/08/2019 TIWARI DO, NAYELY Ot E78.00 PURE HYPERCHOLESTEROLEMIA, UNSPECIFIED 01/08/2019 TIWARI DO, NAYELY Ot E86.0 DEHYDRATION 01/08/2019 TIWARI DO, NAYELY Ot E87.6 HYPOKALEMIA 01/08/2019 TIWARI DO, NAYELY Ot G62.9 POLYNEUROPATHY, UNSPECIFIED 01/08/2019 TIWARI DO, NAYELY Ot I10 ESSENTIAL (PRIMARY) HYPERTENSION 01/08/2019 TIWARI DO, NAYELY Ot I25.10 ATHSCL HEART DISEASE OF [place] CORONARY 01/08/2019 TIWARI DO, NAYELY Ot I44.0 [...] NOT RESUSCITATE 01/08/2019 TIWARI DO, NAYELY Ot Z87.44 0 PERSONAL HISTORY OF URINARY (TRACT) INFE 01/08/2019 [...] NAYELY Ot I25.10 ATHSCL HEART DISEASE OF [place] CORONARY 01/08/2019 TIWARI DO, NAYELY Ot I44.0 ATRIOVENTRICULAR BLOCK, FIRST DEGREE 01/08/2019 TIWARI DO, NAYELY Ot I47.1 SUPRAVENTRICULAR TACHYCARDIA 01/08/2019 TIWARI DO, NAYELY Ot 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 01/08/2019 TIWARI DO, NAYELY Ot I48.0 PAROXYSMAL ATRIAL FIBRILLATION 01/08/2019 TIWARI DO, NAYELY Ot I50.33 ACUTE ON CHRONIC DIASTOLIC (CONGESTIVE) 01/08/2019 TIWARI DO, NAYELY Ot K21.9 GASTRO-ESOPHAGEAL REFLUX DISEASE WITHOUT 01/08/2019 TIWARI DO NAYELY Ot K59.09 OTHER CONSTIPATION 01/08/2019 TIWARI DO, NAYELY Ot M19.91 PRIMARY OSTEOARTHRITIS, UNSPECIFIED SITE 01/08/2019 TIWARI DO NAYELY Ot R41.0 DISORIENTATION, UNSPECIFIED 01/08/2019 TIWARI DO, NAYELY Ot 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 01/08/2019 TIWARI DO, NAYELY Ot R55 SYNCOPE AND COLLAPSE 01/08/2019 TIWARI DO, NAYELY Ot Z66 DO NOT RESUSCITATE 01/08/2019 TIAWRINAYELY STUART DO Ot Z87.44 0 PERSONAL HISTORY OF URINARY (TRACT) INFE 01/18/2019 DAYANARA GARCIA, Nicki BAUTISTA Ot I47 .1 SUPRAVENTRICULAR TACHYCARDIA 01/18/2019 DAYANARA GARCIA, Nicki BAUTISTA Ot I48.91 UNSPECIFIED ATRIAL FIBRILLATION 04/17/2019 DAYANARA GARCIA, Nicki BAUTISTA Ot I47 .1 SUPRAVENTRICULAR TACHYCARDIA 04/17/2019 DAYANARA GARCIA, Nicki BAUTISTA Ot I48.91 UNSPECIFIED ATRIAL FIBRILLATION 05/13/2019 DAYANARA GARCIA, Nicki BAUTISTA Ot I47 .1 SUPRAVENTRICULAR TACHYCARDIA 05/13/2019 DAYANARA GARCIA, Nicki BAUTISTA Ot I48.91 UNSPECIFIED ATRIAL FIBRILLATION 05/18/2019 ROB GARCIA, JON M Ot R41 .0 DISORIENTATION, UNSPECIFIED 05/18/2019 JHONATAN HANNON DO Ot E78.00 PURE HYPERCHOLESTEROLEMIA, UNSPECIFIED 05/18/2019 JHONATAN HANNON DO Ot E87.6 HYPOKALEMIA 05/18/2019 JHONATAN HANNON DO Ot G62.9 POLYNEUROPATHY, UNSPECIFIED 05/18/2019 JHONATAN HANNON DO Ot H10.9 UNSPECIFIED CONJUNCTIVITIS 05/18/2019 JHONATAN HANNON DO Ot I1 0 ESSENTIAL (PRIMARY) HYPERTENSION 05/18/2019 JHONATAN HANNON DO Ot I48.91 UNSPECIFIED ATRIAL FIBRILLATION 05/18/2019 JHONATAN HANNON DO Ot K21.9 GASTRO-ESOPHAGEAL REFLUX DISEASE WITHOUT 05/18/2019 JHONATAN HANNON DO Ot R06.02 SHORTNESS OF BREATH 05/18/2019 PARVEZ YANJHONATAN Ot R09.02 HYPOXEMIA 05/18/2019 PARVEZ YANJHONATAN Ot R79.89 OTHER SPECIFIED ABNORMAL FINDINGS OF BLO 05/18/2019 PARVEZ YAN JHONATAN Chris Ot Z82.49 FAMILY HX OF ISCHEM HEART DIS AND OTH DI 05/18/2019 PARVEZ YAN JHONATAN Chris Ot Z87.19 PERSONAL HISTORY OF OTHER DISEASES OF TH 05/20/2019 ROB GARCIA, JON Caceres Ot R41 .0 DISORIENTATION, UNSPECIFIED 05/23/2019 JON RIVAS MD, Ot Z01.89 ENCOUNTER FOR OTHER SPECIFIED SPECIAL EX 07/10/2019 GRETCHEN DUMONT MD, Ot E78. 00 PURE HYPERCHOLESTEROLEMIA, UNSPECIFIED 07/10/2019 GRETCHEN DUMONT MD, Ot F32. 9 MAJOR DEPRESSIVE DISORDER, SINGLE EPISOD 07/10/2019 GRETCHEN DUMONT MD, Ot G62. 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 10 ATHSCL HEART DISEASE OF [place] CORONARY 07/10/2019 GRETCHEN UDMONT MD, Ot I48. 0 PAROXYSMAL ATRIAL FIBRILLATION 07/10/2019 GRETCHEN DUMONT MD, Ot K21. 9 GASTRO-ESOPHAGEAL REFLUX DISEASE WITHOUT 07/10/2019 GRETCHEN DUMONT MD, Ot K59. 09 OTHER CONSTIPATION 07/10/2019 GRETCHEN DUMONT MD, Ot M19. 91 PRIMARY OSTEOARTHRITIS, UNSPECIFIED SITE 07/10/2019 GRETCHEN DUMONT MD, Ot R00. 1 BRADYCARDIA, UNSPECIFIED 07/10/2019 GRETCHEN DUMONT MD Ot Z66 DO NOT RESUSCITATE 07/10/2019 GRETCHEN DUMONT MD, Ot Z79. 01 STEAM PRESS TENDER (CURRENT) USE OF ANTICOAGULANT 09/02/2019 Nicki NICHOLE MD Ot R00 .1 BRADYCARDIA, UNSPECIFIED 09/02/2019 Nicki NICHOLE MD Ot R55 SYNCOPE AND COLLAPSE 10/08/2019 KHALID MD, M LILY Ot R00 .1 BRADYCARDIA, UNSPECIFIED 10/08/2019 DAYANARA GARCIA, M ILLY Ot R55 SYNCOPE AND COLLAPSE 10/09/2019 DAYANARA GARCIA, M LILY Ot R00 .1 BRADYCARDIA, UNSPECIFIED 10/09/2019 DAYANARA GARCIA, M LILY Ot R55 SYNCOPE AND COLLAPSE Procedures Code Description Performed By Per formed On [id number] ME ASURE OF CARDIAC SAMPL PRESSURE, L H 01/06/2019 [id number] FL UOROSCOPY OF MULT COR ART USING L OSM 01/06/2019 [id number] FL UOROSCOPY OF LEFT HEART USING LOW OSMO 01/06/2019 [id number] FL UOROSCOPY OF THORACIC AORTA USING LOW 01/06/2019 Results Test Result Range PTT - 12/01/18 21:52 PTT 30.2 Sec 26.0-38.0 Urinalysis - 12/01/18 23:18 Icotest Negative Negative Urine Volume Urine Volume Sufficient (10mL) Urine Yeast No Yeast present Urine-Appearance Slightly Cloudy Clear Urine-Bacteria 1+ Urine-Bilirubin 1+ Negative Urine-Blood Negative Negative Urine-Color Yellow Colorless-[place] ow Urine-Epithelial Cells 5-10/HPF Urine-Glucose Negative Negative Urine-Ketones Trace Negative Urine-Leukocytes Negative Negative Urine-Mucus 3+ Urine-Nitrite Negative Negative Urine-Other Culture to follow Urine-pH 5.5 5-8.5 Urine-Protein 1+ Negative Urine-RBC 2-5/HPF Urine-Specific [place] >=1.030 1.000-1 .030 Urine-WBC 10-20/HPF Urobilinogen 0.2 0.2-1.0 Urine Culture - 12/01/18 23:18 PRELIM CULTURE RESULTS No Growth 24 hours FINAL CULTURE RESULTS No Growth 48 hours MEDIA PLATED Setup at 23:26 on 12/01/2018 CULTURE SOURCE [id number]\ Leukoreduced Packed RBC Unit Checkout - 12/02/18 [...] Negative Urine-Blood 3+ Negative Urine-Color Yellow Colorless-[place] ow Urine-Epithelial Cells 0-5/HPF Urine-Glucose Negative Negative Urine-Ketones Negative Negative Urine-Leukocytes Negative Negative Urine-Nitrite Negative Negative Urine-Other Urine Saved if Culture Need ed (48hrs from time of collection) Urine-pH 5.5 5-8.5 Urine-Protein 1+ Negative Urine-RBC TNTC Urine-Specific [place] 1.015 1.000-1 .030 Urine-WBC Negative Urobilinogen 0.2 E.U./dL 0.2-1.0 Comprehensive [...] Packed RBC Unit Checkout - 12/04/18 09:29 LRPRBC Checkout Checked Out. Leukoreduced Packed RBC Unit Checkout - 12/04/18 13:05 LRPRBC Checkout Checked Out. Comprehensive Metabolic Panel - [...] culture - 12/05/18 11:00 Bacterial blood culture NG NRG Complete blood count (CBC) with automate d white blood cell (WBC) differential - 12/05/18 11:05 Blood leukocytes automated count (number/volume) 6.5 10*3/uL 4.3-11.0 Blood erythrocytes automated count (number/volume) 2.81 10*6/uL 4.35-5.85 Venous blood hemoglobin measurement (mass/volume) 9.2 g/dL 11.5-16.0 Blood hematocrit (volume fraction) 29 % 35-52 Automated erythrocyte mean corpuscular volume 102 [foz_us] 80-99 Automated erythrocyte mean corpuscular h emoglobin (mass per erythrocyte) 33 pg 25-34 Automated erythrocyte mean corpuscular h emoglobin concentration measurement (mass/volume) 32 g/dL 32-36 Automated erythrocyte distribution width ratio 15. 1 % 10.0- 14.5 Automated blood platelet count [...] 10*3 1.0-4.0 Blood monocytes automated count (number/volume) 0. 9 10*3 0.0-1.0 Automated eosinophil count 0.1 10*3/uL 0 .0-0.3 Automated blood basophil count (count/volume) 0.0 10*3/uL 0.0-0.1 Blood lactic acid measurement (moles/vol ume) - 12/05/18 11:05 Blood lactic acid measurement (moles/volume) 0.76 mmol/L 0.50-2.00 Comprehensive metabolic panel - 12/05/18 11:05 Serum or plasma sodium measurement (moles/volume) 139 mmol/L 135-145 Serum or plasma potassium measurement (moles/volume) 3.9 mmol/L 3.6-5.0 Serum or plasma chloride measurement (moles/volume) 109 mmol/L 98-107 Carbon dioxide 24 mmol/L 21-32 Serum or plasma anion gap determination (moles/volume) 6 mmol/L 5-14 Serum or plasma urea nitrogen measurement (mass/volume ) 20 mg/dL 7-18 Serum or plasma creatinine measurement (mass/volume) 0.68 mg/dL 0.60-1.30 Serum or plasma urea nitrogen/creatinine mass ratio 29 NRG Serum or plasma creatinine measurement w ith calculation of estimated glomerular filtration rate > NRG Serum or plasma glucose measurement (mass/volume) 107 mg/dL 70-105 Serum or plasma calcium measurement (mass/volume) 7.9 mg/dL 8.5-10.1 Serum or plasma total bilirubin measurement (mass/volu me) 0.5 mg/dL 0.1-1.0 Serum or plasma alkaline phosphatase brenda surement (enzymatic activity/volume) 45 U/L 40-136 Serum or plasma aspartate aminotransfera se measurement (enzymatic activity/volume) 27 U/L 5-34 Serum or plasma alanine aminotransferase measurement (enzymatic activity/volume) 11 U/L 0-55 Serum or plasma protein measurement (mass/volume) 4.9 g/dL 6.4-8.2 Serum or plasma albumin measurement (mass/volume) 2.6 g/dL 3.2-4.5 CALCIUM CORRECTED 9.0 mg/dL 8.5-10.1 Serum or plasma troponin i.cardiac measu rement (mass/volume) - 12/05/18 11:05 Serum or plasma troponin i.cardiac measurement (mass/v olume) 0.275 ng/mL <0.028 Serum or plasma lithium measurement (mol es/volume) - 12/05/18 11:05 BNP level 713.7 pg/mL <100.0 Bacterial blood culture - 12/05/18 11:05 Bacterial blood culture NG NRG Complete urinalysis with reflex to cultu re - 12/05/18 16:05 Urine color determination YELLOW NRG Urine clarity determination CLEAR NR G Urine pH measurement by test strip 6 5-9 Specific gravity of urine by test strip 1.020 1.016-1.022 Urine protein assay by test strip, semi-quantitative 2+ NEGATIVE Urine glucose detection by automated test strip NE GATIVE NEGATIVE Erythrocytes detection in urine sediment by light micr oscopy 5+ NEGATIVE Urine ketones detection by automated test strip NE GATIVE NEGATIVE Urine nitrite detection by test strip NEGATIVE NEGATIVE Urine total bilirubin detection by test strip NEGA TIVE NEGATIVE Urine urobilinogen measurement by automated test strip (mass/volume) NORMAL NORMAL Urine leukocyte esterase detection by dipstick 1+ NEGATIVE Automated urine sediment erythrocyte cou nt by microscopy (number/high power field) > [HPF] NRG Automated urine sediment leukocyte count by microscopy (number/high power field) [HPF] NRG Bacteria detection in urine sediment by light microsco py NONE NRG Squamous epithelial cells detection in u rine sediment by light microscopy 2-5 NRG Crystals detection in urine sediment by light microsco py NONE NRG Casts detection in urine sediment by light microscopy NONE NRG Mucus detection in urine sediment by light microscopy NEGATIVE NRG Complete urinalysis with reflex to culture NO NRG Complete blood count (CBC) with automate d white blood cell (WBC) differential - 12/06/18 03:20 Blood leukocytes automated count (number/volume) 6.0 10*3/uL 4.3-11.0 Blood erythrocytes automated count (number/volume) 2.93 10*6/uL 4.35-5.85 Venous blood hemoglobin measurement (mass/volume) 9.5 g/dL 11.5-16.0 Blood hematocrit (volume fraction) 30 % 35-52 Automated erythrocyte mean corpuscular volume 102 [foz_us] 80-99 Automated erythrocyte mean corpuscular h emoglobin (mass per erythrocyte) 32 pg 25-34 Automated erythrocyte mean corpuscular h emoglobin concentration measurement (mass/volume) 32 g/dL 32-36 Automated erythrocyte distribution width ratio 14. 8 % 10.0- 14.5 Automated blood platelet count [...] 10*3 1.0-4.0 Blood monocytes automated count (number/volume) 0. 8 10*3 0.0-1.0 Automated eosinophil count 0.2 10*3/uL 0 .0-0.3 Automated blood basophil count (count/volume) 0.1 10*3/uL 0.0-0.1 Comprehensive metabolic panel - 12/06/18 03:20 Serum or plasma sodium measurement (moles/volume) 143 mmol/L 135-145 Serum or plasma potassium measurement (moles/volume) 4.1 mmol/L 3.6-5.0 Serum or plasma chloride measurement (moles/volume) 113 mmol/L 98-107 Carbon dioxide 25 mmol/L 21-32 Serum or plasma anion gap determination (moles/volume) 5 mmol/L 5-14 Serum or plasma urea nitrogen measurement (mass/volume ) 18 mg/dL 7-18 Serum or plasma creatinine measurement (mass/volume) 0.64 mg/dL 0.60-1.30 Serum or plasma urea nitrogen/creatinine mass ratio 28 NRG Serum or plasma creatinine measurement w ith calculation of estimated glomerular filtration rate > NRG Serum or plasma glucose measurement (mass/volume) 94 mg/dL 70-105 Serum or plasma calcium measurement (mass/volume) 8.0 mg/dL 8.5-10.1 Serum or plasma total bilirubin measurement (mass/volu me) 0.5 mg/dL 0.1-1.0 Serum or plasma alkaline phosphatase brenda surement (enzymatic activity/volume) 40 U/L 40-136 Serum or plasma aspartate aminotransfera se measurement (enzymatic activity/volume) 26 U/L 5-34 Serum or plasma alanine aminotransferase measurement (enzymatic activity/volume) 12 U/L 0-55 Serum or plasma protein measurement (mass/volume) 4.8 g/dL 6.4-8.2 Serum or plasma albumin measurement (mass/volume) 2.4 g/dL 3.2-4.5 CALCIUM CORRECTED 9.3 mg/dL 8.5-10.1 Serum or plasma phosphate measurement (m ass/volume) - 12/06/18 03:20 Serum or plasma phosphate measurement (mass/volume) 2.1 mg/dL 2.3-4.7 Magnesium - 12/06/18 03:20 Magnesium 1.6 mg/dL 1.8-2.4 Complete blood count (CBC) with automate d white blood cell (WBC) differential - 12/07/18 03:30 Blood leukocytes automated count (number/volume) 7.0 10*3/uL 4.3-11.0 Blood erythrocytes automated count (number/volume) 3.14 10*6/uL 4.35-5.85 Venous blood hemoglobin measurement (mass/volume) 10.2 g/dL 11.5-16.0 Blood hematocrit (volume fraction) 32 % 35-52 Automated erythrocyte mean corpuscular volume 102 [foz_us] 80-99 Automated erythrocyte mean corpuscular h emoglobin (mass per erythrocyte) 33 pg 25-34 Automated erythrocyte mean corpuscular h emoglobin concentration measurement (mass/volume) 32 g/dL 32-36 Automated erythrocyte distribution width ratio 14. 5 % 10.0- 14.5 Automated blood platelet count [...] 10*3 1.0-4.0 Blood monocytes automated count (number/volume) 1. 0 10*3 0.0-1.0 Automated eosinophil count 0.2 10*3/uL 0 .0-0.3 Automated blood basophil count (count/volume) 0.0 10*3/uL 0.0-0.1 Whole blood basic metabolic panel - 11/23 03/10 03:30 Serum or plasma sodium measurement (moles/volume) 141 mmol/L 135-145 Serum or plasma potassium measurement (moles/volume) 4.0 mmol/L 3.6-5.0 Serum or plasma chloride measurement (moles/volume) 109 mmol/L 98-107 Carbon dioxide 25 mmol/L 21-32 Serum or plasma anion gap determination (moles/volume) 7 mmol/L 5-14 Serum or plasma urea nitrogen measurement (mass/volume ) 17 mg/dL 7-18 Serum or plasma creatinine measurement (mass/volume) 0.57 mg/dL 0.60-1.30 Serum or plasma urea nitrogen/creatinine mass ratio 30 NRG Serum or plasma creatinine measurement w ith calculation of estimated glomerular filtration rate > NRG Serum or plasma glucose measurement (mass/volume) 102 mg/dL 70-105 Serum or plasma calcium measurement (mass/volume) 8.3 mg/dL 8.5-10.1 Serum or plasma phosphate measurement (m ass/volume) - 12/07/18 03:30 Serum or plasma phosphate measurement (mass/volume) 2.6 mg/dL 2.3-4.7 Magnesium - 12/07/18 03:30 Magnesium 5.8 mg/dL 1.8-2.4 Stool occult blood screen - 12/07/18 13: 45 Stool gastrointestinal hemoglobin detection POSITI VE NEGATIVE Complete blood count (CBC) with automate d white blood cell (WBC) differential - 12/08/18 05:30 Blood leukocytes automated count (number/volume) 7.4 10*3/uL 4.3-11.0 Blood erythrocytes automated count (number/volume) 2.96 10*6/uL 4.35-5.85 Venous blood hemoglobin measurement (mass/volume) 9.6 g/dL 11.5-16.0 Blood hematocrit (volume fraction) 30 % 35-52 Automated erythrocyte mean corpuscular volume 101 [foz_us] 80-99 Automated erythrocyte mean corpuscular h emoglobin (mass per erythrocyte) 32 pg 25-34 Automated erythrocyte mean corpuscular h emoglobin concentration measurement (mass/volume) 32 g/dL 32-36 Automated erythrocyte distribution width ratio 14. 4 % 10.0- 14.5 Automated blood platelet count [...] 10*3 1.0-4.0 Blood monocytes automated count (number/volume) 1. 1 10*3 0.0-1.0 Automated eosinophil count 0.2 10*3/uL 0 .0-0.3 Automated blood basophil count (count/volume) 0.1 10*3/uL 0.0-0.1 Whole blood basic metabolic panel - 11/23 04/10 05:30 Serum or plasma sodium measurement (moles/volume) 140 mmol/L 135-145 Serum or plasma potassium measurement (moles/volume) 3.6 mmol/L 3.6-5.0 Serum or plasma chloride measurement (moles/volume) 105 mmol/L 98-107 Carbon dioxide 28 mmol/L 21-32 Serum or plasma anion gap determination (moles/volume) 7 mmol/L 5-14 Serum or plasma urea nitrogen measurement (mass/volume ) 18 mg/dL 7-18 Serum or plasma creatinine measurement (mass/volume) 0.60 mg/dL 0.60-1.30 Serum or plasma urea nitrogen/creatinine mass ratio 30 NRG Serum or plasma creatinine measurement w ith calculation of estimated glomerular filtration rate > NRG Serum or plasma glucose measurement (mass/volume) 98 mg/dL 70-105 Serum or plasma calcium measurement (mass/volume) 8.4 mg/dL 8.5-10.1 Serum or plasma phosphate measurement (m ass/volume) - 12/08/18 05:30 Serum or plasma phosphate measurement (mass/volume) 2.6 mg/dL 2.3-4.7 Magnesium - 12/08/18 05:30 Magnesium 1.7 mg/dL 1.8-2.4 Complete blood count (CBC) with automate d white blood cell (WBC) differential - 12/09/18 05:10 Blood leukocytes automated count (number/volume) 6.7 10*3/uL 4.3-11.0 Blood erythrocytes automated count (number/volume) 2.99 10*6/uL 4.35-5.85 Venous blood hemoglobin measurement (mass/volume) 9.9 g/dL 11.5-16.0 Blood hematocrit (volume fraction) 30 % 35-52 Automated erythrocyte mean corpuscular volume 100 [foz_us] 80-99 Automated erythrocyte mean corpuscular h emoglobin (mass per erythrocyte) 33 pg 25-34 Automated erythrocyte mean corpuscular h emoglobin concentration measurement (mass/volume) 33 g/dL 32-36 Automated erythrocyte distribution width ratio 14. 5 % 10.0- 14.5 Automated blood platelet count [...] 10*3 1.0-4.0 Blood monocytes automated count (number/volume) 1. 0 10*3 0.0-1.0 Automated eosinophil count 0.2 10*3/uL 0 .0-0.3 Automated blood basophil count (count/volume) 0.1 10*3/uL 0.0-0.1 Whole blood basic metabolic panel - 11/23 05/10 05:10 Serum or plasma sodium measurement (moles/volume) 140 mmol/L 135-145 Serum or plasma potassium measurement (moles/volume) 3.4 mmol/L 3.6-5.0 Serum or plasma chloride measurement (moles/volume) 104 mmol/L 98-107 Carbon dioxide 27 mmol/L 21-32 Serum or plasma anion gap determination (moles/volume) 9 mmol/L 5-14 Serum or plasma urea nitrogen measurement (mass/volume ) 15 mg/dL 7-18 Serum or plasma creatinine measurement (mass/volume) 0.56 mg/dL 0.60-1.30 Serum or plasma urea nitrogen/creatinine mass ratio 27 NRG Serum or plasma creatinine measurement w ith calculation of estimated glomerular filtration rate > NRG Serum or plasma glucose measurement (mass/volume) 95 mg/dL 70-105 Serum or plasma calcium measurement (mass/volume) 8.6 mg/dL 8.5-10.1 Serum or plasma phosphate measurement (m ass/volume) - 12/09/18 05:10 Serum or plasma phosphate measurement (mass/volume) 2.8 mg/dL 2.3-4.7 Magnesium - 12/09/18 05:10 Magnesium 1.6 mg/dL 1.8-2.4 Complete blood count (CBC) with automate d white blood cell (WBC) differential - 12/10/18 05:10 Blood leukocytes automated count (number/volume) 6.3 10*3/uL 4.3-11.0 Blood erythrocytes automated count (number/volume) 3.13 10*6/uL 4.35-5.85 Venous blood hemoglobin measurement (mass/volume) 10.1 g/dL 11.5-16.0 Blood hematocrit (volume fraction) 32 % 35-52 Automated erythrocyte mean corpuscular volume 101 [foz_us] 80-99 Automated erythrocyte mean corpuscular h emoglobin (mass per erythrocyte) 32 pg 25-34 Automated erythrocyte mean corpuscular h emoglobin concentration measurement (mass/volume) 32 g/dL 32-36 Automated erythrocyte distribution width ratio 14. 4 % 10.0- 14.5 Automated blood platelet count [...] 10*3 1.0-4.0 Blood monocytes automated count (number/volume) 1. 0 10*3 0.0-1.0 Automated eosinophil count 0.2 10*3/uL 0 .0-0.3 Automated blood basophil count (count/volume) 0.0 10*3/uL 0.0-0.1 Whole blood basic metabolic panel - 11/23 06/10 05:10 Serum or plasma sodium measurement (moles/volume) 140 mmol/L 135-145 Serum or plasma potassium measurement (moles/volume) 3.5 mmol/L 3.6-5.0 Serum or plasma chloride measurement (moles/volume) 104 mmol/L 98-107 Carbon dioxide 31 mmol/L 21-32 Serum or plasma anion gap determination (moles/volume) 5 mmol/L 5-14 Serum or plasma urea nitrogen measurement (mass/volume ) 19 mg/dL 7-18 Serum or plasma creatinine measurement (mass/volume) 0.62 mg/dL 0.60-1.30 Serum or plasma urea nitrogen/creatinine mass ratio 31 NRG Serum or plasma creatinine measurement w ith calculation of estimated glomerular filtration rate > NRG Serum or plasma glucose measurement (mass/volume) 103 mg/dL 70-105 Serum or plasma calcium measurement (mass/volume) 8.5 mg/dL 8.5-10.1 Serum or plasma phosphate measurement (m ass/volume) - 12/10/18 05:10 Serum or plasma phosphate measurement (mass/volume) 3.7 mg/dL 2.3-4.7 Magnesium - 12/10/18 05:10 Magnesium 1.7 mg/dL 1.8-2.4 Whole blood basic metabolic panel - 11/23 07/11 05:05 Serum or plasma sodium measurement (moles/volume) 142 mmol/L 135-145 Serum or plasma potassium measurement (moles/volume) 3.5 mmol/L 3.6-5.0 Serum or plasma chloride measurement (moles/volume) 103 mmol/L 98-107 Carbon dioxide 29 mmol/L 21-32 Serum or plasma anion gap determination (moles/volume) 10 mmol/L 5-14 Serum or plasma urea nitrogen measurement (mass/volume ) 15 mg/dL 7-18 Serum or plasma creatinine measurement (mass/volume) 0.64 mg/dL 0.60-1.30 Serum or plasma urea nitrogen/creatinine mass ratio 23 NRG Serum or plasma creatinine measurement w ith calculation of estimated glomerular filtration rate > NRG Serum or plasma glucose measurement (mass/volume) 97 mg/dL 70-105 Serum or plasma calcium measurement (mass/volume) 8.8 mg/dL 8.5-10.1 Serum or plasma phosphate measurement (m ass/volume) - 12/11/18 05:05 Serum or plasma phosphate measurement (mass/volume) 3.1 mg/dL 2.3-4.7 Magnesium - 12/11/18 05:05 Magnesium 1.7 mg/dL 1.8-2.4 Complete blood count (CBC) with automate d white blood cell (WBC) differential - 12/11/18 05:05 Blood leukocytes automated count (number/volume) 6.1 10*3/uL 4.3-11.0 Blood erythrocytes automated count (number/volume) 3.24 10*6/uL 4.35-5.85 Venous blood hemoglobin measurement (mass/volume) 10.5 g/dL 11.5-16.0 Blood hematocrit (volume fraction) 33 % 35-52 Automated erythrocyte mean corpuscular volume 102 [foz_us] 80-99 Automated erythrocyte mean corpuscular h emoglobin (mass per erythrocyte) 32 pg 25-34 Automated erythrocyte mean corpuscular h emoglobin concentration measurement (mass/volume) 32 g/dL 32-36 Automated erythrocyte distribution width ratio 14. 9 % 10.0- 14.5 Automated blood platelet count [...] 10*3 1.0-4.0 Blood monocytes automated count (number/volume) 0. 7 10*3 0.0-1.0 Automated eosinophil count 0.2 10*3/uL 0 .0-0.3 Automated blood basophil count (count/volume) 0.1 10*3/uL 0.0-0.1 Complete blood count (CBC) with automate d white blood cell (WBC) differential - 01/04/19 14:27 Blood leukocytes automated count (number/volume) 7.8 10*3/uL 4.3-11.0 Blood erythrocytes automated count (number/volume) 4.08 10*6/uL 4.35-5.85 Venous blood hemoglobin measurement (mass/volume) 13.3 g/dL 11.5-16.0 Blood hematocrit (volume fraction) 42 % 35-52 Automated erythrocyte mean corpuscular volume 103 [foz_us] 80-99 Automated erythrocyte mean corpuscular h emoglobin (mass per erythrocyte) 33 pg 25-34 Automated erythrocyte mean corpuscular h emoglobin concentration measurement (mass/volume) 33 g/dL 32-36 Automated erythrocyte distribution width ratio 15. 2 % 10.0- 14.5 Automated blood platelet count [...] 10*3 1.0-4.0 Blood monocytes automated count (number/volume) 0. 8 10*3 0.0-1.0 Automated eosinophil count 0.1 10*3/uL 0 .0-0.3 Automated blood basophil count (count/volume) 0.1 10*3/uL 0.0-0.1 PT panel in platelet poor plasma by coag ulation assay - 01/04/19 14:27 Prothrombin time (PT) in platelet poor plasma by coagu lation assay 14.3 s 12.2-14.7 INR in platelet poor plasma or blood by coagulation as say 1.1 0.8-1.4 Activated partial thromboplastin time (a PTT) in platelet poor plasma bycoagulation assay - 01/04/19 14:27 Activated partial thromboplastin time (a PTT) in platelet poor plasma bycoagulation assay 28 s 24-35 Comprehensive metabolic panel - 01/04/19 14:27 Serum or plasma sodium measurement (moles/volume) 144 mmol/L 135-145 Serum or plasma potassium measurement (moles/volume) 3.7 mmol/L 3.6-5.0 Serum or plasma chloride measurement (moles/volume) 103 mmol/L 98-107 Carbon dioxide 19 mmol/L 21-32 Serum or plasma anion gap determination (moles/volume) 22 mmol/L 5-14 Serum or plasma urea nitrogen measurement (mass/volume ) 30 mg/dL 7-18 Serum or plasma creatinine measurement (mass/volume) 1.05 mg/dL 0.60-1.30 Serum or plasma urea nitrogen/creatinine mass ratio 29 NRG Serum or plasma creatinine measurement w ith calculation of estimated glomerular filtration rate 50 NRG Serum or plasma glucose measurement (mass/volume) 123 mg/dL 70-105 Serum or plasma calcium measurement (mass/volume) 9.4 mg/dL 8.5-10.1 Serum or plasma total bilirubin measurement (mass/volu me) 0.4 mg/dL 0.1-1.0 Serum or plasma alkaline phosphatase brenda surement (enzymatic activity/volume) 215 U/L 40-136 Serum or plasma aspartate aminotransfera se measurement (enzymatic activity/volume) 17 U/L 5-34 Serum [...] FS 4275.0 pg/mL <75.0 Methicillin resistant Staphylococcus aur eus (MRSA) screening culture - 01/05/19 03:00 Methicillin resistant Staphylococcus aureus (MRSA) scr eening culture NEG NRG Complete blood count (CBC) with automate d white blood cell (WBC) differential - 01/05/19 03:04 Blood leukocytes automated count (number/volume) 6.2 10*3/uL 4.3-11.0 Blood erythrocytes automated count (number/volume) 4.24 10*6/uL 4.35-5.85 Venous blood hemoglobin measurement (mass/volume) 13.9 g/dL 11.5-16.0 Blood hematocrit (volume fraction) 44 % 35-52 Automated erythrocyte mean corpuscular volume 104 [foz_us] 80-99 Automated erythrocyte mean corpuscular h emoglobin (mass per erythrocyte) 33 pg 25-34 Automated erythrocyte mean corpuscular h emoglobin concentration measurement (mass/volume) 32 g/dL 32-36 Automated erythrocyte distribution width ratio 15. 6 % 10.0- 14.5 Automated blood platelet count [...] 10*3 1.0-4.0 Blood monocytes automated count (number/volume) 0. 7 10*3 0.0-1.0 Automated eosinophil count 0.2 10*3/uL 0 .0-0.3 Automated blood basophil count (count/volume) 0.1 10*3/uL 0.0-0.1 Comprehensive metabolic panel - 01/05/19 03:04 Serum or plasma sodium measurement (moles/volume) 142 mmol/L 135-145 Serum or plasma potassium measurement (moles/volume) 3.2 mmol/L 3.6-5.0 Serum or plasma chloride measurement (moles/volume) 104 mmol/L 98-107 Carbon dioxide 25 mmol/L 21-32 Serum or plasma anion gap determination (moles/volume) 13 mmol/L 5-14 Serum or plasma urea nitrogen measurement (mass/volume ) 27 mg/dL 7-18 Serum or plasma creatinine measurement (mass/volume) 0.92 mg/dL 0.60-1.30 Serum or plasma urea nitrogen/creatinine mass ratio 29 NRG Serum or plasma creatinine measurement w ith calculation of estimated glomerular filtration rate 58 NRG Serum or plasma glucose measurement (mass/volume) 92 mg/dL 70-105 Serum or plasma calcium measurement (mass/volume) 9.8 mg/dL 8.5-10.1 Serum or plasma total bilirubin measurement (mass/volu me) 0.6 mg/dL 0.1-1.0 Serum or plasma alkaline phosphatase brenda surement (enzymatic activity/volume) 235 U/L 40-136 Serum or plasma aspartate aminotransfera se measurement (enzymatic activity/volume) 23 U/L 5-34 Serum or plasma alanine aminotransferase measurement (enzymatic activity/volume) 10 U/L 0-55 Serum or plasma protein measurement (mass/volume) 7.8 g/dL 6.4-8.2 Serum or plasma albumin measurement (mass/volume) 3.8 g/dL 3.2-4.5 CALCIUM CORRECTED 10.0 mg/dL 8.5-10.1 Magnesium - 01/05/19 03:04 Magnesium 2.1 mg/dL 1.8-2.4 Serum or plasma troponin i.cardiac measu rement (mass/volume) - 01/05/19 13:24 Serum or plasma troponin i.cardiac measurement (mass/v olume) 0.038 ng/mL <0.028 Serum or plasma troponin i.cardiac measu rement (mass/volume) - 01/05/19 19:16 Serum or plasma troponin i.cardiac measurement (mass/v olume) 0.034 ng/mL <0.028 Whole blood basic metabolic panel - 12/21 05/10 03:01 Serum or plasma sodium measurement (moles/volume) 139 mmol/L 135-145 Serum or plasma potassium measurement (moles/volume) 4.6 mmol/L 3.6-5.0 Serum or plasma chloride measurement (moles/volume) 106 mmol/L 98-107 Carbon dioxide 23 mmol/L 21-32 Serum or plasma anion gap determination (moles/volume) 10 mmol/L 5-14 Serum or plasma urea nitrogen measurement (mass/volume ) 22 mg/dL 7-18 Serum or plasma creatinine measurement (mass/volume) 0.82 mg/dL 0.60-1.30 Serum or plasma urea nitrogen/creatinine mass ratio 27 NRG Serum or plasma creatinine measurement w ith calculation of estimated glomerular filtration rate > NRG Serum or plasma glucose measurement (mass/volume) 93 mg/dL 70-105 Serum or plasma calcium measurement (mass/volume) 8.8 mg/dL 8.5-10.1 Magnesium - 01/06/19 03:01 Magnesium 2.1 mg/dL 1.8-2.4 Automated blood complete blood count (he mogram) panel - 01/07/19 03:35 Blood leukocytes automated count (number/volume) 8.6 10*3/uL 4.3-11.0 Blood erythrocytes automated count (number/volume) 3.88 10*6/uL 4.35-5.85 Venous blood hemoglobin measurement (mass/volume) 12.8 g/dL 11.5-16.0 Blood hematocrit (volume fraction) 40 % 35-52 Automated erythrocyte mean corpuscular volume 103 [foz_us] 80-99 Automated erythrocyte mean corpuscular h emoglobin (mass per erythrocyte) 33 pg 25-34 Automated erythrocyte mean corpuscular h emoglobin concentration measurement (mass/volume) 32 g/dL 32-36 Automated erythrocyte distribution width ratio 14. 9 % 10.0- 14.5 Automated blood platelet count (count/volume) 213 10*3/uL 130-400 Automated blood platelet mean volume measurement 9.4 [foz_us] 7.4-10.4 Whole blood basic metabolic panel - 12/21 06/10 03:35 Serum or plasma sodium measurement (moles/volume) 136 mmol/L 135-145 Serum or plasma potassium measurement (moles/volume) 3.6 mmol/L 3.6-5.0 Serum or plasma chloride measurement (moles/volume) 103 mmol/L 98-107 Carbon dioxide 24 mmol/L 21-32 Serum or plasma anion gap determination (moles/volume) 9 mmol/L 5-14 Serum or plasma urea nitrogen measurement (mass/volume ) 18 mg/dL 7-18 Serum or plasma creatinine measurement (mass/volume) 0.70 mg/dL 0.60-1.30 Serum or plasma urea nitrogen/creatinine mass ratio 26 NRG Serum or plasma creatinine measurement w ith calculation of estimated glomerular filtration rate > NRG Serum or plasma glucose measurement (mass/volume) 93 mg/dL 70-105 Serum or plasma calcium measurement (mass/volume) 9.0 mg/dL 8.5-10.1 Magnesium - 01/07/19 03:35 Magnesium 1.8 mg/dL 1.8-2.4 Whole blood basic metabolic panel - 12/21 07/11 05:10 Serum or plasma sodium measurement (moles/volume) 136 mmol/L 135-145 Serum or plasma potassium measurement (moles/volume) 3.6 mmol/L 3.6-5.0 Serum or plasma chloride measurement (moles/volume) 102 mmol/L 98-107 Carbon dioxide 23 mmol/L -32 Serum or plasma anion gap determination (moles/volume) 11 mmol/L 5-14 Serum or plasma urea nitrogen measurement (mass/volume ) 22 mg/dL 7-18 Serum or plasma creatinine measurement (mass/volume) 0.76 mg/dL 0.60-1.30 Serum or plasma urea nitrogen/creatinine mass ratio 29 NRG Serum or plasma creatinine measurement w ith calculation of estimated glomerular filtration rate > NRG Serum or plasma glucose measurement (mass/volume) 94 mg/dL 70-105 Serum or plasma calcium measurement (mass/volume) 9.3 mg/dL 8.5-10.1 Magnesium - 01/08/19 05:10 Magnesium 1.6 mg/dL 1.8-2.4 Complete blood count (CBC) with automate d white blood cell (WBC) differential - 05/13/19 01:32 Blood leukocytes automated count (number/volume) 8.7 10*3/uL 4.3-11.0 Blood erythrocytes automated count (number/volume) 3.87 10*6/uL 4.35-5.85 Venous blood hemoglobin measurement (mass/volume) 12.8 g/dL 11.5-16.0 Blood hematocrit (volume fraction) 40 % 35-52 Automated erythrocyte mean corpuscular volume 102 [foz_us] 80-99 Automated erythrocyte mean corpuscular h emoglobin (mass per erythrocyte) 33 pg 25-34 Automated erythrocyte mean corpuscular h emoglobin concentration measurement (mass/volume) 32 g/dL 32-36 Automated erythrocyte distribution width ratio 13. 1 % 10.0- 14.5 Automated blood platelet count [...] 10*3 1.0-4.0 Blood monocytes automated count (number/volume) 1. 1 10*3 0.0-1.0 Automated eosinophil count 0.1 10*3/uL 0 .0-0.3 Automated blood basophil count (count/volume) 0.1 10*3/uL 0.0-0.1 Comprehensive metabolic panel - 05/13/19 01:32 Serum or plasma sodium measurement (moles/volume) 141 mmol/L 135-145 Serum or plasma potassium measurement (moles/volume) 3.5 mmol/L 3.6-5.0 Serum or plasma chloride measurement (moles/volume) 100 mmol/L 98-107 Carbon dioxide 30 mmol/L 21-32 Serum or plasma anion gap determination (moles/volume) 11 mmol/L 5-14 Serum or plasma urea nitrogen measurement (mass/volume ) 20 mg/dL 7-18 Serum or plasma creatinine measurement (mass/volume) 0.73 mg/dL 0.60-1.30 Serum or plasma urea nitrogen/creatinine mass ratio 27 NRG Serum or plasma creatinine measurement w ith calculation of estimated glomerular filtration rate > NRG Serum or plasma glucose measurement (mass/volume) 104 mg/dL 70-105 Serum or plasma calcium measurement (mass/volume) 9.0 mg/dL 8.5-10.1 Serum or plasma total bilirubin measurement (mass/volu me) 0.9 mg/dL 0.1-1.0 Serum or plasma alkaline phosphatase brenda surement (enzymatic activity/volume) 94 U/L 40-136 Serum or plasma aspartate aminotransfera se measurement (enzymatic activity/volume) 10 U/L 5-34 Serum or plasma alanine aminotransferase measurement (enzymatic activity/volume) 9 U/L 0-55 Serum or plasma protein measurement (mass/volume) 7.3 g/dL 6.4-8.2 Serum or plasma albumin measurement (mass/volume) 3.6 g/dL 3.2-4.5 CALCIUM CORRECTED 9.3 mg/dL 8.5-10.1 Magnesium - 05/13/19 01:32 Magnesium 1.8 mg/dL 1.8-2.4 PROBNP FS - 05/13/19 01:32 PROBNP FS 1304.0 pg/mL <75.0 Bacterial blood culture - 05/13/19 01:32 FREE TEXT EXTERNAL SEE COMMENTS NRG QUANTITY OF GROWTH Isolated NRG Bacterial blood culture [id number] NRG Sputum Gram stain - 05/13/19 01:58 Sputum Gram stain Mixed Bacterial Felicia NRG Bacterial sputum culture - 05/13/19 01:5 8 QUANTITY OF GROWTH . NRG Bacterial sputum culture USUAL RESP NRG Bacterial blood culture - 05/13/19 02:10 Bacterial blood culture NG NRG Complete urinalysis with reflex to cultu re - 05/14/19 16:45 Urine color determination YELLOW NRG Urine clarity determination CLEAR NR G Urine pH measurement by test strip 6.0 5-9 Specific gravity of urine by test strip 1.020 1.016-1.022 Urine protein assay by test strip, semi-quantitative 2+ NEGATIVE Urine glucose detection by automated test strip NE GATIVE NEGATIVE Erythrocytes detection in urine sediment by light micr oscopy NEGATIVE NEGATIVE Urine ketones detection by automated test strip NE GATIVE NEGATIVE Urine nitrite detection by test strip NEGATIVE NEGATIVE Urine total bilirubin detection by test strip NEGA TIVE NEGATIVE Urine urobilinogen measurement by automated test strip (mass/volume) 1.0 mg/dL NORMAL Urine leukocyte esterase detection by dipstick NEG ATIVE NEGATIVE Automated urine sediment erythrocyte cou nt by microscopy (number/high power field) NONE NRG Automated urine sediment leukocyte count by microscopy (number/high power field) NONE NRG Bacteria detection in urine sediment by light microsco py NONE NRG Squamous epithelial cells detection in u rine sediment by light microscopy 2-5 NRG Crystals detection in urine sediment by light microsco py NONE NRG Casts detection in urine sediment by light microscopy NONE NRG Mucus detection in urine sediment by light microscopy SMALL NRG Complete urinalysis with reflex to culture NO NRG Complete blood count (CBC) with automate d white blood cell (WBC) differential - 07/05/19 21:15 Blood leukocytes automated count (number/volume) 6.6 10*3/uL 4.3-11.0 Blood erythrocytes automated count (number/volume) 4.31 10*6/uL 4.35-5.85 Venous blood hemoglobin measurement (mass/volume) 14.2 g/dL 11.5-16.0 Blood hematocrit (volume fraction) 44 % 35-52 Automated erythrocyte mean corpuscular volume 103 [foz_us] 80-99 Automated erythrocyte mean corpuscular h emoglobin (mass per erythrocyte) 33 pg 25-34 Automated erythrocyte mean corpuscular h emoglobin concentration measurement (mass/volume) 32 g/dL 32-36 Automated erythrocyte distribution width ratio 13. 1 % 10.0- 14.5 Automated blood platelet count (count/volume) 231 10*3/uL 130-400 Automated blood platelet mean volume measurement 9.5 [foz_us] 7.4-10.4 Automated blood neutrophils/100 leukocytes 71 % 42-75 Automated blood lymphocytes/100 leukocytes 17 % 12-44 Blood monocytes/100 leukocytes 8 % 0-12 Automated blood eosinophils/100 leukocytes 2 % 0-10 Automated blood basophils/100 leukocytes 2 % 0-10 Blood neutrophils automated count (number/volume) 4.7 10*3 1.8-7.8 Blood lymphocytes automated count (number/volume) 1.1 10*3 1.0-4.0 Blood monocytes automated count (number/volume) 0. 5 10*3 0.0-1.0 Automated eosinophil count 0.1 10*3/uL 0 .0-0.3 Automated blood basophil count (count/volume) 0.1 10*3/uL 0.0-0.1 PT panel in platelet poor plasma by coag ulation assay - 07/05/19 21:15 Prothrombin time (PT) in platelet poor plasma by coagu lation assay 14.5 s 12.2-14.7 INR in platelet poor plasma or blood by coagulation as say 1.1 0.8-1.4 Activated partial thromboplastin time (a PTT) in platelet poor plasma bycoagulation assay - 07/05/19 21:15 Activated partial thromboplastin time (a PTT) in platelet poor plasma bycoagulation assay 30 s 24-35 Comprehensive metabolic panel - 07/05/19 21:15 Serum or plasma sodium measurement (moles/volume) 143 mmol/L 135-145 Serum or plasma potassium measurement (moles/volume) 3.3 mmol/L 3.6-5.0 Serum or plasma chloride measurement (moles/volume) 100 mmol/L 98-107 Carbon dioxide 29 mmol/L 21-32 Serum or plasma anion gap determination (moles/volume) 14 mmol/L 5-14 Serum or plasma urea nitrogen measurement (mass/volume ) 21 mg/dL 7-18 Serum or plasma creatinine measurement (mass/volume) 1.22 mg/dL 0.60-1.30 Serum or plasma urea nitrogen/creatinine mass ratio 17 NRG Serum or plasma creatinine measurement w ith calculation of estimated glomerular filtration rate 42 NRG Serum or plasma glucose measurement (mass/volume) 143 mg/dL 70-105 Serum or plasma calcium measurement (mass/volume) 9.6 mg/dL 8.5-10.1 Serum or plasma total bilirubin measurement (mass/volu me) 0.5 mg/dL 0.1-1.0 Serum or plasma alkaline phosphatase brenda surement (enzymatic activity/volume) 112 U/L 40-136 Serum or plasma aspartate aminotransfera se measurement (enzymatic activity/volume) 23 U/L 5-34 Serum or plasma alanine aminotransferase measurement (enzymatic activity/volume) 10 U/L 0-55 Serum or plasma protein measurement (mass/volume) 8.0 g/dL 6.4-8.2 Serum or plasma albumin measurement (mass/volume) 4.1 g/dL 3.2-4.5 CALCIUM CORRECTED 9.5 mg/dL 8.5-10.1 Magnesium - 07/05/19 21:15 Magnesium 2.1 mg/dL 1.6-2.4 Serum or plasma troponin i.cardiac measu rement (mass/volume) - 07/05/19 21:15 Serum or plasma troponin i.cardiac measurement (mass/v olume) < ng/mL <0.30 Serum or plasma creatine kinase MB measu rement (enzymatic activity/volume) - 07/05/19 21:15 Serum or plasma creatine kinase MB measu rement (enzymatic activity/volume) 2.5 ng/mL <6.6 Complete blood count (CBC) with automate d white blood cell (WBC) differential - 07/08/19 05:15 Blood leukocytes automated count (number/volume) 6.3 10*3/uL 4.3-11.0 Blood erythrocytes automated count (number/volume) 4.15 10*6/uL 4.35-5.85 Venous blood hemoglobin measurement (mass/volume) 13.5 g/dL 11.5-16.0 Blood hematocrit (volume fraction) 43 % 35-52 Automated erythrocyte mean corpuscular volume 104 [foz_us] 80-99 Automated erythrocyte mean corpuscular h emoglobin (mass per erythrocyte) 33 pg 25-34 Automated erythrocyte mean corpuscular h emoglobin concentration measurement (mass/volume) 31 g/dL 32-36 Automated erythrocyte distribution width ratio 13. 5 % 10.0- 14.5 Automated blood platelet count (count/volume) 208 10*3/uL 130-400 Automated blood platelet mean volume measurement 9.7 [foz_us] 7.4-10.4 Automated blood neutrophils/100 leukocytes 63 % 42-75 Automated blood lymphocytes/100 leukocytes 20 % 12-44 Blood monocytes/100 leukocytes 13 % 0-12 Automated blood eosinophils/100 leukocytes 4 % 0-10 Automated blood basophils/100 leukocytes 1 % 0-10 Blood neutrophils automated count (number/volume) 4.0 10*3 1.8-7.8 Blood lymphocytes automated count (number/volume) 1.2 10*3 1.0-4.0 Blood monocytes automated count (number/volume) 0. 8 10*3 0.0-1.0 Automated eosinophil count 0.2 10*3/uL 0 .0-0.3 Automated blood basophil count (count/volume) 0.1 10*3/uL 0.0-0.1 Whole blood basic metabolic panel - 06/23 04/10 05:15 Serum or plasma sodium measurement (moles/volume) 145 mmol/L 135-145 Serum or plasma potassium measurement (moles/volume) 3.9 mmol/L 3.6-5.0 Serum or plasma chloride measurement (moles/volume) 107 mmol/L 98-107 Carbon dioxide 25 mmol/L 21-32 Serum or plasma anion gap determination (moles/volume) 13 mmol/L 5-14 Serum or plasma urea nitrogen measurement (mass/volume ) 33 mg/dL 7-18 Serum or plasma creatinine measurement (mass/volume) 1.24 mg/dL 0.60-1.30 Serum or plasma urea nitrogen/creatinine mass ratio 27 NRG Serum or plasma creatinine measurement w ith calculation of estimated glomerular filtration rate 41 NRG Serum or plasma glucose measurement (mass/volume) 93 mg/dL 70-105 Serum or plasma calcium measurement (mass/volume) 9.1 mg/dL 8.5-10.1 Complete blood count (CBC) with automate d white blood cell (WBC) differential - 07/09/19 05:53 Blood leukocytes automated count (number/volume) 6.3 10*3/uL 4.3-11.0 Blood erythrocytes automated count (number/volume) 4.18 10*6/uL 4.35-5.85 Venous blood hemoglobin measurement (mass/volume) 13.8 g/dL 11.5-16.0 Blood hematocrit (volume fraction) 43 % 35-52 Automated erythrocyte mean corpuscular volume 103 [foz_us] 80-99 Automated erythrocyte mean corpuscular h emoglobin (mass per erythrocyte) 33 pg 25-34 Automated erythrocyte mean corpuscular h emoglobin concentration measurement (mass/volume) 32 g/dL 32-36 Automated erythrocyte distribution width ratio 13. 2 % 10.0- 14.5 Automated blood platelet count (count/volume) 188 10*3/uL 130-400 Automated blood platelet mean volume measurement 9.6 [foz_us] 7.4-10.4 Automated blood neutrophils/100 leukocytes 65 % 42-75 Automated blood lymphocytes/100 leukocytes 19 % 12-44 Blood monocytes/100 leukocytes 12 % 0-12 Automated blood eosinophils/100 leukocytes 4 % 0-10 Automated blood basophils/100 leukocytes 1 % 0-10 Blood neutrophils automated count (number/volume) 4.1 10*3 1.8-7.8 Blood lymphocytes automated count (number/volume) 1.2 10*3 1.0-4.0 Blood monocytes automated count (number/volume) 0. 8 10*3 0.0-1.0 Automated eosinophil count 0.2 10*3/uL 0 .0-0.3 Automated blood basophil count (count/volume) 0.1 10*3/uL 0.0-0.1 Comprehensive metabolic panel - 07/09/19 05:53 Serum or plasma sodium measurement (moles/volume) 144 mmol/L 135-145 Serum or plasma potassium measurement (moles/volume) 3.7 mmol/L 3.6-5.0 Serum or plasma chloride measurement (moles/volume) 107 mmol/L 98-107 Carbon dioxide 28 mmol/L 21-32 Serum or plasma anion gap determination (moles/volume) 9 mmol/L 5-14 Serum or plasma urea nitrogen measurement (mass/volume ) 26 mg/dL 7-18 Serum or plasma creatinine measurement (mass/volume) 0.87 mg/dL 0.60-1.30 Serum or plasma urea nitrogen/creatinine mass ratio 30 NRG Serum or plasma creatinine measurement w ith calculation of estimated glomerular filtration rate > NRG Serum or plasma glucose measurement (mass/volume) 94 mg/dL 70-105 Serum or plasma calcium measurement (mass/volume) 9.0 mg/dL 8.5-10.1 Serum or plasma total bilirubin measurement (mass/volu me) 0.9 mg/dL 0.1-1.0 Serum or plasma alkaline phosphatase brenda surement (enzymatic activity/volume) 112 U/L 40-136 Serum or plasma aspartate aminotransfera se measurement (enzymatic activity/volume) 19 U/L 5-34 Serum or plasma alanine aminotransferase measurement (enzymatic activity/volume) 10 U/L 0-55 Serum or plasma protein measurement (mass/volume) 7.0 g/dL 6.4-8.2 Serum or plasma albumin measurement (mass/volume) 3.4 g/dL 3.2-4.5 CALCIUM CORRECTED 9.5 mg/dL 8.5-10.1 Complete blood count (CBC) with automate d white blood cell (WBC) differential - 07/10/19 05:40 Blood leukocytes automated count (number/volume) 7.1 10*3/uL 4.3-11.0 Blood erythrocytes automated count (number/volume) 4.24 10*6/uL 4.35-5.85 Venous blood hemoglobin measurement (mass/volume) 13.6 g/dL 11.5-16.0 Blood hematocrit (volume fraction) 43 % 35-52 Automated erythrocyte mean corpuscular volume 101 [foz_us] 80-99 Automated erythrocyte mean corpuscular h emoglobin (mass per erythrocyte) 32 pg 25-34 Automated erythrocyte mean corpuscular h emoglobin concentration measurement (mass/volume) 32 g/dL 32-36 Automated erythrocyte distribution width ratio 13. 1 % 10.0- 14.5 Automated blood platelet count (count/volume) 206 10*3/uL 130-400 Automated blood platelet mean volume measurement 9.4 [foz_us] 7.4-10.4 Automated blood neutrophils/100 leukocytes 68 % 42-75 Automated blood lymphocytes/100 leukocytes 17 % 12-44 Blood monocytes/100 leukocytes 14 % 0-12 Automated blood eosinophils/100 leukocytes 1 % 0-10 Automated blood basophils/100 leukocytes 1 % 0-10 Blood neutrophils automated count (number/volume) 4.9 10*3 1.8-7.8 Blood lymphocytes automated count (number/volume) 1.2 10*3 1.0-4.0 Blood monocytes automated count (number/volume) 1. 0 10*3 0.0-1.0 Automated eosinophil count 0.1 10*3/uL 0 .0-0.3 Automated blood basophil count (count/volume) 0.0 10*3/uL 0.0-0.1 Comprehensive metabolic panel - 07/10/19 05:40 Serum or plasma sodium measurement (moles/volume) 140 mmol/L 135-145 Serum or plasma potassium measurement (moles/volume) 3.5 mmol/L 3.6-5.0 Serum or plasma chloride measurement (moles/volume) 103 mmol/L 98-107 Carbon dioxide 29 mmol/L 21-32 Serum or plasma anion gap determination (moles/volume) 8 mmol/L 5-14 Serum or plasma urea nitrogen measurement (mass/volume ) 25 mg/dL 7-18 Serum or plasma creatinine measurement (mass/volume) 0.81 mg/dL 0.60-1.30 Serum or plasma urea nitrogen/creatinine mass ratio 31 NRG Serum or plasma creatinine measurement w ith calculation of estimated glomerular filtration rate > NRG Serum or plasma glucose measurement (mass/volume) 95 mg/dL 70-105 Serum or plasma calcium measurement (mass/volume) 9.0 mg/dL 8.5-10.1 Serum or plasma total bilirubin measurement (mass/volu me) 1.0 mg/dL 0.1-1.0 Serum or plasma alkaline phosphatase brenda surement (enzymatic activity/volume) 105 U/L 40-136 Serum or plasma aspartate aminotransfera se measurement (enzymatic activity/volume) 16 U/L 5-34 Serum or plasma alanine aminotransferase measurement (enzymatic activity/volume) 9 U/L 0-55 Serum or plasma protein measurement (mass/volume) 6.8 g/dL 6.4-8.2 Serum or plasma albumin measurement (mass/volume) 3.3 g/dL 3.2-4.5 CALCIUM CORRECTED 9.6 mg/dL 8.5-10.1 Capillary blood glucose measurement by g lucometer (mass/volume) - 07/10/19 11:00 Capillary blood glucose measurement by glucometer (mas s/volume) 182 mg/dL 70-110 Encounters ACCT No. Visit Date/Time Discharge Status Pt. Type Provider Facility Loc./Unit Complaint [id number] 01/14/2019 09:39:00 01/14/2019 23:59: 00 DIS Outpatient BERNARD FISHER [id number] 01/14/2019 09:17:00 01/14/2019 23:59: 00 DIS Outpatient BERNARD FISHER [id number] 12/02/2018 01:15:00 12/05/2018 08:50: 00 DIS Inpatient Nayely Tiwari [facility] enter ICU [id number] 12/01/2018 22:29:47 Document Registration [id number] 10/09/2019 00:11:00 019 23:59:59 CLS Preadmit Nicki NICHOLE MD [facility] CARD BRADYCARDIA,SYNCOPE [id number] 07/10/2019 14:48:00 00:01:00 DIS Outpatient DAYANARA GARCIA, Nicki BAUTISTA [facility] CARD BRADYCARDIA,SYNCOPE [id number] 07/08/2019 16:10:00 14:40:00 DIS Outpatient GRETCHEN DUMONT MD [facility] 4TH SYMPTOMATIC BRADYCARDIA SYNCOPE [id number] 05/14/2019 17:13:00 23:59:59 CLS Outpatient JON RIVAS MD [facility] UA [id number] 05/13/2019 01:29:00 03:53:00 DIS Outpatient JHONATAN HANNON DO [facility] ER FS CONFUSION [id number] 05/06/2019 02:45:00 23:59:59 CLS Outpatient JON RIVAS MD [facility] UA [id number] 04/18/2019 00:10:00 23:59:59 CLS Preadmit DAYANARA GARCIA, Nicki BAUTISTA [facility] CARD NSVT,PAF [id number] 01/17/2019 14:35:00 00:01:00 DIS Outpatient Nicki NICHOLE MD [facility] CARD NSVT,PAF [id number] 01/04/2019 16:55:00 16:15:00 DIS Inpatient NAYELY TIWARI DO, V [facility] 4TH SYNCOPE,NON SUSTAINED V ENTRICULAR TACHYCARDIA [id number] 12/05/2018 09:33:00 12:15:00 DIS Inpatient NAYELY TIWARI DO, V [facility] 4TH AFIB POST OP HYPOTENSIO N
[2020-03-08] MEDS ORDERED: NS IV 1000 ML 1,000 ML IV SCH (18:26)
[2020-03-08 18:37] LABS: BASOPHILS # (AUTO) 0.1 10^3/uL (0.0-0.1); BASOPHILS % (AUTO) 1 % (0-10); EOSINOPHILS # (AUTO) 0.1 10^3/uL (0.0-0.3); EOSINOPHILS % (AUTO) 1 % (0-10); HEMATOCRIT 36 % (35-52); HEMOGLOBIN 11.5 G/DL (11.5-16.0); LYMPHOCYTES # (AUTO) 1.4 X 10^3 (1.0-4.0); LYMPHOCYTES % (AUTO) 19 % (12-44); MEAN CORPUSCULAR HEMOGLOBIN 33 PG (25-34); MEAN CORPUSCULAR HGB CONC 32 G/DL (32-36); MEAN CORPUSCULAR VOLUME 103 FL (80-99); MEAN PLATELET VOLUME 9.6 FL (7.4-10.4); MONOCYTES % (AUTO) 13 % (0-12); NEUTROPHILS % (AUTO) 66 % (42-75); PLATELET COUNT 172 10^3/uL (130-400); RED CELL DISTRIBUTION WIDTH 12.9 % (10.0-14.5); WHITE BLOOD COUNT 7.5 10^3/uL (4.3-11.0)
[2020-03-08 18:43] LABS: BILIRUBIN,URINE NEGATIVE (NEGATIVE); CLARITY,URINE CLEAR; COLOR,URINE YELLOW; GLUCOSE, URINE (UA) NEGATIVE (NEGATIVE); KETONES,URINE NEGATIVE (NEGATIVE); LEUKOCYTE ESTERASE ,URINE 2+ (NEGATIVE); NITRITE,URINE POSITIVE (NEGATIVE); PROTEIN,URINE NEGATIVE (NEGATIVE)
[2020-03-08 18:47] LABS: ALBUMIN 3.4 GM/DL (3.2-4.5); CHLORIDE 105 MMOL/L (98-107); POTASSIUM 3.8 MMOL/L (3.6-5.0); SODIUM 142 MMOL/L (135-145)
[2020-03-08 18:48] LABS: INR 1.2 (0.8-1.4); PROTHROMBIN TIME PATIENT 15.6 SEC (12.2-14.7)
[2020-03-08 18:49] LABS: CALCIUM 8.7 MG/DL (8.5-10.1)
[2020-03-08 18:50] LABS: GLUCOSE 105 MG/DL (70-105); TOTAL PROTEIN 6.6 GM/DL (6.4-8.2)
[2020-03-08 18:50] LABS: BACTERIA,URINE MODERATE /HPF; WBC,URINE 25-50 /HPF
[2020-03-08 18:51] LABS: CARBON DIOXIDE 26 MMOL/L (21-32)
[2020-03-08 18:52] LABS: BILIRUBIN,TOTAL 0.7 MG/DL (0.1-1.0)
[2020-03-08 18:53] LABS: ALKALINE PHOSPHATASE 87 U/L (40-136); CREATININE SERUM 0.88 MG/DL (0.60-1.30); GFR ESTIMATED > 60
[2020-03-08 18:54] LABS: BUN/CREATININE RATIO 28
[2020-03-08 18:56] LABS: ALANINE AMINOTRANSFERASE 9 U/L (0-55)
[2020-03-08] MEDS ORDERED: cefTRIAXone FOR IV USE 1,000 MG in WATER (STERILE) FOR INJECTION 10 ML IV ONE (19:15)
--- NOTE | 2020-03-08 19:52 | Diagnostic Imaging Report ---
PROCEDURE: CT head and CT cervical spine without contrast. TECHNIQUE: Multiple contiguous axial images were obtained through the brain and cervical spine without the use of intravenous contrast. Sagittal and coronal reformations through the cervical spine were then performed. Auto Exposure Controls were utilized during the CT exam to meet ALARA standards for radiation dose reduction. INDICATION: Fall. FINDINGS: CT of the head demonstrates no evidence of acute intracranial hemorrhage. No findings of an abnormal extra-axial collection. There is age-related global volume loss. There are severe chronic microvascular ischemic changes demonstrated throughout the white matter and there have been prior bilateral basal ganglia lacunar infarcts. There is no mass effect or shift. There is no hydrocephalus. There is no territorial loss of [place]-white differentiation. No acute calvarial fracture is evident. The mastoid air cells appear clear. There is no fluid level within the paranasal sinuses. Orbital contents unremarkable. Cervical spine demonstrates background features of cervical degenerative disc disease and facet arthropathy. There is a degenerative anterolisthesis of C2 on C3, retrolisthesis of C3 on C4 and anterolisthesis of C7 on T1. Craniocervical junction relationships are maintained. There are normal relationships of the lateral masses of C1 and C2. The facets are normally aligned. There is no facet joint or disc space widening. The vertebral body heights appear maintained. No acute cervical spine fracture is evident. There does appear to be a high-grade central canal stenosis at C4-C5 and moderate central canal stenosis at C5-C6 and C6-C7. There are multiple levels of foraminal stenosis due to facet arthropathy and uncovertebral spurring. Lung apices clear. There is a right azygos lobe. Soft tissues of the neck demonstrate large bilateral thyroid nodules. There is also advanced carotid atherosclerotic disease present. IMPRESSION: 1. Age-related global volume loss with severe chronic microvascular changes within the white matter and multiple previous lacunar infarcts within the basal ganglia. 2. No findings of an acute intracranial abnormality or intracranial hemorrhage. 3. Advanced degenerative features within the cervical spine without acute cervical spine fracture or traumatic malalignment. Canal stenosis most advanced at C4-C5. 4. Large bilateral thyroid nodules 5. Advanced carotid atherosclerosis. Dictated by: Dictated on workstation # [id number]
--- NOTE | 2020-03-08 19:57 | Diagnostic Imaging Report ---
PROCEDURE: CT right lower extremity without contrast. TECHNIQUE: Axially acquired CT was obtained through the right lower extremity without intravenous contrast. Coronal and sagittal reformations were also performed. Auto Exposure Controls were utilized during the CT exam to meet ALARA standards for radiation dose reduction. INDICATION: Fall. FINDINGS: The bones are of low bone density which limits sensitivity. There is no evidence of hip dislocation. There may be a small hip joint effusion. The femoral head maintains normal morphology without evidence of an acute proximal femoral fracture. There is no fracture involving the trochanters. There is a multiplanar and comminuted fracture involving the distal femur with dominant fracture lines demonstrating an oblique course through the diametaphyseal junction and through the metaphysis and epiphysis with intra-articular extension exiting between the femoral condyles. These findings are superimposed on advanced underlying osteoarthritic changes within the knee which are most severe within the medial compartment. There appears to be some soft tissue edema and possibly hemorrhage adjacent to the fracture. There is an apparent hemarthrosis. There are no findings of a fracture of the patella. No proximal tibial or fibular head fracture evident. Note is made of diffuse muscular atrophy throughout the leg. There is advanced peripheral arterial disease. IMPRESSION: 1. Comminuted fracture involving the distal femur with oblique course extending through the diametaphyseal junction and through the metaphysis and epiphysis with intra-articular extension between the femoral condyles. There is an associated hemarthrosis. There is also adjacent edema and possibly adjacent blood products but no large definable focal hematoma. 2. Advanced background arthritic changes also present within the right knee 3. No fracture or dislocation evident at the right hip or of the proximal femur. There does appear to likely be a right hip joint effusion. Dictated by: Dictated on workstation # [id number]
[2020-03-08] MEDS ORDERED: HYDROcodone/APAP 5 MG/325 MG (LORTAB) TAB PO ONE (20:30)
[2020-03-08] MEDS ORDERED: HYDR-83 PO (21:24)
[2020-03-08] MEDS ORDERED: CEPH-507 PO (21:24)
[2020-03-08] MEDS ORDERED: DOCU-143 PO (21:24)
--- NOTE | 2020-03-08 21:24 | ED Lower Extremity ---
General Chief Complaint: Lower Extremity Stated Complaint: R FEMUR FX Nursing Triage Note: Patient is a resident at a care facility in [facility]. EMS advise that the patient fell last night and has been complaining of right leg pain, obvious swelling and deformity is noted and out patient xray has confirmed femur fx of the right leg Nursing Sepsis Screen: No Definite Risk Source: patient, family, EMS, group home records Exam Limitations: other (dementia) History of Present Illness Date Seen by Provider: March 08, 2020 Time Seen by Provider: 18:06 Initial Comments This 89-year-old woman is brought to the emergency room via EMS after suffering a distal femur fracture at a group home in [place]. She reportedly fell sometime last night. Outpatient x-rays were obtained today revealing the distal femur fracture. She has dementia and is alert but confused at baseline. She has had recent decline in her mobility and no longer ambulates independently. She does sit to stand with a 2 person assist for transfers. EMS administered fentanyl and Zofran in route. She denies any significant pain at present. She has atrial fibrillation and is on Eliquis. She arrives with a CD of x-rays of the pelvis and right femur. Allergies and Home Medications Allergies Coded Allergies: No Known Drug Allergies (Unverified , 01/04/19) Home Medications Acetaminophen 500 Mg Tablet, 500 MG PO Q4H PRN for PAIN-MILD, (Reported) Amlodipine Besylate 5 Mg Tablet, 5 MG PO DAILY Prescribed by: AUGUSTIN TIWARI on 07/10/19 1259 Apixaban 2.5 Mg Tablet, 2.5 MG PO BID Prescribed by: AUGUSTIN TIWARI on 01/07/19 1057 Calcium Carbonate/Vitamin D3 1 Each Tablet, 1 TAB PO DAILY, (Reported) Cephalexin 500 Mg Capsule, 500 MG PO BID Prescribed by: REGINA DENNIS on 03/08/202123 Citalopram Hydrobromide 10 Mg Tablet, 10 MG PO HS, (Reported) Docusate Sodium 100 Mg Capsule, 400 MG PO HS, (Reported) TAKES 4 (100MG) CAPSULES Docusate Sodium 100 Mg Capsule, 100 MG PO DAILY Hold if stools are runny or loose. Only needs to be taken a hydrocodone is used. Prescribed by: REGINA DENNIS on 03/08/202123 Famotidine 20 Mg Tablet, 20 MG PO BID, (Reported) Furosemide 20 Mg Tablet, 20 MG PO DAILY, (Reported) Hydrocodone/Acetaminophen 1 Each Tablet, 1 EACH PO Q6H PRN for PAIN-MODERATE (5- 7) Prescribed by: REGINA DENNIS on 03/08/202123 Mirtazapine 7.5 Mg Tablet, 7.5 MG PO HS, (Reported) Multivitamin 1 Each Tablet, 1 TAB PO DAILY, (Reported) Polyethylene Glycol 3350 17 Gm Powd.pack, 17 GM PO DAILY, (Reported) Potassium Chloride 10 Meq Tablet.er, 10 MEQ PO DAILY, (Reported) Pravastatin Sodium 20 Mg Tablet, 20 MG PO HS, (Reported) Ropinirole HCl 1 Mg Tablet, 1 MG PO TID, (Reported) Sennosides/Docusate Sodium 1 Each Tablet, 2 TAB PO BID, (Reported) Sertraline HCl 100 Mg Tablet, 100 MG PO DAILY, (Reported) Tramadol HCl 50 Mg Tablet, 50 MG PO Q6H PRN for PAIN-MODERATE, (Reported) Patient Home Medication List Home Medication List Reviewed: Yes Review of Systems Constitutional: no symptoms reported EENTM: no symptoms reported Respiratory: no symptoms reported Cardiovascular: no symptoms reported Gastrointestinal: no symptoms reported Genitourinary: no symptoms reported : No Musculoskeletal: see HPI Skin: no symptoms reported Psychiatric/Neurological: See HPI Past Skxgimu-Xyapgg-Ktwkoa Hx Past Med/Social Hx: Reviewed Nursing Past Med/Soc Hx Patient Social History Alcohol Use: Denies Use Recreational Drug Use: No Smoking Status: Never a Smoker 2nd Hand Smoke Exposure: No Recent Foreign Travel: No Contact w/Someone Who Travel: No Recent Infectious Disease Expo: No Recent Hopitalizations: No Immunizations Up To Date Date of Pneumonia Vaccine: Sep 22, 2018 Date of Influenza Vaccine: Sep 22, 2018 Seasonal Allergies Seasonal Allergies: No Past Medical History Surgeries: Yes Orthopedic Respiratory: No Cardiac: Yes Atrial Fibrillation, High Cholesterol, Hypertension Neurological: Yes Neuropathy Genitourinary: Yes Bladder Infection Gastrointestinal: Yes Gastroesophageal Reflux, Chronic Constipation Musculoskeletal: Yes Arthritis Endocrine: No HEENT: No Cancer: No Psychosocial: No Integumentary: No Blood Disorders: No Family Medical History Genitourinary system disorder Hypertension Physical Exam Vital Signs Vital Signs - First Documented 03/08/20 18:26 Temp 36.6 Pulse 71 Resp 14 B/P (MAP) 98/69 (79) Pulse Ox 98 O2 Delivery Room Air Capillary Refill : Less Than 3 Seconds Height, Weight, BMI Height: 5'7.00" Weight: 209lbs. 7.0oz. [id number]; 28.00 BMI Method:Stated General Appearance: WD/WN, no apparent distress HEENT: PERRL/EOMI, normal ENT inspection, other (oropharynx dry) Neck: normal inspection Cardiovascular: regular rate, rhythm, no edema, no murmur Respiratory: lungs clear, normal breath sounds, no respiratory distress, no accessory muscle use Gastrointestinal: non tender, soft Hips: bilateral hip non-tender, bilateral hip normal inspection, bilateral hip normal range of motion, bilateral hip no evidence of injury Legs: right leg bone tenderness, right leg ecchymosis, right leg limited range of motion, right leg pain, right leg swelling Knees: right knee bone tenderness, right knee ecchymosis, right knee pain, right knee swelling Ankles: bilateral ankle non-tender, bilateral ankle normal inspection, bilateral ankle normal range of motion, bilateral ankle no evidence of injury Feet: bilateral foot non-tender, bilateral foot normal inspection, bilateral foot normal range of motion, bilateral foot no evidence of injury; right foot other (movement, sensation, and capillary refill normal in the right toes.) Neurologic/Psychiatric: field staff II-XII nml as tested, no motor/sensory deficits, alert, normal mood/affect, other (confused) Skin: normal color, warm/dry Progress/Results/Core Measures Results/Orders Lab Results Laboratory Tests Test 03/08/20 18:24 03/08/20 18:33 03/08/20 18:38 Range/Units White Blood Count 7.5 4.3-11.0 10^3/uL Red Blood Count 3.51 L 4.35-5.85 10^6/uL Hemoglobin 11.5 11.5-16.0 G/DL Hematocrit 36 35-52 % Mean Corpuscular Volume 103 H 80-99 FL Mean Corpuscular Hemoglobin 33 25-34 PG Mean Corpuscular Hemoglobin Concent 32 32-36 G/DL Red Cell Distribution Width 12.9 10.0-14.5 % Platelet Count 172 130-400 10^3/uL Mean Platelet Volume 9.6 7.4-10.4 FL Neutrophils (%) (Auto) 66 42-75 % Lymphocytes (%) (Auto) 19 12-44 % Monocytes (%) (Auto) 13 H 0-12 % Eosinophils (%) (Auto) 1 0-10 % Basophils (%) (Auto) 1 0-10 % Neutrophils # (Auto) 5.0 1.8-7.8 X 10^3 Lymphocytes # (Auto) 1.4 1.0-4.0 X 10^3 Monocytes # (Auto) 1.0 0.0-1.0 X 10^3 Eosinophils # (Auto) 0.1 0.0-0.3 10^3/uL Basophils # (Auto) 0.1 0.0-0.1 10^3/uL Prothrombin Time 15.6 H 12.2-14.7 SEC INR Comment 1.2 0.8-1.4 Activated Partial Thromboplast Time 35 24-35 SEC Sodium Level 142 135-145 MMOL/L Potassium Level 3.8 3.6-5.0 MMOL/L Chloride Level 105 98-107 MMOL/L Carbon Dioxide Level 26 21-32 MMOL/L Anion Gap 11 5-14 MMOL/L Blood Urea Nitrogen 25 H 7-18 MG/DL Creatinine 0.88 0.60-1.30 MG/DL Estimat Glomerular Filtration Rate > 60 BUN/Creatinine Ratio 28 Glucose Level 105 70-105 MG/DL Calcium Level 8.7 8.5-10.1 MG/DL Corrected Calcium 9.2 8.5-10.1 MG/DL Total Bilirubin 0.7 0.1-1.0 MG/DL Aspartate Amino Transf (AST/SGOT) 16 5-34 U/L Alanine Aminotransferase (ALT/SGPT) 9 0-55 U/L Alkaline Phosphatase 87 40-136 U/L Total Protein 6.6 6.4-8.2 GM/DL Albumin 3.4 3.2-4.5 GM/DL Magnesium Level 1.9 1.6-2.4 MG/DL Urine Color YELLOW Urine Clarity CLEAR Urine pH 6.0 5-9 Urine Specific [place] 1.020 1.016-1.022 Urine Protein NEGATIVE NEGATIVE Urine Glucose (UA) NEGATIVE NEGATIVE Urine Ketones NEGATIVE NEGATIVE Urine Nitrite POSITIVE H NEGATIVE Urine Bilirubin NEGATIVE NEGATIVE Urine Urobilinogen 0.2 < = 1.0 MG/DL Urine Leukocyte Esterase 2+ H NEGATIVE Urine RBC (Auto) NEGATIVE NEGATIVE Urine RBC 2-5 H /HPF Urine WBC 25-50 H /HPF Urine Crystals NONE /LPF Urine Bacteria MODERATE H /HPF Urine Casts NONE /LPF Urine Mucus NEGATIVE /LPF Urine Culture Indicated YES My Orders Orders - REGINA MONSON MD Cbc With Automated Diff (03/08/20 18:12) Comprehensive Metabolic Panel (03/08/20 18:12) Protime With Inr (03/08/20 18:12) Partial Thromboplastin Time (03/08/20 18:12) Ua Culture If Indicated (03/08/20 18:12) Ed Iv/Invasive Line Start (03/08/20 18:12) Catheter(Urinary) Insert & Ass 03,15 (03/08/20 18:12) Ns Iv 1000 Ml (Sodium Chloride 0.9%) (03/08/20 18:26) Outside Films For Comparison (03/08/20 ) Magnesium (03/08/20 18:42) Ct Head/Cervical Spine Wo (03/08/20 18:42) Ct Extremity Lower Right Wo (03/08/20 18:42) Urine Culture (03/08/20 18:38) Ceftriaxone For Iv Use (Rocephin For I (03/08/20 19:15) Hydrocodone/Apap 5/325 Tablet (Lortab 5 (03/08/20 20:30) Medications Given in ED Current Medications Medications Dose Ordered Sig/Liz Route Start Time Stop Time Status Last Admin Dose Admin Acetaminophen/ Hydrocodone Bitart 1 tab ONCE ONCE PO 03/08/20 20:30 03/08/20 20:31 DC 03/08/20 20:50 1 TAB Ceftriaxone Sodium 1000 mg/ Sterile Water 10 ml @ 200 mls/hr ONCE ONCE IV 03/08/20 19:15 03/08/20 19:17 DC 03/08/20 20:50 200 MLS/HR Vital Signs/I&O 03/08/20 03/08/20 18:26 22:44 Temp 36.6 Pulse 71 86 Resp 14 14 B/P (MAP) 98/69 (79) 119/76 Pulse Ox 98 98 O2 Delivery Room Air Room Air Blood Pressure Mean: 79 Progress Progress Note : Progress Note Outside films were reviewed. CT of the head, cervical spine, and distal right femur were obtained and reviewed. There was a significant fracture to the distal right femur but no other injuries were identified. I discussed the case with Dr. Aguilar and Dr. Rivas. She is a very poor surgical candidate due to her age and comorbidities including debilitating dementia. Ultimately it was determined that risks of surgical intervention would outweigh the benefits. For this reason patient was treated conservatively with a knee immobilizer. She was given hydrocodone for pain. Rocephin was given for urinary tract infection. She was transported back to the group home via EMS. I did update her son who is agreeable with this plan. Diagnostic Imaging Diagonstic Imaging: CT Plain Films/CT/US/NM/MRI: c-spine, head Comments NAME: SUELLEN CORONA [facility] REC#: [id number] PT STATUS: REG ER : 1930 PHYSICIAN: REGINA MONSON MD ADMIT DATE: 03/08/20/ER Signed Date of Exam:03/08/20 CT HEAD/CERVICAL SPINE WO PROCEDURE: CT head and CT cervical spine without contrast. TECHNIQUE: Multiple contiguous axial images were obtained through the brain and cervical spine without the use of intravenous contrast. Sagittal and coronal reformations through the cervical spine were then performed. Auto Exposure Controls were utilized during the CT exam to meet ALARA standards for radiation dose reduction. INDICATION: Fall. FINDINGS: CT of the head demonstrates no evidence of acute intracranial hemorrhage. No findings of an abnormal extra-axial collection. There is age-related global volume loss. There are severe chronic microvascular ischemic changes demonstrated throughout the white matter and there have been prior bilateral basal ganglia lacunar infarcts. There is no mass effect or shift. There is no hydrocephalus. There is no territorial loss of [place]-white differentiation. No acute calvarial fracture is evident. The mastoid air cells appear clear. There is no fluid level within the paranasal sinuses. Orbital contents unremarkable. Cervical spine demonstrates background features of cervical degenerative disc disease and facet arthropathy. There is a degenerative anterolisthesis of C2 on C3, retrolisthesis of C3 on C4 and anterolisthesis of C7 on T1. Craniocervical junction relationships are maintained. There are normal relationships of the lateral masses of C1 and C2. The facets are normally aligned. There is no facet joint or disc space widening. The vertebral body heights appear maintained. No acute cervical spine fracture is evident. There does appear to be a high-grade central canal stenosis at C4-C5 and moderate central canal stenosis at C5-C6 and C6-C7. There are multiple levels of foraminal stenosis due to facet arthropathy and uncovertebral spurring. Lung apices clear. There is a right azygos lobe. Soft tissues of the neck demonstrate large bilateral thyroid nodules. There is also advanced carotid atherosclerotic disease present. IMPRESSION: 1. Age-related global volume loss with severe chronic microvascular changes within the white matter and multiple previous lacunar infarcts within the basal ganglia. 2. No findings of an acute intracranial abnormality or intracranial hemorrhage. 3. Advanced degenerative features within the cervical spine without acute cervical spine fracture or traumatic malalignment. Canal stenosis most advanced at C4-C5. 4. Large bilateral thyroid nodules 5. Advanced carotid atherosclerosis. Dictated by: Dictated on workstation # [id number] Dict: 03/08/201921 Trans: 03/08/201955 [facility] [id number] Interpreted by: DONTRELL MANCERA MD Electronically signed by: DONTRELL MANCERA MD 03/08/201955 Reviewed: Reviewed by [place] Diagonstic Imaging: CT Plain Films/CT/US/NM/MRI: leg Comments NAME: SUELLEN CORONA MED REC#: [id number] PT STATUS: REG ER : 1930 PHYSICIAN: REGINA MONSON MD ADMIT DATE: 03/08/20/ER Signed Date of Exam:03/08/20 CT EXTREMITY LOWER RIGHT WO PROCEDURE: CT right lower extremity without contrast. TECHNIQUE: Axially acquired CT was obtained through the right lower extremity without intravenous contrast. Coronal and sagittal reformations were also performed. Auto Exposure Controls were utilized during the CT exam to meet ALARA standards for radiation dose reduction. INDICATION: Fall. FINDINGS: The bones are of low bone density which limits sensitivity. There is no evidence of hip dislocation. There may be a small hip joint effusion. The femoral head maintains normal morphology without evidence of an acute proximal femoral fracture. There is no fracture involving the trochanters. There is a multiplanar and comminuted fracture involving the distal femur with dominant fracture lines demonstrating an oblique course through the diametaphyseal junction and through the metaphysis and epiphysis with intra-articular extension exiting between the femoral condyles. These findings are superimposed on advanced underlying osteoarthritic changes within the knee which are most severe within the medial compartment. There appears to be some soft tissue edema and possibly hemorrhage adjacent to the fracture. There is an apparent hemarthrosis. There are no findings of a fracture of the patella. No proximal tibial or fibular head fracture evident. Note is made of diffuse muscular atrophy throughout the leg. There is advanced peripheral arterial disease. IMPRESSION: 1. Comminuted fracture involving the distal femur with oblique course extending through the diametaphyseal junction and through the metaphysis and epiphysis with intra-articular extension between the femoral condyles. There is an associated hemarthrosis. There is also adjacent edema and possibly adjacent blood products but no large definable focal hematoma. 2. Advanced background arthritic changes also present within the right knee 3. No fracture or dislocation evident at the right hip or of the proximal femur. There does appear to likely be a right hip joint effusion. Dictated by: Dictated on workstation # [id number] Dict: 03/08/201924 Trans: 03/08/201957 [facility] [id number] Interpreted by: DONTRELL MANCERA MD Electronically signed by: DONTRELL MANCERA MD 03/08/201957 Reviewed: Reviewed by Me Departure Impression Primary Impression: Closed fracture of right distal femur Qualified Codes: S72.401A - Unspecified fracture of lower end of right femur, initial encounter for closed fracture Additional Impression: Urinary tract infection Qualified Codes: N39.0 - Urinary tract infection, site not specified Disposition: 01 HOME, SELF-CARE Condition: Stable Departure-Patient Inst. Decision time for Depature: 21:20 Referrals: JON RIVAS MD (PCP/Family) Primary Care Physician NAVDEEP AGUILAR MD Patient Instructions: Femur Fracture Add. Discharge Instructions: Leave the knee immobilizer in place as much as possible. If it must be removed, support to the knee and thigh on a bed or with manual support. Use hydrocodone as directed for pain management. Use Colace to prevent constipation of hydrocodone is used. Follow-up with your Jaxon and Dr. Aguilar as soon as possible. Please call Monday for follow-up appointments. Complete the antibiotic as prescribed for treatment of urinary tract infection and review urine culture results on Monday or Monday. Provide oxygen support with nasal cannula 2-4 L/m as needed to keep oxygen saturations greater than 90 percent. Call the primary care provider or return to the emergency room if there are any further problems or concerns. All discharge instructions reviewed with patient and/or family. Voiced understanding. Scripts Docusate Sodium (Colace) 100 Mg Capsule 100 MG PO DAILY, #30 CAP Hold if stools are runny or loose. Only needs to be taken a hydrocodone is used. Prov: REGINA MONSON MD 03/08/20 Hydrocodone/Acetaminophen (Hydrocodone-Acetamin 5-325 mg) 1 Each Tablet 1 EACH PO Q6H PRN for PAIN-MODERATE (5-7), #20 TAB Prov: REGINA MONSON MD 03/08/20 Cephalexin (Keflex) 500 Mg Capsule 500 MG PO BID, #14 CAP Prov: REGINA MONSON MD 03/08/20 Copy Copies To 1: NAVDEEP AGUILAR MD Copies To 2: JON RIVAS MD, JOSHUA T MD March 08, 2020 21:24
--- NOTE | 2020-03-08 22:33 | NUR ---
Patient is resting comfortably at this time. Awaiting transport from [facility].
[2020-03-08 22:44] VITALS: BP 119/76
== END 2020-03-08 22:48 | disposition home or self-care (01) ==
LOC: EDUNIT# 18:04 → ER 18:06
DX: S72.401A Unspecified fracture of lower end of right femur, initial encounter for closed fracture (principal); N39.0 Urinary tract infection, site not specified; I10 Essential (primary) hypertension; E78.00 Pure hypercholesterolemia, unspecified; I48.91 Unspecified atrial fibrillation; K21.9 Gastro-esophageal reflux disease without esophagitis; Z79.01 Long term (current) use of anticoagulants; W19.XXXA Unspecified fall, initial encounter; Y92.129 Unspecified place in nursing home as the place of occurrence of the external cause
CPT/HCPCS: 36415; 70450; 72125; 73700; 80053; 81000; 83735; 85025; 85610; 85730; 87077; 87088; 87186; 96361; 96374

== ENCOUNTER 2020-03-12 04:54 | Inpatient (IN) | payer MEDICARE, MEDICAID ==
[~2020-03-12] VITALS: Ht 162.6 cm; Wt 80.9 kg
[2020-03-12] VITALS (7 sets, daily range): BP systolic 91–123; BP diastolic 61–82
[~2020-03-12 04:54] MED LIST changes: +CEPH-507 PO; +HYDR-83 PO
[2020-03-12] MEDS ORDERED: NS IV 500 ML 500 ML IV STA (05:02)
--- OUTSIDE RECORDS SUMMARY | 2020-03-12 05:04 | XMS REPORT | Continuity of Care Document ---
Author Organization Unknown Address Unknown Phone Unavailable Allergies Active Description Code Type Severity Reaction Onset Reported/Identified Relationship to Patient Clinical Status Yes NO KNOWN DRUG ALLERGIES UNKNOWN NO KNOWN DRUG ALLERG Yes NO KNOWN DRUG ALLERGIES UNKNOWN UNKNOWN Yes No Known Drug Allergies [id number] Drug Allergy Unknown N/A 01/04/2019 Medications Medication [...] 12/08/2018 Daily&0900 MultiVits (Thera M Plus) (mu iykkij-cbta-xazqsho) oral tablet TAB 12/02/2018 12/31/2018 Daily&0900 FISH [...] 12/08/2018 Daily&0900 MultiVits (Thera M Plus) (mu pdhkxp-euzr-nomiarl) oral tablet TAB 12/03/2018 01/01/2019 Daily&0900 FUROSEMIDE [...] Attending Type Code Diagnosis Diagnosed By 12/02/2018 Augustin Tiwari 427.31 ATRIAL FIBRILLATION 12/02/2018 Augustin Tiwari I48.91 UNSPECIFIED ATRIAL FIBRILLATION 12/02/2018 Augustin Tiwari 272.4 OTHER AND UNSPECIFIED HYPERLIPIDEMIA 12/02/2018 Augustin Tiwari 401.9 UNSPECIFIED ESSENTIAL HYPERTENSION 12/02/2018 Augustin Tiwari 427.31 ATRIAL FIBRILLATION 12/02/2018 Augustin Tiwari 820.9 FRACTURE OF UNSPECIFIED PART OF NECK OF FEMUR, OPEN 12/02/2018 Augustin Tiwari E78.5 HYPERLIPIDEMIA, UNSPECIFIED 12/02/2018 Augustin Tiwari I10 ESSENTIAL (PRIMARY) HYPERTENSION 12/02/2018 Augustin Tiwari I48.91 UNSPECIFIED ATRIAL FIBRILLATION 12/02/2018 Tiwari, Augustin W S72.00 FRACTURE OF UNSPECIFIED PART OF NECK OF FEMUR 12/05/2018 Augustin Tiwari W 272.4 OTHER AND UNSPECIFIED HYPERLIPIDEMIA 12/05/2018 Augustin Tiwari W 285.1 ACUTE POSTHEMORRHAGIC ANEMIA 12/05/2018 Augustin Tiwari W 333.94 RESTLESS LEGS SYNDROME (RLS) 12/05/2018 Augustin Tiwari W 401.9 UNSPECIFIED ESSENTIAL HYPERTENSION 12/05/2018 Augustin Tiwari W 427.31 ATRIAL FIBRILLATION 12/05/2018 Augustin Tiwari W 584.9 ACUTE KIDNEY FAILURE, UNSPECIFIED 12/05/2018 Augustin Tiwari W 599.71 GROSS HEMATURIA 12/05/2018 Augustin Tiwari W 780.4 DIZZINESS AND GIDDINESS 12/05/2018 Augustin Tiwari W 788.5 OLIGURIA AND ANURIA 12/05/2018 Augustin Tiwari W 820.21 FRACTURE OF INTERTROCHANTERIC SECTION OF FEMUR, CLOSED 12/05/2018 Augustin Tiwari W D62 ACUTE POSTHEMORRHAGIC ANEMIA 12/05/2018 Augustin Tiwari W E78.5 HYPERLIPIDEMIA, UNSPECIFIED 12/05/2018 Augustin Tiwari W G25.81 RESTLESS LEGS SYNDROME 12/05/2018 Augustin Tiwari W I10 ESSENTIAL (PRIMARY) HYPERTENSION 12/05/2018 Augustin Tiwari W I48.91 UNSPECIFIED ATRIAL FIBRILLATION 12/05/2018 Augustin Tiwari W N17.9 ACUTE KIDNEY FAILURE, UNSPECIFIED 12/05/2018 Augustin Tiwari W R31.0 GROSS HEMATURIA 12/05/2018 Augustin Tiwari W R34 ANURIA AND OLIGURIA 12/05/2018 Augustin Tiwari W R42 DIZZINESS AND GIDDINESS 12/05/2018 Augustin Tiwari W S72.142A DISPLACED INTERTROCHANTERIC FRACTURE OF LEFT FEMUR, INIT 12/11/2018 AUGUSTIN TIWARI DO Ot D62 ACUTE POSTHEMORRHAGIC ANEMIA 12/11/2018 AUGUSTIN TIWARI DO Ot D69.6 THROMBOCYTOPENIA, UNSPECIFIED 12/11/2018 AUGUSTIN TIWARI DO Ot E78.00 PURE HYPERCHOLESTEROLEMIA, UNSPECIFIED 12/11/2018 AUGUSTIN TIWARI DO Ot E83.42 HYPOMAGNESEMIA 12/11/2018 TIWARI DO, AUGUSTIN Ot E87.6 HYPOKALEMIA 12/11/2018 TIWARI DO, AUGUSTIN Ot F03.90 UNSPECIFIED DEMENTIA WITHOUT BEHAVIORAL 12/11/2018 TIWARI DO, AUGUSTIN Ot F41.9 ANXIETY DISORDER, UNSPECIFIED 12/11/2018 TIWARI DO, AUGUSTIN Ot I10 ESSENTIAL (PRIMARY) HYPERTENSION 12/11/2018 TIWARI DO, AUGUSTIN Ot I48.2 CHRONIC ATRIAL FIBRILLATION 12/11/2018 TIWARI DO, AUGUSTIN Ot I48.91 UNSPECIFIED ATRIAL FIBRILLATION 12/11/2018 TIWARI DO, AUGUSTIN Ot I95.1 ORTHOSTATIC HYPOTENSION 12/11/2018 TIWARI DO, AUGUSTIN Ot I95.9 HYPOTENSION, UNSPECIFIED 12/11/2018 TIWARI DO, AUGUSTIN Ot J90 PLEURAL EFFUSION, NOT ELSEWHERE CLASSIFI 12/11/2018 TIWARI DO, AUGUSTIN Ot J98.11 ATELECTASIS 12/11/2018 TIWARI DO, AUGUSTIN Ot K59.01 SLOW TRANSIT CONSTIPATION 12/11/2018 TIWARI DO, AUGUSTIN Ot M19.91 PRIMARY OSTEOARTHRITIS, UNSPECIFIED SITE 12/11/2018 TIWARI DO, AUGUSTIN Ot N39.0 URINARY TRACT INFECTION, SITE NOT SPECIF 12/11/2018 TIWARI DO, AUGUSTIN Ot R09.02 HYPOXEMIA 12/11/2018 TIWARI DO, AUGUSTIN Ot R31.0 GROSS HEMATURIA 12/11/2018 TIWARI DO, AUGUSTIN Ot R34 ANURIA AND OLIGURIA 12/11/2018 TIWARI DO, AUGUSTIN Ot R41.0 DISORIENTATION, UNSPECIFIED 12/11/2018 TIWARI DO, AUGUSTIN Ot S72.00 2D FX UNSP PART OF NK OF L YNES, SUBS FOR C 12/11/2018 TIWARI DO, AUGUSTIN Ot W19.XX XD UNSPECIFIED FALL, SUBSEQUENT ENCOUNTER 12/11/2018 TIWARI DO, AUGUSTIN Ot Z66 DO NOT RESUSCITATE 01/08/2019 TIWARI DO, AUGUSTIN Ot E78.00 PURE HYPERCHOLESTEROLEMIA, UNSPECIFIED 01/08/2019 TIWARI DO, AUGUSTIN Ot E86.0 DEHYDRATION 01/08/2019 TIWARI DO, AUGUSTIN Ot E87.6 HYPOKALEMIA 01/08/2019 TIWARI DO, AUGUSTIN Ot G62.9 POLYNEUROPATHY, UNSPECIFIED 01/08/2019 TIWARI DO, AUGUSTIN Ot I10 ESSENTIAL (PRIMARY) HYPERTENSION 01/08/2019 TIWARI DO, AUGUSTIN Ot I25.10 ATHSCL HEART DISEASE OF [place] CORONARY 01/08/2019 TIWARI DO, AUGUSTIN Ot I44.0 ATRIOVENTRICULAR BLOCK, FIRST DEGREE 01/08/2019 TIWARI DO, AUGUSTIN Ot I47.1 SUPRAVENTRICULAR TACHYCARDIA 01/08/2019 TIWARI DO, AUGUSTIN Ot 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 01/08/2019 TIWARI DO, AUGUSTIN Ot I48.0 PAROXYSMAL ATRIAL FIBRILLATION 01/08/2019 TIWARI DO, AUGUSTIN Ot K21.9 GASTRO-ESOPHAGEAL REFLUX DISEASE WITHOUT 01/08/2019 TIWARI DO, AUGUSTIN Ot K59.09 OTHER CONSTIPATION 01/08/2019 TIWARI DO, AUGUSTIN Ot M19.91 PRIMARY OSTEOARTHRITIS, UNSPECIFIED SITE 01/08/2019 TIWARI DO, AUGUSTIN Ot R41.0 DISORIENTATION, UNSPECIFIED 01/08/2019 TIWARI DO, AUGUSTIN Ot 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 01/08/2019 TIWARI DO, AUGUSTIN Ot R55 SYNCOPE AND COLLAPSE 01/08/2019 TIWARI DO, AUGUSTIN Ot Z66 DO NOT RESUSCITATE 01/08/2019 TIWARI DO, AUGUSTIN Ot Z87.44 0 PERSONAL HISTORY OF URINARY (TRACT) INFE 01/08/2019 TIWARI DO, AUGUSTIN Ot E78.00 PURE HYPERCHOLESTEROLEMIA, UNSPECIFIED 01/08/2019 TIWARI DO, AUGUSTIN Ot E86.0 DEHYDRATION 01/08/2019 TIWARI DO, AUGUSTIN Ot E87.6 HYPOKALEMIA 01/08/2019 TIWARI DO, AUGUSTIN Ot G62.9 POLYNEUROPATHY, UNSPECIFIED 01/08/2019 TIWARI DO, AUGUSTIN Ot I10 ESSENTIAL (PRIMARY) HYPERTENSION 01/08/2019 TIWARI DO, AUGUSTIN Ot I21.A1 MYOCARDIAL INFARCTION TYPE 2 01/08/2019 TIWARI DO, AUGUSTIN Ot I25.10 ATHSCL HEART DISEASE OF [place] CORONARY 01/08/2019 TIWARI DO, AUGUSTIN Ot I44.0 ATRIOVENTRICULAR BLOCK, FIRST DEGREE 01/08/2019 TIWARI DO, AGUUSTIN Ot I47.1 SUPRAVENTRICULAR TACHYCARDIA 01/08/2019 TIWARI DO, AUGUSTIN Ot 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 01/08/2019 TIWARI DO, AUGUSTIN Ot I48.0 PAROXYSMAL ATRIAL FIBRILLATION 01/08/2019 TIWARI DO, AUGUSTIN Ot I50.33 ACUTE ON CHRONIC DIASTOLIC (CONGESTIVE) 01/08/2019 TIWARI AUGUSTIN YAN Ot K21.9 GASTRO-ESOPHAGEAL REFLUX DISEASE WITHOUT 01/08/2019 TIWARIAUGUSTIN STUART DO Ot K59.09 OTHER CONSTIPATION 01/08/2019 TIWARISADE YAN AUGUSTIN Ot M19.91 PRIMARY OSTEOARTHRITIS, UNSPECIFIED SITE 01/08/2019 TIWARI AUGUSTIN YAN Ot R41.0 DISORIENTATION, UNSPECIFIED 01/08/2019 TIWARI DO AUGUSTIN Ot 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 01/08/2019 TIWARI DO AUGUSTIN Ot R55 SYNCOPE AND COLLAPSE 01/08/2019 TIWARISADE YAN AUGUSTIN Ot Z66 DO NOT RESUSCITATE 01/08/2019 TIWARIAUGUSTIN STUART DO Ot Z87.44 0 PERSONAL HISTORY [...] BAUTISTA Ot I48.91 UNSPECIFIED ATRIAL FIBRILLATION 05/13/2019 JHONATAN HANNON DO Ot E78.00 PURE HYPERCHOLESTEROLEMIA, UNSPECIFIED 05/13/2019 JHONATAN HANNON DO Ot E87.6 HYPOKALEMIA 05/13/2019 JHONATAN HANNON DO Ot G62.9 POLYNEUROPATHY, UNSPECIFIED 05/13/2019 JHONATAN HANNON DO Ot H10.9 UNSPECIFIED CONJUNCTIVITIS 05/13/2019 JHONATAN HANNON DO Ot I1 0 ESSENTIAL (PRIMARY) HYPERTENSION 05/13/2019 JHONATAN HANNON DO Ot I48.91 UNSPECIFIED ATRIAL FIBRILLATION 05/13/2019 JHONATAN HANNON DO Ot K21.9 GASTRO-ESOPHAGEAL REFLUX DISEASE WITHOUT 05/13/2019 JHONATAN HNANON DO Ot R06.02 SHORTNESS OF BREATH 05/13/2019 JHONATAN HANNON DO Ot R09.02 HYPOXEMIA 05/13/2019 JHONATAN HANNON DO, Ot R79.89 OTHER SPECIFIED ABNORMAL FINDINGS OF BLO 05/13/2019 JHONATAN HANNON DO Ot Z82.49 FAMILY HX OF ISCHEM HEART DIS AND OTH DI 05/13/2019 JHONATAN HANNON DO, Ot Z87.19 PERSONAL HISTORY OF OTHER DISEASES OF TH 05/18/2019 ROB GARCIA, JON Caceres Ot R41 .0 DISORIENTATION, UNSPECIFIED 05/18/2019 JHONATAN HANNON DO Ot E78.00 PURE HYPERCHOLESTEROLEMIA, UNSPECIFIED 05/18/2019 PARVEZ JHONATAN YAN Ot E87.6 HYPOKALEMIA 05/18/2019 JHONATAN HANNON DO Ot G62.9 POLYNEUROPATHY, UNSPECIFIED 05/18/2019 JHONATAN HANNON DO Ot H10.9 UNSPECIFIED CONJUNCTIVITIS 05/18/2019 JHONATAN HANNON DO Ot I1 0 ESSENTIAL (PRIMARY) HYPERTENSION 05/18/2019 JHONATAN HANNON DO Ot I48.91 UNSPECIFIED ATRIAL FIBRILLATION 05/18/2019 JHONATAN HANNON DO Ot K21.9 GASTRO-ESOPHAGEAL REFLUX DISEASE WITHOUT 05/18/2019 JHONATAN HANNON DO Ot R06.02 SHORTNESS OF BREATH 05/18/2019 JHONATAN HANNON DO Ot R09.02 HYPOXEMIA 05/18/2019 JHONATAN HANNON DO, Ot R79.89 OTHER SPECIFIED ABNORMAL FINDINGS OF BLO 05/18/2019 JHONATAN HANNON DO, Ot Z82.49 FAMILY HX OF ISCHE[place] HEART DIS AND OTH DI 05/18/2019 JHONATAN HANNON DO Ot Z87.19 PERSONAL HISTORY OF OTHER DISEASES OF TH 05/20/2019 JON RIVAS MD Ot R41 .0 DISORIENTATION, UNSPECIFIED 05/23/2019 JON RIVAS MD Ot Z01.89 ENCOUNTER FOR OTHER SPECIFIED SPECIAL EX 07/10/2019 GRETCHEN DUMONT MD, Ot E78. 00 PURE HYPERCHOLESTEROLEMIA, UNSPECIFIED 07/10/2019 GRETCHEN DUMONT MD, Ot F32. 9 MAJOR DEPRESSIVE DISORDER, SINGLE EPISOD 07/10/2019 GRETCHEN DUMONT MD, Ot G62. 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 10 ATHSCL HEART DISEASE OF [place] CORONARY 07/10/2019 GRETCHEN DUMONT MD, Ot I48. 0 PAROXYSMAL ATRIAL FIBRILLATION 07/10/2019 GRETCHEN DUMONT MD Ot K21. 9 GASTRO-ESOPHAGEAL REFLUX DISEASE WITHOUT 07/10/2019 GRETCHEN DUMONT MD Ot K59. 09 OTHER CONSTIPATION 07/10/2019 GRETCHEN DUMONT MD, Ot M19. 91 PRIMARY OSTEOARTHRITIS, UNSPECIFIED SITE 07/10/2019 GRETCHEN DUMONT MD Ot R00. 1 BRADYCARDIA, UNSPECIFIED 07/10/2019 GRETCHEN DUMONT MD Ot Z66 DO NOT RESUSCITATE 07/10/2019 GRETCHEN DUMONT MD Ot Z79. 01 [employer] (CURRENT) USE OF ANTICOAGULANT 09/02/2019 Nicki NICHOLE MD Ot R00 .1 BRADYCARDIA, UNSPECIFIED 09/02/2019 Nicki NICHOLE MD Ot R55 SYNCOPE AND COLLAPSE 10/08/2019 Nicki NICHOLE MD Ot R00 .1 BRADYCARDIA, UNSPECIFIED 10/08/2019 Nicki NICHOLE MD Ot R55 SYNCOPE AND COLLAPSE 10/09/2019 Nicki NICHOLE MD Ot R00 .1 BRADYCARDIA, UNSPECIFIED 10/09/2019 Nicki NICHOLE MD Ot R55 SYNCOPE AND COLLAPSE 03/08/2020 Nicki NICHOLE MD Ot I47 .1 SUPRAVENTRICULAR TACHYCARDIA 03/08/2020 Nicki NICHOLE MD Ot I48.91 UNSPECIFIED ATRIAL FIBRILLATION 03/08/2020 JNO RIVAS MD Ot Z01.89 ENCOUNTER FOR OTHER SPECIFIED SPECIAL EX 03/08/2020 JON RIVAS MD Ot R41 .0 DISORIENTATION, UNSPECIFIED 03/08/2020 Nicki NICHOLE MD Ot R00 .1 BRADYCARDIA, UNSPECIFIED 03/08/2020 Nicki NICHOLE MD Ot R55 SYNCOPE AND COLLAPSE 03/11/2020 ERMIAS GARCIA, REGINA Hood Ot E78.00 PURE HYPERCHOLESTEROLEMIA, UNSPECIFIED 03/11/2020 REGINA MONSON MD, Ot I10 ESSENTIAL (PRIMARY) HYPERTENSION 03/11/2020 REGINA MONSON MD, Ot I48.91 UNSPECIFIED ATRIAL FIBRILLATION 03/11/2020 REGINA MONSON MD, Ot K21.9 GASTRO-ESOPHAGEAL REFLUX DISEASE WITHOUT 03/11/2020 REGINA MONSON MD, Ot M79.651 PAIN IN RIGHT THIGH 03/11/2020 REGINA MONSON MD, Ot N39.0 URINARY TRACT INFECTION, SITE NOT SPECIF 03/11/2020 REGINA MONSON MD, Ot S72.401A UNSP FRACTURE OF LOWER END OF RIGHT FEMU 03/11/2020 REGINA MONSON MD, Ot W19.XXXA UNSPECIFIED FALL, INITIAL ENCOUNTER 03/11/2020 REGINA MONSON MD, Ot Y92.[address] IN SHELTER PLACE 03/11/2020 REGINA MONSON MD, Ot Z79.01 [facility] (CURRENT) USE OF ANTICOAGULANT Procedures Code Description Performed By Per dasia On [id number] [place] ASURE OF CARDIAC SAMPL PRESSURE, L H 01/06/2019 [id number] FL UOROSCOPY OF MULT COR ART USING L OSM 01/06/2019 [id number] FL UOROSCOPY OF LEFT HEART USING LOW OSMO 01/06/2019 [id number] FL UOROSCOPY OF THORACIC AORTA USING LOW 01/06/2019 Results Test Result Range PTT - 12/01/18 21:52 PTT 30.2 Sec 26.0-38.0 Urinalysis - 12/01/18 23:18 Icotest Negative Negative Urine Volume Urine Volume Sufficient (10mL) Urine Yeast No Yeast present Urine-Appearance Slightly Cloudy Clear Urine-Bacteria 1+ Urine-Bilirubin 1+ Negative Urine-Blood Negative Negative Urine-Color Yellow Colorless-[place] ow Urine-Epithelial Cells 5-10/HPF Urine-Glucose Negative Negative Urine-Ketones Trace Negative Urine-Leukocytes Negative Negative Urine-Mucus 3+ Urine-Nitrite Negative Negative Urine-Other Culture to follow Urine-pH 5.5 5-8.5 Urine-Protein 1+ Negative Urine-RBC 2-5/HPF Urine-Specific [place] >=1.030 1.000-1 .030 Urine-WBC 10-20/HPF Urobilinogen 0.2 0.2-1.0 Urine Culture - 12/01/18 23:18 PRELIM CULTURE RESULTS No Growth 24 hours FINAL CULTURE RESULTS No Growth 48 hours MEDIA PLATED Setup at 23:26 on 12/01/2018 CULTURE SOURCE [id number] Leukoreduced Packed RBC Unit Checkout - 12/02/18 [...] Negative Urine-Blood 3+ Negative Urine-Color Yellow Colorless-[place] ow Urine-Epithelial Cells 0-5/HPF Urine-Glucose Negative Negative Urine-Ketones Negative Negative Urine-Leukocytes Negative Negative Urine-Nitrite Negative Negative Urine-Other Urine Saved if Culture Need ed (48hrs from time of collection) Urine-pH 5.5 5-8.5 Urine-Protein 1+ Negative Urine-RBC TNTC Urine-Specific [place] 1.015 1.000-1 .030 Urine-WBC Negative Urobilinogen 0.2 [...] Packed RBC Unit Checkout - 12/04/18 09:29 [facility] Checkout Checked Out. Leukoreduced Packed RBC Unit Checkout - 12/04/18 [facility] Comprehensive Metabolic Panel - [...] - 12/05/18 11:00 Bacterial blood culture NG [facility] Complete blood count (CBC) with automate d [...] 102 mmol/L 98-107 Carbon dioxide 23 mmol/L 21-32 [...] OF GROWTH Isolated NRG Bacterial blood culture [id number] NRG Sputum Gram stain - 05/13/19 01:58 [...] by glucometer (mas s/volume) 182 mg/dL 70-110 Complete blood count (CBC) with automate d white blood cell (WBC) differential - 03/08/20 18:24 Blood leukocytes automated count (number/volume) 7.5 10*3/uL 4.3-11.0 Blood erythrocytes automated count (number/volume) 3.51 10*6/uL 4.35-5.85 Venous blood hemoglobin measurement (mass/volume) 11.5 g/dL 11.5-16.0 Blood hematocrit (volume fraction) 36 % 35-52 Automated erythrocyte mean corpuscular volume 103 [foz_us] 80-99 Automated erythrocyte mean corpuscular h emoglobin (mass per erythrocyte) 33 pg 25-34 Automated erythrocyte mean corpuscular h emoglobin concentration measurement (mass/volume) 32 g/dL 32-36 Automated erythrocyte distribution width ratio 12. 9 % 10.0- 14.5 Automated blood platelet count (count/volume) 172 10*3/uL 130-400 Automated blood platelet mean volume measurement 9.6 [foz_us] 7.4-10.4 Automated blood neutrophils/100 leukocytes 66 % 42-75 Automated blood lymphocytes/100 leukocytes 19 % 12-44 Blood monocytes/100 leukocytes 13 % 0-12 Automated blood eosinophils/100 leukocytes 1 % 0-10 Automated blood basophils/100 leukocytes 1 % 0-10 Blood neutrophils automated count (number/volume) 5.0 10*3 1.8-7.8 Blood lymphocytes automated count (number/volume) 1.4 10*3 1.0-4.0 Blood monocytes automated count (number/volume) 1. 0 10*3 0.0-1.0 Automated eosinophil count 0.1 10*3/uL 0 .0-0.3 Automated blood basophil count (count/volume) 0.1 10*3/uL 0.0-0.1 Comprehensive metabolic panel - 03/08/20 18:24 Serum or plasma sodium measurement (moles/volume) 142 mmol/L 135-145 Serum or plasma potassium measurement (moles/volume) 3.8 mmol/L 3.6-5.0 Serum or plasma chloride measurement (moles/volume) 105 mmol/L 98-107 Carbon dioxide 26 mmol/L 21-32 Serum or plasma anion gap determination (moles/volume) 11 mmol/L 5-14 Serum or plasma urea nitrogen measurement (mass/volume ) 25 mg/dL 7-18 Serum or plasma creatinine measurement (mass/volume) 0.88 mg/dL 0.60-1.30 Serum or plasma urea nitrogen/creatinine mass ratio 28 NRG Serum or plasma creatinine measurement w ith calculation of estimated glomerular filtration rate > NRG Serum or plasma glucose measurement (mass/volume) 105 mg/dL 70-105 Serum or plasma calcium measurement (mass/volume) 8.7 mg/dL 8.5-10.1 Serum or plasma total bilirubin measurement (mass/volu me) 0.7 mg/dL 0.1-1.0 Serum or plasma alkaline phosphatase brenda surement (enzymatic activity/volume) 87 U/L 40-136 Serum or plasma aspartate aminotransfera se measurement (enzymatic activity/volume) 16 U/L 5-34 Serum or plasma alanine aminotransferase measurement (enzymatic activity/volume) 9 U/L 0-55 Serum or plasma protein measurement (mass/volume) 6.6 g/dL 6.4-8.2 Serum or plasma albumin measurement (mass/volume) 3.4 g/dL 3.2-4.5 CALCIUM CORRECTED 9.2 mg/dL 8.5-10.1 PT panel in platelet poor plasma by coag ulation assay - 03/08/20 18:24 Prothrombin time (PT) in platelet poor plasma by coagu lation assay 15.6 s 12.2-14.7 INR in platelet poor plasma or blood by coagulation as say 1.2 0.8-1.4 Activated partial thromboplastin time (a PTT) in platelet poor plasma bycoagulation assay - 03/08/20 18:24 Activated partial thromboplastin time (a PTT) in platelet poor plasma bycoagulation assay 35 s 24-35 Magnesium - 03/08/20 18:33 Magnesium 1.9 mg/dL 1.6-2.4 Complete urinalysis with reflex to cultu re - 03/08/20 18:38 Urine color determination YELLOW NRG Urine clarity determination CLEAR NR G Urine pH measurement by test strip 6.0 5-9 Specific gravity of urine by test strip 1.020 1.016-1.022 Urine protein assay by test strip, semi-quantitative NEGATIVE NEGATIVE Urine glucose detection by automated test strip NE GATIVE NEGATIVE Erythrocytes detection in urine sediment by light micr oscopy NEGATIVE NEGATIVE Urine ketones detection by automated test strip NE GATIVE NEGATIVE Urine nitrite detection by test strip POSITIVE NEGATIVE Urine total bilirubin detection by test strip NEGA TIVE NEGATIVE Urine urobilinogen measurement by automated test strip (mass/volume) 0.2 mg/dL < = 1.0 Urine leukocyte esterase detection by dipstick 2+ NEGATIVE Automated urine sediment erythrocyte cou nt by microscopy (number/high power field) [HPF] NRG Automated urine sediment leukocyte count by microscopy (number/high power field) [HPF] NRG Bacteria detection in urine sediment by light microsco py MODERATE NRG Crystals detection in urine sediment by light microsco py NONE NRG Casts detection in urine sediment by light microscopy NONE NRG Mucus detection in urine sediment by light microscopy NEGATIVE NRG Complete urinalysis with reflex to culture YES NRG Bacterial urine culture - 03/08/20 18:38 Bacterial urine culture [id number] NRG COLONY COUNT >100,000/ML NRG SUSCEPTIBILITY SUSCEPTIBILITY REPORTED 03/10 10:35 NRG Dirithromycin susceptibility test by dis k diffusion - 03/08/20 18:38 Gentamicin susceptibility test by minimum inhibitory c oncentration <= NRG Trimethoprim/sulfamethoxazole susceptibi lity test by minimum inhibitoryconcentration <= NRG Levofloxacin susceptibility test by minimum inhibitory concentration <= NRG Ampicillin susceptibility test by minimum inhibitory c oncentration <= NRG Cefazolin susceptibility test by minimum inhibitory co ncentration <= NRG Ceftriaxone susceptibility test by minimum inhibitory concentration <= NRG Ciprofloxacin susceptibility test by minimum inhibitor y concentration <= NRG Meropenem susceptibility test by minimum inhibitory co ncentration <= NRG Nitrofurantoin susceptibility test by mi nimum inhibitory concentration <= NRG Amoxicillin and clavulanate potassium susc BRADY <= NRG Encounters ACCT No. Visit Date/Time Discharge Status Pt. Type Provider Facility Loc./Unit Complaint [id number] 01/14/2019 09:39:00 01/14/2019 23:59: 00 DIS Outpatient BERNARD FISHER [id number] 01/14/2019 09:17:00 01/14/2019 23:59: 00 DIS Outpatient BERNARD FISHER [id number] 12/02/2018 01:15:00 12/05/2018 08:50: 00 DIS Inpatient Augustin Tiwari [facility] enter ICU [id number] 12/01/2018 22:29:47 Document Registration [id number] 03/08/2020 18:06:00 020 22:48:00 DIS Outpatient REGINA MONSON MD [facility] ER R FEMUR FX [id number] 10/09/2019 00:11:00 23:59:59 CLS Preadmit Nicki NICHOLE MD [facility] CARD BRADYCARDIA,SYNCOPE [id number] 07/10/2019 14:48:00 00:01:00 DIS Outpatient Nicki NICHOLE MD [facility] CARD BRADYCARDIA,SYNCOPE [id number] 07/08/2019 16:10:00 14:40:00 DIS Inpatient GRETCHEN DUMONT MD [facility] 4TH SYMPTOMATIC BRADYCARDIA SYNCOPE [id number] 05/14/2019 17:13:00 23:59:59 CLS Outpatient JON RIVAS MD [facility] UA [id number] 05/13/2019 01:29:00 03:53:00 DIS Emergency JHONATAN HANNON DO [facility] ER FS CONFUSION [id number] 05/06/2019 02:45:00 23:59:59 CLS Outpatient JON RIVAS MD [facility] LAB UA [id number] 04/18/2019 00:10:00 23:59:59 CLS Preadmit Nicki NICHOLE MD [facility] CARD NSVT,PAF [id number] 01/17/2019 14:35:00 00:01:00 DIS Outpatient Nicki NICHOLE MD [facility] CARD NSVT,PAF [id number] 01/04/2019 16:55:00 16:15:00 DIS Inpatient AUGUSTIN TIWARI DO V [facility] 4TH SYNCOPE,NON SUSTAINED V ENTRICULAR TACHYCARDIA [id number] 12/05/2018 09:33:00 12:15:00 DIS Inpatient AUGUSTIN TIWARI DO V [facility] 4TH AFIB POST OP HYPOTENSIO N [id number] 03/12/2020 04:56:[address] Emergency ALBA GARCIA, BRADY Quinonez [facility] ER FS CARDIAC PROBLEMS
--- NOTE | 2020-03-12 05:07 | ED General ---
General Stated Complaint: CARDIAC PROBLEMS Source of Information: Patient, EMS, EMS Notes Reviewed, Prison Records, Old Records, RN/MD Exam Limitations: No Limitations (BRADY ADAMS MD) History of Present Illness Date Seen by Provider: March 12, 2020 Time Seen by Provider: 05:00 Initial Comments This patient is an 89-year-old female presents to the [facility] department for nausea and palpitations. Patient was recently admitted to the hospital due to a femur fracture on the right that was nonsurgical and the patient was [facility] to the [facility] with a brace. Tonight patient states she feels nauseated and has some palpitations fci reports that the patient a heart rate in the 180s however EMS and on arrival patient's heart rates in the 120s. And 130s. Patient appears to have a normal blood pressure of 118/85. Patient states she j ust feels nauseated. Patient does take Eliquist due to the immobilization of her leg. Patient has recently been treated. Tract infection. We'll do medical evaluation treatment is needed. Timing/Duration: 1-3 Hours Severity: Moderate Modifying Factors: worse with Cold Therapy, worse with Eating, worse with Immobilization, worse with Medication, worse with Movement, worse with Rest, worse with Other Associated Systoms: No Denies Symptoms, No Chest Pain, No Cough, No Diaphoresis, No Fever/Chills, No Headaches, No Loss of Appetite, No Malaise; Nausea/Vomiting; No Rash, No Seizure, No Shortness of Air, No Syncope, No Weakness, No Other (BRADY ADAMS MD) Allergies and Home Medications Allergies Coded Allergies: No Known Drug Allergies (Unverified , 01/04/19) Home Medications Acetaminophen 500 Mg Tablet, 500 MG PO Q4H PRN for PAIN-MILD, (Reported) Amlodipine Besylate 5 Mg Tablet, 5 MG PO DAILY Prescribed by: AUGUSTIN TIWARI on 07/10/19 1259 Apixaban 2.5 Mg Tablet, 2.5 MG PO BID Prescribed by: AUGUSTIN TIWARI on 01/07/19 1057 Calcium Carbonate/Vitamin D3 1 Each Tablet, 1 TAB PO DAILY, (Reported) Cephalexin 500 Mg Capsule, 500 MG PO BID Prescribed by: REGINA DENNIS on 03/08/202123 Citalopram Hydrobromide 10 Mg Tablet, 10 MG PO HS, (Reported) Docusate Sodium 100 Mg Capsule, 400 MG PO HS, (Reported) TAKES 4 (100MG) CAPSULES Docusate Sodium 100 Mg Capsule, 100 MG PO DAILY Hold if stools are runny or loose. Only needs to be taken a hydrocodone is used. Prescribed by: REGINA DENNIS on 03/08/202123 Famotidine 20 Mg Tablet, 20 MG PO BID, (Reported) Furosemide 20 Mg Tablet, 20 MG PO DAILY, (Reported) Hydrocodone/Acetaminophen 1 Each Tablet, 1 EACH PO Q6H PRN for PAIN-MODERATE (5- 7) Prescribed by: REGINA DENNIS on 03/08/202123 Mirtazapine 7.5 Mg Tablet, 7.5 MG PO HS, (Reported) Multivitamin 1 Each Tablet, 1 TAB PO DAILY, (Reported) Polyethylene Glycol 3350 17 Gm Powd.pack, 17 GM PO DAILY, (Reported) Potassium Chloride 10 Meq Tablet.er, 10 MEQ PO DAILY, (Reported) Pravastatin Sodium 20 Mg Tablet, 20 MG PO HS, (Reported) Ropinirole HCl 1 Mg Tablet, 1 MG PO TID, (Reported) Sennosides/Docusate Sodium 1 Each Tablet, 2 TAB PO BID, (Reported) Sertraline HCl 100 Mg Tablet, 100 MG PO DAILY, (Reported) Tramadol HCl 50 Mg Tablet, 50 MG PO Q6H PRN for PAIN-MODERATE, (Reported) Patient Home Medication List Home Medication List Reviewed: Yes (BRADY ADAMS MD) Review of Systems Review of Systems Constitutional: No no symptoms reported; see HPI; No chills, No diaphoresis, No dizziness, No fever, No malaise; weakness; No weight gain, No weight loss, No other EENTM: No see HPI, No no symptoms reported, No ear discharge, No hearing loss, No ear pain, No blurred vision, No double vision, No eye pain, No tearing, No vision loss, No dental problems, No hoarseness, No mouth pain, No mouth swelling, No epistaxis, No nose congestion, No nose pain, No throat pain, No th roat swelling, No other Respiratory: No no symptoms reported, No see HPI, No cough, No dyspnea on exertion, No hemoptysis, No orthopnea, No phlegm, No short of breath, No stridor, No wheezing, No other Cardiovascular: No no symptoms reported; see HPI; No chest pain, No edema, No Hx of Intervention; palpitations; No syncope, No vascular heart diseas, No other Gastrointestinal: No RUQ, No LUQ, No RLQ, No LLQ, No no symptoms reported, No see HPI, No abdominal pain, No constipation, No diarrhea, No dysphagia, No hematemesis, No heartburn, No jaundice, No loss of appetite, No melena; nausea; No vomiting, No other Genitourinary: see HPI Musculoskeletal: No no symptoms reported, No see HPI, No back pain, No gout, No joint pain, No joint swelling, No muscle pain, No muscle stiffness, No muscle cramps, No muscle twitching, No muscle weakness, No neck pain, No other Skin: No no symptoms reported, No see HPI, No change in color, No change in hair/nails, No dryness, No hx of skin cancer, No lesions, No lumps, No pruritus, No rash, No other (BRADY ADAMS MD) All Other Systems Reviewed Negative Unless Noted: Yes (BRADY ADAMS MD) Past Vsdjtud-Xdswrf-Hxlruu Hx Patient Social History 2nd Hand Smoke Exposure: No Recent Foreign Travel: No Contact w/Someone Who Travel: No Recent Hopitalizations: No (BRADY ADAMS MD) Immunizations Up To Date Date of Pneumonia Vaccine: Sep 22, 2018 Date of Influenza Vaccine: Sep 22, 2018 (BRADY ADAMS MD) Seasonal Allergies Seasonal Allergies: No (BRADY ADAMS MD) Past Medical History Surgeries: Yes Orthopedic Respiratory: No Cardiac: Yes Atrial Fibrillation, High Cholesterol, Hypertension Neurological: Yes Neuropathy Genitourinary: Yes Bladder Infection Gastrointestinal: Yes Gastroesophageal Reflux, Chronic Constipation Musculoskeletal: Yes Arthritis Endocrine: No HEENT: No Cancer: No Psychosocial: No Integumentary: No Blood Disorders: No (BRADY ADAMS MD) Family Medical History Genitourinary system disorder Hypertension (BRADY ADAMS MD) Physical Exam Vital Signs Vital Signs - First Documented 03/12/20 05:21 Temp 36.7 Pulse 127 Resp 20 B/P (MAP) 118/85 (96) Pulse Ox 95 (JECANDIDO DO) Vital Signs Capillary Refill : (BRADY ADAMS MD) Height, Weight, BMI Height: 5'7.00" Weight: 209lbs. 7.0oz. 94.919577ar; 28.00 BMI Method:Stated General Appearance: No Apparent Distress, WD/WN HEENT: PERRL/EOMI, TMs Normal, Normal ENT Inspection, Pharynx Normal Neck: Full Range of Motion, Normal Inspection, Non Tender, Supple Respiratory: Chest Non Tender, Lungs Clear, Normal Breath Sounds, No Accessory Muscle Use, No Respiratory Distress Cardiovascular: No Edema, No Gallop, No JVD, No Murmur, Normal Peripheral Pulses, Irregularly Irregular, Tachycardia Gastrointestinal: Normal Bowel Sounds, No Organomegaly, No Pulsatile Mass, Non Tender, Soft Extremity: Normal Capillary Refill, Normal Inspection, Normal Range of Motion, Non Tender, No Calf Tenderness, No Pedal Edema, Other (splint in place on right femur area.) Neurologic/Psychiatric: Alert, Oriented x3, No Motor/Sensory Deficits, Normal Mood/Affect Skin: Normal Color, Warm/Dry (BRADY ADAMS MD) Focused Exam Lactate Level 03/12/20 05:10: Lactic Acid Level 2.18*H 03/12/20 07:10: Lactic Acid Level 1.23 (CANDIDO WOOTEN DO) Lactic Acid Level Laboratory Tests Test 03/12/20 07:10 Lactic Acid Level 1.23 MMOL/L (0.50-2.00) (CANDIDO WOOTEN DO) Progress/Results/Core Measures Suspected Sepsis SIRS Temperature: Pulse: Respiratory Rate: Blood Pressure / Mean: (BRADY ADAMS MD) Results/Orders Lab Results Laboratory Tests Test 03/12/20 05:10 03/12/20 05:55 03/12/20 07:10 Range/Units White Blood Count 11.5 H 4.3-11.0 10^3/uL Red Blood Count 3.37 L 4.35-5.85 10^6/uL Hemoglobin 11.3 L 11.5-16.0 G/DL Hematocrit 34 L 35-52 % Mean Corpuscular Volume 102 H 80-99 FL Mean Corpuscular Hemoglobin 34 25-34 PG Mean Corpuscular Hemoglobin Concent 33 32-36 G/DL Red Cell Distribution Width 12.3 10.0-14.5 % Platelet Count 212 130-400 10^3/uL Mean Platelet Volume 7.6 7.4-10.4 FL Neutrophils (%) (Auto) 83 H 42-75 % Lymphocytes (%) (Auto) 8 L 12-44 % Monocytes (%) (Auto) 8 0-12 % Eosinophils (%) (Auto) 0 0-10 % Basophils (%) (Auto) 1 0-10 % Neutrophils # (Auto) 9.6 H 1.8-7.8 X 10^3 Lymphocytes # (Auto) 0.9 L 1.0-4.0 X 10^3 Monocytes # (Auto) 0.9 0.0-1.0 X 10^3 Eosinophils # (Auto) 0.0 0.0-0.3 10^3/uL Basophils # (Auto) 0.1 0.0-0.1 10^3/uL Neutrophils % (Manual) 82 % Lymphocytes % (Manual) 9 % Monocytes % (Manual) 5 % Eosinophils % (Manual) 0 % Basophils % (Manual) 0 % Metamyelocytes % 1 % Band Neutrophils 2 % Atypical Lymphocytes 1 % Prothrombin Time 14.6 12.2-14.7 SEC INR Comment 1.1 0.8-1.4 Sodium Level 140 135-145 MMOL/L Potassium Level 3.6 3.6-5.0 MMOL/L Chloride Level 98 98-107 MMOL/L Carbon Dioxide Level 27 21-32 MMOL/L Anion Gap 15 H 5-14 MMOL/L Blood Urea Nitrogen 27 H 7-18 MG/DL Creatinine 0.67 0.60-1.30 MG/DL Estimat Glomerular Filtration Rate > 60 BUN/Creatinine Ratio 40 Glucose Level 121 H 70-105 MG/DL Lactic Acid Level 2.18 *H 1.23 0.50-2.00 MMOL/L Calcium Level 8.9 8.5-10.1 MG/DL Corrected Calcium 9.5 8.5-10.1 MG/DL Total Bilirubin 0.8 0.1-1.0 MG/DL Aspartate Amino Transf (AST/SGOT) 18 5-34 U/L Alanine Aminotransferase (ALT/SGPT) 9 0-55 U/L Alkaline Phosphatase 77 40-136 U/L Troponin I < 0.30 <0.30 NG/ML Total Protein 6.7 6.4-8.2 GM/DL Albumin 3.2 3.2-4.5 GM/DL Urine Color DARK YELLOW Urine Clarity slt cloudy Urine pH 6.0 5-9 Urine Specific [place] 1.025 H 1.016-1.022 Urine Protein 2+ H NEGATIVE Urine Glucose (UA) NEGATIVE NEGATIVE Urine Ketones 1+ H NEGATIVE Urine Nitrite NEGATIVE NEGATIVE Urine Bilirubin 2+ H NEGATIVE Urine Urobilinogen 0.2 < = 1.0 MG/DL Urine Leukocyte Esterase TRACE H NEGATIVE Urine RBC (Auto) 3+ H NEGATIVE Urine RBC 50-100 H /HPF Urine WBC 0-2 /HPF Urine Squamous Epithelial Cells 0-2 /HPF Urine Crystals NONE /LPF Urine Bacteria TRACE /HPF Urine Casts NONE /LPF Urine Mucus SMALL H /LPF Urine Culture Indicated YES (CANDIDO WOOTEN DO) My Orders Orders - CANDIDO WOOTEN DO Diltiazem Injection (Cardizem Injection) (03/12/20 08:45) Diltiazem Injection (Cardizem Injection) (03/12/20 08:45) Diltiazem Drip Pre-Mix (Cardizem Drip Pr (03/12/20 09:30) Diltiazem Drip Pre-Mix (Cardizem Drip Pr (03/12/20 09:13) (CANDIDO WOOTEN DO) Medications Given in ED Current Medications Medications Dose Ordered Sig/Liz Route Start Time Stop Time Status Last Admin Dose Admin Ceftriaxone Sodium 1000 mg/ Sterile Water 10 ml @ 200 mls/hr ONCE ONCE IV 03/12/20 06:00 03/12/20 06:02 DC 03/12/20 06:07 200 MLS/HR Diltiazem HCl 5 mg ONCE ONCE IVP 03/12/20 08:00 03/12/20 08:01 DC 03/12/20 08:01 5 MG Diltiazem HCl 5 mg ONCE ONCE IVP 03/12/20 08:45 03/12/20 08:46 DC 03/12/20 08:43 5 MG Diltiazem HCl 10 mg ONCE ONCE IVP 03/12/20 05:30 03/12/20 05:31 DC 03/12/20 05:36 10 MG Diltiazem HCl 125 ml @ ud STK-MED ONCE IV 03/12/20 09:13 03/12/20 09:22 DC 03/12/20 09:25 5 MLS/HR Ondansetron HCl 4 mg ONCE ONCE IVP 03/12/20 05:15 03/12/20 05:16 DC 03/12/20 05:36 4 MG (CANDIDO WOOTEN DO) Vital Signs/I&O 03/12/20 05:21 Temp 36.7 Pulse 127 Resp 20 B/P (MAP) 118/85 (96) Pulse Ox 95 (CANDIDO WOOTEN DO) Vital Signs/I&O Capillary Refill : (BRADY ADAMS MD) Progress Note : Time: 05:55 Progress Note Patient appears to be have an A. fib with RVR. Patient received Cardizem 10 mg IV push. We're awaiting lab results. Patient has recent femur fracture. It was nonoperable. Care be transferred to Dr. Patel for shift change. (BRADY ADAMS MD) Progress Note : Time: 06:05 Progress Note Report taken from Dr. Adams. Patient has been seen 4 times over the past 2 and half hours. She did have a gradual increase in her pulse and was given additional dose of Cardizem 5 mg IV push and was brought down to a heart rate of 101. Patient was moving up to 120 earlier this morning. Patient's laboratory evaluation reveals hemoglobin 11.3 WBC 11.5 INR 1.1 lactate was 2.18 and repeated 1.23 urinalysis has trace of leukocyte esterase 2+ bilirubin hematuria but no significant pyuria. Patient has a nonsurgical right femur fracture and is stable to be returned to her extended care facility. I recommend continued Cardizem for control of tachycardia with atrial fibrillation. (CANDIDO WOOTEN DO) ECG Initial ECG Impression Date: March 12, 2020 Initial ECG Impression Time: 05:09 Initial ECG Rate: 139 Initial ECG Rhythm: A Fib/Flutter Initial ECG Impression: Atrial Fibrillation w/RVR Comment Atrial fibrillation and flutter with RVR. Heart rate 139. Prolonged QT interval nonspecific EKG changes. (BRADY ADAMS MD) Departure Impression Primary Impression: Atrial fibrillation with RVR Additional Impressions: Nausea Femur fracture, right Disposition: ADMITTED INPATIENT Condition: Improved Admissions Decision to Admit Reason: Admit from ER (General) Decision to Admit/Date: March 12, 2020 Time/Decision to Admit Time: 09:35 (CANDIDO WOOTEN DO) Transfer Method of Transfer: EMS (CANDIDO WOOTEN DO) Departure-Patient Inst. Decision time for Depature: 08:28 (CANDIDO WOOTEN DO) Referrals: JON RIVAS MD (PCP/Family) Primary Care Physician GRETCHEN DUMONT MD Patient Instructions: Atrial Fibrillation (DC), Dementia (DC), Femur Fracture (DC) Add. Discharge Instructions: 89-year-old female discharged to return to the shelter facility. Patient has nonsurgical femur fracture currently in splint. She also has atrial fibrillation with rapid ventricular response treated with 2 doses of Cardizem in the emergency room (total 20 mg). Patient was given 10 mg of Cardizem IV followed by 5 mg of Cardizem IV followed by a second 5 mg of Cardizem IV her heart rate Going up to 130 and she was started on a 5 mg per hour diltiazem drip Dr. Ross was contacted and the patient will be admitted to the [facility] after hospitalization the Patient should switch from amlodipine to Cardizem. Hydration is recommended follow up here with Dr. Rivas after inpatient hospitalization. Patient is already on cephalexin for UTI. Copy Copies To 1: JON RIVAS MD; GRETCHEN DUMONT MD, BRIAN W MD March 12, 2020 05:07 CANDIDO WOOTEN DO March 12, 2020 08:30
[2020-03-12] MEDS ORDERED: ONDANSETRON 4 MG/2 ML (SDV) Z0FRAN IVP ONE (05:15)
[2020-03-12] MEDS ORDERED: dilTIAZem DRIP PRE-MIX 125 ML IV SCH ×2 (05:30→09:30)
--- NOTE | 2020-03-12 05:40 | NUR ---
Dr Adams wants to hold [facility] at this time.
[2020-03-12 05:47] LABS: BASOPHILS % (AUTO) 1 % (0-10); EOSINOPHILS % (AUTO) 0 % (0-10); HEMATOCRIT 34 % (35-52); HEMOGLOBIN 11.3 G/DL (11.5-16.0); LYMPHOCYTES % (AUTO) 8 % (12-44); MEAN CORPUSCULAR HEMOGLOBIN 34 PG (25-34); MEAN CORPUSCULAR HGB CONC 33 G/DL (32-36); MEAN CORPUSCULAR VOLUME 102 FL (80-99); MEAN PLATELET VOLUME 7.6 FL (7.4-10.4); MONOCYTES % (AUTO) 8 % (0-12); NEUTROPHILS % (AUTO) 83 % (42-75); PLATELET COUNT 212 10^3/uL (130-400); RED CELL DISTRIBUTION WIDTH 12.3 % (10.0-14.5); WHITE BLOOD COUNT 11.5 10^3/uL (4.3-11.0)
[2020-03-12 05:48] LABS: BASOPHILS # (AUTO) 0.1 10^3/uL (0.0-0.1); LYMPHOCYTES # (AUTO) 0.9 X 10^3 (1.0-4.0); MONOCYTES # (AUTO) 0.9 X 10^3 (0.0-1.0); NEUTROPHILS # (AUTO) 9.6 X 10^3 (1.8-7.8)
--- NOTE | 2020-03-12 05:48 | Diagnostic Imaging Report ---
CHEST 1 VIEW AP/PA ONLY Indication: Tachycardia Comparison: 07/05/2019 Findings: Visualized lungs are clear with the exception of chronic right basilar linear atelectasis/scar. Marked enlargement of the cardiac silhouette is unchanged. Dense micro annulus calcifications are stable. No pleural effusion or pneumothorax. Impression: 1. No acute cardiopulmonary process by portable radiography. Dictated by: Dictated on workstation # [id number]
[2020-03-12 05:51] LABS: PROTHROMBIN TIME PATIENT 14.6 SEC (12.2-14.7)
[2020-03-12 05:52] LABS: INR 1.1 (0.8-1.4)
[2020-03-12 05:55] LABS: CARBON DIOXIDE 27 MMOL/L (21-32); CHLORIDE 98 MMOL/L (98-107); POTASSIUM 3.6 MMOL/L (3.6-5.0); SODIUM 140 MMOL/L (135-145)
[2020-03-12 05:56] LABS: ALANINE AMINOTRANSFERASE 9 U/L (0-55); ALBUMIN 3.2 GM/DL (3.2-4.5); ALKALINE PHOSPHATASE 77 U/L (40-136); BILIRUBIN,TOTAL 0.8 MG/DL (0.1-1.0); BUN/CREATININE RATIO 40; CALCIUM 8.9 MG/DL (8.5-10.1); CREATININE SERUM 0.67 MG/DL (0.60-1.30); GFR ESTIMATED > 60; GLUCOSE 121 MG/DL (70-105); TOTAL PROTEIN 6.7 GM/DL (6.4-8.2)
[2020-03-12] MEDS ORDERED: cefTRIAXone FOR IV USE 1,000 MG in WATER (STERILE) FOR INJECTION 10 ML IV ONE (06:00)
[2020-03-12 06:24] LABS: COLOR,URINE DARK YELLOW
[2020-03-12 06:25] LABS: BACTERIA,URINE TRACE /HPF; BILIRUBIN,URINE 2+ (NEGATIVE); GLUCOSE, URINE (UA) NEGATIVE (NEGATIVE); KETONES,URINE 1+ (NEGATIVE); LEUKOCYTE ESTERASE ,URINE TRACE (NEGATIVE); NITRITE,URINE NEGATIVE (NEGATIVE); PROTEIN,URINE 2+ (NEGATIVE); RBC,URINE 50-100 /HPF; WBC,URINE 0-2 /HPF
[2020-03-12 06:26] LABS: SQUAMOUS EPITHELIAL CELL,UR 0-2 /HPF
[2020-03-12 06:28] LABS: ATYPICAL LYMPHOCYTES 1 %; BAND NEUTROPHILS 2 %; BASOPHILS % (MANUAL) 0 %; EOSINOPHILS % (MANUAL) 0 %; LYMPHOCYTES % (MANUAL) 9 %; METAMYELOCYTES % 1 %; MONOCYTES % (MANUAL) 5 %; NEUTROPHILS % (MANUAL) 82 %
[2020-03-12] MEDS ORDERED: dilTIAZem DRIP PRE-MIX 125 ML IV ONE (09:13)
--- OUTSIDE RECORDS SUMMARY | 2020-03-12 10:17 | XMS REPORT | Continuity of Care Document ---
Author Organization Unknown Address Unknown Phone Unavailable Allergies Active Description Code Type Severity Reaction Onset Reported/Identified Relationship to Patient Clinical Status Yes NO KNOWN DRUG ALLERGIES UNKNOWN NO KNOWN DRUG ALLERG Yes NO KNOWN DRUG ALLERGIES UNKNOWN UNKNOWN Yes No Known Drug Allergies [id number] Drug Allergy Unknown N/A 01/04/2019 Medications Medication [...] 12/08/2018 Daily&0900 MultiVits (Thera M Plus) (mu iuzenh-muwy-axffnbc) oral tablet TAB 12/02/2018 12/31/2018 Daily&0900 FISH [...] 12/08/2018 Daily&0900 MultiVits (Thera M Plus) (mu nsrify-ynpu-mgcekye) oral tablet TAB 12/03/2018 01/01/2019 Daily&0900 FUROSEMIDE [...] EFFUSION, NOT ELSEWHERE CLASSIFI 12/11/2018 TIWARI DO, AUGUSTNI Ot J98.11 ATELECTASIS 12/11/2018 TIWARI DO, AUGUSTIN [...] AUGUSTIN Ot I25.10 ATHSCL HEART DISEASE OF [place] CORONARY 01/08/2019 TIWARI DO, AUGUSTIN Ot I44.0 [...] AUGUSTIN Ot I25.10 ATHSCL HEART DISEASE OF [place] CORONARY 01/08/2019 TIWARI DO, AUGUSTIN Ot I44.0 [...] BAUTISTA Ot I47 .1 SUPRAVENTRICULAR TACHYCARDIA 01/18/2019 DAYAANRA GARCIA, Nicki BAUTISTA Ot I48.91 UNSPECIFIED ATRIAL [...] K21.9 GASTRO-ESOPHAGEAL REFLUX DISEASE WITHOUT 05/13/2019 JHONATAN HANNON DO Ot R06.02 SHORTNESS OF BREATH 05/13/2019 [...] Ot I25. 10 ATHSCL HEART DISEASE OF [place] CORONARY 07/10/2019 GRETCHEN DUMONT MD, Ot I48. 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 09/02/2019 Nicki NICHOLE [...] MD Ot I48.91 UNSPECIFIED ATRIAL FIBRILLATION 03/08/2020 JON RIVAS MD Ot Z01.89 ENCOUNTER FOR [...] MONSON MD, Ot Y92.[address] [address] 03/11/2020 REGINA MONSON MD, Ot Z79.01 GROUP HOME (CURRENT) USE OF ANTICOAGULANT Procedures Code Description Performed By Per dasia On [id number] [place] ASURE OF CARDIAC SAMPL PRESSURE, L H 01/06/2019 [id number] FL UOROSCOPY OF MULT COR ART USING L OSM 01/06/2019 [id number] FL UOROSCOPY OF LEFT HEART USING LOW OSMO 01/06/2019 [id number] FL UOROSCOPY OF THORACIC AORTA USING LOW 01/06/2019 Results Test Result Range PTT - 12/01/18 21:52 PTT 30.2 Sec 26.0-38.0 Urinalysis - 12/01/18 23:18 Icotest Negative Negative Urine Volume Urine Volume Sufficient (10mL) Urine Yeast No Yeast present Urine-Appearance Slightly Cloudy Clear Urine-Bacteria 1+ Urine-Bilirubin 1+ Negative Urine-Blood Negative Negative Urine-Color Yellow Colorless-[place] ow Urine-Epithelial Cells 5-10/HPF Urine-Glucose Negative Negative Urine-Ketones Trace Negative Urine-Leukocytes Negative Negative Urine-Mucus 3+ Urine-Nitrite Negative Negative Urine-Other Culture to follow Urine-pH 5.5 5-8.5 Urine-Protein 1+ Negative Urine-RBC 2-5/HPF Urine-Specific [place] >=1.030 1.000-1 .030 Urine-WBC 10-20/HPF Urobilinogen 0.2 0.2-1.0 Urine Culture - 12/01/18 23:18 PRELIM CULTURE RESULTS No Growth 24 hours FINAL CULTURE RESULTS No Growth 48 hours MEDIA PLATED Setup at 23:26 on 12/01/2018 CULTURE SOURCE [id number]\ Leukoreduced Packed RBC Unit Checkout - 12/02/18 [...] Negative Urine-Blood 3+ Negative Urine-Color Yellow Colorless-[place] ow Urine-Epithelial Cells 0-5/HPF Urine-Glucose Negative Negative Urine-Ketones Negative Negative Urine-Leukocytes Negative Negative Urine-Nitrite Negative Negative Urine-Other Urine Saved if Culture Need ed (48hrs from time of collection) Urine-pH 5.5 5-8.5 Urine-Protein 1+ Negative Urine-RBC TNTC Urine-Specific [place] 1.015 1.000-1 .030 Urine-WBC Negative Urobilinogen 0.2 [...] Packed RBC Unit Checkout - 12/04/18 09:29 [facility] Checkout Checked Out. Leukoreduced Packed RBC Unit Checkout - 12/04/18 13:05 [facility]. Comprehensive Metabolic Panel - [...] - 12/05/18 11:00 Bacterial blood culture NG [facility] Complete blood count (CBC) with automate d [...] OF GROWTH Isolated NRG Bacterial blood culture [id number] NRG Sputum Gram stain - 05/13/19 01:58 [...] culture - 03/08/20 18:38 Bacterial urine culture [id number] NRG COLONY COUNT >100,000/ML NRG SUSCEPTIBILITY SUSCEPTIBILITY [...] Status Pt. Type Provider Facility Loc./Unit Complaint [id number] 01/14/2019 09:39:00 01/14/2019 23:59: 00 DIS Outpatient BERNARD FISHER [id number] 01/14/2019 09:17:00 01/14/2019 23:59: 00 DIS Outpatient BERNARD FISHER [id number] 12/02/2018 01:15:00 12/05/2018 08:50: 00 DIS Inpatient Augustin Tiwari [facility] enter ICU [id number] 12/01/2018 22:29:47 Document Registration [id number] 03/08/2020 18:06:00 020 22:48:00 DIS Outpatient REIGNA MONSON MD [facility] ER R FEMUR FX [id number] 10/09/2019 00:11:00 23:59:59 CLS Preadmit Nicki NICHOLE MD [facility] CARD BRADYCARDIA,SYNCOPE [id number] 07/10/2019 14:48:00 00:01:00 DIS Outpatient Nicki NICHOLE MD [facility] CARD BRADYCARDIA,SYNCOPE [id number] 07/08/2019 16:10:00 14:40:00 DIS Inpatient GRETCHEN DUMONT MD [facility] 4TH SYMPTOMATIC BRADYCARDIA SYNCOPE [id number] 05/14/2019 17:13:00 23:59:59 CLS Outpatient JON RIVAS MD [facility] UA [id number] 05/13/2019 01:29:00 03:53:00 DIS Emergency JHONATAN HANNON DO [facility] ER FS CONFUSION [id number] 05/06/2019 02:45:00 23:59:59 CLS Outpatient JON RIVAS MD [facility] LAB UA [id number] 04/18/2019 00:10:00 23:59:59 CLS Preadmit Nicki NICHOLE MD [facility] CARD NSVT,PAF [id number] 01/17/2019 14:35:00 00:01:00 DIS Outpatient Nicki NICHOLE MD [facility] CARD NSVT,PAF [id number] 01/04/2019 16:55:00 16:15:00 DIS Inpatient AUGUSTIN TIWARI DO V [facility] 4TH SYNCOPE,NON SUSTAINED V ENTRICULAR TACHYCARDIA [id number] 12/05/2018 09:33:00 12:15:00 DIS Inpatient AUGUSTIN TIWARI DO V [facility] 4TH AFIB POST OP HYPOTENSIO N [id number] 03/12/2020 04:56:[address] Emergency ALBA GARCIA, BRADY Quinonez [facility] ER FS CARDIAC PROBLEMS
[2020-03-12] MEDS: NS IV 1000 ML 1,000 ML IV SCH ×3 (11:21→23:17)
[2020-03-12] MEDS ORDERED: POTA10TA36 PO (11:40)
[2020-03-12] MEDS ORDERED: MEMA10TA57 PO (11:41)
[2020-03-12] MEDS ORDERED: CEPH500C PO (11:41)
--- NOTE | 2020-03-12 11:41 | NUR ---
ENTERED THE MED REC USING THE TRANSFER/DISCHARGE REPORT FROM [facility] I ALSO CALLED THE FACILITY- PT WAS RECENTLY IN THE ED AND WAS GIVEN HYDROCODONE AND CEPHALEXIN 500MG BUT THEY WERE NOT LISTED ON THE REPORT FROM [facility]. THE PATIENTS NURSE WAS ABLE TO TELL ME THAT YES THE PT WAS TAKING BOTH OF THOSE MEDS FROM THE ED
[2020-03-12] MEDS: dilTIAZem DRIP 125 MG/125 ML DRIP IV SCH ×2 (11:43→12:15)
[2020-03-12] MEDS ORDERED: AMIODARONE FOR BOLUS 150 MG in D5W 100 ML IVPB 100 ML IV NR (11:45)
[2020-03-12] MEDS: AMIODARONE INJECTION 450 MG in D5W IV SOLUTION (EXCEL) 250 ML IV SCH ×2 (12:17→21:16)
--- NOTE | 2020-03-12 14:15 | History & Physical-Hospitalist ---
History of Present Illness HPI/Chief Complaint Pt is an 89yoCF with a PMH of a fib, dementia, HTN who presented to the ER due to heart racing. She is unable to provide me many details. She believes she was brought here by a taxi and is requesting a taxi to bring her home. She did acknowledge that her heart was racing but was unable to provide any other details. She denies any pain. Apparently in the ER her heart rate was in the 120-130s and could not be improved with cardizem boluses. She required a cardizem gtt to control her rate and thus she was transferred here for admission. Source: patient Date Seen 03/12/20 Time Seen by a Provider: 15:00 Attending Physician Gretchen Dumont MD PCP Lubna Coates MD Referring Physician Date of Admission March 12, 2020 at 09:39 Home Medications & Allergies Home Medications Reviewed patient Home Medication Reconciliation performed by pharmacy medication reconciliations audiology technician and/or nursing. Patients Allergies have been reviewed. Allergies Allergies Coded Allergies No Known Drug Allergies (Unverified01/04/19) Past Arqrvyl-Poxvao-Xndfdl Hx Past Med/Social Hx: Reviewed Nursing Past Med/Soc Hx Patient Social History Employed/Student: retired Alcohol Use: Denies Use Recreational Drug Use: No Smoking Status: Never a Smoker 2nd Hand Smoke Exposure: No Recent Foreign Travel: No Contact w/other who traveled: No Recent Hopitalizations: No Recent Infectious Disease Expo: No Immunizations Up To Date Date of Pneumonia Vaccine: Sep 22, 2018 Date of Influenza Vaccine: Sep 22, 2018 Seasonal Allergies Seasonal Allergies: No Past Medical History Surgeries: Orthopedic Cardiac: Atrial Fibrillation, High Cholesterol, Hypertension Neurological: Neuropathy Genitourinary: Bladder Infection Gastrointestinal: Gastroesophageal Reflux, Chronic Constipation Musculoskeletal: Arthritis History of Blood Disorders: No Family History Reviewed Nursing Family Hx Genitourinary system disorder Hypertension Review of Systems ROS-Unable to Obtain: dementia Constitutional: see HPI Cardiovascular: see HPI Physical Exam Physical Exam Vital Signs Vital Signs - First Documented 03/12/20 03/12/20 05:21 11:11 Temp 36.7 Pulse 127 Resp 20 B/P (MAP) 118/85 (96) Pulse Ox 95 O2 Delivery Room Air Capillary Refill : Less Than 3 SecondsLess Than 3 Seconds Height, Weight, BMI Height: 5'7.00" Weight: 209lbs. 7.0oz. 94.376881sm; 30.59 BMI Method:Stated General Appearance: No Apparent Distress, Chronically ill HEENT: PERRL/EOMI, Moist Mucous Membranes; No Scleral Icterus (L), No Scleral Icterus (R) Neck: Normal Inspection, Supple Respiratory: Lungs Clear, No Accessory Muscle Use, No Respiratory Distress Cardiovascular: No Murmur, Irregularly Irregular, Tachycardia Gastrointestinal: Normal Bowel Sounds, Non Tender, Soft Extremity: No Pedal Edema, Other (right upper leg in immobilizer) Neurologic/Psychiatric: Alert, Disoriented Skin: Normal Color, Warm/Dry Results Results/Procedures Labs Laboratory Tests 03/12/20 05:10 Patient resulted labs reviewed. Imaging: Reviewed Imaging Report Imaging Date of Exam:03/12/20 CHEST 1 VIEW AP/PA ONLY Indication: Tachycardia Comparison: 07/05/2019 Findings: Visualized lungs are clear with the exception of chronic right basilar linear atelectasis/scar. Marked enlargement of the cardiac silhouette is unchanged. Dense micro annulus calcifications are stable. No pleural effusion or pneumothorax. Impression: 1. No acute cardiopulmonary process by portable radiography. Assessment/Plan Admission Diagnosis a-fib with RVR Admission Status: Inpatient Order (span 2 midnights) Reason for Inpatient Admission: iv cardizem gtt Assessment and Plan a-fib with RVR HTN Cardizem gtt Cardiology consulted Continue Eliquis BP well controlled currently Telemetry Displaced femur fracture To follow up as an outpatient with ortho Pain controlled Reviewed previous notes and surgical intervention would result in poor outc ome so family elected conservative measures Dementia Depression Reorient as needed, oriented to person and place only Continue home meds DVT PPX: Eliquis Clinical Quality Measures DVT/VTE Risk/Contraindication: Risk Factor Score Per Nursin RFS Level Per Nursing on Admit: 4+=Very High GRETCHEN DUMONT MD March 12, 2020 14:15
[2020-03-12] MEDS ORDERED: HYDROcodone/APAP 5 MG/325 MG (LORTAB) TAB PO PRN (14:45)
[2020-03-12] MEDS ORDERED: ACETAMINOPHEN 500 MG TAB (TYLENOL) PO PRN (14:45)
--- NOTE | 2020-03-12 16:22 | Consultation-Cardiology ---
HPI-Cardiology Cardiology Consultation: Date of Consultation 03/12/20 Date of Admission Attending Physician Gretchen Jason MD Admitting Physician Lubna Coates MD Consulting Physician Nicki CALLES MD HPI: Time Seen by a Provider: 11:15 Chief Complaint: Palpitations. This is a 89-year-old lady who I follow in my outpatient office as well. She has history of paroxysmal atrial fibrillation, dementia, high blood pressure. She is on rate controlling agent and low dose Eliquis as an outpatient. She complained of palpitation. She denied any chest pain or shortness of breath. In the ER she had atrial fibrillation with rapid ventricular rate which did not improve with Cardizem infusion. She was therefore transferred to [facility] for further management. Her pertinent family history is negative. She denies active smoking. However due to dementia she is not the best historian. Review of Systems-Cardiology Review of Systems Constitutional: As described under HPI; No As described under HPI, No no symptoms reported, No chills, No fever, No lightheadedness Eyes: No As described under HPI, No no symptoms reported, No blindness, No blurred vision, No contact lenses, No drainage, No decreased acuity, No foreign body sensation, No pain, No vision change Ears/Nose/Throat: No As described under HPI, No no symptoms reported, No chronic hearing loss, No ear discharge, No ear pain, No nasal drainage, No ulcerations Respiratory: No no symptoms reported; As described under HPI; No As described under HPI, No cough, No orthopnea, No shortness of breath, No SOB with excertion Cardiovascular: No no symptoms reported; As described under HPI; No As described under HPI, No chest pain, No edema, No irregular heart rate, No lightheadedness; palpitations Gastrointestinal: No no symptoms reported, No As described under HPI, No abdomen distended, No abdominal pain, No blood streaked bowels, No constipation, No diarrhea, No nausea, No vomiting, No stool coloration changes Genitourinary: No As described under HPI, No burning, No dysuria, No discharge, No frequency, No flank pain, No hematuria, No urgency : Yes : No Skin: No rash, No skin related problems, No ulcerations Psychiatric/Neurological: No anxiety, No depression, No seizure, No focal weakness, No syncope Hematologic: No bleeding abnormalities All Other Systems Reviewed Negative Unless Noted: Yes [id number] Hx Patient Social History Employed/Student: retired Alcohol Use: Denies Use Recreational Drug Use: No Smoking Status: Never a Smoker 2nd Hand Smoke Exposure: No Recent Foreign Travel: No Recent Infectious Disease Expo: No Hospitalization with Isolation: Denies Immunizations Up To Date Date of Pneumonia Vaccine: Sep 22, 2018 Date of Influenza Vaccine: Sep 22, 2018 Past Medical History PMH As described under Assessment. Family Medical History Family Medical History: Does not report fam h/o early CAD or SCD Family History: Genitourinary system disorder Allergies and Home Medications Allergies Coded Allergies: No Known Drug Allergies (Unverified , 01/04/19) Home Medications Acetaminophen 500 Mg Tablet, 500 MG PO Q4H PRN for PAIN-MILD, (Reported) Amiodarone HCl 200 Mg Tablet, 200 MG PO DAILY Prescribed by: GRETCHEN JASON on 03/13/20 1143 Apixaban 2.5 Mg Tablet, 2.5 MG PO BID Prescribed by: AUGUSTIN TIWARI on 01/07/19 1057 Calcium Carbonate/Vitamin D3 1 Each Tablet, 1 TAB PO DAILY, (Reported) Cephalexin 500 Mg Capsule, 500 MG PO BID, (Reported) FILLED 03-09-2020 #14 Citalopram Hydrobromide 10 Mg Tablet, 10 MG PO HS, (Reported) Docusate Sodium 100 Mg Capsule, 400 MG PO HS, (Reported) TAKES 4 (100MG) CAPSULES Famotidine 20 Mg Tablet, 20 MG PO BID, (Reported) Furosemide 20 Mg Tablet, 20 MG PO DAILY, (Reported) Hydrocodone/Acetaminophen 1 Each Tablet, 1 EACH PO Q6H PRN for PAIN-MODERATE (5- 7) Prescribed by: REGINA DENNIS on 03/08/20 2124 Memantine HCl 10 Mg Tablet, 10 MG PO BID, (Reported) Mirtazapine 7.5 Mg Tablet, 7.5 MG PO HS, (Reported) Multivitamin 1 Each Tablet, 1 TAB PO DAILY, (Reported) Polyethylene Glycol 3350 17 Gm Powd.pack, 17 GM PO DAILY, (Reported) Potassium Chloride 10 Meq Tab.er.prt, 10 MEQ PO DAILY, (Reported) Pravastatin Sodium 20 Mg Tablet, 20 MG PO HS, (Reported) Ropinirole HCl 1 Mg Tablet, 1 MG PO TID, (Reported) Sennosides/Docusate Sodium 1 Each Tablet, 2 TAB PO BID, (Reported) Sertraline HCl 100 Mg Tablet, 100 MG PO DAILY, (Reported) Tramadol HCl 50 Mg Tablet, 50 MG PO Q6H PRN for PAIN-MODERATE, (Reported) Patient Home Medication List Home Medication List Reviewed: Yes Physical Exam-Cardiology Physical Exam Vital Signs/I&O Capillary Refill : Less Than 3 SecondsLess Than 3 Seconds Constitutional: appears stated age; No apparent distress; well-developed, well- nourished HEENT: PERRL; No discharge; hearing is well preserved, oral hygience is good; No ulceration, No xanthelasmas are seen Neck: No carotid bruit; carotid pulses are 2 + bilaterally Respiratory: chest is bilaterally symmetric, lungs clear to auscultation Cardiovascular: irregularly irregular, tachycardia, S1 and S2, systolic murmur Gastrointestinal: soft, audible bowel sounds; No spleenomegaly Rectal: deferred Extremities: normal range of motion, non-tender, normal inspection; No clubbing, No cyanosis; no lower extremity edema bilateral; No significant edema Neurologic/Psychiatric: no motor/sensory deficits, alert, normal mood/affect, disoriented x 3, power is 5/5 both on sides Skin: normal color, warm/dry; No rash, No ulcerations Data Review Labs Microbiology 03/12/20 Blood Culture - Preliminary, Resulted No growth 03/12/20 Urine Culture - Final, Complete NO GROWTH ECG Impression ECG Initial ECG Impression: Atrial Fibrillation w/RVR A/P-Cardiology Assessment/Admission Diagnosis Atrial fibrillation with rapid ventricular rate, hypertension, Dementia. Plan Atrial fibrillation with rapid ventricular rate, we will start Cardizem infusion, IV amiodarone and continue Eliquis 2.5 mg twice a day. Echocardiogram. Hypertension, continue Cardizem for now. Dementia, deferred to the primary team. Thank you for your consultation. Please call me if you have any questions. Laquita Calles MD, FACP, FACC, FSCAI, FHRS, CCDS Interventional Cardiology Cardiac Electrophysiology Vascular Medicine and Endovascular Interventions Clinical Quality Measures DVT/VTE Risk/Contraindication: Risk Factor Score Per Nursin RFS Level Per Nursing on Admit: 4+=Very High Nicki CALLES MD March 12, 2020 16:22
[2020-03-12] MEDS: SENNA W/DOCUSATE (SENOKOT S) TABLET PO SCH (20:09)
[2020-03-12] MEDS: rOPINIRole 1 MG (REQUIP) TABLET PO SCH (20:09)
[2020-03-12] MEDS: FAMOTIDINE 20 MG (PEPCID) TABLET PO SCH (20:09)
[2020-03-12] MEDS: MEMANTINE 10 MG (NAMENDA) TABLET PO SCH (20:10)
[2020-03-12] MEDS: CEPHALEXIN 250 MG (KEFLEX) CAP PO SCH (20:10)
[2020-03-12] MEDS: APIXABAN 2.5 MG (ELIQUIS) TABLET PO SCH (20:10)
[2020-03-12] MEDS ORDERED: DOCUSATE SODIUM 100 MG (COLACE) CAP PO SCH (21:00)
[2020-03-12] MEDS ORDERED: SIMvastatin 10 MG (ZOCOR) TAB PO SCH (21:00)
[2020-03-12] MEDS ORDERED: MIRTAZAPINE 15 MG (REMERON) TAB PO SCH (21:00)
[2020-03-13] VITALS: BP 103/74
[2020-03-13 03:37] LABS: BASOPHILS % (AUTO) 0 % (0-10); EOSINOPHILS # (AUTO) 0.1 10^3/uL (0.0-0.3); EOSINOPHILS % (AUTO) 1 % (0-10); HEMATOCRIT 31 % (35-52); HEMOGLOBIN 9.8 G/DL (11.5-16.0); LYMPHOCYTES # (AUTO) 1.5 X 10^3 (1.0-4.0); LYMPHOCYTES % (AUTO) 16 % (12-44); MEAN CORPUSCULAR HEMOGLOBIN 33 PG (25-34); MEAN CORPUSCULAR HGB CONC 32 G/DL (32-36); MEAN CORPUSCULAR VOLUME 104 FL (80-99); MEAN PLATELET VOLUME 9.7 FL (7.4-10.4); MONOCYTES # (AUTO) 1.2 X 10^3 (0.0-1.0); MONOCYTES % (AUTO) 13 % (0-12); NEUTROPHILS # (AUTO) 6.3 X 10^3 (1.8-7.8); NEUTROPHILS % (AUTO) 70 % (42-75); PLATELET COUNT 224 10^3/uL (130-400)
[2020-03-13 03:53] LABS: ALBUMIN 3.1 GM/DL (3.2-4.5)
[2020-03-13 03:54] LABS: CHLORIDE 106 MMOL/L (98-107); POTASSIUM 3.3 MMOL/L (3.6-5.0); SODIUM 141 MMOL/L (135-145)
[2020-03-13 03:55] LABS: CALCIUM 8.3 MG/DL (8.5-10.1)
[2020-03-13 03:56] LABS: GLUCOSE 97 MG/DL (70-105); TOTAL PROTEIN 6.3 GM/DL (6.4-8.2)
[2020-03-13 03:57] LABS: CARBON DIOXIDE 25 MMOL/L (21-32)
[2020-03-13 03:58] LABS: BILIRUBIN,TOTAL 0.7 MG/DL (0.1-1.0)
[2020-03-13 03:59] LABS: ALKALINE PHOSPHATASE 61 U/L (40-136); CREATININE SERUM 0.79 MG/DL (0.60-1.30); GFR ESTIMATED > 60
[2020-03-13 04:00] VITALS: BP 104/70
[2020-03-13 04:01] LABS: BUN/CREATININE RATIO 42
[2020-03-13 04:02] LABS: ALANINE AMINOTRANSFERASE 9 U/L (0-55)
[2020-03-13] MEDS: NS IV 1000 ML 1,000 ML IV SCH ×2 (04:03→12:07)
[2020-03-13 06:24] VITALS: BP 128/81
[2020-03-13 08:00] VITALS: BP 104/59
[2020-03-13] MEDS ORDERED: CALCIUM CARB + VIT D 600 MG (CALCARB + D) TAB PO SCH (08:00)
[2020-03-13] MEDS ORDERED: KCL 10 MEQ TAB (MICRO K) PO SCH (08:00)
[2020-03-13] MEDS: CEPHALEXIN 250 MG (KEFLEX) CAP PO SCH (08:19)
[2020-03-13] MEDS: FAMOTIDINE 20 MG (PEPCID) TABLET PO SCH (08:20)
[2020-03-13] MEDS: APIXABAN 2.5 MG (ELIQUIS) TABLET PO SCH (08:20)
[2020-03-13] MEDS: SENNA W/DOCUSATE (SENOKOT S) TABLET PO SCH (08:20)
[2020-03-13] MEDS: MEMANTINE 10 MG (NAMENDA) TABLET PO SCH (08:20)
[2020-03-13] MEDS: rOPINIRole 1 MG (REQUIP) TABLET PO SCH ×2 (08:20→12:07)
[2020-03-13] MEDS: dilTIAZem DRIP 125 MG/125 ML DRIP IV SCH (08:21)
[2020-03-13] MEDS ORDERED: SERTRALINE 100 MG (ZOLOFT) TAB PO SCH (09:00)
[2020-03-13] MEDS ORDERED: FUROSEMIDE 20 MG (LASIX) TAB PO SCH (09:00)
[2020-03-13] MEDS ORDERED: polyethylene glycoL POWDER 17 GM (MIRALAX) PACK PO SCH (09:00)
--- NOTE | 2020-03-13 11:06 | NUR ---
Pt is Judaism. She seemed a little confused though she did know the day and that she was in the hospital. She was concerned about getting out and tending to other matters. Superintendent Renting Managing will let [facility] in [place] know of her hospitalization.
--- NOTE | 2020-03-13 11:11 | NUR ---
CM/SS visited with the patient for discharge planning. The patient is a [facility] resident of [facility]. The patient was laying in bed and when she opened her eyes the first thing she said to this ss is "I need to get home". The patient had difficulty tracking with conversation and bounced around from topic to topic. The patient could not tell this ss where she was currently living at when asked. CM/SS is unsure of discharge date but will coordinate with [facility] to set up transportation and or skilled placement if needed.
--- NOTE | 2020-03-13 11:13 | NUR ---
"RD ASSESSMENT PMHx: afib; hypercholesterolemia; dementia; HTN; GERD; chronic constipation PT INTERACTION: Note pt has dementia, per chart review. All information provided by either chart review or per Paula HONG. RN states appetite is okay, and pt ate okay at breakfast. Note avg PO intake 50% x2meal, per chart review. RN states no issues with nausea or vomiting, but some issues with constipation. Note no BM was been recorded, and pt currently on bowel regimen of miralax qd; senna BID; and colace HS, per chart review. Note unable to determine recent wt hx, per chart review. ABNORMAL NUTRITION-RELATED LAB VALUES LOW: K 3.3; Ca 8.3; Pro 6.3 HIGH: BUN 33 Est. kcal needs: 2982-4868 kcal | 20-25 kcal/kg Est. Pro needs: 65-81 g Pro | 0.8-1.0 g Pro/kg PES STATEMENT: Inadequate oral intake (NI-2.1) related to loss of appetite | constipation as evidenced by chart review | RN interview | avg PO intake 50% x2meal INTERVENTION: Continue with current diet order of CHO 60g/m 3snack diet. Add Glucerna (vary) to meals TID, for increased kcal intake. Provides 220 kcal and 10 g Pro per serving. Would encourage pt to eat when able. Will continue to follow and reassess as pt needs, intake, and status change. MONITOR/EVALUATE: PO Intake; Plan of Care; Hydration Status; Weight Status; Lab Values Karthikeyan Pena, MS, RD, LD"
--- NOTE | 2020-03-13 11:40 | Discharge Summary ---
Diagnosis/Chief Complaint Date of Admission March 12, 2020 at 09:39 Date of Discharge Admission Diagnosis a-fib with RVR Primary Care Jon Rivas MD Discharge Summary Procedures/Consulations Dr. Calles- Cardiology Discharge Physical Exam Allergies: Coded Allergies: No Known Drug Allergies (Unverified , 01/04/19) Vitals & I&Os Vital Signs Date Time Temp Pulse Resp B/P (MAP) Pulse Ox O2 Delivery O2 Flow Rate FiO2 03/13/20 08:00 37.0 03/13/20 08:00 60 17 104/59 (74) 100 Nasal Cannula 2.00 General Appearance: No Apparent Distress, Chronically ill Respiratory: Lungs Clear, No Respiratory Distress Cardiovascular: Regular Rate, Rhythm Neurologic/Psychiatric: Alert, Disoriented (pleasantly confused) Hospital Course Pt was admitted to the hospital due to atrial fibrillation with rapid ventricular rate. She was treated with cardizem and amiodarone drips and she converted to sinus rhythm. She was transitioned off the drips and started on oral amiodarone. Cardiology was consulted. She was discharged home in stable condition to follow up with her PCP Dr Rivas. I did speak with Dr Rivas regarding this hospital stay. She is also to follow up with orthopedic surgery for her femur fracture. Labs (last 24 hrs) Laboratory Tests 03/13/20 02:44: White Blood Count 9.0, Red Blood Count 2.95L, Hemoglobin 9.8L, Hematocrit 31L, Mean Corpuscular Volume 104H, Mean Corpuscular Hemoglobin 33, Mean Corpuscular Hemoglobin Concent 32, Red Cell Distribution Width 13.0, Platelet Count 224, Mean Platelet Volume 9.7, Neutrophils (%) (Auto) 70, Lymphocytes (%) (Auto) 16, Monocytes (%) (Auto) 13H, Eosinophils (%) (Auto) 1, Basophils (%) (Auto) 0, Neutrophils # (Auto) 6.3, Lymphocytes # (Auto) 1.5, Monocytes # (Auto) 1.2H, Eosinophils # (Auto) 0.1, Basophils # (Auto) 0.0, Sodium Level 141, Potassium Level 3.3L, Chloride Level 106, Carbon Dioxide Level 25, Anion Gap 10, Blood Urea Nitrogen 33H, Creatinine 0.79, Estimat Glomerular Filtration Rate > 60, BUN/Creatinine Ratio 42, Glucose Level 97, Calcium Level 8.3L, Corrected Calcium 9.0, Total Bilirubin 0.7, Aspartate Amino Transf (AST/SGOT) 17, Alanine Aminotransferase (ALT/SGPT) 9, Alkaline Phosphatase 61, Total Protein 6.3L, Albumin 3.1L Microbiology 03/12/20 Urine Culture - Final, Complete NO GROWTH 03/12/20 Blood Culture - Preliminary, Resulted Bacillus species Patient resulted labs reviewed. Imaging: Reviewed Imaging Report Discussion & Recommendations Discharge Planning: >30 minutes discharge planning Discharge Home Medications: Active Scripts Active Hydrocodone-Acetamin 5-325 mg (Hydrocodone/Acetaminophen) 1 Each Tablet 1 Each PO Q6H PRN Eliquis (Apixaban) 2.5 Mg Tablet 2.5 Mg PO BID 30 Days Reported Cephalexin 500 Mg Capsule 500 Mg PO BID FILLED 03-09-2020 #14 Memantine HCl 10 Mg Tablet 10 Mg PO BID Potassium Chloride 10 Meq Tab.er.prt 10 Meq PO DAILY Ropinirole HCl 1 Mg Tablet 1 Mg PO TID Acid Applications Project Manager (FAMOTIDINE) (Famotidine) 20 Mg Tablet 20 Mg PO BID Sertraline HCl 100 Mg Tablet 100 Mg PO DAILY Tramadol HCl 50 Mg Tablet 50 Mg PO Q6H PRN Senna-S Tablet (Sennosides/Docusate Sodium) 1 Each Tablet 2 Tab PO BID Furosemide 20 Mg Tablet 20 Mg PO DAILY Tylenol Extra Strength (Acetaminophen) 500 Mg Tablet 500 Mg PO Q4H PRN Polyethylene Glycol 3350 17 Gm Powd.pack 17 Gm PO DAILY Citalopram HBr (Citalopram Hydrobromide) 10 Mg Tablet 10 Mg PO HS Calcium 600 + Vit D 200 Tablet (Calcium Carbonate/Vitamin D3) 1 Each Tablet 1 Tab PO DAILY Multivitamins (Multivitamin) 1 Each Tablet 1 Tab PO DAILY Colace (Docusate Sodium) 100 Mg Capsule 400 Mg PO HS TAKES 4 (100MG) CAPSULES Pravastatin Sodium 20 Mg Tablet 20 Mg PO HS Mirtazapine 7.5 Mg Tablet 7.5 Mg PO HS Instructions to patient/family Please see electronic discharge instructions given to patient. Clinical Quality Measures DVT/VTE Risk/Contraindication: Risk Factor Score Per Nursin RFS Level Per Nursing on Admit: 4+=Very High Copy Copies To 1: JON RIVAS MD, KATELYN M MD March 13, 2020 11:40
[2020-03-13] MEDS ORDERED: AMIO200T4 PO (11:43)
--- NOTE | 2020-03-13 11:46 | Discharge Inst-Simple/Standard ---
Discharge Inst-Standard Discharge Medications New, Converted or Re-Newed RX: Transmitted to Pharmacy Patient Instructions/Follow Up Plan of Care/Instructions/FU: Please continue to take your medications as written. Please follow up with Dr Coates. Activity as Tolerated: Yes Discharge Diet: No Restrictions Return to The Hospital For: Chest pain, shortness of breath, palpitations, fever, if you feel you are getting worse. GRETCHEN DUMONT MD March 13, 2020 11:46
--- NOTE | 2020-03-13 11:55 | NUR ---
CM/SS update. Plan: The [facility] today 03/13. The fish bait picker time will be 1:00 p.m. with transportation from the facility. CM/SS will fax the discharge to the facility when finalized.
[2020-03-13] MEDS ORDERED: AMIODARONE 200 MG (CORDARONE) TAB PO SCH (11:56)
[2020-03-13 12:00] VITALS: BP 105/64
--- NOTE | 2020-03-13 13:55 | NUR ---
Staff assisted pt to chair at bedside to be transferred to [facility] facility. VSS prior to discharge. Discharge packet given to group home staff upon discharge. Personal belongings with pt at time of transfer.
--- NOTE | 2020-03-13 18:35 | Cardiology Progress Note ---
Cardiology SOAP Progress Note Subjective: Converted to sinus rhythm. Objective: I&O/Vital Signs Weight (Pounds): 209 Weight (Ounces): 7.0 Weight (Calculated Kilograms): 94.076408 Constitutional: well-developed, well-nourished Respiratory: chest is bilaterally symmetric, lungs clear to auscultation Cardiovascular: regular rate-rhythm, S1 and S2, systolic murmur Gastrointestional: soft, audible bowel sounds Extremities: normal range of motion, non-tender, normal inspection, no lower extremity edema bilateral Neurologic/Psychiatric: no motor/sensory deficits, alert, normal mood/affect, disoriented x 3 Skin: normal color, warm/dry Results/Procedures: Labs Microbiology 03/12/20 Blood Culture - Preliminary, Resulted No growth 03/12/20 Urine Culture - Final, Complete NO GROWTH A/P: Assessment/Dx: Atrial fibrillation with rapid ventricular rate, hypertension, Dementia. Plan: Atrial fibrillation with rapid ventricular rate, we will start Cardizem infusion, IV amiodarone and continue Eliquis 2.5 mg twice a day. Patient converted to sinus rhythm. We will change IV Cardizem/IV amiodarone to by mouth. Okay to discharge to follow-up in the office in 2-3 weeks. Echocardiogram. Hypertension, continue Cardizem for now. Dementia, deferred to the primary team. Thank you for your consultation. Please call me if you have any questions. Laquita Calles MD, FACP, FACC, FSCAI, FHRS, CCDS Interventional Cardiology Cardiac Electrophysiology Vascular Medicine and Endovascular Interventions Focused Exam Lactate Level 03/12/20 05:10: Lactic Acid Level 2.18*H 03/12/20 07:10: Lactic Acid Level 1.23 Nicki CALLES MD March 13, 2020 18:35
== END 2020-03-13 13:55 | DRG 310 ==
LOC: EDUNIT# 04:54 → ER FS 04:56 → ICU 09:39
PROVIDERS: ADMIT Family Medicine; ATTEND Family Medicine
DX: I48.0 Paroxysmal atrial fibrillation (principal); I48.92 Unspecified atrial flutter; R11.0 Nausea; I10 Essential (primary) hypertension; E78.00 Pure hypercholesterolemia, unspecified; K21.9 Gastro-esophageal reflux disease without esophagitis; K59.09 Other constipation; G62.9 Polyneuropathy, unspecified; Z66 Do not resuscitate; M19.91 Primary osteoarthritis, unspecified site; F03.90 Unspecified dementia, unspecified severity, without behavioral disturbance, psychotic disturbance, mood disturbance, and anxiety; F32.9 Major depressive disorder, single episode, unspecified; S72.91XD Unspecified fracture of right femur, subsequent encounter for closed fracture with routine healing; Z87.440 Personal history of urinary (tract) infections; Z79.01 Long term (current) use of anticoagulants
CPT/HCPCS: 36415; 71045; 80053; 81000; 83605; 84484; 85007; 85025; 85027; 85610; 87040; 87088; 93005; 93306

== ENCOUNTER → 2020-10-20 | Outpatient (CLI) | payer MEDICARE, MEDICAID ==
[~2020-10-20] MED LIST changes: +ACHD5005 PO; -AMIO200T4 PO; +AMIO200T6 PO; +AMLO-250 PO; -AMLO5TAB9 PO; +ASPI-1238 PO; -ASPI-983 PO; -CALC-6 PO; +CALC1TAB84 PO; +CEPH500C PO; -HYDR-83 PO; +MEMA10TA57 PO; +MULT-567 PO; -MULT1TAB69 PO; -PANT40TA3 PO; +PANT40TA52 PO
[2020-10-20 17:50] LABS: BILIRUBIN,URINE NEGATIVE (NEGATIVE); CLARITY,URINE SLT CLOUDY; COLOR,URINE YELLOW; GLUCOSE, URINE (UA) NEGATIVE (NEGATIVE); KETONES,URINE NEGATIVE (NEGATIVE); LEUKOCYTE ESTERASE ,URINE 1+ (NEGATIVE); NITRITE,URINE POSITIVE (NEGATIVE); PROTEIN,URINE NEGATIVE (NEGATIVE)
[2020-10-20 17:51] LABS: BACTERIA,URINE LARGE /HPF; HYALINE CASTS, URINE RARE /LPF; SQUAMOUS EPITHELIAL CELL,UR 0-2 /HPF
== END ==
LOC: LAB FS 17:15
PROVIDERS: ATTEND Pediatrics
DX: R30.0 Dysuria (principal)
CPT/HCPCS: 81000; 87088

== ENCOUNTER 2020-11-06 12:56 | Emergency (ER) | payer MEDICARE, MEDICAID ==
[~2020-11-06] VITALS: Ht 162.6 cm; Wt 81.0 kg
--- NOTE | 2020-11-06 13:07 | ED GU-Female ---
General Stated Complaint: LOW URINE OUTPUT History of Present Illness Date Seen by Provider: Nov 06, 2020 Time Seen by Provider: 13:04 Initial Comments 89-year-old female sent to the ER due to concerns with low urine output. Patient was recently treated for a UTI. Patient has dementia and does not provide any history. group home reports that they're concerned that she hasn't been having as much urine recently. They called her primary care provider who said paste mixing supervisor to the ER for further evaluation patient RA has an indwelling Leon catheter that has yellow urine with fresh urine in the tube, bag at approximately 300 mL in the Leon bag. Allergies and Home Medications Allergies Coded Allergies: No Known Drug Allergies (Unverified , 01/04/19) Home Medications Acetaminophen 500 Mg Tablet, 500 MG PO Q4H PRN for PAIN-MILD, (Reported) Amiodarone HCl 200 Mg Tablet, 200 MG PO DAILY Prescribed by: GRETCHEN DUMONT on 03/13/20 1143 Apixaban 2.5 Mg Tablet, 2.5 MG PO BID Prescribed by: AUGUSTIN TIWARI on 01/07/19 1057 Calcium Carbonate/Vitamin D3 1 Each Tablet, 1 TAB PO DAILY, (Reported) Cephalexin 500 Mg Capsule, 500 MG PO BID, (Reported) FILLED 03-09-2020 #14 Citalopram Hydrobromide 10 Mg Tablet, 10 MG PO HS, (Reported) Docusate Sodium 100 Mg Capsule, 400 MG PO HS, (Reported) TAKES 4 (100MG) CAPSULES Famotidine 20 Mg Tablet, 20 MG PO BID, (Reported) Furosemide 20 Mg Tablet, 20 MG PO DAILY, (Reported) Hydrocodone/Acetaminophen 1 Each Tablet, 1 EACH PO Q6H PRN for PAIN-MODERATE (5- 7) Prescribed by: REGINA DENNIS on 03/08/202123 Memantine HCl 10 Mg Tablet, 10 MG PO BID, (Reported) Mirtazapine 7.5 Mg Tablet, 7.5 MG PO HS, (Reported) Multivitamin 1 Each Tablet, 1 TAB PO DAILY, (Reported) Polyethylene Glycol 3350 17 Gm Powd.pack, 17 GM PO DAILY, (Reported) Potassium Chloride 10 Meq Tab.er.prt, 10 MEQ PO DAILY, (Reported) Pravastatin Sodium 20 Mg Tablet, 20 MG PO HS, (Reported) Ropinirole HCl 1 Mg Tablet, 1 MG PO TID, (Reported) Sennosides/Docusate Sodium 1 Each Tablet, 2 TAB PO BID, (Reported) Sertraline HCl 100 Mg Tablet, 100 MG PO DAILY, (Reported) Tramadol HCl 50 Mg Tablet, 50 MG PO Q6H PRN for PAIN-MODERATE, (Reported) Patient Home Medication List Home Medication List Reviewed: Yes Review of Systems Review of Systems Constitutional: no symptoms reported; No chills, No fever EENTM: no symptoms reported Respiratory: no symptoms reported Cardiovascular: no symptoms reported Gastrointestinal: no symptoms reported Genitourinary: see HPI Review of systems limited based on patient's dementia history and states that there is nothing wrong that she feels good Past Urvabzu-Otelcw-Ibkpev Hx Past Med/Social Hx: Reviewed Nursing Past Med/Soc Hx Patient Social History 2nd Hand Smoke Exposure: No Recent Hopitalizations: No Immunizations Up To Date Date of Pneumonia Vaccine: Sep 22, 2018 Date of Influenza Vaccine: Sep 22, 2018 Seasonal Allergies Seasonal Allergies: No Past Medical History Surgeries: Yes Orthopedic Respiratory: No Cardiac: Yes Atrial Fibrillation, High Cholesterol, Hypertension Neurological: Yes Neuropathy Genitourinary: Yes Bladder Infection Gastrointestinal: Yes Gastroesophageal Reflux, Chronic Constipation Musculoskeletal: Yes Arthritis Endocrine: No HEENT: No Cancer: No Psychosocial: No Integumentary: No Blood Disorders: No Family Medical History Genitourinary system disorder Hypertension Physical Exam Vital Signs Capillary Refill : Height, Weight, BMI Height: 5'7.00" Weight: 209lbs. 7.0oz. 94.332772db; 30.59 BMI Method:Stated General Appearance: other (chronically ill,) Cardiovascular: normal peripheral pulses, regular rate, rhythm Respiratory: lungs clear, normal breath sounds Gastrointestinal: non tender Genital/Rectal: other (Leon catheter in place) Neurologic/Psychiatric: alert, normal mood/affect, other (patient at her baseline dementia) Skin: normal color Progress/Results/Core Measures Suspected Sepsis SIRS Temperature: Pulse: Respiratory Rate: Laboratory Tests 11/06/20 13:30: White Blood Count 8.3 Blood Pressure / Mean: Laboratory Tests 11/06/20 13:30: Creatinine 0.71, Platelet Count 265 Results/Orders Lab Results Laboratory Tests Test 11/06/20 13:20 11/06/20 13:30 Range/Units Urine Color YELLOW Urine Clarity SLT CLOUDY Urine pH 7.5 5-9 Urine Specific [place] 1.015 L 1.016-1.022 Urine Protein 1+ H NEGATIVE Urine Glucose (UA) NEGATIVE NEGATIVE Urine Ketones NEGATIVE NEGATIVE Urine Nitrite POSITIVE H NEGATIVE Urine Bilirubin NEGATIVE NEGATIVE Urine Urobilinogen 0.2 < = 1.0 MG/DL Urine Leukocyte Esterase 1+ H NEGATIVE Urine RBC (Auto) 3+ H NEGATIVE Urine RBC 25-50 H /HPF Urine WBC 0-2 /HPF Urine Squamous Epithelial Cells NONE /HPF Urine Crystals NONE /LPF Urine Bacteria MODERATE H /HPF Urine Casts NONE /LPF Urine Mucus NEGATIVE /LPF Urine Culture Indicated YES White Blood Count 8.3 4.3-11.0 10^3/uL Red Blood Count 3.91 L 4.35-5.85 10^6/uL Hemoglobin 12.1 11.5-16.0 G/DL Hematocrit 39 35-52 % Mean Corpuscular Volume 99 80-99 FL Mean Corpuscular Hemoglobin 31 25-34 PG Mean Corpuscular Hemoglobin Concent 31 L 32-36 G/DL Red Cell Distribution Width 14.6 H 10.0-14.5 % Platelet Count 265 130-400 10^3/uL Mean Platelet Volume 9.6 7.4-10.4 FL Immature Granulocyte % (Auto) 0 % Neutrophils (%) (Auto) 70 42-75 % Lymphocytes (%) (Auto) 18 12-44 % Monocytes (%) (Auto) 8 0-12 % Eosinophils (%) (Auto) 3 0-10 % Basophils (%) (Auto) 1 0-10 % Neutrophils # (Auto) 5.8 1.8-7.8 X 10^3 Lymphocytes # (Auto) 1.5 1.0-4.0 X 10^3 Monocytes # (Auto) 0.7 0.0-1.0 X 10^3 Eosinophils # (Auto) 0.3 0.0-0.3 10^3/uL Basophils # (Auto) 0.1 0.0-0.1 10^3/uL Immature Granulocyte # (Auto) 0.0 0.0-0.1 10^3/uL Sodium Level 143 135-145 MMOL/L Potassium Level 3.8 3.6-5.0 MMOL/L Chloride Level 102 98-107 MMOL/L Carbon Dioxide Level 32 21-32 MMOL/L Anion Gap 9 5-14 MMOL/L Blood Urea Nitrogen 24 H 7-18 MG/DL Creatinine 0.71 0.60-1.30 MG/DL Estimat Glomerular Filtration Rate > 60 BUN/Creatinine Ratio 34 Glucose Level 100 70-105 MG/DL Calcium Level 9.5 8.5-10.1 MG/DL My Orders Orders - NESTOR JIMENES DO Basic Metabolic Panel (11/06/20 13:07) Cbc With Automated Diff (11/06/20 13:07) Ua Culture If Indicated (11/06/20 13:07) Bladder Scan (11/06/20 13:07) Urine Culture (11/06/20 13:20) Vital Signs/I&O Capillary Refill : Progress Note : Progress Note Patient is actively making urine into the Leon catheter, urine was slightly cloudy and showed what appears be a UTI. Patient has a history of Escherichia coli UTI that was epps susceptibility. I will start her on Macrobid, she has normal BUN/creatinine so no signs of dehydration and she will be discharged back to the long term. Departure Impression Primary Impression: Urinary tract infection Qualified Codes: N30.01 - Acute cystitis with hematuria Disposition: HOME, SELF-CARE Condition: Stable Departure-Patient Inst. Referrals: JON RIVAS MD (PCP/Family) Primary Care Physician Patient Instructions: Urinary Tract Infection, Adult (DC) Add. Discharge Instructions: Follow-up with primary care provider for further evaluation and continuation of care Scripts Nitrofurantoin Monohyd/M-Cryst (Macrobid 100 mg Capsule) 100 Mg Capsule 100 MG PO BID for 5 Days, #10 EA Prov: NESTOR JIMENES DO 11/06/20 NESTOR JIMENES DO Nov 06, 2020 13:07
[2020-11-06 13:40] LABS: BILIRUBIN,URINE NEGATIVE (NEGATIVE); CLARITY,URINE SLT CLOUDY; COLOR,URINE YELLOW; GLUCOSE, URINE (UA) NEGATIVE (NEGATIVE); KETONES,URINE NEGATIVE (NEGATIVE); NITRITE,URINE POSITIVE (NEGATIVE); PH,URINE 7.5 (5-9); PROTEIN,URINE 1+ (NEGATIVE)
[2020-11-06 13:41] LABS: BACTERIA,URINE MODERATE /HPF; LEUKOCYTE ESTERASE ,URINE 1+ (NEGATIVE); RBC,URINE 25-50 /HPF; WBC,URINE 0-2 /HPF
[2020-11-06 13:45] LABS: HEMATOCRIT 39 % (35-52); HEMOGLOBIN 12.1 G/DL (11.5-16.0); MEAN CORPUSCULAR HEMOGLOBIN 31 PG (25-34); MEAN CORPUSCULAR HGB CONC 31 G/DL (32-36); MEAN CORPUSCULAR VOLUME 99 FL (80-99); MEAN PLATELET VOLUME 9.6 FL (7.4-10.4); PLATELET COUNT 265 10^3/uL (130-400); WHITE BLOOD COUNT 8.3 10^3/uL (4.3-11.0)
[2020-11-06 13:46] LABS: BASOPHILS # (AUTO) 0.1 10^3/uL (0.0-0.1); BASOPHILS % (AUTO) 1 % (0-10); EOSINOPHILS # (AUTO) 0.3 10^3/uL (0.0-0.3); EOSINOPHILS % (AUTO) 3 % (0-10); LYMPHOCYTES # (AUTO) 1.5 X 10^3 (1.0-4.0); LYMPHOCYTES % (AUTO) 18 % (12-44); MONOCYTES # (AUTO) 0.7 X 10^3 (0.0-1.0); MONOCYTES % (AUTO) 8 % (0-12); NEUTROPHILS # (AUTO) 5.8 X 10^3 (1.8-7.8); NEUTROPHILS % (AUTO) 70 % (42-75)
[2020-11-06 14:06] LABS: SODIUM 143 MMOL/L (135-145)
[2020-11-06 14:07] LABS: BUN/CREATININE RATIO 34; CALCIUM 9.5 MG/DL (8.5-10.1); CARBON DIOXIDE 32 MMOL/L (21-32); CHLORIDE 102 MMOL/L (98-107); CREATININE SERUM 0.71 MG/DL (0.60-1.30); GFR ESTIMATED > 60; GLUCOSE 100 MG/DL (70-105); POTASSIUM 3.8 MMOL/L (3.6-5.0)
[2020-11-06] MEDS ORDERED: NITR-65 PO (14:17)
[2020-11-06 15:25] VITALS: BP 149/81
== END 2020-11-06 15:25 | disposition home or self-care (01) ==
LOC: EDUNIT# 12:56 → ER FS 12:58
DX: N39.0 Urinary tract infection, site not specified (principal); I48.91 Unspecified atrial fibrillation; E78.00 Pure hypercholesterolemia, unspecified; K21.9 Gastro-esophageal reflux disease without esophagitis; Z82.49 Family history of ischemic heart disease and other diseases of the circulatory system; Z79.01 Long term (current) use of anticoagulants
CPT/HCPCS: 36415; 80048; 81000; 85025; 87077; 87088; 87186; 99283

== ENCOUNTER 2021-04-04 11:32 | Emergency (ER) | payer MEDICARE, MEDICAID ==
[~2021-04-04 11:32] MED LIST changes: +NITR-65 PO; -POLY17PO31 PO; +POLY17PO54 PO; +SERT-414 PO; -SERT100T8 PO
--- NOTE | 2021-04-04 11:55 | ED General ---
General Chief Complaint: General Problems/Pain Stated Complaint: UNRESPONSIVE History of Present Illness Date Seen by Provider: Apr 04, 2021 Time Seen by Provider: 11:54 Initial Comments 89-year-old female brought in with some episodes of decreased responsiveness. Patient is a senior living patient with advanced dementia. Patient provides no HPI. shelter reports that patient was sitting next at her desk when she had a couple episodes of decreased responsiveness. They report that during these episodes she was breathing and had good pulses. However she would just not respond to them constant but in her chair and not respond to sternal rub. Upon EMS arrival patient was back to baseline. Patient has not had any episodes for EMS. Patient's family on her to send to the emergency room for evaluation and concerns with possible UTI due to UTIs in the past. No reports of recent fevers or other systemic complaint Allergies and Home Medications Allergies Coded Allergies: No Known Drug Allergies (Unverified , 01/04/19) Home Medications Acetaminophen 500 Mg Tablet, 500 MG PO Q4H PRN for PAIN-MILD, (Reported) Amiodarone HCl 200 Mg Tablet, 200 MG PO DAILY Prescribed by: GRETCHEN DUMONT on 03/13/20 1143 Apixaban 2.5 Mg Tablet, 2.5 MG PO BID Prescribed by: AUGUSTIN TIWARI on 01/07/19 1057 Calcium Carbonate/Vitamin D3 1 Each Tablet, 1 TAB PO DAILY, (Reported) Cephalexin 500 Mg Capsule, 500 MG PO BID, (Reported) FILLED 03-09-2020 #14 Citalopram Hydrobromide 10 Mg Tablet, 10 MG PO HS, (Reported) Docusate Sodium 100 Mg Capsule, 400 MG PO HS, (Reported) TAKES 4 (100MG) CAPSULES Famotidine 20 Mg Tablet, 20 MG PO BID, (Reported) Furosemide 20 Mg Tablet, 20 MG PO DAILY, (Reported) Hydrocodone/Acetaminophen 1 Each Tablet, 1 EACH PO Q6H PRN for PAIN-MODERATE (5- 7) Prescribed by: REGINA DENNIS on 03/08/202123 Memantine HCl 10 Mg Tablet, 10 MG PO BID, (Reported) Mirtazapine 7.5 Mg Tablet, 7.5 MG PO HS, (Reported) Multivitamin 1 Each Tablet, 1 TAB PO DAILY, (Reported) Nitrofurantoin Monohyd/M-Cryst 100 Mg Capsule, 100 MG PO BID Prescribed by: NESTOR JIMENES on 11/06/20 1417 Polyethylene Glycol 3350 17 Gm Powd.pack, 17 GM PO DAILY, (Reported) Potassium Chloride 10 Meq Tab.er.prt, 10 MEQ PO DAILY, (Reported) Pravastatin Sodium 20 Mg Tablet, 20 MG PO HS, (Reported) Ropinirole HCl 1 Mg Tablet, 1 MG PO TID, (Reported) Sennosides/Docusate Sodium 1 Each Tablet, 2 TAB PO BID, (Reported) Sertraline HCl 100 Mg Tablet, 100 MG PO DAILY, (Reported) Tramadol HCl 50 Mg Tablet, 50 MG PO Q6H PRN for PAIN-MODERATE, (Reported) Patient Home Medication List Home Medication List Reviewed: Yes Review of Systems Review of Systems Constitutional: see HPI Respiratory: no symptoms reported Cardiovascular: no symptoms reported Gastrointestinal: no symptoms reported Musculoskeletal: no symptoms reported Skin: no symptoms reported Psychiatric/Neurological: See HPI Past Siyrsgf-Iuszaz-Teqqsd Hx Past Med/Social Hx: Reviewed Nursing Past Med/Soc Hx Patient Social History 2nd Hand Smoke Exposure: No Recent Hopitalizations: No Immunizations Up To Date Date of Pneumonia Vaccine: Sep 22, 2018 Date of Influenza Vaccine: Sep 22, 2018 Seasonal Allergies Seasonal Allergies: No Past Medical History Surgeries: Yes Orthopedic Respiratory: No Cardiac: Yes Atrial Fibrillation, High Cholesterol, Hypertension Neurological: Yes Neuropathy Genitourinary: Yes Bladder Infection Gastrointestinal: Yes Gastroesophageal Reflux, Chronic Constipation Musculoskeletal: Yes Arthritis Endocrine: No HEENT: No Cancer: No Psychosocial: No Integumentary: No Blood Disorders: No Family Medical History Genitourinary system disorder Hypertension Physical Exam Vital Signs Vital Signs - First Documented 04/04/21 11:54 Temp 36.9 Pulse 58 Resp 18 B/P (MAP) 125/71 (89) Pulse Ox 97 Capillary Refill : Height, Weight, BMI Height: 5'7.00" Weight: 209lbs. 7.0oz. 94.252855qk; 30.00 BMI Method:Stated General Appearance: No Apparent Distress, WD/WN Eyes: Bilateral Eye PERRL, Bilateral Eye EOMI Neck: Full Range of Motion, Supple Respiratory: Lungs Clear, Normal Breath Sounds Cardiovascular: Regular Rate, Rhythm, No Edema Gastrointestinal: Non Tender, Soft Neurologic/Psychiatric: Other (Awake, alert, baseline dementia, no acute deficit) Skin: Normal Color, Warm/Dry Progress/Results/Core Measures Suspected Sepsis SIRS Temperature: Pulse: Respiratory Rate: Laboratory Tests 04/04/21 12:18: White Blood Count 6.9 Blood Pressure / Mean: Laboratory Tests 04/04/21 12:18: Creatinine 0.84, Platelet Count 236, Total Bilirubin 0.2 Results/Orders Lab Results Laboratory Tests Test 04/04/21 12:18 Range/Units White Blood Count 6.9 4.3-11.0 10^3/uL Red Blood Count 3.94 L 4.35-5.85 10^6/uL Hemoglobin 11.3 L 11.5-16.0 G/DL Hematocrit 37 35-52 % Mean Corpuscular Volume 94 80-99 FL Mean Corpuscular Hemoglobin 29 25-34 PG Mean Corpuscular Hemoglobin Concent 30 L 32-36 G/DL Red Cell Distribution Width 15.6 H 10.0-14.5 % Platelet Count 236 130-400 10^3/uL Mean Platelet Volume 10.3 7.4-10.4 FL Immature Granulocyte % (Auto) 0 % Neutrophils (%) (Auto) 59 42-75 % Lymphocytes (%) (Auto) 24 12-44 % Monocytes (%) (Auto) 10 0-12 % Eosinophils (%) (Auto) 5 0-10 % Basophils (%) (Auto) 2 0-10 % Neutrophils # (Auto) 4.0 1.8-7.8 X 10^3 Lymphocytes # (Auto) 1.6 1.0-4.0 X 10^3 Monocytes # (Auto) 0.7 0.0-1.0 X 10^3 Eosinophils # (Auto) 0.4 H 0.0-0.3 10^3/uL Basophils # (Auto) 0.1 0.0-0.1 10^3/uL Immature Granulocyte # (Auto) 0.0 0.0-0.1 10^3/uL Urine Color YELLOW Urine Clarity SLIGHTLY CLOUDY Urine pH 6.5 5-9 Urine Specific [place] 1.015 L 1.016-1.022 Urine Protein TRACE H NEGATIVE Urine Glucose (UA) NEGATIVE NEGATIVE Urine Ketones NEGATIVE NEGATIVE Urine Nitrite NEGATIVE NEGATIVE Urine Bilirubin NEGATIVE NEGATIVE Urine Urobilinogen 0.2 < = 1.0 MG/DL Urine Leukocyte Esterase 2+ H NEGATIVE Urine RBC (Auto) 1+ H NEGATIVE Urine RBC /HPF Urine WBC TNTC H /HPF Urine Crystals NONE /LPF Urine Bacteria /HPF Urine Casts NONE /LPF Urine Mucus NEGATIVE /LPF Urine Culture Indicated YES Sodium Level 146 H 135-145 MMOL/L Potassium Level 3.4 L 3.6-5.0 MMOL/L Chloride Level 108 H 98-107 MMOL/L Carbon Dioxide Level 27 21-32 MMOL/L Anion Gap 11 5-14 MMOL/L Blood Urea Nitrogen 27 H 7-18 MG/DL Creatinine 0.84 0.60-1.30 MG/DL Estimat Glomerular Filtration Rate > 60 BUN/Creatinine Ratio 32 Glucose Level 83 70-105 MG/DL Calcium Level 9.1 8.5-10.1 MG/DL Corrected Calcium 9.3 8.5-10.1 MG/DL Magnesium Level 2.0 1.6-2.4 MG/DL Total Bilirubin 0.2 0.1-1.0 MG/DL Aspartate Amino Transf (AST/SGOT) 18 5-34 U/L Alanine Aminotransferase (ALT/SGPT) 9 0-55 U/L Alkaline Phosphatase 90 40-136 U/L Troponin I < 0.30 <0.30 NG/ML Total Protein 7.5 6.4-8.2 GM/DL Albumin 3.7 3.2-4.5 GM/DL My Orders Orders - JIMENES,NESTOR L DO Cbc With Automated Diff (04/04/21 11:55) Comprehensive Metabolic Panel (04/04/21 11:55) Magnesium (04/04/21 11:55) Ua Culture If Indicated (04/04/21 11:55) Troponin I Fs (04/04/21 11:55) Straight Cath For Spec.-Adult (04/04/21 11:56) Urine Culture (04/04/21 12:18) Ceftriaxone (Rocephin) (04/04/21 13:00) Medications Given in ED Current Medications Medications Dose Ordered Sig/Liz Route Start Time Stop Time Status Last Admin Dose Admin Ceftriaxone Sodium 1000 mg/ Sterile Water 10 ml @ 200 mls/hr ONCE ONCE IV 04/04/21 13:00 04/04/21 13:02 DC 04/04/21 13:06 200 MLS/HR Vital Signs/I&O 04/04/21 11:54 Temp 36.9 Pulse 58 Resp 18 B/P (MAP) 125/71 (89) Pulse Ox 97 Capillary Refill : Progress Note : Progress Note Patient with no decreased response of episodes throughout her ER stay. Patient remained at her baseline mentation. She does have a urinary tract infection which was treated with Rocephin IV in the ER and Keflex prescription. Patient was discharged back to senior living in stable Departure Impression Primary Impression: Urinary tract infection Qualified Codes: N30.01 - Acute cystitis with hematuria Disposition: HOME, SELF-CARE Condition: Stable Departure-Patient Inst. Referrals: JON RIVAS MD (PCP/Family) Primary Care Physician Patient Instructions: Urinary Tract Infections in Adults Scripts Cephalexin (Cephalexin) 500 Mg Tablet 500 MG PO QID, #20 TAB 0 Refills Prov: NESTOR JIMENES DO 04/04/21 NESTOR JIMENES DO Apr 04, 2021 11:55
[2021-04-04 12:27] LABS: CLARITY,URINE SLIGHTLY CLOUDY; COLOR,URINE YELLOW; PH,URINE 6.5 (5-9)
[2021-04-04 12:28] LABS: BILIRUBIN,URINE NEGATIVE (NEGATIVE); GLUCOSE, URINE (UA) NEGATIVE (NEGATIVE); HEMOGLOBIN 11.3 G/DL (11.5-16.0); KETONES,URINE NEGATIVE (NEGATIVE); LEUKOCYTE ESTERASE ,URINE 2+ (NEGATIVE); MEAN CORPUSCULAR HEMOGLOBIN 29 PG (25-34); NITRITE,URINE NEGATIVE (NEGATIVE); PROTEIN,URINE TRACE (NEGATIVE); WBC,URINE TNTC /HPF; WHITE BLOOD COUNT 6.9 10^3/uL (4.3-11.0)
[2021-04-04 12:29] LABS: BASOPHILS # (AUTO) 0.1 10^3/uL (0.0-0.1); BASOPHILS % (AUTO) 2 % (0-10); EOSINOPHILS # (AUTO) 0.4 10^3/uL (0.0-0.3); EOSINOPHILS % (AUTO) 5 % (0-10); HEMATOCRIT 37 % (35-52); LYMPHOCYTES # (AUTO) 1.6 X 10^3 (1.0-4.0); LYMPHOCYTES % (AUTO) 24 % (12-44); MEAN CORPUSCULAR HGB CONC 30 G/DL (32-36); MEAN CORPUSCULAR VOLUME 94 FL (80-99); MEAN PLATELET VOLUME 10.3 FL (7.4-10.4); MONOCYTES # (AUTO) 0.7 X 10^3 (0.0-1.0); MONOCYTES % (AUTO) 10 % (0-12); NEUTROPHILS % (AUTO) 59 % (42-75); PLATELET COUNT 236 10^3/uL (130-400)
[2021-04-04 12:48] LABS: ALANINE AMINOTRANSFERASE 9 U/L (0-55); ALBUMIN 3.7 GM/DL (3.2-4.5); ALKALINE PHOSPHATASE 90 U/L (40-136); BILIRUBIN,TOTAL 0.2 MG/DL (0.1-1.0); BUN/CREATININE RATIO 32; CALCIUM 9.1 MG/DL (8.5-10.1); CARBON DIOXIDE 27 MMOL/L (21-32); CHLORIDE 108 MMOL/L (98-107); CREATININE SERUM 0.84 MG/DL (0.60-1.30); GFR ESTIMATED > 60; GLUCOSE 83 MG/DL (70-105); POTASSIUM 3.4 MMOL/L (3.6-5.0); SODIUM 146 MMOL/L (135-145); TOTAL PROTEIN 7.5 GM/DL (6.4-8.2)
[2021-04-04] MEDS ORDERED: cefTRIAXone 1,000 MG in WATER (STERILE) FOR INJECTION 10 ML IV ONE (13:00)
[2021-04-04] MEDS ORDERED: CEPH500T PO (13:11)
[2021-04-04 14:29] VITALS: BP 120/65
== END 2021-04-04 14:29 | disposition home or self-care (01) ==
LOC: EDUNIT# 11:32 → ER FS 11:50
DX: N39.0 Urinary tract infection, site not specified (principal); I10 Essential (primary) hypertension; K21.9 Gastro-esophageal reflux disease without esophagitis; E78.00 Pure hypercholesterolemia, unspecified; I48.91 Unspecified atrial fibrillation; Z79.899 Other long term (current) drug therapy; Z79.01 Long term (current) use of anticoagulants
CPT/HCPCS: 36415; 51701; 80053; 81000; 83735; 84484; 85025; 87077; 87088; 87186

== ENCOUNTER 2021-05-31 12:13 | Emergency (ER) | payer MEDICARE, MEDICAID ==
[~2021-05-31 12:13] MED LIST changes: +CEPH500T PO
--- NOTE | 2021-05-31 12:32 | ED Cough/URI ---
General Chief Complaint: Respiratory Problems Stated Complaint: COVID+ Source: patient, EMS History of Present Illness Date Seen by Provider: May 31, 2021 Time Seen by Provider: 12:30 Initial Comments 89-year-old [facility] with [facility] diagnosis of Covid. Her PCP sent her to the ER for evaluation for treatment. Patient coherent s tates she feels fine, denies chest pain or shortness of air. Allergies and Home Medications Allergies Coded Allergies: No Known Drug Allergies (Unverified , 01/04/19) Home Medications Acetaminophen 500 Mg Tablet, 500 MG PO Q4H PRN for PAIN-MILD, (Reported) Amiodarone HCl 200 Mg Tablet, 200 MG PO DAILY Prescribed by: GRETCHEN DUMONT on 03/13/20 1143 Apixaban 2.5 Mg Tablet, 2.5 MG PO BID Prescribed by: AUGUSTIN TIWARI on 01/07/19 1057 Azithromycin 250 Mg Tablet, 500 MG PO DAILY TAKE 2 TABLETS ON DAY ONE THEN TAKE 1 TABLET DAILY FOR FOUR MORE DAYS Prescribed by: SRIKANTH HUGHES on 05/31/21 1405 Calcium Carbonate/Vitamin D3 1 Each Tablet, 1 TAB PO DAILY, (Reported) Cephalexin 500 Mg Capsule, 500 MG PO BID, (Reported) FILLED 03-09-2020 #14 Cephalexin 500 Mg Tablet, 500 MG PO QID Prescribed by: NESTOR JIMENES on 04/04/21 1311 Citalopram Hydrobromide 10 Mg Tablet, 10 MG PO HS, (Reported) Docusate Sodium 100 Mg Capsule, 400 MG PO HS, (Reported) TAKES 4 (100MG) CAPSULES Famotidine 20 Mg Tablet, 20 MG PO BID, (Reported) Furosemide 20 Mg Tablet, 20 MG PO DAILY, (Reported) Hydrocodone/Acetaminophen 1 Each Tablet, 1 EACH PO Q6H PRN for PAIN-MODERATE (5- 7) Prescribed by: REGINA DENNIS on 03/08/20 2124 Memantine HCl 10 Mg Tablet, 10 MG PO BID, (Reported) Mirtazapine 7.5 Mg Tablet, 7.5 MG PO HS, (Reported) Multivitamin 1 Each Tablet, 1 TAB PO DAILY, (Reported) Nitrofurantoin Monohyd/M-Cryst 100 Mg Capsule, 100 MG PO BID Prescribed by: NESTOR JIMENES on 11/06/20 1417 Polyethylene Glycol 3350 17 Gm Powd.pack, 17 GM PO DAILY, (Reported) Potassium Chloride 10 Meq Tab.er.prt, 10 MEQ PO DAILY, (Reported) Pravastatin Sodium 20 Mg Tablet, 20 MG PO HS, (Reported) Ropinirole HCl 1 Mg Tablet, 1 MG PO TID, (Reported) Sennosides/Docusate Sodium 1 Each Tablet, 2 TAB PO BID, (Reported) Sertraline HCl 100 Mg Tablet, 100 MG PO DAILY, (Reported) Tramadol HCl 50 Mg Tablet, 50 MG PO Q6H PRN for PAIN-MODERATE, (Reported) Patient Home Medication List Home Medication List Reviewed: Yes Review of Systems Review of Systems Constitutional: No fever, No malaise, No weakness EENTM: no symptoms reported Respiratory: cough; No short of breath Cardiovascular: No chest pain, No edema, No palpitations Gastrointestinal: No abdominal pain, No diarrhea, No nausea, No vomiting Psychiatric/Neurological: Denies Headache, Denies Paresthesia Past Iqldogw-Skwkbz-Gbzzlj Hx Patient Social History Tobacco Use?: No Seasonal Allergies Seasonal Allergies: No Past Medical History Surgeries: Yes Orthopedic Respiratory: No Cardiac: Yes Atrial Fibrillation, High Cholesterol, Hypertension Neurological: Yes Neuropathy Genitourinary: Yes Bladder Infection Gastrointestinal: Yes Gastroesophageal Reflux, Chronic Constipation Musculoskeletal: Yes Arthritis Endocrine: No HEENT: No Cancer: No Psychosocial: No Integumentary: No Blood Disorders: No Family Medical History Genitourinary system disorder Hypertension Physical Exam Vital Signs - First Documented 05/31/21 12:13 Temp 36.5 Pulse 60 Resp 22 B/P (MAP) 138/87 (104) Pulse Ox 98 O2 Delivery Nasal Cannula O2 Flow Rate 5.00 Capillary Refill : Height: 5'7.00" Weight: 209lbs. 7.0oz. 94.502717wc; 30.00 BMI Method:Stated General Appearance: WD/WN, no apparent distress Eyes: Bilateral Eye PERRL, Bilateral Eye EOMI HEENT: PERRL/EOMI, normal ENT inspection Neck: non-tender, supple Respiratory: chest non-tender, lungs clear, normal breath sounds, no respiratory distress, no accessory muscle use Cardiovascular: regular rate, rhythm, no JVD Gastrointestinal: non tender, soft Neurologic/Psychiatric: alert, normal mood/affect Skin: normal color, warm/dry Progress/Results/Core Measures Suspected Sepsis SIRS Temperature: Pulse: Respiratory Rate: Laboratory Tests 05/31/21 13:05: White Blood Count 5.5 Blood Pressure / Mean: Laboratory Tests 05/31/21 13:05: Creatinine 0.72, Platelet Count 166, Total Bilirubin 0.3 Results/Orders Lab Results Laboratory Tests Test 05/31/21 13:05 Range/Units White Blood Count 5.5 4.3-11.0 10^3/uL Red Blood Count 4.36 4.35-5.85 10^6/uL Hemoglobin 12.0 11.5-16.0 G/DL Hematocrit 40 35-52 % Mean Corpuscular Volume 91 80-99 FL Mean Corpuscular Hemoglobin 28 25-34 PG Mean Corpuscular Hemoglobin Concent 30 L 32-36 G/DL Red Cell Distribution Width 16.0 H 10.0-14.5 % Platelet Count 166 130-400 10^3/uL Mean Platelet Volume 10.7 H 7.4-10.4 FL Immature Granulocyte % (Auto) 0 % Neutrophils (%) (Auto) 71 42-75 % Lymphocytes (%) (Auto) 15 12-44 % Monocytes (%) (Auto) 12 0-12 % Eosinophils (%) (Auto) 0 0-10 % Basophils (%) (Auto) 1 0-10 % Neutrophils # (Auto) 3.9 1.8-7.8 X 10^3 Lymphocytes # (Auto) 0.8 L 1.0-4.0 X 10^3 Monocytes # (Auto) 0.7 0.0-1.0 X 10^3 Eosinophils # (Auto) 0.0 0.0-0.3 10^3/uL Basophils # (Auto) 0.1 0.0-0.1 10^3/uL Immature Granulocyte # (Auto) 0.0 0.0-0.1 10^3/uL D-Dimer 0.94 H 0.00-0.49 UG/ML Sodium Level 141 135-145 MMOL/L Potassium Level 3.8 3.6-5.0 MMOL/L Chloride Level 101 98-107 MMOL/L Carbon Dioxide Level 30 21-32 MMOL/L Anion Gap 10 5-14 MMOL/L Blood Urea Nitrogen 17 7-18 MG/DL Creatinine 0.72 0.60-1.30 MG/DL Estimat Glomerular Filtration Rate 76 BUN/Creatinine Ratio 24 Glucose Level 81 70-105 MG/DL Calcium Level 9.0 8.5-10.1 MG/DL Corrected Calcium 9.2 8.5-10.1 MG/DL Total Bilirubin 0.3 0.1-1.0 MG/DL Aspartate Amino Transf (AST/SGOT) 36 H 5-34 U/L Alanine Aminotransferase (ALT/SGPT) 17 0-55 U/L Alkaline Phosphatase 88 40-136 U/L C-Reactive Protein 5.97 H <0.50 MG/DL Total Protein 8.0 6.4-8.2 GM/DL Albumin 3.8 3.2-4.5 GM/DL My Orders Orders - ROVENSTINE,SRIKANTH L DO Ed Iv/Invasive Line Start (05/31/21 12:20) Cbc With Automated Diff (05/31/21 12:20) Comprehensive Metabolic Panel (05/31/21 12:20) Chest 1 View Ap/Pa Only (05/31/21 12:20) Crp Fs (05/31/21 12:20) Fibrin Degradation Products (05/31/21 12:20) Vital Signs/I&O 05/31/21 12:13 Temp 36.5 Pulse 60 Resp 22 B/P (MAP) 138/87 (104) Pulse Ox 98 O2 Delivery Nasal Cannula O2 Flow Rate 5.00 Capillary Refill : Progress Note : Progress Note Patient with much improved oxygen saturations with moving the monitor for finger to her forehead. Patient was titrated down to 2 L and 99% saturation. Chest x- ray reviewed showing moderately clear lungs with a small infiltrate or atelectasis in the left lung. Called PCP, Dr. Rivas at 2 PM to discuss findings and patient looking much better than expected. Labs are normal and patient in no distress. Will treat with azithromycin for potential pneumonia of the left lung and [facility] with continued oxygen therapy and her routine medication. Patient does not appear to have COVID-19 as presumed on arrival. Diagnostic Imaging Diagonstic Imaging: Xray Plain Films/CT/US/NM/MRI: chest Comments COMPARISON: Correlation is made with the prior chest from 03/12/2020. FINDINGS: There appears to be some infiltrate or atelectasis in the left lung base; otherwise, the lungs are clear. The mediastinum is widened but unchanged from the prior exam. There is no effusion or pneumothorax. IMPRESSION: Minimal left basilar infiltrate or atelectasis. Dictated on workstation # [id number] Dict: 05/31/21 1242 Trans: 05/31/21 1244 [id number] Interpreted by: ANEUDY CARDENAS MD Electronically signed by: Departure Impression Primary Impression: Pneumonia Qualified Codes: J18.9 - Pneumonia, unspecified organism Additional Impression: Hypoxia Disposition: HOME, SELF-CARE (back to [place]) Condition: Improved Departure-Patient Inst. Decision time for Depature: 14:04 Referrals: JON RIVAS MD (PCP/Family) Primary Care Physician Patient Instructions: Pneumonia, Adult (DC) Add. Discharge Instructions: Follow up with Dr Rivas in 1 week or if any signif changes All discharge instructions reviewed with patient and/or family. Voiced understanding. Scripts Azithromycin (Azithromycin) 250 Mg Tablet 500 MG PO DAILY for 5 Days, #10 TAB TAKE 2 TABLETS ON DAY ONE THEN TAKE 1 TABLET DAILY FOR FOUR MORE DAYS Prov: SRIKANTH HUGHES DO 05/31/21 SRIKANTH HUGHES DO May 31, 2021 12:32
--- NOTE | 2021-05-31 12:45 | Diagnostic Imaging Report ---
INDICATION: Hypoxia. TIME OF EXAM: 12:22 PM. COMPARISON: Correlation is made with the prior chest from 03/12/2020. FINDINGS: There appears to be some infiltrate or atelectasis in the left lung base; otherwise, the lungs are clear. The mediastinum is widened but unchanged from the prior exam. There is no effusion or pneumothorax. IMPRESSION: Minimal left basilar infiltrate or atelectasis. Dictated by: Dictated on workstation # [id number]
[2021-05-31 13:29] LABS: BASOPHILS % (AUTO) 1 % (0-10); EOSINOPHILS % (AUTO) 0 % (0-10); HEMATOCRIT 40 % (35-52); LYMPHOCYTES % (AUTO) 15 % (12-44); MEAN CORPUSCULAR HEMOGLOBIN 28 PG (25-34); MEAN CORPUSCULAR HGB CONC 30 G/DL (32-36); MEAN CORPUSCULAR VOLUME 91 FL (80-99); MEAN PLATELET VOLUME 10.7 FL (7.4-10.4); MONOCYTES % (AUTO) 12 % (0-12); NEUTROPHILS % (AUTO) 71 % (42-75); PLATELET COUNT 166 10^3/uL (130-400); WHITE BLOOD COUNT 5.5 10^3/uL (4.3-11.0)
[2021-05-31 13:30] LABS: BASOPHILS # (AUTO) 0.1 10^3/uL (0.0-0.1); LYMPHOCYTES # (AUTO) 0.8 X 10^3 (1.0-4.0); MONOCYTES # (AUTO) 0.7 X 10^3 (0.0-1.0); NEUTROPHILS # (AUTO) 3.9 X 10^3 (1.8-7.8)
[2021-05-31 13:52] LABS: CREATININE SERUM 0.72 MG/DL (0.60-1.30); POTASSIUM 3.8 MMOL/L (3.6-5.0)
[2021-05-31 13:53] LABS: ALBUMIN 3.8 GM/DL (3.2-4.5); BILIRUBIN,TOTAL 0.3 MG/DL (0.1-1.0)
[2021-05-31] MEDS ORDERED: AZIT250T12 PO (14:05)
[2021-05-31 16:00] VITALS: BP 131/74
--- OUTSIDE RECORDS SUMMARY | 2021-06-01 08:34 | XMS REPORT | Clinical Summary ---
Author Author [facility] [place] Organization [facility] Address Unknown Phone Unavailable Care Team Providers Care Cutting Supervisor Name Role Phone Dee Patrick MD PCP Jacob Rodriguez MD Unavailable Source Comments Some departments are not documenting in the electronic medical record. If you d o not see the information that you expected, contact Release of Information in [facility] [employer] Information Management department at [phone] for further assistan ce in locating additional records.[facility] [place] Allergies No Known Active Allergies Medications End Date Status Medication Sig Dispensed Refills Start Date Active ACEBUTOLOL PO Take by mouth 0 Every 48 8 Hours. Every other day 400mg Active triamterene-hydrochloroth Take by mouth 0 10/23 iazide (DYAZIDE) 37.5-25 Daily. 8 mg per capsule Active aspirin 81 mg chew tablet Take by mouth 0 10/23 Daily. 8 Active FISH OIL PO Take by mouth 0 Daily. 8 Active FIBER CHOICE PO Take by mouth 0 Daily. 2 each 8 day Active hydrocodone/acetaminophen Take 1-2 Tabs 60 0 (VICODIN) 5/500 mg tablet by mouth 8 Every 4 Hours as needed for Pain. Active calcium carbonate/vitamin Take 1 Tab by 80 1 D-2 (OS-GRAYSON 500+D) mouth Three 8 500-125 mg-unit tablet Times Daily. Active calcitriol (ROCALTROL) Take 1 Cap by 60 1 0 1/17/200 0.25 mcg capsule mouth Twice 8 Daily. Active Problems Not on file Surgical History Surgery Date Site/Laterality Comments NE VAGINAL DELIVERY AFTER DELIVERY HX CATARACT REMOVAL bilateral HM COLONOSCOPY x5 precancerous polyps HX WISDOM TEETH dental work EXTRACTION Medical History Medical History Date Comments Hypercalcemia Osteoporosis Hyperparathyroidism (HCC) Parathyroid adenoma Hypertension 4 years ago telemetry/icu Intestinal polyps Cataract Unspecified endocrine disorder Social History Date Tobacco Use Types Packs/Day Years Used Former Smoker Drinks/Week oz/Week Comments Alcohol Use No Sex Assigned at Date Recorded Not on file Last Filed Vital Signs Reading Time Taken Comments Vital Sign 96/58 11/08/2007 8:23 AM [employer] Blood Pressure 71 11/08/2007 8:23 AM [employer] Pulse 37.9 C (100.2 F) 11/08/2007 8:23 AM [employer] Temperature - - Respiratory Rate 94% 11/08/2007 8:23 AM [employer] Oxygen Saturation - - Inhaled Oxygen Concentration 83.5 kg (184 lb) 11/07/2007 10:15 PM [employer] Weight 165.1 cm (5' 5") 11/07/2007 10:15 PM [employer] Height 30.62 11/07/2007 10:15 PM [employer] Body Mass Index Plan of Treatment Health Maintenance Due Date Last Done Comments DTAP/TDAP VACCINES (1 - 1950 Tdap) PHYSICAL (COMPREHENSIVE) 1950 EXAM SHINGLES RECOMBINANT 1982 VACCINE (1 of 2) OSTEOPOROSIS 1997 SCREENING/MONITORING PNEUMONIA (PPSV23) 1997 VACCINE (1 of 1 - PPSV23) INFLUENZA VACCINE 07/23/2021 Results Not on filefrom Last 3 Months
== END 2021-05-31 16:00 | disposition home or self-care (01) ==
LOC: EDUNIT# 12:13 → ER FS 12:14
DX: U07.1 COVID-19 (principal); J18.9 Pneumonia, unspecified organism; R09.02 Hypoxemia; I10 Essential (primary) hypertension; K21.9 Gastro-esophageal reflux disease without esophagitis; E78.00 Pure hypercholesterolemia, unspecified; I48.91 Unspecified atrial fibrillation; Z79.899 Other long term (current) drug therapy; Z79.01 Long term (current) use of anticoagulants
CPT/HCPCS: 36415; 71045; 80053; 85025; 85379; 86141

== ENCOUNTER 2021-08-15 18:11 | Emergency (ER) | payer MEDICARE, MEDICAID ==
[~2021-08-15 18:11] MED LIST changes: +AZIT250T12 PO
--- NOTE | 2021-08-15 18:32 | ED General ---
General Chief Complaint: COVID19 Suspect/Confirmed Stated Complaint: SOB Source of Information: Patient, EMS Exam Limitations: Other (Dementia) History of Present Illness Date Seen by Provider: Aug 15, 2021 Time Seen by Provider: 18:25 Initial Comments Patient is an 89-year-old female with history of chronic atrial fibrillation, congestive heart failure who is bedbound and requires supplemental oxygen at night who presents with wet nonproductive cough with O2 saturation in the 70s while off of oxygen at the detention. Patient is a poor historian does not recall event. There is no reported fever chills, vomiting sweats. Patient denies chest pain in the present. Patient was placed on 2 L by EMS with O2 sats in the mid 90s. History is limited by the presence of dementia. Timing/Duration: 4-6 Hours Severity: Moderate Modifying Factors: improves with Other Associated Systoms: Other Allergies and Home Medications Allergies Coded Allergies: No Known Drug Allergies (Unverified , 01/04/19) Patient Home Medication List Home Medication List Reviewed: Yes Acetaminophen (Tylenol Extra Strength) 500 Mg Tablet, 500 MG PO Q4H PRN for PAIN-MILD, (Reported) Entered as Reported by: SAAD SEXTON on 01/07/19 0942 Amiodarone HCl (Amiodarone HCl) 200 Mg Tablet, 200 MG PO DAILY Prescribed by: GRETCHEN DUMONT on 03/13/20 1143 Apixaban (Eliquis) 2.5 Mg Tablet, 2.5 MG PO BID Prescribed by: AUGUSTIN TIWARI on 01/07/19 1057 Azithromycin (Azithromycin) 250 Mg Tablet, 500 MG PO DAILY Prescribed by: SRIKANTH HUGHES on 05/31/21 1405 Calcium Carbonate/Vitamin D3 (Calcium 600 + Vit D 200 Tablet) 1 Each Tablet, 1 TAB PO DAILY, (Reported) Entered as Reported by: SAAD SEXTON on 12/05/18 1345 Cephalexin (Cephalexin) 500 Mg Capsule, 500 MG PO BID, (Reported) Entered as Reported by: BETTINA JONES on 03/12/20 1141 Cephalexin (Cephalexin) 500 Mg Tablet, 500 MG PO QID Prescribed by: NESTOR JIMENES on 04/04/21 1311 Citalopram Hydrobromide (Citalopram HBr) 10 Mg Tablet, 10 MG PO HS, (Reported) Entered as Reported by: MARIAH PRIETO on 01/05/19 0920 Docusate Sodium (Colace) 100 Mg Capsule, 400 MG PO HS, (Reported) Entered as Reported by: SAAD SEXTON on 12/05/18 120 Famotidine (Acid Hospital Librarian (FAMOTIDINE)) 20 Mg Tablet, 20 MG PO BID, (Reported) Entered as Reported by: LINNETTE WOODRUFF on 07/06/19 0457 Furosemide (Furosemide) 20 Mg Tablet, 20 MG PO DAILY, (Reported) Entered as Reported by: SAAD SEXTON on 01/07/19 0942 Hydrocodone/Acetaminophen (Hydrocodone-Acetamin 5-325 mg) 1 Each Tablet, 1 EACH PO Q6H PRN for PAIN-MODERATE (5-7) Prescribed by: REGINA DENNIS on 03/08/20 2124 Memantine HCl (Memantine HCl) 10 Mg Tablet, 10 MG PO BID, (Reported) Entered as Reported by: BETTINA JONES on 03/12/20 1141 Mirtazapine (Mirtazapine) 7.5 Mg Tablet, 7.5 MG PO HS, (Reported) Entered as Reported by: SAAD SEXTON on 12/05/18 120 Multivitamin (Multivitamins) 1 Each Tablet, 1 TAB PO DAILY, (Reported) Entered as Reported by: SAAD SEXTON on 12/05/18 120 Nitrofurantoin Monohyd/M-Cryst (Macrobid 100 mg Capsule) 100 Mg Capsule, 100 MG PO BID Prescribed by: NESTOR JIMENES on 11/06/20 1417 Polyethylene Glycol 3350 (Polyethylene Glycol 3350) 17 Gm Powd.pack, 17 GM PO DAILY, (Reported) Entered as Reported by: MARIAH PRIETO on 01/05/19 0920 Potassium Chloride (Potassium Chloride) 10 Meq Tab.er.prt, 10 MEQ PO DAILY, (Reported) Entered as Reported by: BETTINA JONES on 03/12/20 1140 Pravastatin Sodium (Pravastatin Sodium) 20 Mg Tablet, 20 MG PO HS, (Reported) Entered as Reported by: SAAD SEXTON on 12/05/18 120 Ropinirole HCl (Ropinirole HCl) 1 Mg Tablet, 1 MG PO TID, (Reported) Entered as Reported by: BETTINA JONES on 07/08/19 0842 Sennosides/Docusate Sodium (Senna-S Tablet) 1 Each Tablet, 2 TAB PO BID, (Reported) Entered as Reported by: SAAD SEXTON on 01/07/19 0942 Sertraline HCl (Sertraline HCl) 100 Mg Tablet, 100 MG PO DAILY, (Reported) Entered as Reported by: LINNETTE WOODRUFF on 07/06/19 0455 Tramadol HCl (Tramadol HCl) 50 Mg Tablet, 50 MG PO Q6H PRN for PAIN-MODERATE, (Reported) Entered as Reported by: SAAD SEXTON on 01/07/19 0942 Review of Systems Review of Systems Constitutional: see HPI EENTM: see HPI Respiratory: see HPI Cardiovascular: see HPI Gastrointestinal: see HPI Genitourinary: see HPI Musculoskeletal: see HPI Skin: see HPI Psychiatric/Neurological: See HPI Hematologic/Lymphatic: See HPI Immunological/Allergic: see HPI All Other Systems Reviewed Negative Unless Noted: Yes Past Pvebqrm-Lmylip-Favjsh Hx Patient Social History Tobacco Use?: Yes Seasonal Allergies Seasonal Allergies: No Past Medical History Surgery/Hospitalization HX: Alzheimer's, Anxiety, Parox. 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, GERD, Hypotension, Edema, Surgeries: Yes Orthopedic Respiratory: No Cardiac: Yes Atrial Fibrillation, High Cholesterol, Hypertension Neurological: Yes Neuropathy Genitourinary: Yes Bladder Infection Gastrointestinal: Yes Gastroesophageal Reflux, Chronic Constipation Musculoskeletal: Yes Arthritis Endocrine: No HEENT: No Cancer: No Psychosocial: No Integumentary: No Blood Disorders: No Family Medical History Genitourinary system disorder Hypertension Physical Exam Vital Signs Vital Signs - First Documented 08/15/21 08/15/21 18:37 18:46 Temp 36.1 Pulse 68 Resp 22 B/P (MAP) 104/53 (70) Pulse Ox 98 O2 Delivery Nasal Cannula O2 Flow Rate 2.00 Capillary Refill : Height, Weight, BMI Height: 5'7.00" Weight: 209lbs. 7.0oz. 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 Norm as Tested, Other (Oriented to person only) Skin: Normal Color Focused Exam Sepsis Stage: Ruled Out Lactate Level 08/15/21 18:45: Lactic Acid Level 1.36 Lactic Acid Level Laboratory Tests Test 08/15/21 18:45 Lactic Acid Level 1.36 MMOL/L (0.50-2.00) Progress/Results/Core Measures Suspected Sepsis SIRS Temperature: Pulse: Respiratory Rate: Laboratory Tests 08/15/21 18:45: White Blood Count 8.5 Blood Pressure / Mean: 08/15/21 18:45: Lactic Acid Level 1.36 Laboratory Tests 08/15/21 18:45: Creatinine 0.82, INR Comment 1.2, Platelet Count 243, Total Bilirubin 0.3 Results/Orders Lab Results Laboratory Tests Test 08/15/21 18:45 Range/Units White Blood Count 8.5 4.3-11.0 10^3/uL Red Blood Count 3.96 3.80-5.11 10^6/uL Hemoglobin 10.7 L 11.5-16.0 g/dL Hematocrit 36 35-52 % Mean Corpuscular Volume 91 80-99 fL Mean Corpuscular Hemoglobin 27 25-34 pg Mean Corpuscular Hemoglobin Concent 30 L 32-36 g/dL Red Cell Distribution Width 16.2 H 10.0-14.5 % Platelet Count 243 130-400 10^3/uL Mean Platelet Volume 10.3 9.0-12.2 fL Immature Granulocyte % (Auto) 0 % Neutrophils (%) (Auto) 65 42-75 % Lymphocytes (%) (Auto) 22 12-44 % Monocytes (%) (Auto) 9 0-12 % Eosinophils (%) (Auto) 2 0-10 % Basophils (%) (Auto) 1 0-10 % Neutrophils # (Auto) 5.6 1.8-7.8 X 10^3 Lymphocytes # (Auto) 1.9 1.0-4.0 X 10^3 Monocytes # (Auto) 0.8 0.0-1.0 X 10^3 Eosinophils # (Auto) 0.2 0.0-0.3 10^3/uL Basophils # (Auto) 0.1 0.0-0.1 10^3/uL Immature Granulocyte # (Auto) 0.0 0.0-0.1 10^3/uL Prothrombin Time 15.9 H 12.2-14.7 SEC INR Comment 1.2 0.8-1.4 Activated Partial Thromboplast Time 37 H 24-35 SEC Urine Color YELLOW Urine Clarity CLEAR Urine pH 5.5 5-9 Urine Specific [place] 1.020 1.016-1.022 Urine Protein NEGATIVE NEGATIVE Urine Glucose (UA) NEGATIVE NEGATIVE Urine Ketones NEGATIVE NEGATIVE Urine Nitrite NEGATIVE NEGATIVE Urine Bilirubin NEGATIVE NEGATIVE Urine Urobilinogen 0.2 < = 1.0 MG/DL Urine Leukocyte Esterase NEGATIVE NEGATIVE Urine RBC (Auto) NEGATIVE NEGATIVE Urine RBC 2-5 H /HPF Urine WBC 0-2 /HPF Urine Squamous Epithelial Cells 2-5 /HPF Urine Crystals NONE /LPF Urine Bacteria TRACE /HPF Urine Casts NONE /LPF Urine Mucus NEGATIVE /LPF Urine Culture Indicated NO Sodium Level 148 H 135-145 MMOL/L Potassium Level 3.4 L 3.6-5.0 MMOL/L Chloride Level 108 H 98-107 MMOL/L Carbon Dioxide Level 30 21-32 MMOL/L Anion Gap 10 5-14 MMOL/L Blood Urea Nitrogen 25 H 7-18 MG/DL Creatinine 0.82 0.60-1.30 MG/DL Estimat Glomerular Filtration Rate 66 BUN/Creatinine Ratio 30 Glucose Level 113 H 70-105 MG/DL Lactic Acid Level 1.36 0.50-2.00 MMOL/L Calcium Level 9.2 8.5-10.1 MG/DL Corrected Calcium 9.4 8.5-10.1 MG/DL Total Bilirubin 0.3 0.1-1.0 MG/DL Aspartate Amino Transf (AST/SGOT) 19 5-34 U/L Alanine Aminotransferase (ALT/SGPT) 9 0-55 U/L Alkaline Phosphatase 72 40-136 U/L Troponin I < 0.30 <0.30 NG/ML Pro-B-Type Natriuretic Peptide 799.4 H <75.0 PG/ML Total Protein 7.7 6.4-8.2 GM/DL Albumin 3.8 3.2-4.5 GM/DL My Orders Orders - KRYSTINA KABA DO Cbc With Automated Diff (08/15/21 18:33) Comprehensive Metabolic Panel (08/15/21 18:33) Blood Culture (08/15/21 18:33) Sputum Culture (08/15/21 18:33) Urinalysis (08/15/21 18:33) Urine Culture (08/15/21 18:33) Protime With Inr (08/15/21 18:33) Partial Thromboplastin Time (08/15/21 18:33) Chest 1 View Ap/Pa Only (08/15/21 18:33) Ed Iv/Invasive Line Start (08/15/21 18:33) Ed Iv/Invasive Line Start (08/15/21 18:33) Vital Signs Adult Sepsis Patie Q15M (08/15/21 18:33) O2 (08/15/21 18:33) Remove Rings In Anticipation O (08/15/21 18:33) Lactic Acid Analyzer (08/15/21 18:33) Probnp Fs (08/15/21 18:33) Troponin I Fs (08/15/21 18:33) Furosemide Injection (Lasix Injection) (08/15/21 20:00) Azithromycin Tablet (Zithromax Tablet) (08/15/21 20:00) Ekg-Prn For Chest Pain Or Rhyt (08/15/21 20:53) Ekg Tracing (08/15/21 21:00) Medications Given in ED Current Medications Medications Dose Ordered Sig/Liz Route Start Time Stop Time Status Last Admin Dose Admin Azithromycin 500 mg ONCE ONCE PO 08/15/21 20:00 08/15/21 20:01 DC 08/15/21 20:01 500 MG Furosemide 40 mg ONCE ONCE IVP 08/15/21 20:00 08/15/21 20:01 DC 08/15/21 20:01 40 MG Vital Signs/I&O 08/15/21 08/15/21 08/15/21 18:37 18:46 18:47 Temp 36.1 Pulse 68 Resp 22 B/P (MAP) 104/53 (70) Pulse Ox 98 98 O2 Delivery Nasal Cannula Nasal Cannula Nasal Cannula O2 Flow Rate 2.00 2.00 Capillary Refill : Departure Communication (Admissions) EKG: Sinus bradycardia Chest x-ray, pulmonary vascular congestion cardiomegaly with possible pleural effusion/consolidation. Patient with history with A. fib, CHF who presents clinically in congestive hea rt failure with hypoxia off oxygen. Patient corrects to 99% on 2 L improved breathing breath sounds after significant diuresis in the ED. Possible pulmonary infiltrate on chest x-ray. Rocephin and Zithromax given. [facility] return to detention facility. Impression Primary Impression: Chronic respiratory failure with hypoxia Additional Impressions: Congestive heart failure Pulmonary infiltrate Disposition: 01 HOME, SELF-CARE Condition: Stable Departure-Patient Inst. Decision time for Depature: 21:15 Referrals: JON RIVAS MD (PCP/Family) Primary Care Physician Patient Instructions: Heart Failure ED Add. Discharge Instructions: Brenda was evaluated in the emergency department for shortness of breath and hypoxia while not wearing her oxygen. Chest x-ray is most consistent with congestive heart failure with possible pulmonary infiltrate. IV Lasix and antibiotics were given. Please increase Lasix to 40 mg daily for the next 3 days and complete full course of antibiotics. Follow-up with your PCP or detention attending the next 3 days. Return to the ED if new or worsening symptoms All discharge instructions reviewed with patient and/or family. Voiced understanding. Scripts Furosemide (Lasix) 40 Mg Tablet 40 MG PO DAILY, #3 TAB Prov: KRYSTINA KABA DO 08/15/21 Doxycycline Hyclate (Doxycycline Hyclate) 100 Mg Tablet 100 MG PO BID, #14 TAB Prov: KRYSTINA KABA DO 08/15/21 KRYSTINA KABA DO Aug 15, 2021 18:32
--- NOTE | 2021-08-15 18:55 | Diagnostic Imaging Report ---
INDICATION: Sepsis and shortness of breath. Cough. COMPARISON: Prior study from 05/31/2021. FINDINGS: Lung volumes are diminished with right greater than left basilar consolidation and a probable right-sided effusion. Basilar consolidation limits assessment of heart size. This remains prominent but not significantly changed. There does appear to be some increased prominence of the central pulmonary vascularity. There is no pneumothorax. IMPRESSION: Low lung volumes with bibasilar consolidation and probable right-sided effusion. There is enlargement of the cardiac silhouette with increased prominence of the pulmonary vascular markings. Primary consideration is that of pulmonary edema with associated effusions resulting in basilar atelectasis. Given report of sepsis, however, it is not possible to exclude a pneumonia based on imaging alone. Dictated by: Dictated on workstation # [id number]
[2021-08-15 19:01] LABS: HEMATOCRIT 36 % (35-52); HEMOGLOBIN 10.7 g/dL (11.5-16.0); MEAN CORPUSCULAR HEMOGLOBIN 27 pg (25-34); MEAN CORPUSCULAR VOLUME 91 fL (80-99); WHITE BLOOD COUNT 8.5 10^3/uL (4.3-11.0)
[2021-08-15 19:02] LABS: BASOPHILS # (AUTO) 0.1 10^3/uL (0.0-0.1); BASOPHILS % (AUTO) 1 % (0-10); EOSINOPHILS # (AUTO) 0.2 10^3/uL (0.0-0.3); EOSINOPHILS % (AUTO) 2 % (0-10); LYMPHOCYTES # (AUTO) 1.9 X 10^3 (1.0-4.0); LYMPHOCYTES % (AUTO) 22 % (12-44); MEAN CORPUSCULAR HGB CONC 30 g/dL (32-36); MEAN PLATELET VOLUME 10.3 fL (9.0-12.2); MONOCYTES # (AUTO) 0.8 X 10^3 (0.0-1.0); MONOCYTES % (AUTO) 9 % (0-12); NEUTROPHILS # (AUTO) 5.6 X 10^3 (1.8-7.8); NEUTROPHILS % (AUTO) 65 % (42-75); PLATELET COUNT 243 10^3/uL (130-400)
[2021-08-15 19:06] LABS: BILIRUBIN,URINE NEGATIVE (NEGATIVE); CLARITY,URINE CLEAR; COLOR,URINE YELLOW; GLUCOSE, URINE (UA) NEGATIVE (NEGATIVE); KETONES,URINE NEGATIVE (NEGATIVE); LEUKOCYTE ESTERASE ,URINE NEGATIVE (NEGATIVE); NITRITE,URINE NEGATIVE (NEGATIVE); PH,URINE 5.5 (5-9); PROTEIN,URINE NEGATIVE (NEGATIVE)
[2021-08-15 19:07] LABS: BACTERIA,URINE TRACE /HPF; WBC,URINE 0-2 /HPF
[2021-08-15 19:14] LABS: INR 1.2 (0.8-1.4); PROTHROMBIN TIME PATIENT 15.9 SEC (12.2-14.7)
[2021-08-15 19:26] LABS: ALANINE AMINOTRANSFERASE 9 U/L (0-55); ALBUMIN 3.8 GM/DL (3.2-4.5); ALKALINE PHOSPHATASE 72 U/L (40-136); BILIRUBIN,TOTAL 0.3 MG/DL (0.1-1.0); BUN/CREATININE RATIO 30; CALCIUM 9.2 MG/DL (8.5-10.1); CARBON DIOXIDE 30 MMOL/L (21-32); CHLORIDE 108 MMOL/L (98-107); CREATININE SERUM 0.82 MG/DL (0.60-1.30); GFR ESTIMATED 66; GLUCOSE 113 MG/DL (70-105); POTASSIUM 3.4 MMOL/L (3.6-5.0); SODIUM 148 MMOL/L (135-145); TOTAL PROTEIN 7.7 GM/DL (6.4-8.2)
[2021-08-15] MEDS ORDERED: AZITHROMYCIN 250 MG TAB (ZITHROMAX) PO ONE (20:00)
[2021-08-15] MEDS ORDERED: FUROSEMIDE 40 MG/4 ML INJ (LASIX) IVP ONE (20:00)
[2021-08-15] MEDS ORDERED: DOXY100T2 PO (21:17)
[2021-08-15] MEDS ORDERED: FURO-124 PO (21:17)
[2021-08-15 21:21] VITALS: BP 151/82
== END 2021-08-15 21:21 | disposition home or self-care (01) ==
LOC: EDUNIT# 18:11 → ER FS 18:12
DX: J96.11 Chronic respiratory failure with hypoxia (principal); R91.8 Other nonspecific abnormal finding of lung field; I11.0 Hypertensive heart disease with heart failure; I50.9 Heart failure, unspecified; I48.20 Chronic atrial fibrillation, unspecified; F41.9 Anxiety disorder, unspecified; E78.00 Pure hypercholesterolemia, unspecified; K21.9 Gastro-esophageal reflux disease without esophagitis; G30.9 Alzheimer's disease, unspecified; F02.80 Dementia in other diseases classified elsewhere, unspecified severity, without behavioral disturbance, psychotic disturbance, mood disturbance, and anxiety; Z72.0 Tobacco use; Z79.01 Long term (current) use of anticoagulants; Z79.899 Other long term (current) drug therapy
CPT/HCPCS: 36415; 71045; 80053; 81000; 83605; 83880; 84484; 85025; 85610; 85730; 87040; 87088; 87186; 93005

== ENCOUNTER 2021-12-17 12:42 | Inpatient (IN) | payer MEDICARE, MEDICAID ==
[~2021-12-17] VITALS: Ht 172.7 cm; Wt 82.3 kg
[~2021-12-17 12:42] MED LIST changes: -AMIO200T6 PO; +AMIO200T65 PO; -CITA10TA7 PO; +CITA10TA9 PO; +DOXY100T2 PO; +FURO-124 PO; -POTA10TA36 PO; +POTA10TA37 PO
[2021-12-17 12:54] LABS: BASOPHILS # (AUTO) 0.1 10^3/uL (0.0-0.1); BASOPHILS % (AUTO) 1 % (0-10); EOSINOPHILS % (AUTO) 0 % (0-10); HEMATOCRIT 35 % (35-52); HEMOGLOBIN 10.2 g/dL (11.5-16.0); LYMPHOCYTES # (AUTO) 0.8 10^3/uL (1.0-4.0); LYMPHOCYTES % (AUTO) 10 % (12-44); MEAN CORPUSCULAR HEMOGLOBIN 26 pg (25-34); MEAN CORPUSCULAR HGB CONC 30 g/dL (32-36); MEAN CORPUSCULAR VOLUME 87 fL (80-99); MEAN PLATELET VOLUME 9.9 fL (9.0-12.2); MONOCYTES # (AUTO) 0.1 10^3/uL (0.0-1.0); MONOCYTES % (AUTO) 1 % (0-12); NEUTROPHILS # (AUTO) 6.9 10^3/uL (1.8-7.8); NEUTROPHILS % (AUTO) 87 % (42-75); PLATELET COUNT 294 10^3/uL (130-400); WHITE BLOOD COUNT 7.9 10^3/uL (4.3-11.0)
--- NOTE | 2021-12-17 13:09 | Diagnostic Imaging Report ---
CLINICAL INDICATION: Patient with bradycardia, shortness of air and cough. EXAM: Portable chest x-ray upright view. COMPARISON: Chest x-ray dated 08/15/2021. FINDINGS: Stable cardiomegaly. There is mild pulmonary vascular prominence centrally. There is slight improved aeration of both lung bases with residual mild bibasilar atelectasis and/or infiltrate. There is no pleural effusion or pneumothorax. Bones show no significant abnormality. IMPRESSION: 1: There is improved aeration of both lung bases with residual mild bibasilar atelectasis versus infiltrate. 2: Stable cardiomegaly with mild pulmonary vascular prominence centrally. Dictated by: Dictated on workstation # [id number]
--- NOTE | 2021-12-17 13:23 | ED General ---
General Chief Complaint: Altered Mental Status Stated Complaint: LOW HR Source of Information: Patient History of Present Illness Date Seen by Provider: Dec 17, 2021 Time Seen by Provider: 12:45 Initial Comments Patient is an 89-year-old bedridden demented intermediate patient who presents with complaints of altered mental status, respiratory distress and bradycardia per intermediate staff. Patient noted to be more confused than baseline with increased work of breathing and wet nonproductive cough. Patient's heart rate noted to be in 30s with blood pressure 80 over 40s. Patient placed on 4 L and transferred via EMS. Patient is alert and oriented to person requiring oxygen and is able to protect airway emergency department. Patient noted to be in sinus bradycardia on the monitor. History is limited as the patient is a poor historian. Patient is DNR status with medical power of tellers supervisor, Willy Zamorano ([phone]) requesting patient be medically stabilized. Timing/Duration: 4-6 Hours Severity: Severe Associated Systoms: Other Allergies and Home Medications Allergies Coded Allergies: No Known Drug Allergies (Unverified , 01/04/19) Patient Home Medication List Home Medication List Reviewed: Yes Acetaminophen (Tylenol Extra Strength) 500 Mg Tablet, 500 MG PO Q4H PRN for PAIN-MILD, (Reported) Entered as Reported by: SAAD SEXTON on 01/07/19 0942 Amiodarone HCl (Amiodarone HCl) 200 Mg Tablet, 200 MG PO DAILY Prescribed by: GRETCHEN DUMONT on 03/13/20 1143 Apixaban (Eliquis) 2.5 Mg Tablet, 2.5 MG PO BID Prescribed by: AUGUSTIN TIWARI on 01/07/19 1057 Azithromycin (Azithromycin) 250 Mg Tablet, 500 MG PO DAILY Prescribed by: SRIKANTH HUGHES on 05/31/21 1405 Calcium Carbonate/Vitamin D3 (Calcium 600 + Vit D 200 Tablet) 1 Each Tablet, 1 TAB PO DAILY, (Reported) Entered as Reported by: SAAD SEXTON on 12/05/18 1345 Cephalexin (Cephalexin) 500 Mg Capsule, 500 MG PO BID, (Reported) Entered as Reported by: BETTINA JONES on 03/12/20 1141 Cephalexin (Cephalexin) 500 Mg Tablet, 500 MG PO QID Prescribed by: NESTOR JIMENES on 04/04/21 1311 Citalopram Hydrobromide (Citalopram HBr) 10 Mg Tablet, 10 MG PO HS, (Reported) Entered as Reported by: MARIAH PRIETO on 01/05/19 09 Docusate Sodium (Colace) 100 Mg Capsule, 400 MG PO HS, (Reported) Entered as Reported by: SAAD SEXTON on 12/05/18 120 Doxycycline Hyclate (Doxycycline Hyclate) 100 Mg Tablet, 100 MG PO BID Prescribed by: KRYSTINA KABA on 08/15/212116 Famotidine (Acid Dry Cell Sealer (FAMOTIDINE)) 20 Mg Tablet, 20 MG PO BID, (Reported) Entered as Reported by: LINNETTE WOODRUFF on 07/06/19 0457 Furosemide (Furosemide) 20 Mg Tablet, 20 MG PO DAILY, (Reported) Entered as Reported by: SAAD SEXTON on 01/07/19 09 Furosemide (Lasix) 40 Mg Tablet, 40 MG PO DAILY Prescribed by: KRYSTINA KABA on 08/15/212116 Hydrocodone/Acetaminophen (Hydrocodone-Acetamin 5-325 mg) 1 Each Tablet, 1 EACH PO Q6H PRN for PAIN-MODERATE (5-7) Prescribed by: REGINA DENNIS on 03/08/202123 Memantine HCl (Memantine HCl) 10 Mg Tablet, 10 MG PO BID, (Reported) Entered as Reported by: BETTINA JONES on 03/12/20 1141 Mirtazapine (Mirtazapine) 7.5 Mg Tablet, 7.5 MG PO HS, (Reported) Entered as Reported by: SAAD SEXTON on 12/05/18 120 Multivitamin (Multivitamins) 1 Each Tablet, 1 TAB PO DAILY, (Reported) Entered as Reported by: SAAD SEXTON on 12/05/18 1202 Nitrofurantoin Monohyd/M-Cryst (Macrobid 100 mg Capsule) 100 Mg Capsule, 100 MG PO BID Prescribed by: NESTOR JIMENES on 11/06/20 1417 Polyethylene Glycol 3350 (Polyethylene Glycol 3350) 17 Gm Powd.pack, 17 GM PO DAILY, (Reported) Entered as Reported by: MARIAH PRIETO on 01/05/19 0920 Potassium Chloride (Potassium Chloride) 10 Meq Tab.er.prt, 10 MEQ PO DAILY, (Reported) Entered as Reported by: BETTINA JONES on 03/12/20 1140 Pravastatin Sodium (Pravastatin Sodium) 20 Mg Tablet, 20 MG PO HS, (Reported) Entered as Reported by: SAAD SEXTON on 12/05/18 1202 Ropinirole HCl (Ropinirole HCl) 1 Mg Tablet, 1 MG PO TID, (Reported) Entered as Reported by: BETTINA JONES on 07/08/19 0842 Sennosides/Docusate Sodium (Senna-S Tablet) 1 Each Tablet, 2 TAB PO BID, (Reported) Entered as Reported by: SAAD SEXTON on 01/07/19 0942 Sertraline HCl (Sertraline HCl) 100 Mg Tablet, 100 MG PO DAILY, (Reported) Entered as Reported by: LINNETTE WOODRUFF on 07/06/19 0455 Tramadol HCl (Tramadol HCl) 50 Mg Tablet, 50 MG PO Q6H PRN for PAIN-MODERATE, (Reported) Entered as Reported by: SAAD SEXTON on 01/07/19 0942 Review of Systems Review of Systems Constitutional: other EENTM: other Respiratory: other Cardiovascular: other Gastrointestinal: other Genitourinary: other Musculoskeletal: other Skin: other Psychiatric/Neurological: Other Hematologic/Lymphatic: Other All Other Systems Reviewed Negative Unless Noted: No (Review of systems limited due to the patient's dementia) Past Jriwzlu-Jxxeit-Cjumpl Hx Seasonal Allergies Seasonal Allergies: No Past Medical History Surgery/Hospitalization HX: Alzheimer's, Anxiety, Parox. 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, GERD, Hypotension, Edema, Surgeries: Yes Orthopedic Respiratory: No Cardiac: Yes Atrial Fibrillation, High Cholesterol, Hypertension Neurological: Yes Neuropathy Genitourinary: Yes Bladder Infection Gastrointestinal: Yes Gastroesophageal Reflux, Chronic Constipation Musculoskeletal: Yes Arthritis Endocrine: No HEENT: No Cancer: No Psychosocial: No Integumentary: No Blood Disorders: No Family Medical History Genitourinary system disorder Hypertension Physical Exam Vital Signs Vital Signs - First Documented 12/17/21 12:42 Temp 36.2 Pulse 34 Resp 41 B/P (MAP) 101/49 (66) Pulse Ox 97 O2 Delivery Nasal Cannula O2 Flow Rate 4.00 Capillary Refill : Height, Weight, BMI Height: 5'7.00" Weight: 209lbs. 7.0oz. 94.022277vn; 30.00 BMI Method:Stated General Appearance: Anxious, Mild Distress (Respiratory distress) Eyes: Bilateral Eye Normal Inspection, Bilateral Eye PERRL HEENT: PERRL/EOMI Neck: Non Tender, Supple Respiratory: Decreased Breath Sounds, Rhonci (Coarse rhonchi throughout) Cardiovascular: Bradycardia Gastrointestinal: Non Tender, Soft Extremity: Swelling, Other (Pressure boots placed) Neurologic/Psychiatric: Alert, Other (Left hemiparesis) Skin: Normal Color Focused Exam Sepsis Stage: Ruled Out Lactate Level 12/17/21 12:57: Lactic Acid Level Laboratory Tests Test 12/17/21 12:57 Progress/Results/Core Measures Suspected Sepsis SIRS Temperature: Pulse: Respiratory Rate: Laboratory Tests 12/17/21 12:35: White Blood Count 7.9 Blood Pressure / Mean: 12/17/21 12:57: Laboratory Tests 12/17/21 12:35: Platelet Count 294 Results/Orders Lab Results Laboratory Tests Test 12/17/21 12:35 12/17/21 12:57 12/17/21 13:05 12/17/21 13:20 Range/Units White Blood Count 7.9 4.3-11.0 10^3/uL Red Blood Count 3.97 3.80-5.11 10^6/uL Hemoglobin 10.2 L 11.5-16.0 g/dL Hematocrit 35 35-52 % Mean Corpuscular Volume 87 80-99 fL Mean Corpuscular Hemoglobin 26 25-34 pg Mean Corpuscular Hemoglobin Concent 30 L 32-36 g/dL Red Cell Distribution Width 19.1 H 10.0-14.5 % Platelet Count 294 130-400 10^3/uL Mean Platelet Volume 9.9 9.0-12.2 fL Immature Granulocyte % (Auto) 1 % Neutrophils (%) (Auto) 87 H 42-75 % Lymphocytes (%) (Auto) 10 L 12-44 % Monocytes (%) (Auto) 1 0-12 % Eosinophils (%) (Auto) 0 0-10 % Basophils (%) (Auto) 1 0-10 % Neutrophils # (Auto) 6.9 1.8-7.8 10^3/uL Lymphocytes # (Auto) 0.8 L 1.0-4.0 10^3/uL Monocytes # (Auto) 0.1 0.0-1.0 10^3/uL Eosinophils # (Auto) 0.0 0.0-0.3 10^3/uL Basophils # (Auto) 0.1 0.0-0.1 10^3/uL Immature Granulocyte # (Auto) 0.1 0.0-0.1 10^3/uL Urine Color YELLOW Urine Clarity TURBID Urine pH 7.5 5-9 Urine Specific [place] 1.015 L 1.016-1.022 Urine Protein 1+ H NEGATIVE Urine Glucose (UA) NEGATIVE NEGATIVE Urine Ketones NEGATIVE NEGATIVE Urine Nitrite POSITIVE H NEGATIVE Urine Bilirubin NEGATIVE NEGATIVE Urine Urobilinogen 0.2 < = 1.0 MG/DL Urine Leukocyte Esterase 3+ H NEGATIVE Urine RBC (Auto) 1+ H NEGATIVE Urine RBC 0-2 /HPF Urine WBC 50-100 H /HPF Urine Squamous Epithelial Cells 2-5 /HPF Urine Crystals NONE /LPF Urine Bacteria MODERATE H /HPF Urine Casts NONE /LPF Urine Mucus MODERATE H /LPF Urine Culture Indicated YES My Orders Orders - KRYSTINA KABA DO Cbc With Automated Diff (12/17/21 12:46) Comprehensive Metabolic Panel (12/17/21 12:46) Troponin I Fs (12/17/21 12:46) Ekg-Prn For Chest Pain Or Rhyt (12/17/21 12:46) Chest 1 View Ap/Pa Only (12/17/21 12:46) Probnp Fs (12/17/21 12:46) Ua Culture If Indicated (12/17/21 12:46) Lactic Acid Analyzer (12/17/21 12:46) Arterial Blood Gas (12/17/21 12:46) Blood Culture (12/17/21 12:46) Manual Differential (12/17/21 12:35) Blood Culture (12/17/21 13:00) Magnesium (12/17/21 13:29) Furosemide Injection (Lasix Injection) (12/17/21 13:45) Urine Culture (12/17/21 13:20) Medications Given in ED Current Medications Medications Dose Ordered Sig/Liz Route Start Time Stop Time Status Last Admin Dose Admin Furosemide 40 mg ONCE ONCE IVP 12/17/21 13:45 12/17/21 13:46 12/17/21 13:37 40 MG Vital Signs/I&O 12/17/21 12:42 Temp 36.2 Pulse 34 Resp 41 B/P (MAP) 101/49 (66) Pulse Ox 97 O2 Delivery Nasal Cannula O2 Flow Rate 4.00 Capillary Refill : Departure Communication (Admissions) Chest x-ray: EKG: Bradycardia with suspected second-degree AV block type II Patient with symptomatic bradycardia mild respiratory distress, improved on oxygen. Mild congestive heart failure on monitor. IV Lasix given, patient is on amiodarone and Eliquis. No complaint of chest pain patient maintaining stable blood pressure in the ED. Case reviewed with Dr. Phoenix on-call for cardiology at [facility], support blood pressure, give Lasix and holding amiodarone. Patient be kept n.p.o. for possible pacemaker placement. Dr. Bender accepts admission at 1330 Impression Primary Impression: Sinus bradycardia Additional Impressions: Congestive heart disease Urinary tract infection Dementia Disposition: ADMITTED INPATIENT Condition: Critical Admissions Decision to Admit Reason: Admit from ER (General) (Dr. Bender) Decision to Admit/Date: Dec 17, 2021 Time/Decision to Admit Time: 13:42 Departure-Patient Inst. Referrals: JON RIVAS MD (PCP/Family) Primary Care Physician KRYSTINA KABA DO Dec 17, 2021 13:23
[2021-12-17 13:25] LABS: BILIRUBIN,URINE NEGATIVE (NEGATIVE); CLARITY,URINE TURBID; COLOR,URINE YELLOW; GLUCOSE, URINE (UA) NEGATIVE (NEGATIVE); KETONES,URINE NEGATIVE (NEGATIVE); LEUKOCYTE ESTERASE ,URINE 3+ (NEGATIVE); NITRITE,URINE POSITIVE (NEGATIVE); PH,URINE 7.5 (5-9); PROTEIN,URINE 1+ (NEGATIVE)
[2021-12-17 13:34] LABS: BACTERIA,URINE MODERATE /HPF; RBC,URINE 0-2 /HPF; WBC,URINE 50-100 /HPF
[2021-12-17 13:42] LABS: CARBON DIOXIDE 27 MMOL/L (21-32); CHLORIDE 104 MMOL/L (98-107); POTASSIUM 3.8 MMOL/L (3.6-5.0); SODIUM 145 MMOL/L (135-145)
[2021-12-17 13:43] LABS: ALANINE AMINOTRANSFERASE 12 U/L (0-55); ALKALINE PHOSPHATASE 82 U/L (40-136); BILIRUBIN,TOTAL 0.3 MG/DL (0.1-1.0); BUN/CREATININE RATIO 24; CALCIUM 9.2 MG/DL (8.5-10.1); CREATININE SERUM 0.94 MG/DL (0.60-1.30); GFR ESTIMATED 58; GLUCOSE 185 MG/DL (70-105)
[2021-12-17 13:44] LABS: ALBUMIN 3.5 GM/DL (3.2-4.5); TOTAL PROTEIN 7.4 GM/DL (6.4-8.2)
[2021-12-17 13:45] LABS: ABG BASE EXCESS 5.6 MMOL/L (-2.5-2.5); ABG OXYGEN SATURATION 93 % (94-100); ABG PCO2 45 MMHG (35-45); ABG PH 7.44 (7.37-7.43); ABG PO2 66 MMHG (79-93); ALLENS TEST YES-POS
[2021-12-17] MEDS ORDERED: LIDOCAINE 1% INJ 20 ML VIAL INJ ONE (13:45)
[2021-12-17] MEDS ORDERED: cefTRIAXone 1,000 MG VIAL IM ONE (13:45)
[2021-12-17] MEDS ORDERED: FUROSEMIDE 40 MG/4 ML INJ (LASIX) IVP ONE ×2 (13:45→21:00)
[2021-12-17 13:46] LABS: INSPIRED O2 4L; PATIENT TEMP 36.2; VENTILATOR NO
[2021-12-17] MEDS ORDERED: cefTRIAXone 1 GM PRE-MIX 50 ML IV ONE (13:52)
[2021-12-17 13:56] LABS: BAND NEUTROPHILS 2 %; BASOPHILS % (MANUAL) 1 %; EOSINOPHILS % (MANUAL) 1 %; LYMPHOCYTES % (MANUAL) 11 %; METAMYELOCYTES % 1 %; MONOCYTES % (MANUAL) 1 %; NEUTROPHILS % (MANUAL) 82 %; PLATELET ESTIMATE NORMAL; RBC MORPH ABNORMAL; REACTIVE LYMPHOCYTES 1 %
[2021-12-17 13:57] LABS: ANISOCYTOSIS MODERATE; ELLIPT/OVALOCYTES SLIGHT; POIKILOCYTOSIS MODERATE; POLYCHROMASIA SLIGHT; SCHISTOCYTES SLIGHT; TARGET CELLS SLIGHT
[2021-12-17] MEDS ORDERED: MENT71OI TP (17:33)
[2021-12-17] MEDS ORDERED: PRD20T PO (17:33)
[2021-12-17] MEDS ORDERED: MELATONIN 3 MG TABLET PO PRN (17:45)
[2021-12-17] MEDS ORDERED: ACETAMINOPHEN 325 MG TABLET PO PRN (17:45)
[2021-12-17] MEDS ORDERED: ONDANSETRON 4 MG/2 ML (SDV) Z0FRAN IV PRN (17:45)
[2021-12-17] MEDS ORDERED: polyethylene glycoL POWDER 17 GM (MIRALAX) PACK PO PRN (17:45)
[2021-12-17] MEDS ORDERED: ONDANSETRON 4 MG (ZOFRAN) ORAL DISSOLVE TAB PO PRN (17:45)
[2021-12-17] MEDS ORDERED: ANTACID SUSP 30 ML UDC (MYLANTA) PO PRN (17:45)
--- NOTE | 2021-12-17 18:03 | Tele-ICU Consult ---
History of Present Illness History of Present Illness Date Seen by Provider: Dec 17, 2021 Time Seen by Provider: 17:59 Date of Admission 12/17/21 History of Present Illness She is a 89-year-old female with past medical history of hypertension, severe dementia, atrial fibrillation and she is on amiodarone and lives in a [place] [facility]. detention staff reported that her mental status further deteriorated and her heart rate is only in 40s hence EMS was called and she was brought to the emergency room. Her respiratory status is stable but heart rate initially is in 30s40s per minute and subsequently increase it to 60s. Cardiology consultation was obtained and they have advised that to hold off amiodarone and keep her n.p.o. for possible pacemaker in case she does not im prove. I have made a video visit and unable to obtain any history from her. I have reviewed the available data in the computer and discussed with the HEALTHCARE CONSULTANT. She did not receive any atropine but she received a Lasix as she had chest congestion. She apparently has a history of congestive heart failure as well. No history of fever reported. Allergies and Home Medications Allergies Coded Allergies: No Known Drug Allergies (Unverified , 01/04/19) Home Medications Acetaminophen 500 Mg Tablet, 500 MG PO Q4H PRN for PAIN-MILD, (Reported) Amiodarone HCl 200 Mg Tablet, 200 MG PO DAILY Prescribed by: GRETCHEN DUMONT on 03/13/20 1143 Apixaban 2.5 Mg Tablet, 2.5 MG PO BID Prescribed by: AUGUSTIN TIWARI on 01/07/19 1057 Azithromycin 250 Mg Tablet, 500 MG PO DAILY TAKE 2 TABLETS ON DAY ONE THEN TAKE 1 TABLET DAILY FOR FOUR MORE DAYS Prescribed by: SRIKANTH HUGHES on 05/31/21 1405 Calcium Carbonate/Vitamin D3 1 Each Tablet, 1 TAB PO DAILY, (Reported) Furosemide 20 Mg Tablet, 20 MG PO DAILY, (Reported) Hydrocodone/Acetaminophen 1 Each Tablet, 1 EACH PO Q6H PRN for PAIN-MODERATE (5- 7) Prescribed by: REGINA DENNIS on 03/08/204 Memantine HCl 10 Mg Tablet, 10 MG PO BID, (Reported) Menthol/Lanolin/Calamine/Znox 71 Gm Oint, 71 GM TP BID Prescribed by: ROMAN OCAMPO on 12/17/21 1733 Mirtazapine 7.5 Mg Tablet, 7.5 MG PO HS, (Reported) Multivitamin 1 Each Tablet, 1 TAB PO DAILY, (Reported) Polyethylene Glycol 3350 17 Gm Powd.pack, 17 GM PO DAILY, (Reported) Potassium Chloride 10 Meq Tab.er.prt, 10 MEQ PO DAILY, (Reported) Pravastatin Sodium 20 Mg Tablet, 20 MG PO HS, (Reported) Prednisone 20 Mg Tab, 40 MG PO DAILY Prescribed by: ROMAN OCAMPO on 12/17/21 1733 Ropinirole HCl 1 Mg Tablet, 1 MG PO TID, (Reported) Sertraline HCl 100 Mg Tablet, 100 MG PO DAILY, (Reported) Tramadol HCl 50 Mg Tablet, 50 MG PO Q6H PRN for PAIN-MODERATE, (Reported) Past Medical/Social/Family Hx Patient Social History Tobacco Use?: No Smoking Status: Unknown if Ever Smoked Use of E-Cig and/or Vaping dev: Unable to obtain E-Cig and/or Vaping Freq: Never a User Substance use?: Unable to obtain Alcohol Use?: Unable to obtain Pt stated abuse/neglect: Unable to obtain Immunizations Up To Date Influenza Vaccine Up-to-Date: Yes; Up-to-Date Date of Pneumonia Vaccine: Sep 22, 2018 Current Status Advance Directives: Yes Advance Directive Location: AT NURSING FACILITY Communicates: Gestures, Verbally Primary Language: Citizen Of [place] Preferred Spoken Language: Citizen Of [place] Is interpretation needed?: No Sensory deficits: Speech impairment Implanted or Applied Medical D: None Review of Systems Constitutional: see HPI Other ROS PER RN Focused Exam Lactate Level 12/17/21 12:57: Lactic Acid Level 2.33*H Height, Weight, BMI Height: 5'7.00" Weight: 209lbs. 7.0oz. 94.513177yd; 26.01 BMI Method:Stated Exam Exam Patient acknowledged, consented, and participated in this virtual visit which was conducted using real time audio/video Vital Signs Date Time Temp Pulse Resp B/P (MAP) Pulse Ox O2 Delivery O2 Flow Rate FiO2 12/17/21 17:00 67 22 122/69 91 Nasal Cannula 2.00 12/17/21 16:30 65 28 130/84 91 Nasal Cannula 2.00 12/17/21 15:40 48 19 89/42 95 Nasal Cannula 2.00 12/17/21 12:42 36.2 34 41 101/49 (67) 02 Nasal Cannula 4.00 Height & Weight Height: 5'7.00" Weight: 209lbs. 7.0oz. 94.608611tf; 26.01 BMI Method:Stated General Appearance: Anxious, Mild Distress (Respiratory distress) HEENT: PERRL/EOMI Neck: Non Tender, Supple Respiratory: Decreased Breath Sounds, Rhonci (Coarse rhonchi throughout) Cardiovascular: Bradycardia Capillary Refill: Less Than 3 Seconds Extremity: Swelling, Other (Pressure boots placed) Neurologic/Psychiatric: Alert, Other (Left hemiparesis) Skin: Normal Color Other comments PE PER RN Results Lab Laboratory Tests 12/17/21 12:35 Assessment/Plan Assessment/Plan 1. Symptomatic bradycardia with underlying atrial fibrillation probably due to amiodarone however advance her to heart blocks cannot be ruled out. 2. History of atrial fibrillation 3. Severe dementia 4. History of hypertension currently has a low blood pressure. 5. Questionable mild congestive heart failure. Recommendations 1. Continue to hold amiodarone 2. Keep n.p.o. 3. Monitor for any further severe bradycardia and hypotension. 4. Pulmonary evaluation of atrial fibrillation and bradycardia per cardiology service. 5. Hold Eliquis in case she needs pacemaker for the next 24 hours Critical Care: Critically Ill Patient Time spent with patient (mins): 30 MIGUEL A MORALES MD Dec 17, 2021 18:03
[2021-12-17] MEDS ORDERED: ENOXAPARIN 40 MG/0.4 ML (LOVENOX) SYR SC SCH (20:00)
[2021-12-17] MEDS ORDERED: NS IV 1000 ML 1,000 ML ONE (20:17)
[2021-12-17] MEDS: NS IV 1000 ML 1,000 ML IV SCH (20:36)
[2021-12-17] MEDS: MEMANTINE 10 MG (NAMENDA) TABLET PO SCH (20:36)
[2021-12-17] MEDS: SIMvastatin 10 MG (ZOCOR) TAB PO SCH (20:36)
[2021-12-17] MEDS: MIRTAZAPINE 15 MG (REMERON) TAB PO SCH (20:36)
--- NOTE | 2021-12-17 20:41 | History & Physical-Hospitalist ---
History of Present Illness HPI/Chief Complaint Brenda Zamorano is an 89 year old female with PMH HTN, AFib, dementia, who was admitted from her residential with symptomatic bradycardia. She is a poor historian and unable to provide any history. She denies any complaints. She had reportedly been altered from her baseline. She had also been in respiratory distress. Source: patient, RN/MD Exam Limitations: clinical condition Date Seen 12/17/21 Time Seen by a Provider: 19:40 Attending Physician Dean Bender MD PCP Lubna Coates MD Referring Physician Date of Admission Dec 17, 2021 at 16:20 Home Medications & Allergies Home Medications Reviewed patient Home Medication Reconciliation performed by pharmacy medication reconciliations personnel and payroll technician and/or nursing. Patients Allergies have been reviewed. Allergies Allergies Coded Allergies No Known Drug Allergies (Unverified01/04/19) Past Gepfqnp-Sxvwas-Dqvdkk Hx Patient Social History Tobacco Use?: No Smoking Status: Unknown if Ever Smoked Use of E-Cig and/or Vaping dev: Unable to obtain Use of E-Cig and/or Vaping [place]: Never a User Substance use?: Unable to obtain Alcohol Use?: Unable to obtain Pt feels they are or have been: Unable to obtain Immunizations Up To Date Date of Influenza Vaccine: Aug 22, 2021 Date of Pneumonia Vaccine: Sep 22, 2018 Seasonal Allergies Seasonal Allergies: No Current Status Advance Directives: Yes Advance Directive Location: AT NURSING FACILITY Communicates: Gestures, Verbally Primary Language: Wol[place] Preferred Spoken Language: Wol[place] Is interpretation needed?: No Sensory deficits: Speech impairment Implanted or Applied Medical D: None Past Medical History Surgeries: Orthopedic Atrial Fibrillation, High Cholesterol, Hypertension Neuropathy Bladder Infection Gastroesophageal Reflux, Chronic Constipation Arthritis Blood Disorders: No Family Medical History Genitourinary system disorder Hypertension Review of Systems Constitutional: see HPI Physical Exam Physical Exam Vital Signs Vital Signs - First Documented 12/17/21 12:42 Temp 36.2 Pulse 34 Resp 41 B/P (MAP) 101/49 (66) Pulse Ox 97 O2 Delivery Nasal Cannula O2 Flow Rate 4.00 Capillary Refill : Less Than 3 Seconds Height, Weight, BMI Height: 5'7.00" Weight: 209lbs. 7.0oz. 94.864775mz; 26.01 BMI Method:Stated General Appearance: No Apparent Distress, WD/WN Neck: Normal Inspection, Supple Respiratory: No Respiratory Distress, Rhonci Cardiovascular: No Murmur, Bradycardia Gastrointestinal: Normal Bowel Sounds, Non Tender, Soft Extremity: Normal Inspection, Pedal Edema Neurologic/Psychiatric: Alert, Normal Mood/Affect Skin: Normal Color, Warm/Dry Results Results/Procedures Labs Laboratory Tests 12/17/21 12:35 Patient resulted labs reviewed. Imaging: Reviewed Imaging Report Assessment/Plan Admission Diagnosis Symptomatic bradycardia Admission Status: Inpatient Order (span 2 midnights) Reason for Inpatient Admission: Cardiology evaluation Assessment and Plan Symptomatic bradycardia Cardiology consulted Monitor on telemetry Hold Amiodarone TeleICU consulted May require pacemaker placement HTN AFib Holding home meds Advanced dementia Advanced age ;Clinically significant, no acute management needs Diagnosis/Problems Diagnosis/Problems (1) Symptomatic bradycardia Status: Acute Clinical Quality Measures AMI/AHF: ASA po Prior to arrival: DEAN Worrell MD Dec 17, 2021 20:41
[2021-12-17] MEDS ORDERED: NON-FORMULARY MEDICATION 1 EA EA (Pravastatin Sodium 20 MG) PO SCH (21:00)
[2021-12-17] MEDS ORDERED: NON-FORMULARY MEDICATION 1 EA EA (Mirtazapine 7.5 MG) PO SCH (21:00)
[2021-12-17] MEDS ORDERED: FUROSEMIDE 40 MG/4 ML INJ (LASIX) ONE (21:20)
[2021-12-18 05:49] LABS: BASOPHILS % (AUTO) 0 % (0-10); EOSINOPHILS % (AUTO) 0 % (0-10); HEMATOCRIT 36 % (35-52); HEMOGLOBIN 10.3 g/dL (11.5-16.0); LYMPHOCYTES # (AUTO) 2.2 10^3/uL (1.0-4.0); LYMPHOCYTES % (AUTO) 20 % (12-44); MEAN CORPUSCULAR HEMOGLOBIN 26 pg (25-34); MEAN CORPUSCULAR HGB CONC 29 g/dL (32-36); MEAN CORPUSCULAR VOLUME 90 fL (80-99); MEAN PLATELET VOLUME 10.8 fL (9.0-12.2); MONOCYTES # (AUTO) 0.7 10^3/uL (0.0-1.0); MONOCYTES % (AUTO) 6 % (0-12); NEUTROPHILS % (AUTO) 74 % (42-75); PLATELET COUNT 321 10^3/uL (130-400)
[2021-12-18 05:59] LABS: POTASSIUM 4.2 MMOL/L (3.6-5.0)
[2021-12-18 06:00] LABS: CALCIUM 9.3 MG/DL (8.5-10.1)
[2021-12-18 06:04] LABS: CREATININE SERUM 1.06 MG/DL (0.60-1.30); PHOSPHORUS 4.1 MG/DL (2.3-4.7)
[2021-12-18] MEDS: MAGNESIUM 1 GM/100 ML IVPB 100 ML IV SCH (06:19)
[2021-12-18] MEDS: KCL 20 MEQ TAB (K-DUR) PO SCH (06:19)
[2021-12-18] MEDS: POTASSIUM CL 10MEQ/50ML IVPB 50 ML IV SCH (06:19)
[2021-12-18] MEDS: SERTRALINE 100 MG (ZOLOFT) TAB PO SCH (09:00)
[2021-12-18] MEDS: MEMANTINE 10 MG (NAMENDA) TABLET PO SCH ×2 (09:00→20:15)
[2021-12-18] MEDS: NS IV 1000 ML 1,000 ML IV SCH ×2 (10:13→20:14)
[2021-12-18] MEDS: cefTRIAXone 1 GM PRE-MIX 50 ML IV SCH (10:13)
--- NOTE | 2021-12-18 11:28 | Tele-ICU Progress Note ---
Subjective Date Seen by a Provider: Dec 18, 2021 Time Seen by a Provider: 11:28 Sepsis Event Evaluation Height, Weight, BMI Height: 5'7.00" Weight: 209lbs. 7.0oz. 94.271321ci; 26.01 BMI Method:Stated Focused Exam Lactate Level 12/17/21 12:57: Lactic Acid Level 2.33*H 12/17/21 18:03: Lactic Acid Level 1.24 Exam Exam Patient acknowledged, consented, and participated in this virtual visit which was conducted using real time audio/video Vital Signs Date Time Temp Pulse Resp B/P (MAP) Pulse Ox O2 Delivery O2 Flow Rate FiO2 12/18/21 11:00 56 16 115/65 96 OxyMask 3.00 12/18/21 10:00 57 22 107/62 97 OxyMask 3.00 12/18/21 09:13 OxyMask 3.00 12/18/21 09:00 66 20 129/76 94 OxyMask 10.00 12/18/21 08:58 93 OxyMask 3.00 12/18/21 08:58 65 12/18/21 08:00 76 29 120/83 96 OxyMask 10.00 12/18/21 07:48 36.6 12/18/21 07:00 43 14 130/82 96 OxyMask 10.00 12/18/21 06:00 52 22 111/94 95 OxyMask 10.00 12/18/21 05:00 91 22 155/112 95 OxyMask 10.00 12/18/21 04:00 53 22 94/43 100 OxyMask 10.00 12/18/21 04:00 36.5 12/18/21 04:00 OxyMask 10.00 12/18/21 03:00 44 16 89/56 99 OxyMask 10.00 12/18/21 02:00 49 15 88/58 99 OxyMask 10.00 12/18/21 01:00 46 12/18/21 01:00 46 14 126/68 100 OxyMask 10.00 12/18/21 00:00 51 15 105/65 98 OxyMask 10.00 12/18/21 00:00 36.0 12/17/21 23:59 OxyMask 10.00 12/17/21 23:00 51 15 109/66 99 OxyMask 10.00 12/17/21 22:00 53 14 111/70 98 OxyMask 10.00 12/17/21 21:00 57 17 115/67 98 OxyMask 10.00 12/17/21 20:00 OxyMask 10.00 12/17/21 20:00 64 24 125/88 96 OxyMask 10.00 12/17/21 19:20 36.4 OxyMask 10.00 12/17/21 19:00 68 14 118/86 94 OxyMask 10.00 12/17/21 18:18 OxyMask 15.00 12/17/21 18:10 66 12/17/21 18:00 73 18 143/93 88 Nasal Cannula 2.00 12/17/21 17:00 67 22 122/69 91 Nasal Cannula 2.00 12/17/21 16:30 65 28 130/84 91 Nasal Cannula 2.00 12/17/21 16:30 Nasal Cannula 2.00 12/17/21 15:40 48 19 89/42 95 Nasal Cannula 2.00 12/17/21 12:42 36.2 34 41 101/49 (66) 97 Nasal Cannula 4.00 I & O 12/18/21 07:00 Intake Total 50 ml Output Total 475 ml Balance -425 ml Height & Weight Height: 5'7.00" Weight: 209lbs. 7.0oz. 94.352363kn; 26.01 BMI Method:Stated General Appearance: No Apparent Distress, WD/WN HEENT: PERRL/EOMI Neck: Normal Inspection, Supple Respiratory: No Respiratory Distress, Rhonci Cardiovascular: No Murmur, Bradycardia Capillary Refill: Less Than 3 Seconds Extremity: Normal Inspection, Pedal Edema Neurologic/Psychiatric: Alert, Normal Mood/Affect Skin: Normal Color, Warm/Dry Results Lab Laboratory Tests 12/17/21 12:35 12/18/21 04:45 Assessment/Plan Assessment/Plan (Tele-ICU Physician , Progress Note ) Available chart/ vitals / labs / Images reviewed Video assessment done using teleICU camera, rest of exam as per RN Discussed with RN , EXAM PER RN Events overnight : Afebrile FiO2 - I/O = Drips: ns 75 Pressors: , hemodynamically stable Consultants: key Hospital course: (12/17) 89 y F from ER with UTI, PNA vs CHF on oxymask// from [place], afib hr 30-40, po amio held 12/16- 3l MS , BP stable HT 40s A/P Symptomatic bradycardia with underlying atrial fibrillation -suspected due to amiodarone -card follow - monitor, all meds on hold - off Eliquis for now UTI - cont abx , follow cx Acute resp failure - improved, on 3L NC Severe dementia - at baseline Reported prednisone on [facility] meds list - ? inducations - off steroids now - monitor Lines : (Central Line Necessity Reviewed) Leon: OG: Nutrition: Analgesia: Anxiety/ delirium VTE Prophylaxis: 40 sq Stress Ulcer Prophylaxis: Plans in collaboration with bedside consultants and IM MDs. Discussed with RN to reach out if any questions or concerns A total of 32 minutes of critical care time was devoted to this patient today, required to treat and/or prevent further deterioration of critical care condition ( as above) . ARIEL PLEITEZ MD Dec 18, 2021 11:28
--- NOTE | 2021-12-18 11:39 | Progress Note - Hospitalist ---
Subjective HPI/CC On Admission Date Seen by Provider: Dec 18, 2021 Time Seen by Provider: 09:15 Brenda Zamorano is an 89 year old female with PMH HTN, AFib, dementia, who was admitted from her [facility] with symptomatic bradycardia. She is a poor historian and unable to provide any history. She denies any complaints. She had reportedly been altered from her baseline. She had also been in respiratory distress. Subjective/Events-last exam She is confused. She denies pain. She denies breathing trouble. Focused Exam Lactate Level 12/17/21 12:57: Lactic Acid Level 2.33*H 12/17/21 18:03: Lactic Acid Level 1.24 Objective Exam Vital Signs Vital Signs Date Time Temp Pulse Resp B/P (MAP) Pulse Ox O2 Delivery O2 Flow Rate FiO2 12/18/21 11:00 56 16 115/65 96 OxyMask 3.00 12/18/21 07:48 36.6 Capillary Refill : Less Than 3 Seconds General Appearance: No Apparent Distress, Chronically ill Respiratory: Lungs Clear, No Respiratory Distress Cardiovascular: Regular Rate, Rhythm, No Murmur Gastrointestinal: Normal Bowel Sounds, Soft Extremity: Normal Inspection, Pedal Edema Neurologic/Psychiatric: Alert, Normal Mood/Affect Skin: Normal Color, Warm/Dry Results/Procedures Lab Laboratory Tests 12/17/21 12:35 12/18/21 04:45 Patient resulted labs reviewed. Imaging: Reviewed Imaging Report Assessment/Plan Assessment and Plan Assess & Plan/Chief Complaint Symptomatic bradycardia Cardiology consulted Monitor on telemetry Hold Amiodarone TeleICU following HTN AFib Holding home meds Advanced dementia Advanced age Clinically significant, no acute management needs Critical Care Critically Ill Patient Diagnosis/Problems Diagnosis/Problems (1) Symptomatic bradycardia Status: Acute (2) Advanced dementia Status: Chronic (3) Advanced age Status: Chronic (4) Atrial fibrillation Status: Chronic Clinical Quality Measures AMI/AHF: ASA po Prior to arrival: DEAN Worrell MD Dec 18, 2021 11:39
--- NOTE | 2021-12-18 14:06 | Consultation-Cardiology ---
HPI-Cardiology Cardiology Consultation: Date of Consultation 12/18/21 Time Seen by a Provider: 13:15 Date of Admission Attending Physician Greta Bender MD Admitting Physician Lubna Coates MD Consulting Physician MARINA ZHANG MD, MA, FACP, FACC, FSCAI, CCDS HPI: Chief Complaint: Reason for Cardiology consultation: Bradycardia 89 yo woman resident of a local [place] who was sent to the [facility] ER for increasing shortness of breath and general cognitive decline (above her baseline dementia). She herself is not able to provide and meaningful history. Denies cp or palp or syncope or shortness of breath or swelling or n/v/d. Was found to be in 2:1 AVB and in CHF in the ER. Also, there was evidence of UTI and sepsis. Symptoms have since improved after treatment of CHF and UTI. Has been in NSR w/o any advance AV block since admission to this hospital after transfer from [facility] ER Review of Systems-Cardiology Review of Systems Constitutional: other (She is not able to provide any meaningful history or review of systems) All Other Systems Reviewed Negative Unless Noted: No (Review of systems limited due to the patient's demen tia) ALI-Tlkvjm-Neqmpk Hx Patient Social History Smoking Status: Unknown if Ever Smoked 2nd Hand Smoke Exposure: No Have you traveled recently?: No Alcohol Use?: Unable to obtain Pt feels they are or have been: Unable to obtain Immunizations Up To Date Date of Pneumonia Vaccine: Sep 22, 2018 Date of Influenza Vaccine: Aug 22, 2021 Past Medical History PMH As described under Assessment. Family Medical History Family Medical History: Does not report fam h/o early CAD or SCD Family History: Genitourinary system disorder Allergies and Home Medications Allergies Coded Allergies: No Known Drug Allergies (Unverified , 01/04/19) Patient Home Medication List Home Medication List Reviewed: Yes Acetaminophen (Tylenol Extra Strength) 500 Mg Tablet, 500 MG PO Q4H PRN for PAIN-MILD, (Reported) Entered as Reported by: SAAD SEXTON on 01/07/19 0960 Last Action: Held Amiodarone HCl (Amiodarone HCl) 200 Mg Tablet, 200 MG PO DAILY Prescribed by: GRETCHEN DUMONT on 03/13/20 1143 Last Action: Held Apixaban (Eliquis) 2.5 Mg Tablet, 2.5 MG PO BID Prescribed by: AUGUSTIN TIWARI on 01/07/19 1057 Last Action: Held Azithromycin (Azithromycin) 250 Mg Tablet, 500 MG PO DAILY Prescribed by: SRIKANTH HUGHES on 05/31/21 1405 Last Action: Held Calcium Carbonate/Vitamin D3 (Calcium 600 + Vit D 200 Tablet) 1 Each Tablet, 1 TAB PO DAILY, (Reported) Entered as Reported by: SAAD SEXTON on 12/05/18 1345 Last Action: Held Furosemide (Furosemide) 20 Mg Tablet, 20 MG PO DAILY, (Reported) Entered as Reported by: ASAD SEXTON on 01/07/19 0942 Last Action: Held Hydrocodone/Acetaminophen (Hydrocodone-Acetamin 5-325 mg) 1 Each Tablet, 1 EACH PO Q6H PRN for PAIN-MODERATE (5-7) Prescribed by: REGINA DENNIS on 03/08/20 2124 Last Action: Held Memantine HCl (Memantine HCl) 10 Mg Tablet, 10 MG PO BID, (Reported) Entered as Reported by: BETTINA JONES on 03/12/20 1141 Last Action: Continued Menthol/Lanolin/Calamine/Znox (Calmoseptine Ointment) 71 Gm Oint, 71 GM TP BID Prescribed by: ROMAN OCAMPO on 12/17/21 1733 Last Action: Held Mirtazapine (Mirtazapine) 7.5 Mg Tablet, 7.5 MG PO HS, (Reported) Entered as Reported by: SAAD SEXTON on 12/05/18 1202 Last Action: Converted Multivitamin (Multivitamins) 1 Each Tablet, 1 TAB PO DAILY, (Reported) Entered as Reported by: SAAD SEXTON on 12/05/18 1202 Last Action: Held Polyethylene Glycol 3350 (Polyethylene Glycol 3350) 17 Gm Powd.pack, 17 GM PO DAILY, (Reported) Entered as Reported by: MARIAH PRIETO on 01/05/19 0920 Last Action: Held Potassium Chloride (Potassium Chloride) 10 Meq Tab.er.prt, 10 MEQ PO DAILY, (Reported) Entered as Reported by: BETTINA JONES on 03/12/20 1140 Last Action: Held Pravastatin Sodium (Pravastatin Sodium) 20 Mg Tablet, 20 MG PO HS, (Reported) Entered as Reported by: SAAD SEXTON on 12/05/18 1202 Last Action: Converted Prednisone (Prednisone) 20 Mg Tab, 40 MG PO DAILY Prescribed by: ROMAN OCAMPO on 12/17/21 173 Last Action: Held Ropinirole HCl (Ropinirole HCl) 1 Mg Tablet, 1 MG PO TID, (Reported) Entered as Reported by: BETTINA JONES on 07/08/19 0842 Last Action: Held Sertraline HCl (Sertraline HCl) 100 Mg Tablet, 100 MG PO DAILY, (Reported) Entered as Reported by: LINNETTE WOODRUFF on 07/06/19 0454 Last Action: Continued Tramadol HCl (Tramadol HCl) 50 Mg Tablet, 50 MG PO Q6H PRN for PAIN-MODERATE, (Reported) Entered as Reported by: SAAD SEXTON on 01/07/19 0942 Last Action: Held Discontinued Medications Cephalexin (Cephalexin) 500 Mg Capsule, 500 MG PO BID, (Reported) Discontinued Reason: No Longer Taking Entered as Reported by: BETTINA JONES on 03/12/20 1141 Last Action: Discontinued Cephalexin (Cephalexin) 500 Mg Tablet, 500 MG PO QID Discontinued Reason: No Longer Taking Prescribed by: NESTOR JIMENES on 04/04/21 1311 Last Action: Discontinued Citalopram Hydrobromide (Citalopram HBr) 10 Mg Tablet, 10 MG PO HS, (Reported) Discontinued Reason: No Longer Taking Entered as Reported by: MARIAH PRIETO on 01/05/19 0920 Last Action: Discontinued Docusate Sodium (Colace) 100 Mg Capsule, 400 MG PO HS, (Reported) Discontinued Reason: No Longer Taking Entered as Reported by: SAAD SEXTON on 12/05/18 1202 Last Action: Discontinued Doxycycline Hyclate (Doxycycline Hyclate) 100 Mg Tablet, 100 MG PO BID Discontinued Reason: No Longer Taking Prescribed by: KRYSTINA KABA on 08/15/212116 Last Action: Discontinued Famotidine (Acid Tester Vibrator Equipment (FAMOTIDINE)) 20 Mg Tablet, 20 MG PO BID, (Reported) Discontinued Reason: No Longer Taking Entered as Reported by: LINNETTE WOODRUFF on 07/06/19 984 Last Action: Discontinued Furosemide (Lasix) 40 Mg Tablet, 40 MG PO DAILY Discontinued Reason: No Longer Taking Prescribed by: KRYSTINA KABA on 08/15/212116 Last Action: Discontinued Nitrofurantoin Monohyd/M-Cryst (Macrobid 100 mg Capsule) 100 Mg Capsule, 100 MG PO BID Discontinued Reason: No Longer Taking Prescribed by: NESTOR JIMENES on 11/06/201416 Last Action: Discontinued Sennosides/Docusate Sodium (Senna-S Tablet) 1 Each Tablet, 2 TAB PO BID, (Reported) Discontinued Reason: No Longer Taking Entered as Reported by: SAAD SEXTON on 01/07/19941 Last Action: Discontinued Physical Exam-Cardiology Physical Exam Vital Signs/I&O 12/18/21 12/18/21 12/18/21 12/18/21 03:00 04:00 04:00 04:00 Temp 36.5 Pulse 44 53 Resp 16 22 B/P (MAP) 89/56 94/43 Pulse Ox 99 100 O2 Delivery OxyMask OxyMask OxyMask O2 Flow Rate 10.00 10.00 10.00 12/18/21 12/18/21 12/18/21 12/18/21 05:00 06:00 07:00 07:48 Temp 36.6 Pulse 91 52 43 Resp 22 22 14 B/P (MAP) 155/112 111/94 130/82 Pulse Ox 95 95 96 O2 Delivery OxyMask OxyMask OxyMask O2 Flow Rate 10.00 10.00 10.00 12/18/21 12/18/21 12/18/21 12/18/21 08:00 08:58 08:58 09:00 Pulse 76 65 66 Resp 29 20 B/P (MAP) 120/83 129/76 Pulse Ox 96 93 94 O2 Delivery OxyMask OxyMask OxyMask O2 Flow Rate 10.00 3.00 10.00 12/18/21 12/18/21 12/18/21 12/18/21 09:13 10:00 11:00 11:46 Temp 36.3 Pulse 57 56 Resp 22 16 B/P (MAP) 107/62 115/65 Pulse Ox 97 96 O2 Delivery OxyMask OxyMask OxyMask O2 Flow Rate 3.00 3.00 3.00 12/18/21 12/18/21 12/18/21 12:00 12:51 13:50 Pulse 61 56 Resp 18 B/P (MAP) 127/74 Pulse Ox 95 O2 Delivery OxyMask OxyMask O2 Flow Rate 3.00 1.00 12/18/21 00:00 Intake Total 50 ml Output Total 200 ml Balance -150 ml Capillary Refill : Less Than 3 Seconds Constitutional: No AAO x 3; other (confused, thin-appearing) HEENT: PERRL, EOMI Neck: carotid pulses are 2 + bilaterally Respiratory: No accessory muscle use; other (fair to good, bilateral air entry) Cardiovascular: regular rate-rhythm, S1 and S2, systolic murmur (soft SHAKA at card base) Gastrointestinal: No tender; soft; No guarding, No rebound; audible bowel sounds Extremities: No clubbing, No cyanosis, No significant edema Neurologic/Psychiatric: No oriented x 3; other (moves all limbs) Skin: warm/dry; No rash on exposed areas, No ulcerations on exposed areas Data Review Labs Laboratory Tests 12/17/21 18:03: Lactic Acid Level 1.24 12/18/21 04:45: White Blood Count 11.0, Red Blood Count 4.04, Hemoglobin 10.3L, Hematocrit 36, Mean Corpuscular Volume 90, Mean Corpuscular Hemoglobin 26, Mean Corpuscular Hemoglobin Concent 29L, Red Cell Distribution Width 19.0H, Platelet Count 321, Mean Platelet Volume 10.8, Immature Granulocyte % (Auto) 1, Neutrophils (%) (Auto) 74, Lymphocytes (%) (Auto) 20, Monocytes (%) (Auto) 6, Eosinophils (%) (Auto) 0, Basophils (%) (Auto) 0, Neutrophils # (Auto) 8.0H, Lymphocytes # (Auto) 2.2, Monocytes # (Auto) 0.7, Eosinophils # (Auto) 0.0, Basophils # (Auto) 0.0, Immature Granulocyte # (Auto) 0.1, Sodium Level 145, Potassium Level 4.2, Chloride Level 107, Carbon Dioxide Level 22, Anion Gap 16H, Blood Urea Nitrogen 27H, Creatinine 1.06, Estimat Glomerular Filtration Rate 50, BUN/Creatinine Ratio 25, Glucose Level 123H, Calcium Level 9.3, Phosphorus Level 4.1, Magnesium Level 2.0 Microbiology 12/17/21 MRSA Screen - Final, Complete MRSA not isolated Laboratory Tests 12/17/21 12:35 12/18/21 04:45 A/P-Cardiology Assessment/Admission Diagnosis Sinus node dysfunction: * PAF - documented by Dr Calles in February 2020 and pt placed on amiodarone and diltiazem and apixaban * Sinus ivonne and one episode of 2:1 AV block at the time of this presentation (w/o any distinct associated symptoms) UTI and sepsis HFpEF - Echo February 2020: LVEF 55-65%; grade 1 diastolic dysfunction; mild to mod enlargement of LA; mod AI, PI and TR; PASP 55-60 mmHg Dementia H/o hypertension, none currently Discussion and Recomendations * Complex decision making. Several issues considered (see below) * Probable reason for shortness of breath was ac diastolic CHF that appears to have improved clinically * Probable reason for worsening of baseline confusion was UTI and sepsis that appear to have improved clinically * Currently NSR with only first degree AVB * Continue to monitor. So far, we have seen only one transient episode of 2:1 AV block that was not clearly associated with symptoms or hemodynamic compromise and that seems to have resolved with treatment of CHF and UTI and sepsis * D/c amiodarone * Avoid rate-lowering agents for now * Resume low dose apixaban once swallowing is found to be satisfactory. For now, increase enoxaparin to 40 mg sc bid Clinical Quality Measures AMI/AHF: ASA po Prior to arrival: MARINA Jeffrey MD FACP FAC CCDS Dec 18, 2021 14:06
[2021-12-18] MEDS: SIMvastatin 10 MG (ZOCOR) TAB PO SCH (20:14)
[2021-12-18] MEDS: MIRTAZAPINE 15 MG (REMERON) TAB PO SCH (20:15)
[2021-12-18] MEDS: ENOXAPARIN 40 MG/0.4 ML (LOVENOX) SYR SC SCH (20:15)
[2021-12-19 04:28] LABS: BASOPHILS # (AUTO) 0.1 10^3/uL (0.0-0.1); BASOPHILS % (AUTO) 1 % (0-10); EOSINOPHILS # (AUTO) 0.1 10^3/uL (0.0-0.3); EOSINOPHILS % (AUTO) 1 % (0-10); HEMATOCRIT 32 % (35-52); HEMOGLOBIN 9.1 g/dL (11.5-16.0); LYMPHOCYTES # (AUTO) 1.8 10^3/uL (1.0-4.0); LYMPHOCYTES % (AUTO) 20 % (12-44); MEAN CORPUSCULAR HEMOGLOBIN 26 pg (25-34); MEAN CORPUSCULAR HGB CONC 29 g/dL (32-36); MEAN CORPUSCULAR VOLUME 91 fL (80-99); MEAN PLATELET VOLUME 9.6 fL (9.0-12.2); MONOCYTES # (AUTO) 0.6 10^3/uL (0.0-1.0); MONOCYTES % (AUTO) 7 % (0-12); NEUTROPHILS # (AUTO) 6.1 10^3/uL (1.8-7.8); NEUTROPHILS % (AUTO) 70 % (42-75); PLATELET COUNT 242 10^3/uL (130-400); WHITE BLOOD COUNT 8.7 10^3/uL (4.3-11.0)
[2021-12-19 04:39] LABS: POTASSIUM 3.5 MMOL/L (3.6-5.0)
[2021-12-19 04:40] LABS: CALCIUM 8.5 MG/DL (8.5-10.1)
[2021-12-19 04:44] LABS: CREATININE SERUM 0.81 MG/DL (0.60-1.30); PHOSPHORUS 3.5 MG/DL (2.3-4.7)
[2021-12-19 04:47] LABS: MAGNESIUM 1.9 MG/DL (1.6-2.4)
[2021-12-19] MEDS: POTASSIUM CL 10MEQ/50ML IVPB 50 ML IV SCH ×3 (06:04→08:10)
[2021-12-19] MEDS: KCL 20 MEQ TAB (K-DUR) PO SCH (06:04)
[2021-12-19] MEDS: MAGNESIUM 1 GM/100 ML IVPB 100 ML IV SCH (06:04)
--- NOTE | 2021-12-19 07:55 | Tele-ICU Progress Note ---
Subjective Date Seen by a Provider: Dec 19, 2021 Time Seen by a Provider: 07:53 Subjective/Events-last exam Patient today feels about a week. Blood pressure is stable. However her heart rate improved currently at 6070s per minute while she is awake however. Once in a while it drops to 40s when she is sleeping. She has a congested cough with yellow sputum. 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 Physical therapy will be ordered. We will give her Lasix 20 mg IV push. Review of Systems ROS PER RN Sepsis Event Evaluation Height, Weight, BMI Height: 5'7.00" Weight: 209lbs. 7.0oz. 94.178273qo; 26.01 BMI Method:Stated Focused Exam Lactate Level 12/17/21 12:57: Lactic Acid Level 2.33*H 12/17/21 18:03: Lactic Acid Level 1.24 Exam Exam Patient acknowledged, consented, and participated in this virtual visit which was conducted using real time audio/video Vital Signs Date Time Temp Pulse Resp B/P (MAP) Pulse Ox O2 Delivery O2 Flow Rate FiO2 12/19/21 07:39 36.3 12/19/21 06:00 44 14 118/73 95 OxyMask 3.00 12/19/21 05:00 44 15 107/68 95 OxyMask 3.00 12/19/21 04:00 96 OxyMask 3.00 12/19/21 04:00 42 16 168/95 95 OxyMask 3.00 12/19/21 03:24 36.1 Nasal Cannula 3.00 12/19/21 03:24 95 Nasal Cannula 3.00 12/19/21 03:00 43 16 96/50 97 Nasal Cannula 3.00 12/19/21 02:00 48 16 130/71 96 Nasal Cannula 3.00 12/19/21 01:00 54 12/19/21 01:00 54 13 128/74 97 Nasal Cannula 3.00 12/19/21 00:00 49 14 111/67 94 Nasal Cannula 3.00 12/18/21 23:11 36.4 Nasal Cannula 3.00 12/18/21 23:01 95 Nasal Cannula 3.00 12/18/21 23:00 54 16 111/80 95 Nasal Cannula 3.00 12/18/21 22:00 41 15 114/87 93 Nasal Cannula 3.00 12/18/21 21:00 50 20 97/56 98 Nasal Cannula 3.00 12/18/21 21:00 95 Nasal Cannula 3.00 12/18/21 20:00 50 21 113/60 99 Nasal Cannula 3.00 12/18/21 20:00 36.8 Nasal Cannula 3.00 12/18/21 19:00 50 19 112/69 100 Nasal Cannula 3.00 12/18/21 19:00 50 12/18/21 18:00 56 26 120/76 99 OxyMask 3.00 12/18/21 17:00 55 12 133/82 94 OxyMask 3.00 12/18/21 16:00 60 28 141/80 92 OxyMask 3.00 12/18/21 16:00 93 Nasal Cannula 1.00 12/18/21 15:51 36.6 12/18/21 15:00 60 21 123/93 94 OxyMask 3.00 12/18/21 14:00 55 24 130/73 97 OxyMask 3.00 12/18/21 13:50 OxyMask 1.00 12/18/21 13:00 60 26 129/76 100 OxyMask 3.00 12/18/21 12:51 56 12/18/21 12:00 61 18 127/74 95 OxyMask 3.00 12/18/21 12:00 93 OxyMask 3.00 12/18/21 11:46 36.3 12/18/21 11:00 56 16 115/65 96 OxyMask 3.00 12/18/21 10:00 57 22 107/62 97 OxyMask 3.00 12/18/21 09:13 OxyMask 3.00 12/18/21 09:00 66 20 129/76 94 OxyMask 10.00 12/18/21 08:58 93 OxyMask 3.00 12/18/21 08:58 65 12/18/21 08:00 76 29 120/83 96 OxyMask 10.00 I & O 12/19/21 07:00 Intake Total 2960 ml Output Total 1475 ml Balance 1485 ml Height & Weight Height: 5'7.00" Weight: 209lbs. 7.0oz. 94.105458sr; 26.01 BMI Method:Stated General Appearance: No Apparent Distress, Chronically ill HEENT: PERRL/EOMI Neck: Normal Inspection, Supple Respiratory: Lungs Clear, No Respiratory Distress Cardiovascular: Regular Rate, Rhythm, No Murmur Capillary Refill: Less Than 3 Seconds Extremity: Normal Inspection, Pedal Edema Neurologic/Psychiatric: Alert, Normal Mood/Affect Skin: Normal Color, Warm/Dry Other comments PE PER RN Results Lab Laboratory Tests 12/17/21 12:35 12/18/21 04:45 12/19/21 04:15 Assessment/Plan Assessment/Plan 1. Symptomatic bradycardia with underlying atrial fibrillation probably due to amiodarone which is on hold, improving 2. History of atrial fibrillation 3. Severe dementia 4. History of hypertension currently stable 5. Questionable mild congestive heart failure. 6. UTI 7. possible underlying pneumonia Recommendations 1. Continue to hold amiodarone 2. Oxygenation with oxy mask. 3. Monitor for any further severe bradycardia . 4. Further evaluation of atrial fibrillation and bradycardia per cardiology service. 5. Hold Eliquis 6. continue ivabx's per primary care 7. continue iv lasix per cardiology Critical Care: Critically Ill Patient MIGUEL A MORALES MD Dec 19, 2021 07:55
[2021-12-19] MEDS: cefTRIAXone 1 GM PRE-MIX 50 ML IV SCH (08:09)
[2021-12-19] MEDS: SERTRALINE 100 MG (ZOLOFT) TAB PO SCH (08:11)
[2021-12-19] MEDS: ENOXAPARIN 40 MG/0.4 ML (LOVENOX) SYR SC SCH (08:11)
[2021-12-19] MEDS: MEMANTINE 10 MG (NAMENDA) TABLET PO SCH ×2 (08:11→20:04)
[2021-12-19] MEDS ORDERED: FUROSEMIDE 40 MG/4 ML INJ (LASIX) IVP NR (09:45)
[2021-12-19] MEDS ORDERED: guaiFENesin/DM (ROBITUSSIN DM) 10 ML UDC PO PRN (09:45)
--- NOTE | 2021-12-19 10:56 | Progress Note - Hospitalist ---
Subjective HPI/CC On Admission Date Seen by Provider: Dec 19, 2021 Time Seen by Provider: 09:25 Brenda Zamorano is an 89 year old female with PMH HTN, AFib, dementia, who was admitted from her longterm with symptomatic bradycardia. She is a poor historian and unable to provide any history. She denies any complaints. She had reportedly been altered from her baseline. She had also been in respiratory distress. Subjective/Events-last exam She is confused. She denies shortness of breath. She denies pain. Focused Exam Lactate Level 12/17/21 12:57: Lactic Acid Level 2.33*H 12/17/21 18:03: Lactic Acid Level 1.24 Objective Exam Vital Signs Vital Signs Date Time Temp Pulse Resp B/P (MAP) Pulse Ox O2 Delivery O2 Flow Rate FiO2 12/19/21 10:00 58 19 138/83 94 OxyMask 5.00 12/19/21 07:39 36.3 Capillary Refill : Less Than 3 Seconds General Appearance: No Apparent Distress, Chronically ill Respiratory: No Respiratory Distress, Decreased Breath Sounds Cardiovascular: No Murmur, Bradycardia Gastrointestinal: Normal Bowel Sounds, Soft Extremity: Normal Inspection, Pedal Edema Neurologic/Psychiatric: Alert, Disoriented Skin: Warm/Dry, Pallor Results/Procedures Lab Laboratory Tests 12/19/21 04:15 Patient resulted labs reviewed. Imaging: Reviewed Imaging Report Assessment/Plan Assessment and Plan Assess & Plan/Chief Complaint Symptomatic bradycardia Cardiology following Monitor on telemetry Hold Amiodarone TeleICU following Acute respiratory failure with hypoxia Acute on chronic HFpEF Lasix Supplemental oxygen as needed UTI Culture pending Rocephin HTN AFib Holding home meds Advanced dementia Advanced age Clinically significant, no acute management needs Diagnosis/Problems Diagnosis/Problems (1) Symptomatic bradycardia Status: Acute (2) Advanced dementia Status: Chronic (3) Advanced age Status: Chronic (4) Atrial fibrillation Status: Chronic (5) Urinary tract infection Status: Acute (6) Congestive heart failure Status: Acute Qualifiers: Heart failure type: diastolic Heart failure chronicity: acute on chronic Qualified Codes: I50.33 - Acute on chronic diastolic (congestive) heart failure Clinical Quality Measures AMI/AHF: ASA po Prior to arrival: No DEAN FERGUSON MD Dec 19, 2021 10:56
[2021-12-19] MEDS: NS IV 1000 ML 1,000 ML IV SCH (12:07)
--- NOTE | 2021-12-19 16:54 | Progress Note - Cardiology ---
Cardiology SOAP Progress Note Objective: I&O/Vital Signs 12/19/21 12/19/21 12/19/21 12/19/21 05:00 06:00 07:00 07:00 Pulse 44 44 49 52 Resp 15 14 15 B/P (MAP) 107/68 118/73 118/76 Pulse Ox 95 95 90 O2 Delivery OxyMask OxyMask OxyMask O2 Flow Rate 3.00 3.00 3.00 12/19/21 12/19/21 12/19/21 12/19/21 07:39 08:00 08:00 08:42 Temp 36.3 Pulse 70 B/P (MAP) Pulse Ox 95 90 O2 Delivery OxyMask OxyMask OxyMask O2 Flow Rate 3.00 3.00 5.00 12/19/21 12/19/21 12/19/21 12/19/21 09:00 10:00 11:00 11:06 Pulse 61 58 76 Resp 19 19 30 B/P (MAP) 143/84 138/83 162/90 Pulse Ox 93 94 94 O2 Delivery OxyMask OxyMask OxyMask OxyMask O2 Flow Rate 5.00 5.00 5.00 3.00 12/19/21 12/19/21 12/19/21 12/19/21 11:22 11:30 12:00 12:46 Temp 37.0 Pulse 63 59 Resp 36 B/P (MAP) 139/88 Pulse Ox 95 98 O2 Delivery OxyMask OxyMask O2 Flow Rate 3.00 3.00 12/19/21 12/19/21 12/19/21 12/19/21 13:00 14:00 15:00 16:00 Pulse 60 61 58 Resp 12 17 10 B/P (MAP) 119/74 117/71 117/77 Pulse Ox 91 94 95 O2 Delivery OxyMask OxyMask OxyMask Nasal Cannula O2 Flow Rate 3.00 3.00 3.00 3.00 12/19/21 16:00 Pulse 70 Resp 20 B/P (MAP) 138/68 Pulse Ox 93 O2 Delivery OxyMask O2 Flow Rate 3.00 12/19/21 00:00 Intake Total 1800 ml Output Total 850 ml Balance 950 ml Weight (Pounds): 209 Weight (Ounces): 7.0 Weight (Calculated Kilograms): 94.813330 Constitutional: No AAO x 3; other (confused, thin-appearing) Respiratory: No accessory muscle use; other (fair to good, bilateral air entry) Cardiovascular: regular rate-rhythm, S1 and S2, systolic murmur (soft SHAKA at card base) Gastrointestional: No tender; soft; No guarding, No rebound; audible bowel sounds Extremities: No clubbing, No cyanosis, No significant edema Neurologic/Psychiatric: No oriented x 3; other (moves all limbs) Skin: warm/dry; No rash on exposed areas, No ulcerations on exposed areas Results/Procedures: Labs Laboratory Tests 12/19/21 04:15: White Blood Count 8.7, Red Blood Count 3.48L, Hemoglobin 9.1L, Hematocrit 32L, Mean Corpuscular Volume 91, Mean Corpuscular Hemoglobin 26, Mean Corpuscular Hemoglobin Concent 29L, Red Cell Distribution Width 19.2H, Platelet Count 242, Mean Platelet Volume 9.6, Immature Granulocyte % (Auto) 1, Neutrophils (%) (Auto) 70, Lymphocytes (%) (Auto) 20, Monocytes (%) (Auto) 7, Eosinophils (%) (Auto) 1, Basophils (%) (Auto) 1, Neutrophils # (Auto) 6.1, Lymphocytes # (Auto) 1.8, Monocytes # (Auto) 0.6, Eosinophils # (Auto) 0.1, Basophils # (Auto) 0.1, Immature Granulocyte # (Auto) 0.1, Sodium Level 149H, Potassium Level 3.5L, Chloride Level 112H, Carbon Dioxide Level 27, Anion Gap 10, Blood Urea Nitrogen 23H, Creatinine 0.81, Estimat Glomerular Filtration Rate 69, BUN/Creatinine Ratio 28, Glucose Level 82, Calcium Level 8.5, Phosphorus Level 3.5, Magnesium Level 1.9 Microbiology 12/17/21 MRSA Screen - Final, Complete MRSA not isolated 12/17/21 Urine Culture - Preliminary, Resulted Proteus mirabilis Enterococcus faecium Susceptibility To Follow 12/17/21 Blood Culture - Preliminary, Resulted No growth Laboratory Tests 12/18/21 04:45 12/19/21 04:15 A/P: Assessment: Sinus node dysfunction: * PAF - documented by Dr Calles in February 2020 and pt placed on amiodarone and diltiazem and apixaban * Sinus ivonne and one episode of 2:1 AV block at the time of this presentation (w/o any distinct associated symptoms) UTI and sepsis HFpEF - Echo February 2020: LVEF 55-65%; grade 1 diastolic dysfunction; mild to mod enlargement of LA; mod AI, PI and TR; PASP 55-60 mmHg Dementia H/o hypertension, none currently Plan: * Complex decision making. Several issues considered (see below) * Probable reason for shortness of breath was ac diastolic CHF that appears to have improved clinically * Probable reason for worsening of baseline confusion was UTI and sepsis that appear to have improved clinically * Continues to remain in sinus rhythm with only first degree AVB since being admitted to this hospital * Resume low dose apixaban. D/c enoxaparin * Monitor labs Clinical Quality Measures AMI/AHF: ASA po Prior to arrival: MARINA Jeffrey MD FACP FAC CCDS Dec 19, 2021 16:54
[2021-12-19 19:55] VITALS: BP 140/72
[2021-12-19] MEDS ORDERED: RT-ALBUTEROL/IPRATROPIUM 3 ML (DUONEB) VIAL INH PRN (20:00)
[2021-12-19] MEDS: MIRTAZAPINE 15 MG (REMERON) TAB PO SCH (20:04)
[2021-12-19] MEDS: SIMvastatin 10 MG (ZOCOR) TAB PO SCH (20:04)
[2021-12-19] MEDS: APIXABAN 2.5 MG (ELIQUIS) TABLET PO SCH (20:04)
[2021-12-19] MEDS: RT-ALBUTEROL/IPRATROPIUM 3 ML (DUONEB) VIAL INH SCH (21:40)
[2021-12-20] MEDS: NS IV 1000 ML 1,000 ML IV SCH (01:09)
[2021-12-20] MEDS: RT-ALBUTEROL/IPRATROPIUM 3 ML (DUONEB) VIAL INH SCH ×2 (02:48→07:30)
[2021-12-20 04:32] LABS: BASOPHILS # (AUTO) 0.1 10^3/uL (0.0-0.1); BASOPHILS % (AUTO) 1 % (0-10); EOSINOPHILS # (AUTO) 0.1 10^3/uL (0.0-0.3); EOSINOPHILS % (AUTO) 1 % (0-10); HEMATOCRIT 33 % (35-52); HEMOGLOBIN 9.4 g/dL (11.5-16.0); LYMPHOCYTES # (AUTO) 1.3 10^3/uL (1.0-4.0); LYMPHOCYTES % (AUTO) 16 % (12-44); MEAN CORPUSCULAR HEMOGLOBIN 26 pg (25-34); MEAN CORPUSCULAR HGB CONC 29 g/dL (32-36); MEAN CORPUSCULAR VOLUME 90 fL (80-99); MEAN PLATELET VOLUME 9.6 fL (9.0-12.2); MONOCYTES # (AUTO) 0.6 10^3/uL (0.0-1.0); MONOCYTES % (AUTO) 7 % (0-12); NEUTROPHILS # (AUTO) 6.4 10^3/uL (1.8-7.8); NEUTROPHILS % (AUTO) 75 % (42-75); PLATELET COUNT 245 10^3/uL (130-400); WHITE BLOOD COUNT 8.5 10^3/uL (4.3-11.0)
[2021-12-20 04:43] LABS: POTASSIUM 3.2 MMOL/L (3.6-5.0)
[2021-12-20 04:44] LABS: CALCIUM 8.5 MG/DL (8.5-10.1)
[2021-12-20 04:48] LABS: CREATININE SERUM 0.78 MG/DL (0.60-1.30); PHOSPHORUS 2.3 MG/DL (2.3-4.7)
[2021-12-20 04:51] LABS: MAGNESIUM 1.7 MG/DL (1.6-2.4)
[2021-12-20] MEDS: KCL 20 MEQ TAB (K-DUR) PO SCH (05:31)
[2021-12-20] MEDS: MAGNESIUM 1 GM/100 ML IVPB 100 ML IV SCH ×3 (05:31→05:43)
[2021-12-20] MEDS ORDERED: KCL 20 MEQ TAB (K-DUR) PO ONE (06:00)
[2021-12-20] MEDS: SERTRALINE 100 MG (ZOLOFT) TAB PO SCH (08:00)
[2021-12-20] MEDS: APIXABAN 2.5 MG (ELIQUIS) TABLET PO SCH (08:00)
[2021-12-20] MEDS ORDERED: KCL 20 MEQ TAB (K-DUR) PO NR (08:00)
[2021-12-20] MEDS: cefTRIAXone 1 GM PRE-MIX 50 ML IV SCH (08:00)
[2021-12-20] MEDS: MEMANTINE 10 MG (NAMENDA) TABLET PO SCH (08:00)
[2021-12-20] MEDS ORDERED: 1/2 NS W/KCL 20 MEQ/L 1,000 ML IV SCH (08:30)
--- NOTE | 2021-12-20 08:34 | Progress Note - Cardiology ---
Cardiology SOAP Progress Note Subjective: Oriented to self only Denies pain Objective: I&O/Vital Signs 12/19/21 12/19/21 12/19/21 12/19/21 21:00 21:40 22:00 23:00 Pulse 48 48 56 Resp 20 14 19 B/P (MAP) 138/69 110/67 127/65 Pulse Ox 99 98 98 99 O2 Delivery High Flow N/C High Flow N/C High Flow N/C High Flow N/C O2 Flow Rate 3.00 3.00 3.00 3.00 12/19/21 12/20/21 12/20/21 12/20/21 23:57 00:00 00:00 00:31 Temp 36.4 Pulse 54 55 Resp 9 B/P (MAP) 144/73 Pulse Ox 100 95 O2 Delivery High Flow N/C High Flow N/C Nasal Cannula O2 Flow Rate 3.00 3.00 3.00 12/20/21 12/20/21 12/20/21 12/20/21 01:00 02:00 02:48 03:00 Pulse 52 49 75 Resp 21 27 23 B/P (MAP) 154/73 120/69 144/96 Pulse Ox 97 98 100 94 O2 Delivery High Flow N/C High Flow N/C High Flow N/C High Flow N/C O2 Flow Rate 3.00 3.00 3.00 3.00 12/20/21 12/20/21 12/20/21 12/20/21 03:22 04:00 04:00 05:00 Temp 36.6 Pulse 60 50 Resp 18 15 B/P (MAP) 131/76 128/74 Pulse Ox 93 96 98 O2 Delivery High Flow N/C Nasal Cannula High Flow N/C High Flow N/C O2 Flow Rate 3.00 3.00 3.00 3.00 12/20/21 12/20/21 12/20/21 06:00 07:39 08:11 Pulse 53 Resp 11 B/P (MAP) 141/75 Pulse Ox 100 98 96 O2 Delivery High Flow N/C High Flow N/C Nasal Cannula O2 Flow Rate 3.00 3.00 3.00 12/20/21 00:00 Intake Total 2330 ml Output Total 1275 ml Balance 1055 ml Weight (Pounds): 209 Weight (Ounces): 7.0 Weight (Calculated Kilograms): 94.349742 Constitutional: No AAO x 3; other (confused, thin-appearing) Respiratory: No accessory muscle use; other (fair to good, bilateral air entry) Cardiovascular: regular rate-rhythm, S1 and S2, systolic murmur (soft SHAKA at card base) Gastrointestional: No tender; soft; No guarding, No rebound; audible bowel sounds Extremities: No clubbing, No cyanosis, No significant edema Neurologic/Psychiatric: No oriented x 3; other (moves all limbs) Skin: warm/dry; No rash on exposed areas, No ulcerations on exposed areas Results/Procedures: Labs Laboratory Tests 12/20/21 04:23: White Blood Count 8.5, Red Blood Count 3.65L, Hemoglobin 9.4L, Hematocrit 33L, Mean Corpuscular Volume 90, Mean Corpuscular Hemoglobin 26, Mean Corpuscular Hemoglobin Concent 29L, Red Cell Distribution Width 19.2H, Platelet Count 245, Mean Platelet Volume 9.6, Immature Granulocyte % (Auto) 0, Neutrophils (%) (Auto) 75, Lymphocytes (%) (Auto) 16, Monocytes (%) (Auto) 7, Eosinophils (%) (Auto) 1, Basophils (%) (Auto) 1, Neutrophils # (Auto) 6.4, Lymphocytes # (Auto) 1.3, Monocytes # (Auto) 0.6, Eosinophils # (Auto) 0.1, Basophils # (Auto) 0.1, Immature Granulocyte # (Auto) 0.0, Sodium Level 148H, Potassium Level 3.2L, Chloride Level 112H, Carbon Dioxide Level 23, Anion Gap 13, Blood Urea Nitrogen 16, Creatinine 0.78, Estimat Glomerular Filtration Rate 73, BUN/Creatinine Ratio 21, Glucose Level 86, Calcium Level 8.5, Phosphorus Level 2.3, Magnesium Level 1.7 Microbiology 12/19/21 Gram Stain - Final, Resulted 12/19/21 Sputum Culture, Resulted Pending 12/17/21 Urine Culture - Preliminary, Resulted Proteus mirabilis Enterococcus faecium Susceptibility To Follow 12/17/21 Blood Culture - Preliminary, Resulted No growth Laboratory Tests 12/19/21 04:15 12/20/21 04:23 A/P: Assessment: Sinus node dysfunction: * PAF - documented by Dr Calles in February 2020 and pt placed on amiodarone and diltiazem and apixaban * Sinus ivonne and one episode of 2:1 AV block at the time of this presentation (w/o any distinct associated symptoms) UTI and sepsis HFpEF - Echo February 2020: LVEF 55-65%; grade 1 diastolic dysfunction; mild to mod enlargement of LA; mod AI, PI and TR; PASP 55-60 mmHg Dementia H/o hypertension, none currently Plan: * Complex decision making. Several issues considered (see below) * Probable reason for shortness of breath was ac diastolic CHF that appears to have improved clinically * Probable reason for worsening of baseline confusion was UTI and sepsis that appear to have improved clinically * Continues to remain in sinus rhythm with only first degree AVB since being adm itted to this hospital * Continue low dose apixaban * Monitor labs * Replace electrolytes as indicated Clinical Quality Measures AMI/AHF: ASA po Prior to arrival: ANH Yoon Dec 20, 2021 08:34
[2021-12-20] MEDS ORDERED: AZIT250T12 PO (09:51)
[2021-12-20] MEDS ORDERED: ACHD5005 PO (09:51)
[2021-12-20] MEDS ORDERED: AMIO200T65 PO (09:51)
[2021-12-20] MEDS ORDERED: ALBU2.5V4 NEB (09:51)
[2021-12-20] MEDS ORDERED: MENT71OI TP (09:51)
[2021-12-20] MEDS ORDERED: MENT118G TP (09:51)
[2021-12-20] MEDS ORDERED: PRD20T PO (09:51)
[2021-12-20] MEDS ORDERED: DOCU100T2 PO (09:51)
[2021-12-20] MEDS ORDERED: POTA10TA PO (09:51)
[2021-12-20] MEDS ORDERED: APIX2.5T PO (09:51)
[2021-12-20] MEDS ORDERED: FURO20TA4 PO (09:51)
[2021-12-20] MEDS ORDERED: LOPE2CAP14 PO (09:51)
--- NOTE | 2021-12-20 10:26 | Tele-ICU Progress Note ---
Subjective Date Seen by a Provider: Dec 20, 2021 Time Seen by a Provider: 10:25 Sepsis Event Evaluation Height, Weight, BMI Height: 5'7.00" Weight: 209lbs. 7.0oz. 94.475802lq; 26.01 BMI Method:Stated Focused Exam Lactate Level 12/17/21 12:57: Lactic Acid Level 2.33*H 12/17/21 18:03: Lactic Acid Level 1.24 Exam Exam Patient acknowledged, consented, and participated in this virtual visit which was conducted using real time audio/video Vital Signs Date Time Temp Pulse Resp B/P (MAP) Pulse Ox O2 Delivery O2 Flow Rate FiO2 12/20/21 10:00 55 22 139/89 95 High Flow N/C 3.00 12/20/21 09:00 50 13 130/71 98 High Flow N/C 3.00 12/20/21 08:11 96 Nasal Cannula 3.00 12/20/21 08:00 55 10 150/94 96 High Flow N/C 3.00 12/20/21 07:39 98 High Flow N/C 3.00 12/20/21 07:00 55 12/20/21 07:00 54 6 140/78 100 High Flow N/C 3.00 12/20/21 06:00 53 11 141/75 100 High Flow N/C 3.00 12/20/21 05:00 50 15 128/74 98 High Flow N/C 3.00 12/20/21 04:00 60 18 131/76 96 High Flow N/C 3.00 12/20/21 04:00 93 Nasal Cannula 3.00 12/20/21 03:22 36.6 High Flow N/C 3.00 12/20/21 03:00 75 23 144/96 94 High Flow N/C 3.00 12/20/21 02:48 100 High Flow N/C 3.00 12/20/21 02:00 49 27 120/69 98 High Flow N/C 3.00 12/20/21 01:00 52 21 154/73 97 High Flow N/C 3.00 12/20/21 00:31 55 12/20/21 00:00 95 Nasal Cannula 3.00 12/20/21 00:00 54 9 144/73 100 High Flow N/C 3.00 12/19/21 23:57 36.4 High Flow N/C 3.00 12/19/21 23:00 56 19 127/65 99 High Flow N/C 3.00 12/19/21 22:00 48 14 110/67 98 High Flow N/C 3.00 12/19/21 21:40 98 High Flow N/C 3.00 12/19/21 21:00 48 20 138/69 99 High Flow N/C 3.00 12/19/21 20:00 91 Nasal Cannula 8.00 12/19/21 20:00 High Flow N/C 3.00 12/19/21 20:00 49 14 145/72 97 High Flow N/C 3.00 12/19/21 19:55 50 96 12/19/21 19:12 50 12/19/21 19:00 54 16 138/68 97 High Flow N/C 6.00 12/19/21 19:00 36.9 High Flow N/C 6.00 12/19/21 18:00 55 34 140/72 96 OxyMask 3.00 12/19/21 17:00 55 22 128/81 94 OxyMask 3.00 12/19/21 16:00 70 20 138/68 93 OxyMask 3.00 12/19/21 16:00 95 Nasal Cannula 3.00 12/19/21 15:00 58 10 117/77 94 OxyMask 3.00 12/19/21 14:00 61 17 117/71 91 OxyMask 3.00 12/19/21 13:00 60 12 119/74 OxyMask 3.00 12/19/21 12:46 59 12/19/21 12:00 63 36 139/88 98 OxyMask 3.00 12/19/21 11:30 95 OxyMask 3.00 12/19/21 11:22 37.0 12/19/21 11:06 OxyMask 3.00 12/19/21 11:00 76 30 162/90 94 OxyMask 5.00 I & O 12/20/21 07:00 Intake Total 3510 ml Output Total 1925 ml Balance 1585 ml Height & Weight Height: 5'7.00" Weight: 209lbs. 7.0oz. 94.329689ac; 26.01 BMI Method:Stated General Appearance: No Apparent Distress, Chronically ill HEENT: PERRL/EOMI Neck: Normal Inspection, Supple Respiratory: No Respiratory Distress, Decreased Breath Sounds Cardiovascular: No Murmur, Bradycardia Capillary Refill: Less Than 3 Seconds Extremity: Normal Inspection, Pedal Edema Neurologic/Psychiatric: Alert, Disoriented Skin: Warm/Dry, Pallor Results Lab Laboratory Tests 12/19/21 04:15 12/20/21 04:23 Assessment/Plan Assessment/Plan (Tele-ICU Physician , Progress Note ) Available chart/ vitals / labs / Images reviewed Video assessment done using teleICU camera, rest of exam as per RN Discussed with RN , EXAM PER RN Events overnight : Afebrile FiO2 - 2l night I/O = drips: 1/2 ns with k Pressors: , hemodynamically stable Consultants: key Hospital course: (12/17) 89 y F from ER with UTI, PNA vs CHF on oxymask// from [place], afib hr 30-40, po amio held 12/16- 3l MS , BP stable HT 40s A/P Symptomatic bradycardia with underlying atrial fibrillation -suspected due to amiodarone -card follow - Eliquis UTI - cx + proteus , enterococcus - cont abx Acute resp failure - improved, on 3L NC Severe dementia - at baseline Reported prednisone on NH meds list - ? inducations - off steroids now - monitor Lines : (Central Line Necessity Reviewed) Leon: OG: Nutrition: Analgesia: Anxiety/ delirium VTE Prophylaxis: eliquis Stress Ulcer Prophylaxis: Plans in collaboration with bedside consultants and IM MDs. Discussed with RN to reach out if any questions or concerns A total of 32 minutes of critical care time was devoted to this patient today, required to treat and/or prevent further deterioration of critical care condition ( as above) . ARIEL PLEITEZ MD Dec 20, 2021 10:26
--- NOTE | 2021-12-20 10:52 | Physical Therapy Evaluation ---
PT Evaluation-General Medical Diagnosis Admission Date Dec 17, 2021 at 16:20 Medical Diagnosis: bradycardia, acute resp failure Onset Date: Dec 17, 2021 Therapy Diagnosis Therapy Diagnosis: impaired mobility Height/Weight Height (Feet): 5 Height (Inches): 7.00 Weight (Pounds): 209 Weight (Ounces): 7.0 Precautions Precautions/Isolations: Aspiration, Fall Prevention, Standard Precautions, Pressure Ulcer Referral Physician: Gurpreet Reason for Referral: Evaluation/Treatment Medical History Pertinent Medical History: Atrial Fib, HTN, Neuropathy Additional Medical History Past Medical History Surgeries: Orthopedic Atrial Fibrillation, High Cholesterol, Hypertension Neuropathy Bladder Infection Gastroesophageal Reflux, Chronic Constipation Arthritis Reviewed History: Yes Social History Home: [facility] Prior Prior Level of Function SCALE: Activities may be completed with or without assistive devices. 8-Ppsdolhmcp-lldqfoq completes the activity by him/herself with no assistance from a helper. 5-Set-up or Clean-up Assistance-helper sets up or cleans up; patient completes activity. Sellers assists only prior to or following the activity. 4-Supervision or Touching Assistance-helper provides verbal cues and/or touching/steadying and/or contact guard assistance as patient completes activ ity. Assistance may be provided throughout the activity or intermittently. 3-Partial/Moderate Assistance-helper does LESS THAN HALF the effort. Sellers lifts, holds or supports trunk or limbs, but provides less than half the effort. 2-Substantial/Maximal Assistance-helper does MORE THAN HALF the effort. Sellers lifts or holds trunk or limbs and provides more than half the effort. 2-Gahdczszv-iorfro does ALL the effort. Patient does none of the effort to complete the activity. Or, the assistance of 2 or more helpers is required for the patient to complete the activity. If activity was not attempted, code reason: 7-Patient Refused. 9-Not Applicable-not attempted and the patient did not perform the activity before the current illness, exacerbation or injury. 10-Not Attempted due to Environmental Limitations-(lack of equipment, weather restraints, etc.). 88-Not Attempted due to Medical Conditions or Safety Concerns. unknown, patient cannot provide any accurate info for this but she does say that she doesn't think she gets out of bed at the custodial PT Evaluation-Current Subjective Patient in bed pre tx, agrees to PT, cannot answer if she has any pain, very confused but pleasant. Pt/Family Goals none stated Objective Patient Orientation: Person, Confused Attachments: Oxygen, Leon Catheter, IV ROM/Strength ROM Lower Extremities limited by patient resistance, she does appear to have at least neutral dorsiflexion Strength Lower Extremities unable to test Sensory Hearing: Functional Transfers Roll Left to Right (QC): 1 Sit to Lying (QC): 1 Lying to Sitting/Side of Bed(Q: 1 Patient dependent to sit to the side of the bed, immediately her O2 drops to 83% and we lay back down. Her O2 comes back up to 90% after about 30 seconds. Balance Sitting Static: Poor Sitting Dynamic: Poor Treatment attempted to get patient to perform LE exercises but she would only do a couple of heel slides on the right side Assessment/Needs Patient in bed post tx with nurse call, phone, tray, bed alarm on. Patient states she would like some food, nurse comes in to feed her, she has bilateral hand contractures. Patient has impaired mobility and seems to be dependent for all mobility and will not perform LE exercises. Patient seems to be a prior level at the custodial, will DC from PT services at this time. Rehab Potential: Poor PT Plan Problem List Problem List: Activity Tolerance, Functional Strength, Safety, Balance, Gait, Transfer, Bed Mobility, ROM Treatment/Plan Treatment Plan: Discontinue PT Treatment Duration: Dec 20, 2021 Frequency: Safety Risks/Education Patient Education: Correct Positioning, Safety Issues Teaching Recipient: Patient Teaching Methods: Demonstration, Discussion Response to Teaching: Unable to Comprehend Discharge Recommendations Plan DC Therapy Discharge Recommendati: 24 Hour Supervision Time/GCodes Time In: 1030 Time Out: 1042 Total Billed Treatment Time: 12 Total Billed Treatment 1 visit TAYLER RAMOS PT Dec 20, 2021 10:52
[2021-12-20] MEDS ORDERED: AMOX500C2 PO (11:53)
--- NOTE | 2021-12-20 12:03 | Discharge Summary ---
Discharge Summary Hospital Course Was the Problem List Reviewed?: Yes Problems/Dx: (1) Symptomatic bradycardia Status: Acute (2) Advanced dementia Status: Chronic (3) Advanced age Status: Chronic (4) Atrial fibrillation Status: Chronic (5) Urinary tract infection Status: Acute (6) Congestive heart failure Status: Acute Qualifiers: Qualified Codes: I50.33 - Acute on chronic diastolic (congestive) heart failure (7) Chronic respiratory failure with hypoxia Status: Acute Hospital Course Date of Admission: Dec 17, 2021 at 16:20 Admission Diagnosis : Symptomatic bradycardia Family Physician/Provider: Jon Rivas MD Date of Discharge: 12/20/21 Discharge Diagnosis: Bradycardia due to Amiodarone Hospital Course: Brenda Zamorano is an 89 year old female with advanced dementia who was admitted with symptomatic bradycardia. Cardiology was consulted and assisted with her care. She was a poor historian due to her advanced dementia. Her heart rate was in the 30s on arrival. Her amiodarone was held and her bradycardia improved. She was given diuretics for acute on chronic CHF. She was given a course of Amoxicillin due to UTI. She was discharged back to [facility] in improved but guarded condition. Labs and Pending Lab Test: Laboratory Tests 12/20/21 04:23: White Blood Count 8.5, Red Blood Count 3.65L, Hemoglobin 9.4L, Hematocrit 33L, Mean Corpuscular Volume 90, Mean Corpuscular Hemoglobin 26, Mean Corpuscular Hemoglobin Concent 29L, Red Cell Distribution Width 19.2H, Platelet Count 245, Mean Platelet Volume 9.6, Immature Granulocyte % (Auto) 0, Neutrophils (%) (Auto) 75, Lymphocytes (%) (Auto) 16, Monocytes (%) (Auto) 7, Eosinophils (%) (Auto) 1, Basophils (%) (Auto) 1, Neutrophils # (Auto) 6.4, Lymphocytes # (Auto) 1.3, Monocytes # (Auto) 0.6, Eosinophils # (Auto) 0.1, Basophils # (Auto) 0.1, Immature Granulocyte # (Auto) 0.0, Sodium Level 148H, Potassium Level 3.2L, Chloride Level 112H, Carbon Dioxide Level 23, Anion Gap 13, Blood Urea Nitrogen 16, Creatinine 0.78, Estimat Glomerular Filtration Rate 73, BUN/Creatinine Ratio 21, Glucose Level 86, Calcium Level 8.5, Phosphorus Level 2.3, Magnesium Level 1.7 Microbiology 12/19/21 Gram Stain - Final, Resulted 12/19/21 Sputum Culture, Resulted Pending 12/17/21 Urine Culture - Final, Complete Proteus mirabilis Enterococcus faecium 12/17/21 Blood Culture - Preliminary, Resulted No growth Home Meds Active Amoxicillin 500 Mg Capsule 500 Mg PO TID 7 Days Reported Amiodarone HCl 200 Mg Tablet 200 Mg PO DAILY HOLD FOR SBP <100 OR PULSE <60 BPM Calmoseptine Ointment (Menthol/Lanolin/Calamine/Znox) 71 Gm Oint 1 Applic TP BID APPLY TO BUTTOCKS Docusate Sodium 100 Mg Tablet 100 Mg PO DAILY PRN ONLY GIVE IF HYDROCODONE HAS BEEN TAKEN Hydrocodone-Acetamin 5-325 mg (Hydrocodone/Acetaminophen) 1 Each Tablet 1 Tab PO Q6H PRN Eliquis (Apixaban) 2.5 Mg Tablet 2.5 Mg PO BID Furosemide 20 Mg Tablet 20 Mg PO DAILY K-Tab ER (Potassium Chloride) 10 Meq Tablet.er 10 Meq PO DAILY Biofreeze (Menthol) 118 Ml Gel..ml. 1 Applic TP QID APPLY TO LEFT HAND Anti-Diarrheal (Loperamide HCl) 2 Mg Capsule 2 Mg PO Q6H PRN Albuterol Sulfate 2.5 Mg/3 Ml Vial.neb 3 Ml NEB Q4H PRN Azithromycin 250 Mg Tablet 250 Mg PO DAILY START DATE 12-17-2021 #6/5 DAY SUPPLY Prednisone 20 Mg Tab 40 Mg PO DAILY TAKES 2 (20MG) TABS START DATE 12-17-2021 #10/5 DAY SUPPLY Memantine HCl 10 Mg Tablet 10 Mg PO BID Ropinirole HCl 1 Mg Tablet 1 Mg PO TID Sertraline HCl 100 Mg Tablet 100 Mg PO DAILY Tramadol HCl 50 Mg Tablet 50 Mg PO Q6H PRN Tylenol Extra Strength (Acetaminophen) 500 Mg Tablet 500 Mg PO Q4H PRN Polyethylene Glycol 3350 17 Gm Powd.pack 17 Gm PO DAILY PRN Calcium 600 + Vit D 200 Tablet (Calcium Carbonate/Vitamin D3) 1 Each Tablet 1 Ea PO DAILY Multivitamins (Multivitamin) 1 Each Tablet 1 Tab PO DAILY Pravastatin Sodium 20 Mg Tablet 20 Mg PO HS Mirtazapine 7.5 Mg Tablet 7.5 Mg PO HS Assessment/Pt Instructions Take medications as prescribed. Stop Amiodarone due to bradycardia. Begin Amoxicillin for UTI. Follow up with Dr. Rivas and Cardiology as scheduled. Return with worsening bradycardia, weakness, dizziness, or if you feel like you are getting worse. Discharge Planning: <30 minutes discharge planning Discharge Instructions Discharge Diet: No Restrictions Activity as Tolerated: Yes Consultations Cardiology Discharge Physical Examination Vital Signs Vital Signs Date Time Temp Pulse Resp B/P (MAP) Pulse Ox O2 Delivery O2 Flow Rate FiO2 12/20/21 11:00 46 22 145/79 98 High Flow N/C 3.00 12/20/21 03:22 36.6 General Appearance: No Apparent Distress, Chronically ill Respiratory: Lungs Clear, No Respiratory Distress Cardiovascular: No Murmur, Bradycardia Gastrointestinal: Normal Bowel Sounds, Soft Extremity: Normal Inspection, Pedal Edema Skin: Normal Color, Warm/Dry Neurologic/Psychiatric: Alert, Normal Mood/Affect, Disoriented Allergies: Coded Allergies: No Known Drug Allergies (Unverified , 01/04/19) Copy Copies To 1: JON RIVAS MD Discharge Summary Date of Admission Dec 17, 2021 at 16:20 Date of Discharge Discharge Date: Dec 20, 2021 Discharge Time: 12:01 Admission Diagnosis Symptomatic bradycardia Consults/Procedures Consulations Cardiology Discharge Diagnosis Symptomatic bradycardia Respiratory failure with hypoxia Acute on chronic HFpEF UTI Advanced dementia Advanced age HTN AFib (1) Symptomatic bradycardia Status: Acute (2) Advanced dementia Status: Chronic (3) Advanced age Status: Chronic (4) Atrial fibrillation Status: Chronic (5) Urinary tract infection Status: Acute (6) Congestive heart failure Status: Acute Qualifiers: Qualified Codes: I50.33 - Acute on chronic diastolic (congestive) heart fail ure (7) Chronic respiratory failure with hypoxia Status: Acute Clinical Quality Measures AMI/AHF: ASA po Prior to arrival: DEAN Worrell MD Dec 20, 2021 12:00
[2021-12-20] MEDS ORDERED: AMOXICILLIN 500 MG (POLYMOX) CAP PO SCH (13:00)
--- NOTE | 2021-12-20 17:00 | Progress Note - Cardiology ---
Cardiology SOAP Progress Note Subjective: Confused Does not report cp or palp or syncope or shortness of breath Objective: I&O/Vital Signs 12/20/21 12/20/21 12/20/21 12/20/21 05:00 06:00 07:00 07:00 Pulse 50 53 54 55 Resp 15 11 6 B/P (MAP) 128/74 141/75 140/78 Pulse Ox 98 100 100 O2 Delivery High Flow N/C High Flow N/C High Flow N/C O2 Flow Rate 3.00 3.00 3.00 12/20/21 12/20/21 12/20/21 12/20/21 07:39 08:00 08:11 09:00 Pulse 55 50 Resp 10 13 B/P (MAP) 150/94 130/71 Pulse Ox 98 96 96 98 O2 Delivery High Flow N/C High Flow N/C Nasal Cannula High Flow N/C O2 Flow Rate 3.00 3.00 3.00 3.00 12/20/21 12/20/21 12/20/21 12/20/21 10:00 11:00 12:00 12:00 Pulse 55 46 55 Resp 22 22 21 B/P (MAP) 139/89 145/79 148/79 Pulse Ox 95 98 96 98 O2 Delivery High Flow N/C High Flow N/C Nasal Cannula High Flow N/C O2 Flow Rate 3.00 3.00 3.00 3.00 12/20/21 13:00 Pulse 60 12/20/21 00:00 Intake Total 2330 ml Output Total 1275 ml Balance 1055 ml Weight (Pounds): 209 Weight (Ounces): 7.0 Weight (Calculated Kilograms): 94.835197 Constitutional: No AAO x 3; other (confused, thin-appearing) Respiratory: No accessory muscle use; other (fair to good, bilateral air entry) Cardiovascular: regular rate-rhythm, S1 and S2, systolic murmur (soft SHAKA at card base) Gastrointestional: No tender; soft; No guarding, No rebound; audible bowel sounds Extremities: No clubbing, No cyanosis, No significant edema Neurologic/Psychiatric: No oriented x 3; other (moves all limbs) Skin: warm/dry; No rash on exposed areas, No ulcerations on exposed areas Results/Procedures: Labs Laboratory Tests 12/20/21 04:23: White Blood Count 8.5, Red Blood Count 3.65L, Hemoglobin 9.4L, Hematocrit 33L, Mean Corpuscular Volume 90, Mean Corpuscular Hemoglobin 26, Mean Corpuscular Hemoglobin Concent 29L, Red Cell Distribution Width 19.2H, Platelet Count 245, Mean Platelet Volume 9.6, Immature Granulocyte % (Auto) 0, Neutrophils (%) (Aut o) 75, Lymphocytes (%) (Auto) 16, Monocytes (%) (Auto) 7, Eosinophils (%) (Auto) 1, Basophils (%) (Auto) 1, Neutrophils # (Auto) 6.4, Lymphocytes # (Auto) 1.3, Monocytes # (Auto) 0.6, Eosinophils # (Auto) 0.1, Basophils # (Auto) 0.1, Immature Granulocyte # (Auto) 0.0, Sodium Level 148H, Potassium Level 3.2L, Chloride Level 112H, Carbon Dioxide Level 23, Anion Gap 13, Blood Urea Nitrogen 16, Creatinine 0.78, Estimat Glomerular Filtration Rate 73, BUN/Creatinine Ratio 21, Glucose Level 86, Calcium Level 8.5, Phosphorus Level 2.3, Magnesium Level 1.7 Microbiology 12/19/21 Gram Stain - Final, Resulted 12/19/21 Sputum Culture - Preliminary, Resulted Usual upper respiratory blanca 12/17/21 Urine Culture - Final, Complete Proteus mirabilis Enterococcus faecium 12/17/21 Blood Culture - Preliminary, Resulted No growth Laboratory Tests 12/19/21 04:15 12/20/21 04:23 A/P: Assessment: Sinus node dysfunction: * PAF - documented by Dr Calles in February 2020 and pt placed on amiodarone and diltiazem and apixaban * Sinus ivonne, one brief episode of 2:1 AV block at the time of this presentation (w/o any distinct associated symptoms) UTI and sepsis HFpEF - Echo February 2020: LVEF 55-65%; grade 1 diastolic dysfunction; mild to mod enlargement of LA; mod AI, PI and TR; PASP 55-60 mmHg Dementia H/o hypertension, none currently Plan: * Complex decision making. Several issues considered (see below) * Probable reason for shortness of breath was ac diastolic CHF that appears to have improved clinically * Probable reason for worsening of baseline confusion was UTI and sepsis that appear to have improved clinically * Continues to remain in sinus rhythm with only first degree AVB since being admitted to this hospital * Continue low dose apixaban * Monitor labs * Replace electrolytes as indicated * Discussed with Dr Bender. No clear indication for pacemaker. Continue apixaban. D/c amiodarone Clinical Quality Measures AMI/AHF: ASA po Prior to arrival: MARINA Jeffrey MD FACP FAC CCDS Dec 20, 2021 17:00
--- NOTE | 2021-12-20 20:31 | Physician Query Clarification ---
Physician Query-General Query to Physician: The medical record reflects the following clinical scenario: The patient, in the setting of History/Risk factors, Advanced age, UTI (possible PNA per consult) Clinical Findings Admission VS/LABS: HR 34, RR 41, BP 101/49, SpO2 86% sat on 4 L T 36.2, WBC 7.9, glucose 185, lactic acid 2.33, Treatment 1L NS on day of admission, Ceftriaxone IV Question: Do you agree with the impression of Sepsis present on admission per Dr. Margarita Phoenix? 1. Yes; will document Sepsis ,present on admission in the Progress Notes 2. No; will continue current documentation in the Progress Notes 3. Other; will document explanation of clinical findings 4. Clinically undetermined; no explanation for clinical findings Please clarify and document your clinical opinion in the Progress Notes and Discharge Summary including the definitive and/or presumptive diagnosis, (suspected or probable), related to the above clinical findings. Please include clinical findings supporting your diagnosis. In responding to this query, please exercise your independent professional judgment. The purpose of this communication is to more accurately reflect the complexity of your patients condition. The fact that a question is asked does not imply that any particular answer is desired or expected. Please remember a lack of response to the above will prompt a phone page by CDI/coding staff Thank you for timely response to this clarification. Anna Herman MSN, RN Clinical Program Manager Slp [phone] [email or web address] PHYSICIAN RESPONSE: Based on the clinical findings in the record, please respond to the query above on this document as an addendum. Physician Response: Physician Response 2 If you have questions please contact: Blister Pack Operator: Ext: Thank you for your time and cooperation. Clinical Program Manager Slp/Blister Pack Operator This is a permanent part of the medical record ANNA HERMAN Dec 20, 2021 20:31 DEAN FERGUSON MD Dec 22, 2021 11:34
--- NOTE | 2021-12-20 20:43 | Physician Query Clarification ---
Physician Query-General Query to Physician: The medical record reflects the following clinical scenario: The patient, in the setting of History/Risk factors, Advanced age, Resides in [facility], Dementia Clinical Findings Admission VS/LABS: HR 34, RR 41, BP 101/49, SpO2 86% sat on 4 L T 36.2, Admission Chest Xray "...residual mild bibasilar atelectasis versus infiltrate." Productive cough, "foster creamy thick". Treatment NS, Ceftriaxone IV, Breathing Rx, Supplemental 02 Question: Do you agree with the impression of possible underlying pneumonia per Dr. Bal Vázquez? 1. Yes; will document possible pneumonia, present on admission in the Progress Notes 2. No; will continue current documentation in the Progress Notes 3. Other; will document explanation of clinical findings 4. Clinically undetermined; no explanation for clinical findings Please clarify and document your clinical opinion in the Progress Notes and Discharge Summary including the definitive and/or presumptive diagnosis, (suspected or probable), related to the above clinical findings. Please include clinical findings supporting your diagnosis. In responding to this query, please exercise your independent professional judgment. The purpose of this communication is to more accurately reflect the complexity of your patients condition. The fact that a question is asked does not imply that any particular answer is desired or expected. Please remember a lack of response to the above will prompt a phone page by CDI/coding staff Thank you for timely response to this clarification. Anna Herman MSN, RN Clinical Filament Shaper [phone] [email or web address] PHYSICIAN RESPONSE: Based on the clinical findings in the record, please respond to the query above on this document as an addendum. Physician Response: Physician Response 2 If you have questions please contact: Contact Lens Curve Grinder: Ext: Thank you for your time and cooperation. Clinical Filament Shaper/Contact Lens Curve Grinder This is a permanent part of the medical record ANNA HERMAN Dec 20, 2021 20:43 DEAN FERGUSON MD Dec 22, 2021 11:35
== END 2021-12-20 13:45 | DRG 308 ==
LOC: EDUNIT# 12:42 → ER FS 12:43 → ICU 16:20
PROVIDERS: ADMIT Internal Medicine; ATTEND Internal Medicine
DX: I49.5 Sick sinus syndrome (principal); J96.01 Acute respiratory failure with hypoxia; I50.33 Acute on chronic diastolic (congestive) heart failure; N39.0 Urinary tract infection, site not specified; G81.94 Hemiplegia, unspecified affecting left nondominant side; I48.0 Paroxysmal atrial fibrillation; G30.9 Alzheimer's disease, unspecified; F02.80 Dementia in other diseases classified elsewhere, unspecified severity, without behavioral disturbance, psychotic disturbance, mood disturbance, and anxiety; Z66 Do not resuscitate; I44.0 Atrioventricular block, first degree; K21.9 Gastro-esophageal reflux disease without esophagitis; E78.00 Pure hypercholesterolemia, unspecified; G62.9 Polyneuropathy, unspecified; M19.90 Unspecified osteoarthritis, unspecified site; I11.0 Hypertensive heart disease with heart failure; I44.1 Atrioventricular block, second degree; F41.9 Anxiety disorder, unspecified; M19.91 Primary osteoarthritis, unspecified site; K59.09 Other constipation; I08.2 Rheumatic disorders of both aortic and tricuspid valves; B96.4 Proteus (mirabilis) (morganii) as the cause of diseases classified elsewhere; B95.2 Enterococcus as the cause of diseases classified elsewhere; Z79.01 Long term (current) use of anticoagulants; Z79.52 Long term (current) use of systemic steroids; T46.2X5A Adverse effect of other antidysrhythmic drugs, initial encounter
CPT/HCPCS: 36415; 51702; 71045; 80048; 80053; 81000; 82805; 83605; 83735; 83880; 84100; 84484; 85007; 85025; 85027; 87040; 87070; 87077; 87081; 87088; 87186; 87205; 93005; 94640; 94664; 96374; 96375; 99291

== ENCOUNTER 2021-12-29 10:06 | Emergency (ER) | payer MEDICARE, MEDICAID ==
[~2021-12-29] VITALS: Ht 160 cm; Wt 72.5 kg
[~2021-12-29 10:06] MED LIST changes: +ALBU2.5V4 NEB; +AMOX500C2 PO; +DOCU100T2 PO; +LOPE2CAP14 PO; +MENT118G TP; +MENT71OI TP; +POTA10TA PO; +PRD20T PO
--- NOTE | 2021-12-29 10:14 | ED General ---
General Stated Complaint: SOB Source of Information: Patient, EMS Exam Limitations: Other (Disoriented) (VENANCIO JONES MED STUDENT) History of Present Illness Date Seen by Provider: Dec 29, 2021 Time Seen by Provider: 10:05 Initial Comments Mrs. Corona is an 89yo female with baseline dementia that arrived to ED via EMS from senior care. She reportedly had a fever of 100.1 and increasing oxygen requirements. She is on 2L at baseline and was increased to 3L and was satting 79-80%. Otherwise there were no other concerns from senior care. On arrival she is AOx1 and can only state her name with heavy prompting. Unsure if this is her baseline mentation at this point. She states she is not in any pain right now and does not have any complaints. She denies any symptoms with ROS questions. She is COVID and FLU vaccinated. (VENANCIO JONES MED STUDENT) Time Seen by Provider: 10:05 Timing/Duration: 1-3 Hours Severity: Mild Associated Systoms: No Cough; Fever/Chills; No Nausea/Vomiting (JONI MARCOS MD) Allergies and Home Medications Allergies Coded Allergies: No Known Drug Allergies (Unverified , 01/04/19) Patient Home Medication List Home Medication List Reviewed: Yes (YOLY MARCOS MD) Acetaminophen (Tylenol Extra Strength) 500 Mg Tablet, 500 MG PO Q4H PRN for PAIN-MILD, (Reported) Entered as Reported by: SAAD SEXTON on 01/07/19 0942 Albuterol Sulfate (Albuterol Sulfate) 2.5 Mg/3 Ml Vial.neb, 3 ML NEB Q4H PRN for SHORTNESS OF BREATH, (Reported) Entered as Reported by: BETTINA JONES on 12/20/21 0951 Amoxicillin (Amoxicillin) 500 Mg Capsule, 500 MG PO TID Prescribed by: DEAN FERGUSON on 12/20/21 1153 Apixaban (Eliquis) 2.5 Mg Tablet, 2.5 MG PO BID, (Reported) Entered as Reported by: BETTINA JONES on 12/20/21 0951 Calcium Carbonate/Vitamin D3 (Calcium 600 + Vit D 200 Tablet) 1 Each Tablet, 1 EA PO DAILY, (Reported) Entered as Reported by: SAAD SEXTON on 12/05/18 1345 Docusate Sodium (Docusate Sodium) 100 Mg Tablet, 100 MG PO DAILY PRN for CONSTIPATION-1ST LINE, (Reported) Entered as Reported by: BETTINA JONES on 12/20/21950 Furosemide (Furosemide) 20 Mg Tablet, 20 MG PO DAILY, (Reported) Entered as Reported by: BETTINA JONES on 12/20/21950 Hydrocodone/Acetaminophen (Hydrocodone-Acetamin 5-325 mg) 1 Each Tablet, 1 TAB PO Q6H PRN for PAIN-MODERATE (5-7), (Reported) Entered as Reported by: BETTINA JONES on 12/20/21950 Loperamide HCl (Anti-Diarrheal) 2 Mg Capsule, 2 MG PO Q6H PRN for DIARRHEA, (Reported) Entered as Reported by: BETTINA JONES on 12/20/21950 Memantine HCl (Memantine HCl) 10 Mg Tablet, 10 MG PO BID, (Reported) Entered as Reported by: BETTINA JONES on 03/12/20 1141 Menthol (Biofreeze) 118 Ml Gel..ml., 1 APPLIC TP QID, (Reported) Entered as Reported by: BETTINA JONES on 12/20/21950 Menthol/Lanolin/Calamine/Znox (Calmoseptine Ointment) 71 Gm Oint, 1 APPLIC TP BID, (Reported) Entered as Reported by: BETTINA JONES on 12/20/21950 Mirtazapine (Mirtazapine) 7.5 Mg Tablet, 7.5 MG PO HS, (Reported) Entered as Reported by: SAAD SEXTON on 12/05/18 120 Multivitamin (Multivitamins) 1 Each Tablet, 1 TAB PO DAILY, (Reported) Entered as Reported by: SAAD SEXTON on 12/05/18 120 Polyethylene Glycol 3350 (Polyethylene Glycol 3350) 17 Gm Powd.pack, 17 GM PO DAILY PRN for CONSTIPATION-2ND LINE, (Reported) Entered as Reported by: MARIAH PRIETO on 01/05/19 09 Potassium Chloride (K-Tab ER) 10 Meq Tablet.er, 10 MEQ PO DAILY, (Reported) Entered as Reported by: BETTINA JONES on 12/20/21950 Pravastatin Sodium (Pravastatin Sodium) 20 Mg Tablet, 20 MG PO HS, (Reported) Entered as Reported by: SAAD SEXTON on 12/05/18 1202 Ropinirole HCl (Ropinirole HCl) 1 Mg Tablet, 1 MG PO TID, (Reported) Entered as Reported by: BETTINA JONES on 07/08/19 0842 Sertraline HCl (Sertraline HCl) 100 Mg Tablet, 100 MG PO DAILY, (Reported) Entered as Reported by: LINNETTE WOODRUFF on 07/06/19 0455 Tramadol HCl (Tramadol HCl) 50 Mg Tablet, 50 MG PO Q6H PRN for PAIN-MODERATE, (Reported) Entered as Reported by: SAAD SEXTON on 01/07/19 0942 Review of Systems Review of Systems Constitutional: No chills, No fever Respiratory: No cough, No short of breath Cardiovascular: No chest pain, No edema, No palpitations Gastrointestinal: No abdominal pain, No constipation, No diarrhea, No nausea, No vomiting Genitourinary: No dysuria, No frequency Musculoskeletal: No joint pain, No muscle pain Skin: No pruritus, No rash Psychiatric/Neurological: Denies Headache, Denies Numbness; Other (confused) (VENANCIO JONES MED STUDENT) Constitutional: fever (Noted at senior care but not here) Respiratory: No cough, No short of breath; other (Question of mild hypoxia earlier but improved with 1 L O2 elevation above her typical 2 L via nasal cannula. This is per EMS. Normal oxygen saturation currently.) (YOLY MARCOS MD) All Other Systems Reviewed Negative Unless Noted: Yes (Poor historian overall but denies other complaints.) (YOLY MARCOS MD) Past Futsuim-Dqzkkn-Icjurm Hx Patient Social History Tobacco Use?: No Substance use?: No Alcohol Use?: No (YOLY MARCOS MD) Seasonal Allergies Seasonal Allergies: No (VENANCIO JONES STUDENT) Past Medical History Surgery/Hospitalization HX: Alzheimer's, Anxiety, Parox. 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, GERD, Hypotension, Edema, Surgeries: Yes Orthopedic Respiratory: No Cardiac: Yes Atrial Fibrillation, High Cholesterol, Hypertension Neurological: Yes Neuropathy Genitourinary: Yes Bladder Infection Gastrointestinal: Yes Gastroesophageal Reflux, Chronic Constipation Musculoskeletal: Yes Arthritis Endocrine: No HEENT: No Cancer: No Psychosocial: No Integumentary: No Blood Disorders: No (VENANCIO JONES Possible Web STUDENT) Family Medical History Reviewed Nursing Family Hx (YOLY MARCOS MD) Genitourinary system disorder Hypertension (VENANCIO JONES Possible Web STUDENT) Physical Exam-Suspected Sepsis Physical Exam Vital Signs Vital Signs - First Documented 12/29/21 10:20 Temp 36.2 Pulse 90 Resp 20 B/P (MAP) 140/97 (111) Pulse Ox 94 O2 Delivery Nasal Cannula O2 Flow Rate 4.00 (YOLY MARCOS MD) Vital Signs Capillary Refill : (VENANCIO JONES Possible Web STUDENT) Height, Weight, BMI Height: 5'7.00" Weight: 209lbs. 7.0oz. 94.547123sj; 26.01 BMI Method:Stated General Appearance: No Apparent Distress, Anxious, Other (Confused) Eyes: Bilateral Eye PERRL, Bilateral Eye EOMI Respiratory: Chest Non Tender, Lungs Clear, Normal Breath Sounds, No Accessory Muscle Use, No Respiratory Distress Cardiovascular: Regular Rate, Rhythm, No Edema, No Murmur, Normal Peripheral Pulses Gastrointestinal: Non Tender, Soft, Abnormal Bowel Sounds (decreased) Extremity: Non Tender, No Calf Tenderness, No Pedal Edema Neurologic/Psychiatric: Alert, Other (Oriented x1) Skin: normal color, warm/dry (VENANCIO JONES Possible Web STUDENT) General Appearance: No Apparent Distress, Other (Pleasantly confused without distress. Chronic dementia and contractures) HEENT: PERRL/EOMI, Other (Mucous membranes dry) Neck: Non Tender; No Lymphadenopathy (L), No Lymphadenopathy (R) Respiratory: Lungs Clear, Crackles (few crackles bilaterally without wheezes); No Wheezing Cardiovascular: Regular Rate, Rhythm, No Murmur Gastrointestinal: No Organomegaly, Non Tender, Soft; No Guarding, No Rebound Extremity: Non Tender, Pedal Edema (Mild bilateral pedal edema) Neurologic/Psychiatric: Alert, Other (Oriented x1. Answers a few questions and follows simple commands. Has contracture deficit to all 4 extremities) Skin: normal color, warm/dry (YOLY MARCOS MD) Focused Exam Lactate Level 12/29/21 10:10: Lactic Acid Level 1.46 (YOLY MARCOS MD) Lactic Acid Level Laboratory Tests Test 12/29/21 10:10 Lactic Acid Level 1.46 MMOL/L (0.50-2.00) (YOLY MARCOS MD) Progress/Results/Core Measures Suspected Sepsis SIRS Temperature: Pulse: Respiratory Rate: Laboratory Tests 12/29/21 10:10: White Blood Count 9.8 Blood Pressure / Mean: 12/29/21 10:10: Lactic Acid Level 1.46 Laboratory Tests 12/29/21 10:10: Creatinine 0.65, INR Comment 1.1, Platelet Count 203, Total Bilirubin 0.3 (VENANCIO JONES MED STUDENT) Results/Orders Lab Results Laboratory Tests Test 12/29/21 10:10 12/29/21 10:31 Range/Units White Blood Count 9.8 4.3-11.0 10^3/uL Red Blood Count 3.57 L 3.80-5.11 10^6/uL Hemoglobin 9.3 L 11.5-16.0 g/dL Hematocrit 32 L 35-52 % Mean Corpuscular Volume 89 80-99 fL Mean Corpuscular Hemoglobin 26 25-34 pg Mean Corpuscular Hemoglobin Concent 29 L 32-36 g/dL Red Cell Distribution Width 18.8 H 10.0-14.5 % Platelet Count 203 130-400 10^3/uL Mean Platelet Volume 10.5 9.0-12.2 fL Immature Granulocyte % (Auto) 1 % Neutrophils (%) (Auto) 81 H 42-75 % Lymphocytes (%) (Auto) 11 L 12-44 % Monocytes (%) (Auto) 7 0-12 % Eosinophils (%) (Auto) 0 0-10 % Basophils (%) (Auto) 1 0-10 % Neutrophils # (Auto) 7.9 H 1.8-7.8 10^3/uL Lymphocytes # (Auto) 1.0 1.0-4.0 10^3/uL Monocytes # (Auto) 0.6 0.0-1.0 10^3/uL Eosinophils # (Auto) 0.0 0.0-0.3 10^3/uL Basophils # (Auto) 0.1 0.0-0.1 10^3/uL Immature Granulocyte # (Auto) 0.1 0.0-0.1 10^3/uL Prothrombin Time 15.0 H 12.2-14.7 SEC INR Comment 1.1 0.8-1.4 Activated Partial Thromboplast Time 28 24-35 SEC Sodium Level 148 H 135-145 MMOL/L Potassium Level 4.3 3.6-5.0 MMOL/L Chloride Level 108 H 98-107 MMOL/L Carbon Dioxide Level 29 21-32 MMOL/L Anion Gap 11 5-14 MMOL/L Blood Urea Nitrogen 17 7-18 MG/DL Creatinine 0.65 0.60-1.30 MG/DL Estimat Glomerular Filtration Rate 84 BUN/Creatinine Ratio 26 Glucose Level 78 70-105 MG/DL Lactic Acid Level 1.46 0.50-2.00 MMOL/L Calcium Level 9.0 8.5-10.1 MG/DL Corrected Calcium 9.5 8.5-10.1 MG/DL Total Bilirubin 0.3 0.1-1.0 MG/DL Aspartate Amino Transf (AST/SGOT) 24 5-34 U/L Alanine Aminotransferase (ALT/SGPT) 12 0-55 U/L Alkaline Phosphatase 74 40-136 U/L Troponin I < 0.30 <0.30 NG/ML Total Protein 7.1 6.4-8.2 GM/DL Albumin 3.4 3.2-4.5 GM/DL Urine Color YELLOW Urine Clarity CLEAR Urine pH 6.0 5-9 Urine Specific [place] 1.025 H 1.016-1.022 Urine Protein TRACE H NEGATIVE Urine Glucose (UA) NEGATIVE NEGATIVE Urine Ketones NEGATIVE NEGATIVE Urine Nitrite NEGATIVE NEGATIVE Urine Bilirubin NEGATIVE NEGATIVE Urine Urobilinogen 0.2 < = 1.0 MG/DL Urine Leukocyte Esterase NEGATIVE NEGATIVE Urine RBC (Auto) NEGATIVE NEGATIVE Urine RBC 0-2 /HPF Urine WBC 0-2 /HPF Urine Squamous Epithelial Cells 0-2 /HPF Urine Crystals NONE /LPF Urine Bacteria NEGATIVE /HPF Urine Casts PRESENT /LPF Urine Hyaline Casts 5-10 H /LPF Urine Mucus SMALL H /LPF Urine Culture Indicated CULTURE PENDING (YOLY MARCOS MD) My Orders Orders - YOLY MARCOS MD Cbc With Automated Diff (12/29/21 10:13) Comprehensive Metabolic Panel (12/29/21 10:13) Blood Culture (12/29/21 10:13) Sputum Culture (12/29/21 10:13) Urinalysis (12/29/21 10:13) Urine Culture (12/29/21 10:13) Protime With Inr (12/29/21 10:13) Partial Thromboplastin Time (12/29/21 10:13) Chest 1 View Ap/Pa Only (12/29/21 10:13) Ed Iv/Invasive Line Start (12/29/21 10:13) Ed Iv/Invasive Line Start (12/29/21 10:13) Ekg Tracing (12/29/21 10:13) Troponin I Tatyana (12/29/21 10:13) Vital Signs Adult Sepsis Patie Q15M (12/29/21 10:13) O2 (12/29/21 10:13) Remove Rings In Anticipation O (12/29/21 10:13) Lactic Acid Analyzer (12/29/21 10:13) Troponin I Fs (12/29/21 10:17) Ns Iv 500 Ml (Sodium Chloride 0.9%) (12/29/21 11:00) (YOLY MARCOS MD) Medications Given in ED Current Medications Medications Dose Ordered Sig/Liz Route Start Time Stop Time Status Last Admin Dose Admin Sodium Chloride 500 ml @ 0 mls/hr Q0M ONCE IV 12/29/21 11:00 12/29/21 11:01 DC 12/29/21 11:01 500 MLS/HR (YOLY MARCOS MD) Vital Signs/I&O 12/29/21 12/29/21 12/29/21 12/29/21 10:20 10:20 10:34 11:09 Temp 36.2 36.4 Pulse 90 58 Resp 20 18 B/P (MAP) 140/97 (111) 131/93 Pulse Ox 94 94 98 O2 Delivery Nasal Cannula Nasal Cannula Nasal Cannula Nasal Cannula O2 Flow Rate 4.00 4.00 2.00 (YOLY MARCOS MD) Vital Signs/I&O Capillary Refill : (VENANCIO JONES MED STUDENT) Progress Note : Time: 10:20 Progress Note Working up patient for suspected sepsis. She has alzheimers at baseline. Is flu and covid vaccinated. Other than Fever and O2 requirements senior care did not have other concerns. Pt not able to reliably state whether she has had respiratory or urinary symptoms that might be source of infection. Currently in the ED her vitals are HR82 BP151/87 O295% on 4L. She was afebrile at the alondra of arrival. 1049: Urine resulted, negative for bacteria and nitrites. CXR largely unchanged from 12/17 which showed areas of atelectasis or infiltrate in both ba ses with clear upper lobes. CBC negative for leukocytosis and shows a stable chronic anemia of 9.4 at baseline. 1053: CMP significant for Na148, this appears to be chronic for her going back to october 2020. Will start 500mL Normal saline at this time. 1103: Vitals are stable, is on 2L while sleeping and at 99%. No source of infection found and no elevated Lactate. Will be able to discharge back to senior care after fluids. (VENANCIO JONES MED STUDENT) Progress Note : Progress Note I have seen and evaluated the patient and agree with above except as indicated. I have directed the plan of care. Patient is here with report of low-grade fever and increasing oxygen requirement at the senior care. EMS did not find fever on their arrival and O2 saturation improved with slight increase in O2 from 2 L to 3 L via nasal cannula. Patient is vaccinated for Covid and influenza. She is denying cough, shortness of breath or problems urinating. No other reports from senior care of deficit or decline outside of her normal. She is well-known to nursing here. Evaluation as above. We will initiate sepsis order set given report of fever and hypoxia from the senior care. Monitor patient. 1100: We have added normal saline 500 mL bolus as she does appear to be a little dry given findings of UA and chemistry. She is currently on 2 L O2 via nasal cannula that is directed towards the mouth as she has mostly mouth breathing. She is responding to me and is afebrile. Labs have been reviewed as well as chest x-ray which showed no acute findings of infectious process currently. No indication for admission. I discussed this with the patient and discussed return to the senior care which she states that she agrees with. Slides are complete, we will transfer back to senior care via ambulance that she has oxygen requirements and severe contractures that would not allow her to sit in a wheelchair. (YOLY MARCOS MD) ECG Initial ECG Impression Date: Dec 29, 2021 Initial ECG Impression Time: 10:22 Initial ECG Rate: 77 Initial ECG Rhythm: Normal Sinus Comment Sinus rhythm with artifact. First-degree AV block. Left axis deviation. No evidence of ST elevation [place]. Similar to previous of 12/18/2021. Interpreted by me. (YOLY MARCOS MD) Diagnostic Imaging Diagonstic Imaging: Xray Plain Films/CT/US/NM/MRI: chest Comments [facility] [place], [place] NAME: SUELLEN CORONA [facility] REC#: [id number] PT STATUS: REG ER : 1932 PHYSICIAN: YOLY MARCOS MD ADMIT DATE: 12/29/21/ER FS Draft Date of Exam:12/29/21 CHEST 1 VIEW AP/PA ONLY INDICATION: Shortness of air and fever. TIME OF EXAM: 10:34 AM. COMPARISON: 12/17/2021. FINDINGS: The heart remains enlarged. There continue to be areas of atelectasis or infiltrate in both bases. The mid and upper lung krishnamurthy are clear. There is no pneumothorax identified. IMPRESSION: Stable appearance of the chest since the exam from 12/17/2021. Dictated on workstation # [id number] Dict: 12/29/21 1042 Trans: 12/29/21 1045 [id number] Interpreted by: ANEUDY CARDENAS MD Electronically signed by: (YOLY MARCOS MD) Departure Impression Primary Impression: Dehydration Disposition: 01 HOME, SELF-CARE Condition: Stable Departure-Patient Inst. Decision time for Depature: 11:19 (YOLY MARCOS MD) Referrals: JON RIVAS MD (PCP/Family) Primary Care Physician Patient Instructions: Dehydration, Adult (DC) Add. Discharge Instructions: Evaluation today did not indicate any indication of infection including pneumon ia or urinary tract infection. It does appear that you are slightly dehydrated. Continue home medications as previously prescribed. Follow-up with your doctor in a few days for recheck. Continue prescribed diet. Return for worse pain, fever, vomiting, weakness, breathing problems or other concerns as needed. Copy Copies To 1: JON RIVAS MD, DEREK MED STUDENT Dec 29, 2021 10:14 YOLY MARCOS MD Dec 29, 2021 11:13
[2021-12-29 10:31] LABS: BASOPHILS # (AUTO) 0.1 10^3/uL (0.0-0.1); BASOPHILS % (AUTO) 1 % (0-10); EOSINOPHILS % (AUTO) 0 % (0-10); HEMATOCRIT 32 % (35-52); HEMOGLOBIN 9.3 g/dL (11.5-16.0); LYMPHOCYTES % (AUTO) 11 % (12-44); MEAN CORPUSCULAR HEMOGLOBIN 26 pg (25-34); MEAN CORPUSCULAR HGB CONC 29 g/dL (32-36); MEAN CORPUSCULAR VOLUME 89 fL (80-99); MEAN PLATELET VOLUME 10.5 fL (9.0-12.2); MONOCYTES # (AUTO) 0.6 10^3/uL (0.0-1.0); MONOCYTES % (AUTO) 7 % (0-12); NEUTROPHILS # (AUTO) 7.9 10^3/uL (1.8-7.8); NEUTROPHILS % (AUTO) 81 % (42-75); PLATELET COUNT 203 10^3/uL (130-400); WHITE BLOOD COUNT 9.8 10^3/uL (4.3-11.0)
[2021-12-29 10:34] LABS: INR 1.1 (0.8-1.4)
[2021-12-29 10:41] LABS: BILIRUBIN,URINE NEGATIVE (NEGATIVE); CLARITY,URINE CLEAR; COLOR,URINE YELLOW; GLUCOSE, URINE (UA) NEGATIVE (NEGATIVE); KETONES,URINE NEGATIVE (NEGATIVE); LEUKOCYTE ESTERASE ,URINE NEGATIVE (NEGATIVE); NITRITE,URINE NEGATIVE (NEGATIVE); PROTEIN,URINE TRACE (NEGATIVE)
--- NOTE | 2021-12-29 10:45 | Diagnostic Imaging Report ---
INDICATION: Shortness of air and fever. TIME OF EXAM: 10:34 AM. COMPARISON: 12/17/2021. FINDINGS: The heart remains enlarged. There continue to be areas of atelectasis or infiltrate in both bases. The mid and upper lung krishnamurthy are clear. There is no pneumothorax identified. IMPRESSION: Stable appearance of the chest since the exam from 12/17/2021. Dictated by: Dictated on workstation # [id number]
[2021-12-29 10:46] LABS: BACTERIA,URINE NEGATIVE /HPF; RBC,URINE 0-2 /HPF; SQUAMOUS EPITHELIAL CELL,UR 0-2 /HPF; WBC,URINE 0-2 /HPF
[2021-12-29 10:49] LABS: BILIRUBIN,TOTAL 0.3 MG/DL (0.1-1.0); BUN/CREATININE RATIO 26; CARBON DIOXIDE 29 MMOL/L (21-32); CHLORIDE 108 MMOL/L (98-107); CREATININE SERUM 0.65 MG/DL (0.60-1.30); GFR ESTIMATED 84; GLUCOSE 78 MG/DL (70-105); POTASSIUM 4.3 MMOL/L (3.6-5.0); SODIUM 148 MMOL/L (135-145)
[2021-12-29 10:50] LABS: ALANINE AMINOTRANSFERASE 12 U/L (0-55); ALBUMIN 3.4 GM/DL (3.2-4.5); ALKALINE PHOSPHATASE 74 U/L (40-136); TOTAL PROTEIN 7.1 GM/DL (6.4-8.2)
[2021-12-29] MEDS ORDERED: NS IV 500 ML 500 ML IV ONE (11:00)
[2021-12-29 11:54] VITALS: BP 131/64
== END 2021-12-29 11:55 | disposition home or self-care (01) ==
LOC: EDUNIT# 10:06 → ER FS 10:07
DX: E86.0 Dehydration (principal)
CPT/HCPCS: 36415; 51702; 71045; 80053; 81000; 83605; 84484; 85025; 85610; 85730; 87040; 87088; 93005